=== PATIENT | male | born 1960 | race Caucasian/White ===

== ENCOUNTER 2020-05-22 09:52 | Outpatient (REF) | payer OTHER, SELFPAY | END 2020-05-22 09:53 | disposition home or self-care (01) | LOC: HO.LNP 09:52 | PROVIDERS: PCP Internal Medicine; Visit Provider Surgery | DX: D17.1 Benign lipomatous neoplasm of skin and subcutaneous tissue of trunk (principal) | CPT/HCPCS: 11403; 88304 ==

== ENCOUNTER → 2020-05-25 08:45 | Outpatient (BNVA) | payer OTHER, SELFPAY | PROVIDERS: PCP Internal Medicine; Visit Provider Orthopaedic Surgery | DX: Z47.1 Aftercare following joint replacement surgery (principal); Z96.652 Presence of left artificial knee joint | CPT/HCPCS: 99211; 99213 ==

== ENCOUNTER → 2020-06-02 08:58 | Outpatient (BNVA) | payer OTHER, SELFPAY | PROVIDERS: PCP Internal Medicine; Referring Provider Internal Medicine; Visit Provider Surgery | DX: Z09 Encounter for follow-up examination after completed treatment for conditions other than malignant neoplasm (principal); Z87.2 Personal history of diseases of the skin and subcutaneous tissue | CPT/HCPCS: 99212; 99213 ==

== ENCOUNTER 2020-06-05 07:24 | Emergency (ER) | payer OTHER, SELFPAY ==
[2020-06-05 07:47] VITALS: BP 159/90; PULSE 74; RESP 18; TEMP 36.6; O2SAT 96; BMI 30.5
--- NOTE | 2020-06-05 08:41 | CT_ITS ---
EXAMINATION: CT ANGIOGRAM NECK WITH CONTRAST CT ANGIOGRAM BRAIN WITH CONTRAST CLINICAL INFORMATION: Right-sided neck pain/atraumatic. COMPARISON: None available. TECHNIQUE: Test bolus sequences followed by intravenous administration 80 mL of Omnipaque 350. Helical imaging was performed in the axial plane from the thoracic inlet to the skull vertex. Delayed postcontrast imaging of the head was also performed. The data was processed at the cardiac cath lab radiology technologist workstation for generation of MIP sequences. Angled MIPs and volume rendered reformatted images were also generated at an offline 3D workstation under concurrent supervision. Stenoses are assessed in accordance with NASCET criteria unless otherwise indicated. This CT examination was performed using dose optimization techniques as appropriate, variously including the following: *Automated exposure control *Adjustment of mA and/or kV according to patient size (this includes techniques or standardized protocols for targeted exams where dose is matched to indication/reason for exam; i.e. extremities or head) *Use of iterative reconstruction technique FINDINGS: BRAIN: [There is no intracranial hemorrhage, hydrocephalus, extra-axial surface collection, midline shift, or other herniation pattern. Diallo to white matter differentiation is diffusely maintained without evidence of an evolved acute territorial infarct. The basilar cisterns are preserved. No significant soft tissue abnormality. No acute osseous abnormality. The paranasal sinuses and the mastoid air cells are well aerated.] CERVICAL SOFT TISSUES AND LUNG APICES: Advanced degenerative changes involving the left sternoclavicular joint. At C7-T1, disc osteophyte and advanced facet arthropathy result in moderate to severe right-sided foraminal stenosis. At C5-C6, disc osteophyte and facet arthropathy result in moderate right-sided foraminal stenosis. Central canal is obscured by artifact and not well assessed on this CT study. There is multilevel cervical spondylosis. 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 NECK CTA: [There is a classic 3 vessel configuration of the aortic arch. Proximal arch vessels are non-stenotic. The vertebral arteries are codominant. No significant ostial stenosis is visualized on either side. Both vertebral arteries are widely patent throughout their extracranial cervical course. Both common and internal carotid arteries are normal in course and caliber.] BRAIN CTA: [There is normal opacification of major intracranial arteries. No focal flow-limiting stenosis nor discrete proximal large artery occlusion. No aneurysm. Timing of the contrast bolus allows assessment of the major dural venous sinuses, which all opacify normally] IMPRESSION: No acute intracranial findings. No acute arterial occlusions and no significant arterial stenoses within the head or neck. At C7-T1, disc osteophyte and advanced facet arthropathy result in moderate to severe right-sided foraminal stenosis. At C5-C6, disc osteophyte and facet arthropathy result in moderate right-sided foraminal stenosis. Central canal is obscured by artifact and not well assessed on this CT study. Advanced degenerative changes involving the left sternoclavicular joint.
--- NOTE | 2020-06-05 08:41 | ED_ITS ---
HPI - Neck Pain/Injury General Chief Complaint: Neck Pain/Injury Stated Complaint: NECK SPASM Time Seen by Provider: 06/05/20 08:16 Source: patient Mode of arrival: ambulatory Limitations: no limitations History of Present Illness HPI Narrative: 59-year-old male with a past medical history of high cholesterol, hypertension, atrial fibrillation, BPH here with neck pain since yesterday. The patient tells me there was no injury or trauma. He woke yesterday with right-sided neck pain and throughout the last 24 hours the pain has continued unrelieved with Tylenol home. No headache, fever, vomiting, weakness, numbness or tingling. MD complaint: neck pain Onset (ago): day(s) (2 days) Place: other ( no injury) Radiation: right lateral Severity: moderate Quality: sharp Duration: intermittent Relieving factors: none Exacerbating factors: none Associated symptoms: none Treatments prior to arrival: acetaminophen Related Data Home Medications Medication Instructions Recorded Confirmed desmopressin 0.2 mg tablet 0.2 mg PO DAILY 05/18/20 05/23/20 diltiazem HCl 180 mg 180 mg PO DAILY 05/18/20 05/23/20 capsule,extended release 24 hr lisinopril 10 mg tablet 10 mg PO DAILY 05/18/20 05/23/20 ranitidine HCl 300 mg capsule mg PO 05/18/20 05/23/20 simvastatin 40 mg tablet 40 mg PO BEDTIME 05/18/20 05/23/20 diltiazem HCl 180 mg 180 mg PO DAILY 05/23/20 05/23/20 capsule,extended release 24 hr aspirin 81 mg chewable tablet 81 mg PO DAILY 05/25/20 Allergies Allergy/AdvReac Type Severity Reaction Status Date / Time ciprofloxacin [From CIPRO] Allergy Intermediate SWELLING Verified 06/02/20 09:06 levofloxacin [Levaquin] Allergy Unknown facial Verified 06/02/20 09:06 swelling Review of Systems Review of Systems: Yes all other systems are reviewed and are negative Constitutional: Constitutional: Reports no additional constitutional complain ts, Denies body ache(s), Denies chills, Denies fever(s), Denies headache(s) and Denies weakness Eyes: Eyes: Reports no additional eye complaints and Denies change in vision ENT: Reports system reviewed and no additional complaints, except as documented, Denies dizziness, Denies headache(s), Denies nasal congestion, Denies nasal discharge and Reports neck pain Cardiovascular: Cardiovascular: Reports no additional cardiovascular complaints, Denies chest pain, Denies leg edema and Denies dyspnea Respiratory: Respiratory: Reports no additional respiratory complaints, Denies cough and Denies dyspnea Gastrointestinal: Gastrointestinal: Reports no additional gastrointestinal complaints, Denies abdominal pain, Denies diarrhea, Denies nausea and Denies vomiting Genitourinary: Genitourinary: Denies urinary incontinence Musculoskeletal: Musculoskeletal: Reports no additional musculoskeletal complaints, Denies back pain, Denies arthralgias, Denies joint swelling, Reports neck pain, Denies numbness and Denies tingling Integumentary/Breasts: Skin/Breast: Reports system reviewed and no additional complaints, except as docu and Denies rash Neurologic: Reports system reviewed and no additional complaints, except as documented, Denies Abnormal speech present, Denies dizziness, Denies headache(s), Denies numbness, Denies tingling and Denies weakness PMFSH Past Medical History Attestation statement: The following information was validated with the patient. Source: nursing notes reviewed Medical History BPH (benign prostatic hyperplasia) Chronic pain Essential hypertension GERD (gastroesophageal reflux disease) Gout Hyperlipidemia PAF (paroxysmal atrial fibrillation) Surgical History History of appendectomy History of arthroplasty of left knee History of arthroplasty of right shoulder History of arthroscopy of left knee History of arthroscopy of right knee History of prior ablation treatment History of prostate surgery Family History Family History Father No problems noted. Mother No problems noted. Son No problems noted. Social History Social History Alcohol intake: former Year quit: 2010 Smoking Status: Never smoker Substance Use Type: Marijuana Advance Directives: No Advance Directives Information Provided: Yes Physical Exam Vital Signs: Vital Signs: Vital Signs Temp Pulse Resp BP Pulse Ox 06/05/20 07:47 98 F 74 18 159/90 H 96 Body Mass Index 30.5 Const: General: cooperative, healthy appearing, comfortable and no acute distress Orientation/consciousness: patient oriented x3 Limitations: no limitations HENMT: Head: Yes normal to inspection Ears: hearing grossly normal bilaterally General nose exam: Normal external nose present Face and sinus: Yes normal facial exam Mouth: Normal oral and palatal mucosa present Throat: Yes posterior oropharynx normal Eyes: General: appearance normal, both eyes and all related structures Pupils: Equal, round and reactive pupils present Neck: Other: right lateral neck pain with radiation down into the trapezius with palpable muscle spasm. No midline tenderness, step-offs or deformities. Pain is worsened with right and left lateral head movement. No meningeal signs. No lymphadenopathy. Neck: Yes normal visual inspection Chest: Chest palpation & inspection: normal inspection of the chest Resp: Effort & Inspection: normal respiratory effort Auscultation: clear to auscultation bilaterally Cardio: Rate: regular rate Rhythm: regular rhythm Peripheral pulses: Peripheral pulses 2+ throughout GI: Inspection: Yes normal to inspection Palpation (GI): Soft to palpation and nontender Auscultation: normal bowel sounds Back/Spine/Pelvis: Thoracic/Lumbar Spine: thoracic and lumbar spine normal to inspection Skin: General skin exam: no rashes or lesions noted Neuro: General: patient oriented x3, no focal motor deficits and normal sensation to monofilament Cranial nerves: Yes CN's II-XII intact bilaterally and Yes Equal, round and reactive pupils present Cognition (Neuro): normal cognition Speech: No Abnormal speech present Gait exam (Neuro): Normal gait present Motor exam (neuro): 5/5 motor strength present throughout and Motor abnormalities not present Sensory Exam: Normal double simultaneous stimulation for sensation Extrem: General: Yes normal to inspection MDM - Neck Pain/Injury MDM Narrative Medical decision making narrative: 59-year-old male here with atraumatic neck pain for the last 24 hours. Exam is consistent with torticollis versus muscle spasm. Discharge Plan Discharge Prescriptions: No Action diltiazem HCl [Cartia XT] 180 mg capsule,extended release 24hr 180 mg PO DAILY RF: 0 simvastatin 40 mg tablet 40 mg PO BEDTIME RF: 0 desmopressin 0.2 mg tablet 0.2 mg PO DAILY RF: 0 lisinopril 10 mg tablet 10 mg PO DAILY RF: 0 diltiazem HCl 180 mg capsule,extended release 24hr 180 mg PO DAILY RF: 0 ranitidine HCl 300 mg capsule PO RF: 0
--- NOTE | 2020-06-05 08:43 | ED.NECK ---
HPI - Neck Pain/Injury General Chief Complaint: Neck Pain/Injury Stated Complaint: NECK SPASM Time Seen by Provider: 06/05/20 08:16 Source: patient Mode of arrival: ambulatory Limitations: no limitations History of Present Illness HPI Narrative: 59 YEARS OLD MALE PRESENTED AMBULATORY TO THE EMERGENCY DEPARTMENT WITH THE CHIEF COMPLAINT OF THE RIGHT SIDE NECK PAIN, NO TRAUMA, NO FEVER SYMPTOMS STARTED LAST NIGHT HE TOOK SOME ACETAMINOPHEN WITHOUT THE RELIEVE complaint: neck pain Onset (ago): day(s) (1 DAY) Place: home Radiation: right lateral Severity: moderate Severity scale (1-10): 5 Quality: sharp and dull Duration: constant Relieving factors: none Exacerbating factors: none Associated symptoms: none Related Data Home Medications Medication Instructions Recorded Confirmed desmopressin 0.2 mg tablet 0.2 mg PO DAILY 05/18/20 05/23/20 diltiazem HCl 180 mg 180 mg PO DAILY 05/18/20 05/23/20 capsule,extended release 24 hr lisinopril 10 mg tablet 10 mg PO DAILY 05/18/20 05/23/20 ranitidine HCl 300 mg capsule mg PO 05/18/20 05/23/20 simvastatin 40 mg tablet 40 mg PO BEDTIME 05/18/20 05/23/20 diltiazem HCl 180 mg 180 mg PO DAILY 05/23/20 05/23/20 capsule,extended release 24 hr aspirin 81 mg chewable tablet 81 mg PO DAILY 05/25/20 Previous Rx's Medication Instructions Recorded oxycodone 10 mg PO Q8H PRN #12 cap 06/05/20 Allergies Allergy/AdvReac Type Severity Reaction Status Date / Time ciprofloxacin [From CIPRO] Allergy Intermediate SWELLING Verified 06/02/20 09:06 levofloxacin [Levaquin] Allergy Unknown facial Verified 06/02/20 09:06 swelling Review of Systems Review of Systems: Yes all other systems are reviewed and are negative ENT: Reports system reviewed and no additional complaints, except as documented Cardiovascular: Cardiovascular: Reports no additional cardiovascular complaints Respiratory: Respiratory: Reports no additional respiratory complaints Gastrointestinal: Gastrointestinal: Reports no additional gastrointestinal complaints [facility] Past Medical History Attestation statement: The following information was validated with the patient. Medical History BPH (benign prostatic hyperplasia) Chronic pain Essential hypertension GERD (gastroesophageal reflux disease) Gout Hyperlipidemia PAF (paroxysmal atrial fibrillation) Surgical History History of appendectomy History of arthroplasty of left knee History of arthroplasty of right shoulder History of arthroscopy of left knee History of arthroscopy of right knee History of prior ablation treatment History of prostate surgery Family History Family History Father No problems noted. Mother No problems noted. Son No problems noted. Social History Social History Alcohol intake: former Year quit: 2010 Smoking Status: Never smoker Substance Use Type: Marijuana Advance Directives: No Advance Directives Information Provided: Yes Physical Exam Vital Signs: Vital Signs: Vital Signs Temp Pulse Resp BP Pulse Ox 06/05/20 10:27 66 18 123/81 96 06/05/20 07:47 98 F 74 18 159/90 H 96 Body Mass Index 30.5 Const: General: healthy appearing and comfortable Orientation/consciousness: oriented to person HENMT: Head: Yes normal to inspection Eyes: General: appearance normal, both eyes and all related structures Neck: Neck: Yes normal visual inspection and Yes other ( RIGHT-SIDED TENDERNESS NO MIDLINE TENDERNESS) Thyroid: Thyroid normal Chest: Chest palpation & inspection: normal inspection of the chest and normal palpation of entire chest wall Resp: Effort & Inspection: normal respiratory effort and able to speak in complete sentences Cardio: Jugular venous distension: no JVD Palpation: normal PMI GI: Inspection: Yes normal to inspection Skin: General skin exam: no rashes or lesions noted and elasticity normal Neuro: General: oriented to person Extrem: General: Yes normal to inspection and Yes full ROM Course Reevaluation(s) Reevaluation #1: at THIS TIME IS FEELING BETTER CT SCAN OF THE NECK HAD A NEGATIVE Time: 11:53 [facility] - Neck Pain/Injury Lab Data Result diagrams: 06/05/20 09:29 06/05/20 09:29 Labs: Lab Results 06/05/20 06/05/20 06/05/20 Range/Units 09:29 09:29 09:29 WBC 9.2 (4.8-10.8) X10*3/uL RBC 4.90 (4.60-5.80) X10*6/uL Hgb 14.3 (14.0-18.0) g/dl Hct 42.7 (42-52) % MCV 87.1 (80-98) fL MCH 29.2 (27.0-33.0) pg MCHC 33.5 (31.0-36.0) g/dl RDW 14.0 (11.0-16.0) % Plt Count 188 (160-400) X10*3/uL MPV 9.0 L (9.4-12.4) fL Immature Gran % (Auto) 0.2 (0.0-0.4) % Neut % (Auto) 76.4 H (45-73) % Lymph % (Auto) 16.7 L (20-40) % Benton % (Auto) 5.3 (2-11) % Eos % (Auto) 1.0 (0-4) % Baso % (Auto) 0.4 (0-2) % Lymph # (Auto) 1.5 (1.2-4.9) X10*3/uL Benton # (Auto) 0.5 (0.1-1.2) X10*3/uL Eos # (Auto) 0.1 (0.0-0.4) X10*3/uL Baso # (Auto) 0.0 (0.0-0.2) X10*3/uL Abs Immat Gran (auto) 0.02 (0.00-0.03) X10*3/uL Absolute Neuts (auto) 7.0 (2.0-8.3) X10*3/uL Absolute Nucleated RBC 0.000 (0.0-0.012) X10*3/uL Nucleated RBC % (auto) 0.0 (0.0-0.2) /100WBC Sodium 137 (135-145) mmol/L Potassium 4.4 (3.3-5.1) mmol/l Chloride 103 (96-108) mmol/L Carbon Dioxide 25 (22-29) mmol/L Anion Gap 13 (12-20) BUN 20 H (9-16) mg/dL Creatinine 0.74 (0.5-1.4) mg/dL Estim Creat Clear Calc 132.8 Estimated GFR > 60 Random Glucose 103 (60-115) mg/dL Calcium 9.3 (8.4-10.2) mg/dL Total Bilirubin 0.8 (0.0-1.0) mg/dL AST 27 (5-37) U/L ALT 27 (0-40) U/L Alkaline Phosphatase 70 (39-117) U/L Troponin I High Sens < 3.5 (<3.5-35.0) ng/L Total Protein 7.0 (6.5-8.0) g/dL Albumin 4.5 (3.5-5.0) g/dL Imaging Data CT scan - head: Radiologist's impression: [There is a classic 3 vessel configuration of the aortic arch. Proximal arch vessels are non-stenotic. The vertebral arteries are codominant. No significant ostial stenosis is visualized on either side. Both vertebral arteries are widely patent throughout their extracranial cervical course. Both common and internal carotid arteries are normal in course and caliber.] BRAIN CTA: [There is normal opacification of major intracranial arteries. No focal flow-limiting stenosis nor discrete proximal large artery occlusion. No aneurysm. Timing of the contrast bolus allows assessment of the major dural venous sinuses, which all opacify normally] IMPRESSION: No acute intracranial findings. No acute arterial occlusions and no significant arterial stenoses within the head or neck. At C7-T1, disc osteophyte and advanced facet arthropathy result in moderate to severe right-sided foraminal stenosis. At C5-C6, disc osteophyte and facet arthropathy result in moderate right-sided foraminal stenosis. Central canal is obscured by artifact and not well assessed on this CT study. Advanced degenerative changes involving the left sternoclavicular joint. ECG Data Attestation: I personally reviewed and interpreted this ECG as follows: ECG interpretation time: 10:19 Pacemaker model: NORMAL SINUS RHYTHM RATE IS [address]-T CHANGES Discharge Plan Discharge Clinical Impression: Neck pain, acute Patient Disposition: Home, Self-Care Instructions: Acute Neck Pain (ED) Additional Instructions: follow-up with your primary care physician on Monday, return if he worsens, numbness in the hands or legs, any concern Prescriptions: New oxycodone 5 mg capsule 10 mg PO Q8H PRN (Reason: pain) Qty: 12 RF: 0 No Action diltiazem HCl [Cartia XT] 180 mg capsule,extended release 24hr 180 mg PO DAILY RF: 0 simvastatin 40 mg tablet 40 mg PO BEDTIME RF: 0 desmopressin 0.2 mg tablet 0.2 mg PO DAILY RF: 0 lisinopril 10 mg tablet 10 mg PO DAILY RF: 0 diltiazem HCl 180 mg capsule,extended release 24hr 180 mg PO DAILY RF: 0 ranitidine HCl 300 mg capsule PO RF: 0 Interventions: ED Discharge Assessment Last Done: 06/05/20 12:55 Discharge Date/Time: 06/05/20 12:56
--- NOTE | 2020-06-05 08:46 | ECG_ITS ---
Test Reason : HEAD,NECK PAIN Blood Pressure : / mmHG Vent. Rate : 063 BPM Atrial Rate : 063 BPM P-R Int : 158 ms QRS Dur : 102 ms QT Int : 434 ms P-R-T Axes : 041 -13 037 degrees QTc Int : 444 ms Normal sinus rhythm Normal ECG When compared with ECG of 29-AUG-2019 12:34, No significant change was found Referred By: Angus Alexander Electronically Signed By:ELDER PEARSON MD
[2020-06-05] MEDS: Ketorolac Tromethamine 15 MG/ML VIAL IV (09:10)
[2020-06-05] MEDS: diazePAM 5 MG TABLET PO (09:10)
[2020-06-05 09:35] LABS: MANUAL DIFF FLAG NO
[2020-06-05 09:39] LABS: Basophils Percent Auto 0.4 % (0-2); Eosinophils Absolute Auto 0.1 X10*3/uL (0.0-0.4); Hematocrit 42.7 % (42-52); Hemoglobin 14.3 g/dl (14.0-18.0); Imm Gran Abs Auto 0.02 X10*3/uL (0.00-0.03); Imm Gran Pct Auto 0.2 % (0.0-0.4); Lymphocytes Absolute Auto 1.5 X10*3/uL (1.2-4.9); Lymphocytes Percent Auto 16.7 % (20-40); Mean Corpuscular HGB Conc 33.5 g/dl (31.0-36.0); Mean Corpuscular Hemoglobin 29.2 pg (27.0-33.0); Mean Corpuscular Volume 87.1 fL (80-98); Monocytes Absolute Auto 0.5 X10*3/uL (0.1-1.2); Monocytes Percent Auto 5.3 % (2-11); Neutrophils Percent Auto 76.4 % (45-73); Platelet Count 188 X10*3/uL (160-400); White Blood Count 9.2 X10*3/uL (4.8-10.8)
[2020-06-05 10:12] LABS: Alanine Aminotransferase 27 U/L (0-40); Albumin Level 4.5 g/dL (3.5-5.0); Alkaline Phosphatase 70 U/L (39-117); Anion Gap 13 (12-20); Aspartate Amino Transferase 27 U/L (5-37); Bilirubin Total 0.8 mg/dL (0.0-1.0); Blood Urea Nitrogen 20 mg/dL (9-16); Calcium 9.3 mg/dL (8.4-10.2); Carbon Dioxide 25 mmol/L (22-29); Chloride 103 mmol/L (96-108); Creatinine Clr Calc Pharmacy 132.8; Estimated Glomerular Filt Rate > 60; Glucose Random 103 mg/dL (60-115); Potassium 4.4 mmol/l (3.3-5.1); Sodium 137 mmol/L (135-145)
[2020-06-05 10:17] LABS: Troponin-I High Sensitivity < 3.5 ng/L (<3.5-35.0)
[2020-06-05 10:27] VITALS: BP 123/81; PULSE 66; RESP 18; O2SAT 96
[2020-06-05] MEDS: oxyCODONE HCl Immed Release 5 MG TABLET 10 MG PO (10:31)
[2020-06-05] MEDS: iohexoL 350 MG/ML 100 ML INFUS..BTL IV (11:13)
--- NOTE | 2020-06-05 11:26 | PC.NURSE ---
rESTING quietly. skin pwd. pain has improved. denies pain at rest but increases with movement. awaiting ct results. nki noneuro deficits.
== END 2020-06-05 12:56 | disposition home or self-care (01) ==
PROVIDERS: Emergency Provider Emergency Medicine; PCP Internal Medicine
DX: M54.2 Cervicalgia (principal); M62.838 Other muscle spasm; Z79.899 Other long term (current) drug therapy
CPT/HCPCS: 36415; 70496; 70498; 80053; 84484; 85025; 93005; 96372; 96374; 99284; J1885

== ENCOUNTER → 2020-08-12 10:30 | Outpatient (BNVA) | payer OTHER, SELFPAY | PROVIDERS: PCP Internal Medicine; Visit Provider Urology | DX: Z76.89 Persons encountering health services in other specified circumstances (principal) ==

== ENCOUNTER 2020-09-14 03:54 | Emergency (ER) | payer OTHER, SELFPAY ==
--- NOTE | 2020-09-14 04:34 | PC.NURSE ---
MULTIPLE ATTEMPTS TO GET PATIENT INTO THE HOSPITAL, BROUGHT TO ROOM ON ARRIVAL BUT RAN FROM ROOM OUTSIDE, STATING HE CAN'T SIT IN A ROOM. REFUSING TO BE SEEN IF THE PROVIDER CAN NOT SEE HIM WITHOUT WAITING IN A ROOM. TALKING WITH PROVIDER WHO WILL DO HER BEST TO ACCOMMODATE PATIENT BUT HAVING THIS RN EXPLAIN THAT IT IS AN EMERGENCY DEPARTMENT AND THE PROVIDER CAN GET PULLED AWAY AT AN TIME FOR A CRITICAL PATIENT. PATIENT VERBALIZED UNDERSTANDING ALSO STATING HE WOULD FIND A RIDE HOME IF GIVEN MEDICATIONS THAT COULD MAKE HIM SLEEPY. CONTNIUED ATTEMPTS TO GET PATIENT IN THE BUILDING.
[2020-09-14 04:40] VITALS: RESP 24; TEMP 36.6; BMI 32.0
[2020-09-14 05:01] VITALS: BP 154/103; PULSE 70; RESP 24; O2SAT 98
--- NOTE | 2020-09-14 05:03 | ED.ANXIETY ---
HPI - Anxiety General Chief Complaint: Anxiety Stated Complaint: ANXIETY Time Seen by Provider: 09/14/20 04:03 Source: patient Mode of arrival: ambulatory Limitations: no limitations History of Present Illness complaint: anxiety Onset (ago): hour(s) (few) Symptoms: sense of impending doom Severity: similar to previous episodes Quality: constant Place: home History of similar episodes: Yes Provoking factors: none known Relieving factors: nothing Exacerbating factors: nothing Associated symptoms: denies other symptoms Related Data Home Medications Medication Instructions Recorded Confirmed desmopressin 0.2 mg tablet 0.2 mg PO DAILY 05/18/20 08/12/20 diltiazem HCl 180 mg 180 mg PO DAILY 05/18/20 08/12/20 capsule,extended release 24 hr lisinopril 10 mg tablet 10 mg PO DAILY 05/18/20 08/12/20 ranitidine HCl 300 mg capsule mg PO 05/18/20 08/12/20 simvastatin 40 mg tablet 40 mg PO BEDTIME 05/18/20 08/12/20 diltiazem HCl 180 mg 180 mg PO DAILY 05/23/20 08/12/20 capsule,extended release 24 hr aspirin 81 mg chewable tablet 81 mg PO DAILY 05/25/20 08/12/20 doxycycline hyclate 50 mg capsule 50 mg PO BID 08/12/20 08/12/20 Previous Rx's Medication Instructions Recorded oxycodone 10 mg PO Q8H PRN #12 cap 06/05/20 desmopressin 0.2 mg tablet 0.2 mg PO DAILY 90 Days #90 tab 08/11/20 testosterone cypionate 200 mg/mL 200 mg IM Q2W 30 Days #2 ml 09/01/20 intramuscular oil syringe with needle 3 mL 21 gauge #100 ea 09/02/20 x 1 1/2 lorazepam [Ativan] 1 mg PO BID PRN #8 tab 09/14/20 Allergies Allergy/AdvReac Type Severity Reaction Status Date / Time ciprofloxacin [From CIPRO] Allergy Intermediate SWELLING Verified 08/12/20 10:35 levofloxacin [Levaquin] Allergy Unknown facial Verified 08/12/20 10:35 swelling Review of Systems Review of Systems: Constitutional : No Fever, No Chills ENT/Mouth : No Ear Pain, No Nasal Congestion, No sore throat Eyes: No Eye Pain, No Swelling, No Redness Cardiovascular : No Chest Pain, No SOB Respiratory : No Cough, No Sputum, No Dyspnea Gastrointestinal : No Nausea, No Vomiting, No Diarrhea, No Hematochezia, No Melena Genitourinary : No Dysuria, No Urinary Frequency, No Hematuria Musculoskeletal : No Myalgias Skin : No Skin Lesions, No rash Neuro : No Weakness, No Numbness, No Paresthesias, No Dizziness, No Headache Psych : positive Anxiety, no Depression, noSI/HI PMFSH Past Medical History Attestation statement: The following information was validated with the patient. Medical History BPH (benign prostatic hyperplasia) Chronic pain Essential hypertension GERD (gastroesophageal reflux disease) Gout Hyperlipidemia Hypogonadism in male PAF (paroxysmal atrial fibrillation) Surgical History History of appendectomy History of arthroplasty of left knee History of arthroplasty of right shoulder History of arthroscopy of left knee History of arthroscopy of right knee History of prior ablation treatment History of prostate surgery Family History Family History Father No problems noted. Mother No problems noted. Son No problems noted. Social History Social History Alcohol intake: current Smoking Status: Never smoker Smoked in Last 30 Days: No Use of substances other than those prescribed or required for medical reasons: Unknown Substance Use Type: Marijuana Advance Directives: No Advance Directives Information Provided: No Physical Exam Vital Signs: Vital Signs: Last Vital Signs Temp 97.8 F 09/14/20 04:40 Pulse 70 09/14/20 05:01 Resp 24 H 09/14/20 05:01 BP 154/103 H 09/14/20 05:01 Pulse Ox 98 09/14/20 05:01 Body Mass Index 32.0 Appearance: Alert. Oriented X3. No acute distress. Anxious Eyes: Pupils equal, round and reactive to light. ENT: Pharynx normal. Neck: Normal inspection. Neck supple. CVS: Normal heart rate and rhythm. Pulses normal. Respiratory: No respiratory distress. Breath sounds normal. Abdomen: Soft and nontender. Skin: Skin warm and dry. Normal skin color. Normal skin turgor. Extremities: No lower extremity edema. No calf ttp Neuro: Oriented X 3. No motor deficit. No sensory deficit. Course Course Course Narrative: patient feels better, NSR 64 on monitor stable for DC MDM - Anxiety MDM Narrative Medical decision making narrative: 59 yo male with hx of anxiety comes in with attack no CP/SOB - very odd presentation refuses to wear mask initially refused to come into ED at this time offered PO ativan, no SI Discharge Plan Discharge Clinical Impression: Acute anxiety Patient Disposition: Home, Self-Care Instructions: Anxiety (ED) Additional Instructions: return to ED for any worsening symptoms or concerns Prescriptions: New lorazepam [Ativan] 1 mg tablet 1 mg PO BID PRN (Reason: anxiety) Qty: 8 RF: 0 No Action desmopressin 0.2 mg tablet 0.2 mg PO DAILY 90 Days Qty: 90 RF: 2 testosterone cypionate [Depo-Testosterone] 200 mg/mL oil 200 mg IM Q2W 30 Days Qty: 2 RF: 5 (DME) syringe with needle [BD Integra Syringe] 3 mL 21 gauge x 1 1/2 syringe See Rx Instructions .ROUTE .MEDSUPPLY Qty: 100 RF: 0 oxycodone 5 mg capsule 10 mg PO Q8H PRN (Reason: pain) Qty: 12 RF: 0 diltiazem HCl [Cartia XT] 180 mg capsule,extended release 24hr 180 mg PO DAILY RF: 0 aspirin 81 mg tablet,chewable 81 mg PO DAILY RF: 0 simvastatin 40 mg tablet 40 mg PO BEDTIME RF: 0 desmopressin 0.2 mg tablet 0.2 mg PO DAILY RF: 0 lisinopril 10 mg tablet 10 mg PO DAILY RF: 0 diltiazem HCl 180 mg capsule,extended release 24hr 180 mg PO DAILY RF: 0 ranitidine HCl 300 mg capsule PO RF: 0 doxycycline hyclate 50 mg capsule 50 mg PO BID RF: 0 Referrals: Carissa Zuniga MD [Primary Care Provider] - 2 days (if not better) Stand Alone Forms: Work/School Release
[2020-09-14] MEDS: LORazepam 1 MG TABLET PO (05:07)
--- NOTE | 2020-09-14 05:43 | PC.NURSE ---
PATIENT RESTING ON STRETCHER WITH EYES CLOSED, BREATHING IS EVEN AND UNLABORED SKIN IS P,D,W. NO DISTRESS NOTED AT THIS TIME. WAKING UP AT TIMES TO USE HIS PHONE. MD AT BEDSIDE FOR REASSESSMENT.
[2020-09-14 05:48] VITALS: BP 128/82; PULSE 60; RESP 16; O2SAT 96
[2020-09-14 06:22] VITALS: BP 114/72; PULSE 59; RESP 16
== END 2020-09-14 06:36 | disposition home or self-care (01) ==
PROVIDERS: Emergency Provider Emergency Medicine; PCP Internal Medicine
DX: F41.9 Anxiety disorder, unspecified (principal); I10 Essential (primary) hypertension; I48.0 Paroxysmal atrial fibrillation; Z79.899 Other long term (current) drug therapy
CPT/HCPCS: 99283; 99284

== ENCOUNTER 2020-11-15 16:51 | Inpatient (IN) | payer OTHER, SELFPAY ==
--- NOTE | ~2020-11-15 | XR_ITS ---
EXAMINATION: XR ELBOW, LEFT CLINICAL INFORMATION: Infection. Rule out osteomyelitis COMPARISON: None TECHNIQUE: AP, lateral, and oblique views of the left elbow. FINDINGS: There is diffuse soft tissue swelling. Amorphous calcifications are seen adjacent the olecranon. This could be seen in the setting of gout or calcific bursitis. There is enthesopathy of the distal triceps tendon attachment. 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 No fracture, dislocation, or joint effusion. XR/XR elbow LT 2V IMPRESSION: There is diffuse soft tissue swelling. Numerous amorphic calcifications are seen within the soft tissues overlying the olecranon. This could be seen in the setting of gout or calcific bursitis. No No cortical destruction to suggest osteomyelitis. MRI would be more sensitive if there is continued clinical concern.
[2020-11-15 16:57] VITALS: BP 136/85; PULSE 85; RESP 20; TEMP 36.2; O2SAT 95; BMI 31.1
[2020-11-15 18:53] LABS: MANUAL DIFF FLAG NO
[2020-11-15 18:59] LABS: Glucose Urine UA 100 MG/DL (NEG); Leukocyte Esterase Urine NEG (NEG); Nitrite Urine NEG (NEG); Specific Gravity - Urine 1.025 (1.005-1.025); Urine Blood 1+ (NEG); Urine Ketones NEG (NEG); Urine Protein NEG (NEG-TRACE)
[2020-11-15 19:00] LABS: Basophils Percent Auto 0.3 % (0-2); Eosinophils Absolute Auto 0.2 X10*3/uL (0.0-0.4); Eosinophils Percent Auto 2.2 % (0-4); Hematocrit 47.4 % (42-52); Hemoglobin 15.4 g/dl (14.0-18.0); Imm Gran Abs Auto 0.02 X10*3/uL (0.00-0.03); Imm Gran Pct Auto 0.2 % (0.0-0.4); Lymphocytes Absolute Auto 1.9 X10*3/uL (1.2-4.9); Lymphocytes Percent Auto 19.7 % (20-40); Mean Corpuscular HGB Conc 32.5 g/dl (31.0-36.0); Mean Corpuscular Hemoglobin 29.2 pg (27.0-33.0); Mean Corpuscular Volume 89.8 fL (80-98); Mean Platelet Volume 9.5 fL (9.4-12.4); Monocytes Absolute Auto 0.9 X10*3/uL (0.1-1.2); Monocytes Percent Auto 8.9 % (2-11); Neutrophils Absolute Auto 6.6 X10*3/uL (2.0-8.3); Neutrophils Percent Auto 68.7 % (45-73); Platelet Count 192 X10*3/uL (160-400); Red Blood Count 5.28 X10*6/uL (4.60-5.80); Red Cell Distribution Width 13.6 % (11.0-16.0); White Blood Count 9.6 X10*3/uL (4.8-10.8)
--- NOTE | 2020-11-15 19:00 | ED_ITS ---
HPI - Skin/Abscess/Foreign Bdy General Chief complaint: Skin/Abscess/Foreign Body Stated complaint: red inflamed skin Time Seen by Provider: 11/15/20 18:57 History of Present Illness HPI narrative: Patient complains of increased redness pain and swelling in left elbow, this started several days ago with some minor swelling, went to urgent care yesterday and was started on Keflex and Bactrim for cellulitis, last night he felt feverish with fatigue and body aches and then noticed this morning that despite taking his antibiotics the redness had spread and swelling had increased and pain was worse, there is no dizziness or weakness no fainting, he is able to straighten and bend his arm, he denies any trauma Related Data Home Medications Medication Instructions Recorded Confirmed lisinopril 10 mg tablet 10 mg PO DAILY 05/18/20 11/15/20 simvastatin 40 mg tablet 40 mg PO BEDTIME 05/18/20 11/15/20 diltiazem HCl 180 mg 180 mg PO DAILY 05/23/20 11/15/20 capsule,extended release 24 hr aspirin 81 mg chewable tablet 81 mg PO DAILY 05/25/20 11/15/20 Previous Rx's Medication Instructions Recorded desmopressin 0.2 mg tablet 0.2 mg PO DAILY 90 Days #90 tab 08/11/20 testosterone cypionate 200 mg/mL 200 mg IM Q2W 30 Days #2 ml 09/01/20 intramuscular oil syringe with needle 3 mL 21 gauge #100 ea 09/02/20 x 1 1/2 doxycycline hyclate 50 mg capsule 50 mg PO BID 90 Days #180 cap 10/19/20 lorazepam 1 mg tablet 1 mg PO BID PRN 30 Days #57 tab 11/12/20 cephalexin 500 mg capsule 500 mg PO QID 7 Days #28 cap 11/14/20 sulfamethoxazole 800 1 tab PO Q12H 7 Days #14 tab 11/14/20 mg-trimethoprim 160 mg tablet Allergies Allergy/AdvReac Type Severity Reaction Status Date / Time ciprofloxacin [From CIPRO] Allergy Intermediate SWELLING Verified 10/14/20 09:02 levofloxacin [Levaquin] Allergy Unknown facial Verified 10/14/20 09:02 swelling Review of Systems Review of Systems: Positive for left elbow pain and swelling and redness No dizziness no weakness no confusion no fainting no headache no chest pain no shortness of breath no abdominal pain or nausea or vomiting, no leg swelling, no numbness or weakness Yes all other systems are reviewed and are negative [facility] Past Medical History Source: nursing notes reviewed Medical History (Updated 11/15/20 @ 21:49 by SACHI Reese) BPH (benign prostatic hyperplasia) Chronic pain Essential hypertension GERD (gastroesophageal reflux disease) Gout Hyperlipidemia Hypogonadism in male PAF (paroxysmal atrial fibrillation) Rosacea Surgical History History of appendectomy History of arthroplasty of left knee History of arthroplasty of right shoulder History of arthroscopy of left knee History of arthroscopy of right knee History of prior ablation treatment History of prostate surgery Family History Family History Father No problems noted. Mother No problems noted. Son No problems noted. Social History Social History (Updated 10/14/20 @ 09:26 by Carissa Lau MD) Alcohol intake: never Smoking Status: Never smoker Tobacco Type: Cigarette Substance Use Type: Marijuana Advance Directives: No Advance Directives Information Provided: Yes Physical Exam Vital Signs: Vital Signs: Last Vital Signs Temp 98.7 F 11/15/20 19:38 Pulse 80 11/15/20 19:38 Resp 16 11/15/20 19:38 BP 140/79 H 11/15/20 19:38 Pulse Ox 99 11/15/20 19:38 Body Mass Index 31.1 General appearance no acute distress, and cooperative mildly uncomfortable Head is normocephalic atraumatic Neck is supple Chest is clear to auscultation bilaterally with full symmetrical breath sounds Heart rate and rhythm regular no murmur Abdomen soft nontender The left arm has swelling over the olecranon on which is not boggy or fluctuance, there is redness over the forearm and the medial arm that is sp reading well beyond the marked line, he can extend and flex the arm, neurovascular intact distal Other extremities are normal Neuro motor is 5 over 5 times for sensation is intact and symmetrical, no focal deficits Course Course Course Narrative: X-ray left elbow did not reveal any gas or evidence of bone destruction, lactate and CBC were normal, vital signs were stable As cellulitis is worsening despite outpatient treatment with Bactrim and Keflex patient was admitted for IV antibiotics and vancomycin and Zosyn were started At this point septic joint very unlikely as patient can extend fully and flex well past 90 degrees without any significant discomfort, I communicated to orthopedist sachi deng by text who said patient will be seen tomorrow morning for consult MDM - Skin/Abscess/Foreign Bdy Lab Data Attestation: I reviewed the patient's lab results. Result diagrams: 11/15/20 18:44 11/15/20 18:44 Labs: Lab Results 11/15/20 11/15/20 11/15/20 Range/Units 18:44 18:44 18:44 WBC 9.6 (4.8-10.8) X10*3/uL RBC 5.28 (4.60-5.80) X10*6/uL Hgb 15.4 (14.0-18.0) g/dl Hct 47.4 (42-52) % MCV 89.8 (80-98) fL MCH 29.2 (27.0-33.0) pg MCHC 32.5 (31.0-36.0) g/dl RDW 13.6 (11.0-16.0) % Plt Count 192 (160-400) X10*3/uL MPV 9.5 (9.4-12.4) fL Immature Gran % (Auto) 0.2 (0.0-0.4) % Neut % (Auto) 68.7 (45-73) % Lymph % (Auto) 19.7 L (20-40) % [place] % (Auto) 8.9 (2-11) % Eos % (Auto) 2.2 (0-4) % Baso % (Auto) 0.3 (0-2) % Lymph # (Auto) 1.9 (1.2-4.9) X10*3/uL [place] # (Auto) 0.9 (0.1-1.2) X10*3/uL Eos # (Auto) 0.2 (0.0-0.4) X10*3/uL Baso # (Auto) 0.0 (0.0-0.2) X10*3/uL Abs Immat Gran (auto) 0.02 (0.00-0.03) X10*3/uL Absolute Neuts (auto) 6.6 (2.0-8.3) X10*3/uL Absolute Nucleated RBC 0.000 (0.0-0.012) X10*3/uL Nucleated RBC % (auto) 0.0 (0.0-0.2) /100WBC Sodium 139 (135-145) mmol/L Potassium 4.1 (3.3-5.1) mmol/L Chloride 103 (96-108) mmol/L Carbon Dioxide 25 (22-29) mmol/L Anion Gap 15 (12-20) BUN 17 H (9-16) mg/dL Creatinine 0.83 (0.5-1.4) mg/dL Estim Creat Clear Calc 119.6 Estimated GFR > 60 Random Glucose 78 (60-115) mg/dL Lactic Acid 0.7 (0.5-2.0) mmol/L Calcium 9.1 (8.4-10.2) mg/dL Urine Color Urine Appearance Urine pH (5.0-8.0) Ur Specific [place] (1.005-1.025) Urine Protein (NEG-TRACE) MG/DL Urine Glucose (UA) (NEG) MG/DL Urine Ketones (NEG) MG/DL Urine Blood (NEG) Urine Nitrite (NEG) Ur Leukocyte Esterase (NEG) Urine RBC (0) /HPF Urine WBC (0-4) /HPF Ur Squamous Epith Cells /LPF Urine Bacteria /LPF COVID-19 (JUDY) (Negative) COVID-19 Clin Com 11/15/20 11/15/20 Range/Units 18:47 21:04 WBC (4.8-10.8) X10*3/uL RBC (4.60-5.80) X10*6/uL Hgb (14.0-18.0) g/dl Hct (42-52) % MCV (80-98) fL MCH (27.0-33.0) pg MCHC (31.0-36.0) g/dl RDW (11.0-16.0) % Plt Count (160-400) X10*3/uL MPV (9.4-12.4) fL Immature Gran % (Auto) (0.0-0.4) % Neut % (Auto) (45-73) % Lymph % (Auto) (20-40) % [place] % (Auto) (2-11) % Eos % (Auto) (0-4) % Baso % (Auto) (0-2) % Lymph # (Auto) (1.2-4.9) X10*3/uL [place] # (Auto) (0.1-1.2) X10*3/uL Eos # (Auto) (0.0-0.4) X10*3/uL Baso # (Auto) (0.0-0.2) X10*3/uL Abs Immat Gran (auto) (0.00-0.03) X10*3/uL Absolute Neuts (auto) (2.0-8.3) X10*3/uL Absolute Nucleated RBC (0.0-0.012) X10*3/uL Nucleated RBC % (auto) (0.0-0.2) /100WBC Sodium (135-145) mmol/L Potassium (3.3-5.1) mmol/L Chloride (96-108) mmol/L Carbon Dioxide (22-29) mmol/L Anion Gap (12-20) BUN (9-16) mg/dL Creatinine (0.5-1.4) mg/dL Estim Creat Clear Calc Estimated GFR Random Glucose (60-115) mg/dL Lactic Acid (0.5-2.0) mmol/L Calcium (8.4-10.2) mg/dL Urine Color YELLOW Urine Appearance CLEAR Urine pH 6.0 (5.0-8.0) Ur Specific [place] 1.025 (1.005-1.025) Urine Protein NEG (NEG-TRACE) MG/DL Urine Glucose (UA) 100 H (NEG) MG/DL Urine Ketones NEG (NEG) MG/DL Urine Blood 1+ H (NEG) Urine Nitrite NEG (NEG) Ur Leukocyte Esterase NEG (NEG) Urine RBC 0-2 (0) /HPF Urine WBC 0 (0-4) /HPF Ur Squamous Epith Cells TRACE /LPF Urine Bacteria NONE /LPF COVID-19 (JUDY) Negative (Negative) COVID-19 Clin Com See Note Discharge Plan Discharge Clinical Impression: Cellulitis Qualifiers: Site of cellulitis: extremity Site of cellulitis of extremity: upper extremity Laterality: left Qualified Code(s): L03.114 - Cellulitis of left upper limb Prescriptions: No Action desmopressin 0.2 mg tablet 0.2 mg PO DAILY 90 Days Qty: 90 RF: 2 testosterone cypionate [Depo-Testosterone] 200 mg/mL oil 200 mg IM Q2W 30 Days Qty: 2 RF: 5 (DME) syringe with needle [BD Integra Syringe] 3 mL 21 gauge x 1 1/2 syringe See Rx Instructions .ROUTE .MEDSUPPLY Qty: 100 RF: 0 doxycycline hyclate 50 mg capsule 50 mg PO BID 90 Days Qty: 180 RF: 3 lorazepam [Ativan] 1 mg tablet 1 mg PO BID PRN (Reason: anxiety) 30 Days Qty: 57 RF: 0 sulfamethoxazole-trimethoprim [Bactrim DS] 800-160 mg tablet 1 tab PO Q12H 7 Days Qty: 14 RF: 0 cephalexin 500 mg capsule 500 mg PO QID 7 Days Qty: 28 RF: 0 diltiazem HCl [Cartia XT] 180 mg capsule,extended release 24hr 180 mg PO DAILY RF: 0 aspirin 81 mg tablet,chewable 81 mg PO DAILY RF: 0 simvastatin 40 mg tablet 40 mg PO BEDTIME RF: 0 lisinopril 10 mg tablet 10 mg PO DAILY RF: 0
[2020-11-15 19:03] LABS: Appearance Urine CLEAR; Color Urine YELLOW
[2020-11-15 19:15] LABS: Lactic Acid 0.7 mmol/L (0.5-2.0)
[2020-11-15 19:19] LABS: Anion Gap 15 (12-20); Blood Urea Nitrogen 17 mg/dL (9-16); Calcium 9.1 mg/dL (8.4-10.2); Carbon Dioxide 25 mmol/L (22-29); Chloride 103 mmol/L (96-108); Creatinine Clr Calc Pharmacy 119.6; Estimated Glomerular Filt Rate > 60; Glucose Random 78 mg/dL (60-115); Potassium 4.1 mmol/L (3.3-5.1); Sodium 139 mmol/L (135-145)
[2020-11-15 19:38] VITALS: BP 140/79; PULSE 80; RESP 16; TEMP 37.1; O2SAT 99
[2020-11-15 19:38] LABS: RBC Urine 0-2 /HPF (0); Squamous Epithelial Cell Urine TRACE /LPF; WBC Urine 0 /HPF (0-4)
[2020-11-15] MEDS: Piperacillin Sodium/Tazobactam 3.375 GM in 0.9 % Sodium Chloride 50 ML IV (19:42)
[2020-11-15] MEDS: Ketorolac Tromethamine 30 MG/ML VIAL IVPUSH (20:08)
[2020-11-15] MEDS: vancomycin HCL 1,000 MG in 0.9 % Sodium Chloride 250 ML 270 MG IV (20:08)
--- NOTE | 2020-11-15 21:10 | PC.NURSE ---
PRESENTS WITH NO ORAL TEMP, ATTEMPTED RECTAL TEMP, PT RELUCTANT, WARM TO TOUCH. ALL OTHER VS WNL. C/O SEVERE L ELBOW PAIN, NOT RELIEVED BY TORADOL, PA AWARE. ABXS INFUSED, AWAITING ROOM ASSIGNMENT.
[2020-11-15] MEDS: HYDROmorphone HCl 1 MG/ML SYRINGE IVPUSH (21:21)
[2020-11-15 21:38] LABS: COVID-19 Test Negative (Negative); IDNOW Serial# 9DD0AD1C
[2020-11-15 22:00] VITALS: BP 122/72; PULSE 75; RESP 15; TEMP 36.9; O2SAT 99
--- NOTE | 2020-11-15 23:10 | P.HPHOSP_ITS ---
History of Present Illness Date of Service: 11/15/20 Chief Complaint: cellulitis This is a 59-year-old male with past medical history of HTN, GERD, HLD, gout, paroxysmal AFib status post tubal who presents to the hospital with complaints of worsening redness on his elbow. Patient reports that the day prior to pre sentation he went to urgent care due to the redness in his elbow and was told that he has cellulitis, prescribed oral antibiotics and was sent home. Patient reports that he developed redness around his left elbow 3-4 days ago, had minimal pain, no difficulty with bending his elbow, but today his pain has increased to 10/10, increased redness down to his forearm, and his arm being very hot. He reports that he took 2 doses of his antibiotics. He denies any fever chills, no chest pain, no shortness of breath, no abdominal pain nausea or vomiting, no diarrhea constipation, no urinary symptoms and no lower extremity edema. No numbness or tingling. No difficulty with range of motion. On arrival to the ED hemodynamically stable with no significant abnormal vitals Labs are unremarkable Elbow x-ray shows diffuse soft tissue swelling. Numerous amorphic calcifications within the soft tissues. This could be seen in the setting of gout or calcific bursitis. Past medical history as below Review of Systems Review of Systems: Yes all other systems are reviewed and are negative [facility] Medical History (Updated 11/16/20 @ 06:07 by Helen Tamayo MD) BPH (benign prostatic hyperplasia) Chronic pain Essential hypertension GERD (gastroesophageal reflux disease) Gout Hyperlipidemia Hypogonadism in male PAF (paroxysmal atrial fibrillation) Rosacea Family History Father No problems noted. Mother No problems noted. Son No problems noted. Surgical History History of appendectomy History of arthroplasty of left knee History of arthroplasty of right shoulder History of arthroscopy of left knee History of arthroscopy of right knee History of prior ablation treatment History of prostate surgery Social History (Updated 10/14/20 @ 09:26 by Carissa Lau MD) Household Members: None Housing: Apartment Do you presently have visiting nurse or other home services: No Alcohol intake: never Smoking Status: Former smoker Tobacco Type: Cigarette Smoked in Last 30 Days: No Use of substances other than those prescribed or required for medical reasons: No Substance Use Type: Marijuana Currently Displaying Signs/Symptoms of Drug Intoxication Withdrawal: No Have you been hit, kicked, punched, or otherwise hurt by someone within the past year? If so, by whom?: No Do you feel safe in your current relationship?: No Is there a partner from a previous relationship who is making you feel unsafe now?: No Are you made to feel afraid or neglected: No Advance Directives: No Advance Directives Information Provided: Yes Do you have thoughts of harming others: None Do you have a plan to hurt others: No Plan Recently lost weight without trying: No Meds Allergies Allergy/AdvReac Type Severity Reaction Status Date / Time ciprofloxacin [From CIPRO] Allergy Intermediate SWELLING Verified 10/14/20 09:02 levofloxacin [Levaquin] Allergy Unknown facial Verified 10/14/20 09:02 swelling Active Medications: Current Medications Generic Name Dose Route Start Last Admin Trade Name Freq PRN Reason Stop Dose Admin Acetaminophen 650 mg 11/15/20 22:30 Acetaminophen 325 Mg Tablet PO Q6H PRN Pain, Mild (Pain Scale 1-3) Aspirin 81 mg 11/16/20 09:00 Aspirin 81 Mg Tab.Chew PO DAILY COUNT INCLUDES THE [facility] Atorvastatin Calcium 20 mg 11/16/20 21:00 Atorvastatin Calcium 20 Mg Tablet PO BEDTIME PEREZ Desmopressin Acetate 0.2 mg 11/16/20 09:00 Desmopressin Acetate 0.2 Mg Tablet PO DAILY COUNT INCLUDES THE [facility] Diltiazem HCl 180 mg 11/16/20 09:00 Diltiazem Hcl Cd 180 Mg Cap.Er.24h PO DAILY COUNT INCLUDES THE [facility] Protocol Docusate Sodium 100 mg 11/15/20 22:30 Docusate Sodium 100 Mg Capsule PO DAILY PRN Constipation Enoxaparin Sodium 40 mg 11/15/20 23:00 Enoxaparin Sodium 40 Mg/0.4 Ml Syringe SUBCUT Q24H COUNT INCLUDES THE [facility] Ceftriaxone Sodium 1 gm/ 50 mls @ 100 mls/hr 11/15/20 22:30 Sodium Chloride IV Q24H COUNT INCLUDES THE [facility] Lisinopril 10 mg 11/16/20 09:00 Lisinopril 10 Mg Tablet PO DAILY COUNT INCLUDES THE [facility] Protocol Lorazepam 1 mg 11/15/20 22:30 Lorazepam 1 Mg Tablet PO BID PRN anxiety Ondansetron HCl 4 mg 11/15/20 22:30 Ondansetron Hcl 4 Mg/2 Ml Vial IVPUSH Q8H PRN Nausea and Vomiting Oxycodone HCl 5 mg 11/15/20 22:11 Oxycodone Hcl Immed Release 5 Mg Tablet PO Q4H PRN Pain, Severe (Pain Scale 7-10) Sodium Chloride 3 ml 11/16/20 00:00 0.9 % Sodium Chloride Flush 3 Ml Syringe [facility] Medications Medication Instructions Recorded Confirmed Last Taken Type lisinopril 10 mg tablet 10 mg PO DAILY 05/18/20 11/15/20 Unknown History simvastatin 40 mg tablet 40 mg PO BEDTIME 05/18/20 11/15/20 Unknown History diltiazem HCl 180 mg 180 mg PO DAILY 05/23/20 11/15/20 Unknown History capsule,extended release 24 hr aspirin 81 mg chewable tablet 81 mg PO DAILY 05/25/20 11/15/20 Unknown History Physical Exam Vital Signs and Narrative: Vital Signs: Last Vital Signs Temp 98.4 F 11/15/20 22:00 Pulse 75 11/15/20 22:00 Resp 15 11/15/20 22:00 BP 122/72 11/15/20 22:00 Pulse Ox 99 11/15/20 22:00 Body Mass Index 31.1 Const: General: cooperative and no acute distress Orientation/consciousness: patient oriented x3 Eyes: General: appearance normal, both eyes and all related structures Resp: Effort & Inspection: normal respiratory effort and able to speak in complete sentences Cardio: Rate: regular rate Rhythm: regular rhythm GI: Palpation (GI): Soft to palpation Auscultation: normal bowel sounds Skin: General skin exam: no rashes or lesions noted Neuro: General: patient oriented x3 Cognition (Neuro): normal cognition Extrem: Other: Left elbow redness, heat, extreme tenderness on minimal touch, no limited range of motion General: Yes no pedal edema Results Labs CBC and Chem 7: 11/15/20 18:44 11/15/20 18:44 Labs: Laboratory Results - last 24 hr 11/15/20 11/15/20 11/15/20 18:44 18:44 18:44 MCV 89.8 MCH 29.2 MCHC 32.5 RDW 13.6 Plt Count 192 MPV 9.5 Immature Gran % (Auto) 0.2 Neut % (Auto) 68.7 Lymph % (Auto) 19.7 L [place] % (Auto) 8.9 Eos % (Auto) 2.2 Baso % (Auto) 0.3 Lymph # (Auto) 1.9 [place] # (Auto) 0.9 Eos # (Auto) 0.2 Baso # (Auto) 0.0 Abs Immat Gran (auto) 0.02 Absolute Neuts (auto) 6.6 Absolute Nucleated RBC 0.000 Nucleated RBC % (auto) 0.0 Anion Gap 15 Estim Creat Clear Calc 119.6 Estimated GFR > 60 Random Glucose 78 Lactic Acid 0.7 Calcium 9.1 Urine Color Urine Appearance Urine pH Ur Specific [place] Urine Protein Urine Glucose (UA) Urine Ketones Urine Blood Urine Nitrite Ur Leukocyte Esterase Urine RBC Urine WBC Ur Squamous Epith Cells Urine Bacteria COVID-19 (JUDY) COVID-19 [email or web address] Com 11/15/20 11/15/20 18:47 21:04 MCV MCH MCHC RDW Plt Count MPV Immature Gran % (Auto) Neut % (Auto) Lymph % (Auto) [place] % (Auto) Eos % (Auto) Baso % (Auto) Lymph # (Auto) [place] # (Auto) Eos # (Auto) Baso # (Auto) Abs Immat Gran (auto) Absolute Neuts (auto) Absolute Nucleated RBC Nucleated RBC % (auto) Anion Gap Estim Creat Clear Calc Estimated GFR Random Glucose Lactic Acid Calcium Urine Color YELLOW Urine Appearance CLEAR Urine pH 6.0 Ur Specific [place] 1.025 Urine Protein NEG Urine Glucose (UA) 100 H Urine Ketones NEG Urine Blood 1+ H Urine Nitrite NEG Ur Leukocyte Esterase NEG Urine RBC 0-2 Urine WBC 0 Ur Squamous Epith Cells TRACE Urine Bacteria NONE COVID-19 (JUDY) Negative COVID-19 Clin Com See Note Imaging Radiologist's Impressions: Impressions Elbow X-Ray 11/15/20 19:11 IMPRESSION: There is diffuse soft tissue swelling. Numerous amorphic calcifications are seen within the soft tissues overlying the olecranon. This could be seen in the setting of gout or calcific bursitis. No No cortical destruction to suggest osteomyelitis. MRI would be more sensitive if there is continued clinical concern. Assessment and Plan (1) Gout: Status: Inactive (2) Cellulitis: Qualifiers: Laterality: left Site of cellulitis: extremity Site of cellulitis of extremity: upper extremity Qualified Code(s): L03.114 - Cellulitis of left upper limb Status: Acute Patient presenting with pain, redness, on the left elbow. Was on antibiotics with worsening of his pain and spreading of the redness around his elbow. # gout flare - pt has severe tenderness to touch of his elbow, no minimal ROM - Xray showing calcifications within the soft tissue overlaying the olecranon concerning for gout Plan: - pain control - uric acid - prednisone daily # Cellulitis - given the erythema has spread down to the forearm, will also treat for cellulitis - Ceftriaxone IV - Follow cultures # paroxysmal AFib status post ablation - patient has not been on anticoagulation for 12 years - continue aspirin, and diltiazem # hypertension - continue diltiazem and lisinopril # hyperlipidemia - continue statin DVT prophylaxis: Lovenox
[2020-11-15] MEDS: cefTRIAXone sodium 1 GM in 0.9 % Sodium Chloride 50 ML IV (23:16)
[2020-11-15] MEDS: Enoxaparin Sodium 40 MG/0.4 ML SYRINGE SUBCUT (23:17)
[2020-11-15] MEDS: Acetaminophen 325 MG TABLET 650 MG PO (23:17)
[2020-11-15] MEDS: LORazepam 1 MG TABLET PO (23:17)
[2020-11-15] MEDS: oxyCODONE HCl Immed Release 5 MG TABLET PO (23:17)
[2020-11-16] VITALS (8 sets, daily range): BP systolic 110–150; BP diastolic 62–85; PULSE 65–83; RESP 16–20; TEMP 35.8–36.9; O2SAT 96–98
--- NOTE | 2020-11-16 02:11 | PC.NURSE ---
REPORT PROVIDED TO MERCEDEZ VELOZ FROM [facility]. PT TO BE TRANSPORTED SHORTLY
[2020-11-16] MEDS: 0.9 % Sodium Chloride Flush 3 ML SYRINGE IVFLUSH ×4 (02:50→22:21)
--- NOTE | 2020-11-16 02:50 | PC.NURSE ---
pt transported to [facility] via stretcher by this RN. Pt was able to independently ambulate from ED stretcher in hallway to hospital bed with even and steady gait. Pt without distress noted, 3rd floor staff to bedside upon arrival
[2020-11-16] MEDS: oxyCODONE HCl Immed Release 5 MG TABLET PO ×3 (03:16→14:23)
[2020-11-16 06:30] LABS: MANUAL DIFF FLAG NO
[2020-11-16] MEDS: predniSONE 20 MG TABLET PO (06:44)
[2020-11-16 06:57] LABS: Basophils Percent Auto 0.5 % (0-2); Eosinophils Absolute Auto 0.2 X10*3/uL (0.0-0.4); Eosinophils Percent Auto 3.2 % (0-4); Hematocrit 43.9 % (42-52); Imm Gran Abs Auto 0.02 X10*3/uL (0.00-0.03); Imm Gran Pct Auto 0.3 % (0.0-0.4); Lymphocytes Absolute Auto 1.6 X10*3/uL (1.2-4.9); Lymphocytes Percent Auto 23.8 % (20-40); Mean Corpuscular HGB Conc 31.9 g/dl (31.0-36.0); Mean Corpuscular Hemoglobin 28.8 pg (27.0-33.0); Mean Corpuscular Volume 90.3 fL (80-98); Mean Platelet Volume 9.2 fL (9.4-12.4); Monocytes Absolute Auto 0.7 X10*3/uL (0.1-1.2); Monocytes Percent Auto 11.1 % (2-11); Neutrophils Percent Auto 61.1 % (45-73); Platelet Count 157 X10*3/uL (160-400); Red Blood Count 4.86 X10*6/uL (4.60-5.80); Red Cell Distribution Width 13.8 % (11.0-16.0); White Blood Count 6.6 X10*3/uL (4.8-10.8)
[2020-11-16 07:15] LABS: Anion Gap 13 (12-20); Blood Urea Nitrogen 14 mg/dL (9-16); Calcium 8.1 mg/dL (8.4-10.2); Carbon Dioxide 23 mmol/L (22-29); Chloride 108 mmol/L (96-108); Creatinine Clr Calc Pharmacy 132.4; Estimated Glomerular Filt Rate > 60; Glucose Random 97 mg/dL (60-115); Potassium 4.1 mmol/L (3.3-5.1); Sodium 140 mmol/L (135-145)
--- NOTE | 2020-11-16 08:27 | PM.CNOR ---
History of Present Illness HPI Consult date: 11/16/20 Consult reason: other Chief complaint: Cellulitis Narrative: Mr. Driscoll us a 59 yo male who presented to the ED last evening for increasing left elbow pain, redness, and swelling. He was seen in the outpatient clinic and given oral antibiotics on 11/14/20 but patient felt that his symptoms were worsening so came to the ED. He has been placed on IV Vanco and Zosyn yesterday evening and the redness and pain seem to have decreased slightly. Orthopedics was consulted for further evaluation. Review of Systems Review of Systems: Yes all other systems are reviewed and are negative [facility] Past Medical History Medical History (Updated 11/16/20 @ 09:09 by Tomasa Payne PA-C) BPH (benign prostatic hyperplasia) Chronic pain Essential hypertension GERD (gastroesophageal reflux disease) Gout Hyperlipidemia Hypogonadism in male PAF (paroxysmal atrial fibrillation) Rosacea Family History Family History Father No problems noted. Mother No problems noted. Son No problems noted. Surgical History Surgical History History of appendectomy History of arthroplasty of left knee History of arthroplasty of right shoulder History of arthroscopy of left knee History of arthroscopy of right knee History of prior ablation treatment History of prostate surgery Social History Social History (Updated 10/14/20 @ 09:26 by Carissa Lau MD) Household Members: None Housing: Apartment Do you presently have visiting nurse or other home services: No Alcohol intake: never Smoking Status: Former smoker Tobacco Type: Cigarette Smoked in Last 30 Days: No Use of substances other than those prescribed or required for medical reasons: No Substance Use Type: Marijuana Currently Displaying Signs/Symptoms of Drug Intoxication Withdrawal: No Have you been hit, kicked, punched, or otherwise hurt by someone within the past year? If so, by whom?: No Do you feel safe in your current relationship?: No Is there a partner from a previous relationship who is making you feel unsafe now?: No Are you made to feel afraid or neglected: No Advance Directives: No Advance Directives Information Provided: Yes Do you have thoughts of harming others: None Do you have a plan to hurt others: No Plan Recently lost weight without trying: No Meds Allergies Allergy/AdvReac Type Severity Reaction Status Date / Time ciprofloxacin [From CIPRO] Allergy Intermediate SWELLING Verified 10/14/20 09:02 levofloxacin [Levaquin] Allergy Unknown facial Verified 10/14/20 09:02 swelling Active Medications: Current Medications Generic Name Dose Route Start Last Admin Trade Name Freq PRN Reason Stop Dose Admin Acetaminophen 650 mg 11/15/20 22:30 11/15/20 23:17 Acetaminophen 325 Mg Tablet PO 650 mg Q6H PRN Administration Pain, Mild (Pain Scale 1-3) Aspirin 81 mg 11/16/20 09:00 Aspirin 81 Mg Tab.Chew PO DAILY [facility] Atorvastatin Calcium 20 mg 11/16/20 21:00 Atorvastatin Calcium 20 Mg Tablet PO BEDTIME PEREZ Desmopressin Acetate 0.2 mg 11/16/20 09:00 Desmopressin Acetate 0.2 Mg Tablet PO DAILY [facility] Diltiazem HCl 180 mg 11/16/20 09:00 Diltiazem Hcl Cd 180 Mg Cap.Er.24h PO DAILY [facility] Protocol Docusate Sodium 100 mg 11/15/20 22:30 Docusate Sodium 100 Mg Capsule PO DAILY PRN Constipation Enoxaparin Sodium 40 mg 11/15/20 23:00 11/15/20 23:17 Enoxaparin Sodium 40 Mg/0.4 Ml Syringe SUBCUT 40 mg Q24H PEREZ Administration Ceftriaxone Sodium 1 gm/ 50 mls @ 100 mls/hr 11/15/20 22:30 11/15/20 23:46 Sodium Chloride IV Infused Q24H PEREZ Infusion Lisinopril 10 mg 11/16/20 09:00 Lisinopril 10 Mg Tablet PO DAILY [facility] Protocol Lorazepam 1 mg 11/15/20 22:30 11/15/20 23:17 Lorazepam 1 Mg Tablet PO 1 mg BID PRN Administration anxiety Ondansetron HCl 4 mg 11/15/20 22:30 Ondansetron Hcl 4 Mg/2 Ml Vial IVPUSH Q8H PRN Nausea and Vomiting Oxycodone HCl 5 mg 11/15/20 22:11 11/16/20 03:16 Oxycodone Hcl Immed Release 5 Mg Tablet PO 5 mg Q4H PRN Administration Pain, Severe (Pain Scale 7-10) Prednisone 20 mg 11/16/20 06:10 11/16/20 06:44 Prednisone 20 Mg Tablet PO 20 mg DAILY [facility] Administration Sodium Chloride 3 ml 11/16/20 00:00 11/16/20 02:50 0.9 % Sodium Chloride Flush 3 Ml Syringe IVFLUSH 3 ml QSHIFT [facility] Administration Home Medications Medication Instructions Recorded Confirmed Last Taken Type lisinopril 10 mg tablet 10 mg PO DAILY 05/18/20 11/15/20 Unknown History simvastatin 40 mg tablet 40 mg PO BEDTIME 05/18/20 11/15/20 Unknown History diltiazem HCl 180 mg 180 mg PO DAILY 05/23/20 11/15/20 Unknown History capsule,extended release 24 hr aspirin 81 mg chewable tablet 81 mg PO DAILY 05/25/20 11/15/20 Unknown History Physical Exam Vital Signs: Vital Signs: Last Vital Signs Temp 97.2 F 11/16/20 08:00 Pulse 70 11/16/20 08:00 Resp 18 11/16/20 08:00 BP 132/76 11/16/20 08:00 Pulse Ox 98 11/16/20 08:00 Body Mass Index 31.1 Const: General: cooperative and no acute distress Orientation/consciousness: patient oriented x3 Resp: Effort & Inspection: normal respiratory effort and able to speak in complete sentences Cardio: Peripheral pulses: Peripheral pulses 2+ throughout Skin: General skin exam: no rashes or lesions noted Neuro: General: patient oriented x3 Extrem: Other: Left elbow redness, mild edema, and tenderness to palpation of the olecranon bursa. Full ROM of the elbow. Sensation intact. Radial pulse intact. Results Labs Result Diagrams: 11/16/20 05:57 11/16/20 05:57 Labs: Abnormal lab results 11/15/20 11/15/20 11/15/20 Range/Units 18:44 18:44 18:47 Plt Count (160-400) X10*3/uL MPV (9.4-12.4) fL Lymph % (Auto) 19.7 L (20-40) % [place] % (Auto) (2-11) % BUN 17 H (9-16) mg/dL Calcium (8.4-10.2) mg/dL Urine Glucose (UA) 100 H (NEG) MG/DL Urine Blood 1+ H (NEG) 11/16/20 11/16/20 Range/Units 05:57 05:57 Plt Count 157 L (160-400) X10*3/uL MPV 9.2 L (9.4-12.4) fL Lymph % (Auto) (20-40) % [place] % (Auto) 11.1 H (2-11) % BUN (9-16) mg/dL Calcium 8.1 L D (8.4-10.2) mg/dL Urine Glucose (UA) (NEG) MG/DL Urine Blood (NEG) H & H 11/15/20 11/16/20 Range/Units 18:44 05:57 Hgb 15.4 14.0 (14.0-18.0) g/dl Hct 47.4 43.9 (42-52) % All other labs normal. Assessment and Plan (1) Cellulitis: Qualifiers: Laterality: left Site of cellulitis: extremity Site of cellulitis of extremity: upper extremity Qualified Code(s): L03.114 - Cellulitis of left upper limb Problem details: Medicine to continue antibiotics and monitor cultures Discontinue Prednisone as this is not related to a gout flare Nothing further to do from an orthopedic standpoint Status: Acute (2) Olecranon bursitis of left elbow: Status: Acute
[2020-11-16] MEDS: dilTIAZem HCL CD 180 MG CAP.ER.24H PO (10:02)
[2020-11-16] MEDS: lisinopriL 10 MG TABLET PO (10:02)
[2020-11-16] MEDS: Aspirin 81 MG TAB.CHEW PO (10:02)
[2020-11-16] MEDS: Acetaminophen 325 MG TABLET 650 MG PO ×2 (10:03→16:01)
--- NOTE | 2020-11-16 12:04 | HO.PM.IMPN ---
Subjective Subjective Date of Service: 11/16/20 Interval History: F/u fo left elbow olacrenon bursitits and cellulitis, still has pain but better Review of Systems Gen: no fever Resp: no sob, no cough CV: no chest, no RIVERA, no leg edema GI: No n/v, no abd pain Neuro: No confusion left elbow pain Physical Exam Vital Signs: Vital Signs: Last Vital Signs Temp 98.1 F 11/16/20 11:48 Pulse 69 11/16/20 11:48 Resp 16 11/16/20 11:48 BP 135/83 11/16/20 11:48 Pulse Ox 96 11/16/20 11:48 Body Mass Index 31.1 Const: General: cooperative and no acute distress Orientation/consciousness: patient oriented x3 Resp: Effort & Inspection: normal respiratory effort and able to speak in complete sentences Cardio: Rate: regular rate Rhythm: regular rhythm Peripheral pulses: Peripheral pulses 2+ throughout GI: Palpation (GI): Soft to palpation Auscultation: normal bowel sounds Skin: General skin exam: no rashes or lesions noted Neuro: General: patient oriented x3 Cognition (Neuro): normal cognition Extrem: Other: Left elbow redness, mild edema, and tenderness to palpation of the olecranon bursa. Full ROM of the elbow. Sensation intact. Radial pulse intact. General: Yes no pedal edema Objective Data Current Medications Generic Name Dose Route Start Last Admin Trade Name Freq PRN Reason Stop Dose Admin Acetaminophen 650 mg 11/15/20 22:30 11/16/20 10:03 Acetaminophen 325 Mg Tablet PO 650 mg Q6H PRN Administration Pain, Mild (Pain Scale 1-3) Aspirin 81 mg 11/16/20 09:00 11/16/20 10:02 Aspirin 81 Mg Tab.Chew PO 81 mg DAILY PEREZ Administration Atorvastatin Calcium 20 mg 11/16/20 21:00 Atorvastatin Calcium 20 Mg Tablet PO BEDTIME PEREZ Desmopressin Acetate 0.2 mg 11/16/20 21:00 Desmopressin Acetate 0.2 Mg Tablet PO BEDTIME PEREZ Diltiazem HCl 180 mg 11/16/20 09:00 11/16/20 10:02 Diltiazem Hcl Cd 180 Mg Cap.Er.24h PO 180 mg DAILY PEREZ Administration Protocol Docusate Sodium 100 mg 11/15/20 22:30 Docusate Sodium 100 Mg Capsule PO DAILY PRN Constipation Enoxaparin Sodium 40 mg 11/15/20 23:00 11/15/20 23:17 Enoxaparin Sodium 40 Mg/0.4 Ml Syringe SUBCUT 40 mg Q24H PEREZ Administration Ceftriaxone Sodium 1 gm/ 50 mls @ 100 mls/hr 11/15/20 22:30 11/15/20 23:46 Sodium Chloride IV Infused Q24H PEREZ Infusion Lisinopril 10 mg 11/16/20 09:00 11/16/20 10:02 Lisinopril 10 Mg Tablet PO 10 mg DAILY [facility] Administration Protocol Lorazepam 1 mg 11/15/20 22:30 11/15/20 23:17 Lorazepam 1 Mg Tablet PO 1 mg BID PRN Administration anxiety Ondansetron HCl 4 mg 11/15/20 22:30 Ondansetron Hcl 4 Mg/2 Ml Vial IVPUSH Q8H PRN Nausea and Vomiting Oxycodone HCl 5 mg 11/15/20 22:11 11/16/20 10:02 Oxycodone Hcl Immed Release 5 Mg Tablet PO 5 mg Q4H PRN Administration Pain, Severe (Pain Scale 7-10) Prednisone 20 mg 11/16/20 06:10 11/16/20 10:05 Prednisone 20 Mg Tablet PO Not Given DAILY [facility] Sodium Chloride 3 ml 11/16/20 00:00 11/16/20 10:02 0.9 % Sodium Chloride Flush 3 Ml Syringe IVFLUSH 3 ml QSHIFT PEREZ Administration Labs CBC & Chem 7: 11/16/20 05:57 11/16/20 05:57 Assessment and Plan (1) Cellulitis: Status: Acute (2) Olecranon bursitis of left elbow: Status: Acute Assessment and Plan: Patient presenting with pain, redness, on the left elbow. Was on antibiotics with worsening of his pain and spreading of the redness around his elbow. # Left Elbow bursitis + Cellulitis, probably not out -Abx (Ceftriaxone), change to Doxy, ortho recommends no intervention. D/C steroid # paroxysmal AFib status post ablation -Not on OAC, continue ASA, dilt # hypertension - continue diltiazem and lisinopril # hyperlipidemia - continue statin Probably home tomorrow
--- NOTE | 2020-11-16 13:10 | MHC.CM.PN ---
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 SEE ORTHPEDIC CONSULT DISCHARGE PLAN [facility] PCP DR DARCY ROSA PATIENT TO CALL FOR POST HOSPILA DISCHARGE FOLLOW UYP TRANSPORTATION PATIENT TO [facility]ANEG PROJECT MANAGEMENT ENGINEER TO CONTINUE TO FOLLOW FOR ANY CHANGING D/C NEEDS .
[2020-11-16] MEDS: Doxycycline Hyclate 100 MG in 0.9 % Sodium Chloride 250 ML 166.67 MG IV (13:48)
[2020-11-16] MEDS: oxyCODONE HCl Immed Release 5 MG TABLET 10 MG PO ×2 (18:24→22:20)
[2020-11-16] MEDS: Atorvastatin Calcium 20 MG TABLET PO (22:20)
[2020-11-16] MEDS: Desmopressin Acetate 0.2 MG TABLET PO (22:20)
[2020-11-16] MEDS: Enoxaparin Sodium 40 MG/0.4 ML SYRINGE SUBCUT (22:22)
[2020-11-17] VITALS (7 sets, daily range): BP systolic 118–138; BP diastolic 64–84; PULSE 65–97; RESP 14–18; TEMP 36.2–36.6; O2SAT 95–97
[2020-11-17] MEDS: Doxycycline Hyclate 100 MG in 0.9 % Sodium Chloride 250 ML 166.67 MG IV ×2 (01:07→14:37)
[2020-11-17] MEDS: LORazepam 1 MG TABLET PO (01:12)
--- NOTE | 2020-11-17 07:36 | PM.PNORT ---
Subjective Subjective Date of Service: 11/17/20 Interval history: Patient resting comfortably in bed. States he has decreased pain in the left elbow. No overnight events. Physical Exam Vital Signs: Vital Signs: Last Vital Signs Temp 97.5 F 11/17/20 04:00 Pulse 65 11/17/20 04:00 Resp 18 11/17/20 04:00 BP 118/64 11/17/20 04:00 Pulse Ox 97 11/17/20 04:00 Body Mass Index 31.1 Const: General: cooperative, healthy appearing and no acute distress Resp: Effort & Inspection: normal respiratory effort and able to speak in complete sentences Cardio: Rate: regular rate Peripheral pulses: Peripheral pulses 2+ throughout GI: Palpation (GI): Soft to palpation Skin: Lesions: no lesions Rashes: no rashes Extrem: Other: Left elbow decreased redness, mild edema, and tenderness to palpation of the olecranon bursa from yesterday. Full ROM of the elbow. Sensation intact. Radial pulse intact. Progress Note: A&P Assessment and plan (1) Cellulitis: Status: Acute Assessment and Plan: Continue abx per medicine No further orthopedic treatment needed at this time Fall Risk Details Current Medications: Current Medications Generic Name Dose Route Start Last Admin Trade Name Freq PRN Reason Stop Dose Admin Acetaminophen 650 mg 11/15/20 22:30 11/16/20 16:01 Acetaminophen 325 Mg Tablet PO 650 mg Q6H PRN Administration Pain, Mild (Pain Scale 1-3) Aspirin 81 mg 11/16/20 09:00 11/16/20 10:02 Aspirin 81 Mg Tab.Chew PO 81 mg DAILY PEREZ Administration Atorvastatin Calcium 20 mg 11/16/20 21:00 11/16/20 22:20 Atorvastatin Calcium 20 Mg Tablet PO 20 mg BEDTIME PEREZ Administration Desmopressin Acetate 0.2 mg 11/16/20 21:00 11/16/20 22:20 Desmopressin Acetate 0.2 Mg Tablet PO 0.2 mg BEDTIME PEREZ Administration Diltiazem HCl 180 mg 11/16/20 09:00 11/16/20 10:02 Diltiazem Hcl Cd 180 Mg Cap.Er.24h PO 180 mg DAILY PEREZ Administration Protocol Docusate Sodium 100 mg 11/15/20 22:30 Docusate Sodium 100 Mg Capsule PO DAILY PRN Constipation Enoxaparin Sodium 40 mg 11/15/20 23:00 11/16/20 22:22 Enoxaparin Sodium 40 Mg/0.4 Ml Syringe SUBCUT 40 mg Q24H PEREZ Administration Doxycycline Hyclate 100 mg/ 250 mls @ 166.67 mls/hr 11/16/20 13:00 11/17/20 03:02 Sodium Chloride IV Infused Q12H PEREZ Infusion Lisinopril 10 mg 11/16/20 09:00 11/16/20 10:02 Lisinopril 10 Mg Tablet PO 10 mg DAILY PEREZ Administration Protocol Lorazepam 1 mg 11/15/20 22:30 11/17/20 01:12 Lorazepam 1 Mg Tablet PO 1 mg BID PRN Administration anxiety Ondansetron HCl 4 mg 11/15/20 22:30 Ondansetron Hcl 4 Mg/2 Ml Vial IVPUSH Q8H PRN Nausea and Vomiting Oxycodone HCl 10 mg 11/16/20 16:01 11/16/20 22:20 Oxycodone Hcl Immed Release 5 Mg Tablet PO 10 mg Q4H PRN Administration Pain, Severe (Pain Scale 7-10) Prednisone 20 mg 11/16/20 06:10 11/16/20 10:05 Prednisone 20 Mg Tablet PO Not Given DAILY PEREZ Sodium Chloride 3 ml 11/16/20 00:00 11/16/20 22:21 0.9 % Sodium Chloride Flush 3 Ml Syringe IVFLUSH 3 ml QSHIFT PEREZ Administration Time Spent With Patient Time: Total time spent is greater than 50% in coordination of care (as documented) at patient's floor/unit and/or counseling patient: Time with patient: less than 15 minutes
[2020-11-17] MEDS: cefTRIAXone sodium 1 GM in 0.9 % Sodium Chloride 50 ML IV (08:40)
[2020-11-17] MEDS: dilTIAZem HCL CD 180 MG CAP.ER.24H PO (08:40)
[2020-11-17] MEDS: Acetaminophen 325 MG TABLET 650 MG PO ×3 (08:40→21:03)
[2020-11-17] MEDS: Aspirin 81 MG TAB.CHEW PO (08:41)
[2020-11-17] MEDS: lisinopriL 10 MG TABLET PO (08:42)
[2020-11-17] MEDS: oxyCODONE HCl Immed Release 5 MG TABLET 10 MG PO ×3 (08:42→21:05)
[2020-11-17] MEDS: 0.9 % Sodium Chloride Flush 3 ML SYRINGE IVFLUSH ×2 (08:50→23:45)
--- NOTE | 2020-11-17 14:46 | HO.PM.IMPN ---
Subjective Subjective Date of Service: 11/17/20 Interval History: elbow bursitis Review of Systems Still has elbow pain, denies any chest pain or shortness of breath or abdominal pain or fever chills. Physical Exam Vital Signs: Vital Signs: Last Vital Signs Temp 97.7 F 11/17/20 12:00 Pulse 97 11/17/20 12:00 Resp 18 11/17/20 12:00 BP 126/84 11/17/20 12:00 Pulse Ox 97 11/17/20 12:00 Body Mass Index 31.1 Physical exam: Constitutional: Not in acute distress Cvs: rrr, [id number] , no murmur res: clear to auscultation ,no rhonchii or wheezing abd: no rebound or guarding ,nt, bs present. ext pulses present , no cyanosis , elow area erythema and swellin neuro: axo3 , nonfocal. Objective Data Current Medications Generic Name Dose Route Start Last Admin Trade Name Freq PRN Reason Stop Dose Admin Acetaminophen 650 mg 11/15/20 22:30 11/17/20 08:40 Acetaminophen 325 Mg Tablet PO 650 mg Q6H PRN Administration Pain, Mild (Pain Scale 1-3) Aspirin 81 mg 11/16/20 09:00 11/17/20 08:41 Aspirin 81 Mg Tab.Chew PO 81 mg DAILY PEREZ Administration Atorvastatin Calcium 20 mg 11/16/20 21:00 11/16/20 22:20 Atorvastatin Calcium 20 Mg Tablet PO 20 mg BEDTIME PEREZ Administration Desmopressin Acetate 0.2 mg 11/16/20 21:00 11/16/20 22:20 Desmopressin Acetate 0.2 Mg Tablet PO 0.2 mg BEDTIME PEREZ Administration Diltiazem HCl 180 mg 11/16/20 09:00 11/17/20 08:40 Diltiazem Hcl Cd 180 Mg Cap.Er.24h PO 180 mg DAILY PEREZ Administration Protocol Docusate Sodium 100 mg 11/15/20 22:30 Docusate Sodium 100 Mg Capsule PO DAILY PRN Constipation Enoxaparin Sodium 40 mg 11/15/20 23:00 11/16/20 22:22 Enoxaparin Sodium 40 Mg/0.4 Ml Syringe SUBCUT 40 mg Q24H PEREZ Administration Doxycycline Hyclate 100 mg/ 250 mls @ 166.67 mls/hr 11/16/20 13:00 11/17/20 14:37 Sodium Chloride IV 166.67 mls/hr Q12H PERZE Administration Ceftriaxone Sodium 1 gm/ 50 mls @ 100 mls/hr 11/17/20 08:00 11/17/20 09:33 Sodium Chloride IV Infused Q24H PEREZ Infusion Lisinopril 10 mg 11/16/20 09:00 11/17/20 08:42 Lisinopril 10 Mg Tablet PO 10 mg DAILY PEREZ Administration Protocol Lorazepam 1 mg 11/15/20 22:30 11/17/20 01:12 Lorazepam 1 Mg Tablet PO 1 mg BID PRN Administration anxiety Ondansetron HCl 4 mg 11/15/20 22:30 Ondansetron Hcl 4 Mg/2 Ml Vial IVPUSH Q8H PRN Nausea and Vomiting Oxycodone HCl 10 mg 11/16/20 16:01 11/17/20 08:42 Oxycodone Hcl Immed Release 5 Mg Tablet PO 10 mg Q4H PRN Administration Pain, Severe (Pain Scale 7-10) Sodium Chloride 3 ml 11/16/20 00:00 11/17/20 08:50 0.9 % Sodium Chloride Flush 3 Ml Syringe IVFLUSH 3 ml QSHIFT PEREZ Administration Labs CBC & Chem 7: 11/16/20 05:57 11/16/20 05:57 Microbiology Microbiology Results: Microbiology 11/15/20 19:36 Blood - Venous Blood Culture - Preliminary No growth after 24 hours. 11/15/20 18:44 Blood - Venous Blood Culture - Preliminary No growth after 24 hours. Assessment and Plan (1) Cellulitis: Status: Acute (2) Olecranon bursitis of left elbow: Status: Acute Assessment and Plan: Patient presenting with pain, redness, on the left elbow. Was on antibiotics with worsening of his pain and spreading of the redness around his elbow. 1.Left Elbow bursitis + Cellulitis, probably not out -Abx (Ceftriaxone), change to Doxy, ortho recommends no intervention. D/C steroid still has erythema/sweling/pain : as above. ID eval added . 2. paroxysmal AFib status post ablation -Not on OAC, continue ASA, diltiazem 3. hypertension- continue diltiazem and lisinopril. 4. hyperlipidemia- continue statin.
--- NOTE | 2020-11-17 15:10 | W.PM.IDCN ---
History of Present Illness Data of Consult Service Date: 11/17/20 Requesting physician: Eze Lawrence Primary Care Provider: Carissa Lau MD HPI Reason for consult: left olecranon bursitis He presents to hospital with left elbow swelling and erythema He has had this worsening for two days He has no fever chills or elevated WBC He has had a friend who is a nurse and outlined reddened area on arm and now decreasing Review of Systems Review of Systems: Yes all other systems are reviewed and are negative [facility] Past Medical History Medical History BPH (benign prostatic hyperplasia) Chronic pain Essential hypertension GERD (gastroesophageal reflux disease) Gout Hyperlipidemia Hypogonadism in male PAF (paroxysmal atrial fibrillation) Rosacea Family History Family History Father No problems noted. Mother No problems noted. Son No problems noted. Surgical History Surgical History History of appendectomy History of arthroplasty of left knee History of arthroplasty of right shoulder History of arthroscopy of left knee History of arthroscopy of right knee History of prior ablation treatment History of prostate surgery Social History Social History Household Members: None Housing: Apartment Alcohol intake: never Smoking Status: Former smoker Tobacco Type: Cigarette Substance Use Type: Marijuana service: No Current occupational status: employed Meds Allergies Allergy/AdvReac Type Severity Reaction Status Date / Time ciprofloxacin [From CIPRO] Allergy Intermediate SWELLING Verified 10/14/20 09:02 levofloxacin [Levaquin] Allergy Unknown facial Verified 10/14/20 09:02 swelling Active Medications: Current Medications Generic Name Dose Route Start Last Admin Trade Name Freq PRN Reason Stop Dose Admin Acetaminophen 650 mg 11/15/20 22:30 11/17/20 14:48 Acetaminophen 325 Mg Tablet PO 650 mg Q6H PRN Administration Pain, Mild (Pain Scale 1-3) Aspirin 81 mg 11/16/20 09:00 11/17/20 08:41 Aspirin 81 Mg Tab.Chew PO 81 mg DAILY PEREZ Administration Atorvastatin Calcium 20 mg 11/16/20 21:00 11/16/20 22:20 Atorvastatin Calcium 20 Mg Tablet PO 20 mg BEDTIME PEREZ Administration Desmopressin Acetate 0.2 mg 11/16/20 21:00 11/16/20 22:20 Desmopressin Acetate 0.2 Mg Tablet PO 0.2 mg BEDTIME PEREZ Administration Diltiazem HCl 180 mg 11/16/20 09:00 11/17/20 08:40 Diltiazem Hcl Cd 180 Mg Cap.Er.24h PO 180 mg DAILY PEREZ Administration Protocol Docusate Sodium 100 mg 11/15/20 22:30 Docusate Sodium 100 Mg Capsule PO DAILY PRN Constipation Enoxaparin Sodium 40 mg 11/15/20 23:00 11/16/20 22:22 Enoxaparin Sodium 40 Mg/0.4 Ml Syringe SUBCUT 40 mg Q24H PEREZ Administration Doxycycline Hyclate 100 mg/ 250 mls @ 166.67 mls/hr 11/16/20 13:00 11/17/20 14:37 Sodium Chloride IV 166.67 mls/hr Q12H PEREZ Administration Ceftriaxone Sodium 1 gm/ 50 mls @ 100 mls/hr 11/17/20 08:00 11/17/20 09:33 Sodium Chloride IV Infused Q24H PEREZ Infusion Lisinopril 10 mg 11/16/20 09:00 11/17/20 08:42 Lisinopril 10 Mg Tablet PO 10 mg DAILY [facility] Administration Protocol Lorazepam 1 mg 11/15/20 22:30 11/17/20 01:12 Lorazepam 1 Mg Tablet PO 1 mg BID PRN Administration anxiety Ondansetron HCl 4 mg 11/15/20 22:30 Ondansetron Hcl 4 Mg/2 Ml Vial IVPUSH Q8H PRN Nausea and Vomiting Oxycodone HCl 10 mg 11/16/20 16:01 11/17/20 14:48 Oxycodone Hcl Immed Release 5 Mg Tablet PO 10 mg Q4H PRN Administration Pain, Severe (Pain Scale 7-10) Sodium Chloride 3 ml 11/16/20 00:00 11/17/20 08:50 0.9 % Sodium Chloride Flush 3 Ml Syringe IVFLUSH 3 ml QSHIFT PEREZ Administration Home Medications Medication Instructions Recorded Confirmed Last Taken Type lisinopril 10 mg tablet 10 mg PO DAILY 05/18/20 11/15/20 Unknown History simvastatin 40 mg tablet 40 mg PO BEDTIME 05/18/20 11/15/20 Unknown History diltiazem HCl 180 mg 180 mg PO DAILY 05/23/20 11/15/20 Unknown History capsule,extended release 24 hr aspirin 81 mg chewable tablet 81 mg PO DAILY 05/25/20 11/15/20 Unknown History Physical Exam Vital Signs: Vital Signs: Last Vital Signs Temp 97.7 F 11/17/20 12:00 Pulse 97 11/17/20 12:00 Resp 18 11/17/20 12:00 BP 126/84 11/17/20 12:00 Pulse Ox 97 11/17/20 12:00 Body Mass Index 31.1 Const: General: cooperative Orientation/consciousness: patient oriented x3 HENMT: Head: Yes normal to inspection Mouth: Normal oral and palatal mucosa present Resp: Effort & Inspection: normal respiratory effort Cardio: Rate: regular rate Rhythm: regular rhythm GI: Palpation (GI): Soft to palpation and nontender Skin: General skin exam: no rashes or lesions noted Neuro: General: patient oriented x3 Extrem: Other: improving left arm redness Results Labs CBC & Chem 7: 11/16/20 05:57 11/16/20 05:57 Microbiology Microbiology Results: Microbiology 11/15/20 19:36 Blood - Venous Blood Culture - Preliminary No growth after 24 hours. 11/15/20 18:44 Blood - Venous Blood Culture - Preliminary No growth after 24 hours. Assessment and Plan (1) Cellulitis: Qualifiers: Laterality: left Site of cellulitis: extremity Site of cellulitis of extremity: upper extremity Qualified Code(s): L03.114 - Cellulitis of left upper limb Status: Acute (2) Olecranon bursitis of left elbow: Problem details: He seems to have improved elbow redness and swelling He has no fever or elevated WBC He has no bacteremia He has been seen by Orthopedics and no intervention needed Status: Acute Would stop IV antibiotics as now improved Po Doxycycline and Augmentin for a week
[2020-11-17] MEDS: Desmopressin Acetate 0.2 MG TABLET PO (21:04)
[2020-11-17] MEDS: Atorvastatin Calcium 20 MG TABLET PO (21:04)
[2020-11-17] MEDS: Amoxicillin/Potassium Clav 875 MG TABLET PO (21:04)
[2020-11-17] MEDS: Enoxaparin Sodium 40 MG/0.4 ML SYRINGE SUBCUT (21:08)
[2020-11-18 03:56] VITALS: BP 144/76; PULSE 65; RESP 16; TEMP 36.1; O2SAT 97
[2020-11-18 07:39] VITALS: BP 128/86; PULSE 97; RESP 18; TEMP 36.4; O2SAT 98
--- NOTE | 2020-11-18 08:41 | MHC.CM.PN ---
Addendum entered by Kim Rothman RN 11/18/20 08:45: CLARIFICATION: APPT W/DR ARAUZ IS AT 10AM ON 12/01/20. Original Note: PT DISCHARGING TODAY HOME SELF-CARE W/FOLLOW-UP SCHEDULED W/ DR VERONICA ARAUZ ON 12/01/20 AT 10:30AM, PT HAS ARRANGED FOR TRANSPORT.
[2020-11-18] MEDS: Amoxicillin/Potassium Clav 875 MG TABLET PO (08:43)
[2020-11-18] MEDS: dilTIAZem HCL CD 180 MG CAP.ER.24H PO (08:43)
[2020-11-18] MEDS: Aspirin 81 MG TAB.CHEW PO (08:43)
[2020-11-18] MEDS: lisinopriL 10 MG TABLET PO (08:44)
[2020-11-18] MEDS: Acetaminophen 325 MG TABLET 650 MG PO (08:56)
[2020-11-18] MEDS: oxyCODONE HCl Immed Release 5 MG TABLET 10 MG PO (08:56)
--- NOTE | 2020-11-18 17:48 | PM.DS ---
DS: Providers Provider Date of Service: 11/18/20 Date of admission: 11/15/20 22:10 Primary care physician: Carissa Lau MD Consults: 11/17/20 09:56 Consult to Infectious Diseases Routine Consulting Provider: Angeli Pastor Reason for consultation: elbow bursitis Has provider been notified: No DS: Diagnosis Discharge Diagnosis (1) Cellulitis: Status: Acute (2) Olecranon bursitis of left elbow: Status: Acute Problem details: He seems to have improved elbow redness and swelling He has no fever or elevated WBC He has no bacteremia He has been seen by Orthopedics and no intervention needed DS: Medications Discharge Medications Home Medications: Home Medications Medication Instructions Recorded Confirmed lisinopril 10 mg tablet 10 mg PO DAILY 05/18/20 11/15/20 simvastatin 40 mg tablet 40 mg PO BEDTIME 05/18/20 11/15/20 diltiazem HCl 180 mg 180 mg PO DAILY 05/23/20 11/15/20 capsule,extended release 24 hr aspirin 81 mg chewable tablet 81 mg PO DAILY 05/25/20 11/15/20 Previous Rx's Medication Instructions Recorded desmopressin 0.2 mg tablet 0.2 mg PO DAILY 90 Days #90 tab 08/11/20 testosterone cypionate 200 mg/mL 200 mg IM Q2W 30 Days #2 ml 09/01/20 intramuscular oil syringe with needle 3 mL 21 gauge #100 ea 09/02/20 x 1 1/2 lorazepam 1 mg tablet 1 mg PO BID PRN 30 Days #57 tab 11/12/20 amoxicillin-pot clavulanate 1 tab PO BID #14 tab 11/18/20 [Augmentin] docusate sodium [Colace] 100 mg PO DAILY #10 cap 11/18/20 doxycycline hyclate 100 mg PO DAILY #14 cap 11/18/20 oxycodone 5 mg PO BID PRN #7 cap 11/18/20 sennosides [senna] 8.6 mg PO BEDTIME #30 cap 11/18/20 DS: Summary Hospital Course Hospital Course: 59-year-old male with past medical history of HTN, GERD, HLD, gout, paroxysmal AFib status post tubal who presents to the hospital with complaints of worsening redness on his elbow. Patient reports that the day prior to presentation he went to urgent care due to the redness in his elbow and was told that he has cellulitis, prescribed oral antibiotics and was sent home. Patient reports that he developed redness around his left elbow 3-4 days ago, had minimal pain, no difficulty with bending his elbow, but today his pain has increased to 10/10, increased redness down to his forearm, and his arm being very hot. He reports that he took 2 doses of his antibiotics. He denies any fever chills, no chest pain, no shortness of breath, no abdominal pain nausea or vomiting, no diarrhea constipation, no urinary symptoms and no lower extremity edema. No numbness or tingling. No difficulty with range of motion. On arrival to the ED hemodynamically stable with no significant abnormal vitals Labs are unremarkable Elbow x-ray shows diffuse soft tissue swelling. Numerous amorphic calcifications within the soft tissues. This could be seen in the setting of gout or calcific bursitis. Past medical history as below. Hospital Course problem monzon section: 1. Left elbow bursitis : Patient was started on IV Abx (Ceftriaxone), change to Doxy, ortho recommends no intervention. D/C steroid. Patient bursitis seems to be improving, seems better-seen by both Ortho and Infectious Disease-recommended to go home with p.o. antibiotics, Patient is going home with p.o. Augmentin and doxycycline. Above management discussed with the patient in detail length he understand and in agreement with the above plan, time spent 50 minutes and 50% time spent on counseling. Significant findings: As above. Procedures performed: None. Treatment and response: As above. Complications: None. Time Spent with Patient Time attestation: Total time spent providing and/or coordinating discharge services: Discharge coordination time: Greater than 30 minutes Physical Exam Vital Signs: Vital Signs: Last Vital Signs Temp 97.5 F 11/18/20 07:39 Pulse 97 11/18/20 07:39 Resp 18 11/18/20 07:39 BP 128/86 11/18/20 07:39 Pulse Ox 98 11/18/20 07:39 Body Mass Index 31.1 Physical exam: Constitutional: Not in acute distress Cvs: rrr, [id number] , no murmur res: clear to auscultation ,no rhonchii or wheezing abd: no rebound or guarding ,nt, bs present. ext pulses present , no cyanosis , elow area erythema and swellin seems improving significantly. neuro: axo3 , nonfocal. DS: Data Data Completed and Pending Labs on day of discharge: Preliminary micro results at discharge 11/15/20 19:36 Blood Culture - Preliminary Blood - Venous No growth after 48 hours. 11/15/20 18:44 Blood Culture - Preliminary Blood - Venous No growth after 48 hours. Discharge Plan Discharge Patient Disposition: Home, Self-Care Referrals: Osorio Villagran MD [Physician] - (follow up in 2 weeks) Eze Lawrence MD [Physician] - Jose Medina MD [Physician] - 1 Week (12/01/2020 10:00AM.) Discharge Medications: New doxycycline hyclate 100 mg capsule 100 mg PO DAILY Qty: 14 RF: 0 amoxicillin-pot clavulanate [Augmentin] 875-125 mg tablet 1 tab PO BID Qty: 14 RF: 0 oxycodone 5 mg capsule 5 mg PO BID PRN (Reason: pain) Qty: 7 RF: 0 docusate sodium [Colace] 100 mg capsule 100 mg PO DAILY Qty: 10 RF: 0 senna 8.6 mg capsule 8.6 mg PO BEDTIME Qty: 30 RF: 0 Continued desmopressin 0.2 mg tablet 0.2 mg PO DAILY 90 Days Qty: 90 RF: 2 testosterone cypionate [Depo-Testosterone] 200 mg/mL oil 200 mg IM Q2W 30 Days Qty: 2 RF: 5 (DME) syringe with needle [BD Integra Syringe] 3 mL 21 gauge x 1 1/2 syringe See Rx Instructions .ROUTE .MEDSUPPLY Qty: 100 RF: 0 lorazepam [Ativan] 1 mg tablet 1 mg PO BID PRN (Reason: anxiety) 30 Days Qty: 57 RF: 0 diltiazem HCl [Cartia XT] 180 mg capsule,extended release 24hr 180 mg PO DAILY RF: 0 aspirin 81 mg tablet,chewable 81 mg PO DAILY RF: 0 simvastatin 40 mg tablet 40 mg PO BEDTIME RF: 0 lisinopril 10 mg tablet 10 mg PO DAILY RF: 0 Discontinued doxycycline hyclate 50 mg capsule 50 mg PO BID 90 Days Qty: 180 RF: 3 sulfamethoxazole-trimethoprim [Bactrim DS] 800-160 mg tablet 1 tab PO Q12H 7 Days Qty: 14 RF: 0 cephalexin 500 mg capsule 500 mg PO QID 7 Days Qty: 28 RF: 0 Discharge Orders: Discharge Order (Routine); Ordered 11/18/20 Ordered By: Eze Lawrence Diet: advance to usual diet Activity on Discharge: As tolerated Stand Alone Forms: Patient Portal Discharge page Other Ambulatory Orders: Basic Metabolic Panel Fasting (Routine) Timeframe: 1 Week Facility: [facility] - Location: Laboratory Ordered By: Eze Lawrence Complete Blood Count no Diff (Routine) Timeframe: 1 Week Facility: [facility] - Location: Laboratory Ordered By: Eze Lawrence Care Plan Goals: Patient came with elbow bursitis most likely infectious was started on antibiotics IV-seems to be improving going home with p.o. antibiotics. Patient is to follow up outpatient with Ortho. Health Concerns: As above. Plan of Treatment: As above. Discharge Date/Time: 11/18/20 09:35
== END 2020-11-18 09:35 | disposition home or self-care (01) | DRG 351 ==
LOC: HO.ED 17:59 → HO.EDOVER 22:28 → HO.S3 23:31
PROVIDERS: Physician Assistant Medical; Admitting Provider Internal Medicine; Emergency Provider Emergency Medicine; PCP Internal Medicine; Visit Provider Internal Medicine
DX: M70.22 Olecranon bursitis, left elbow (principal); I48.0 Paroxysmal atrial fibrillation; L03.114 Cellulitis of left upper limb; Y93.9 Activity, unspecified; E78.5 Hyperlipidemia, unspecified; M10.9 Gout, unspecified; N40.0 Benign prostatic hyperplasia without lower urinary tract symptoms; I10 Essential (primary) hypertension; K21.9 Gastro-esophageal reflux disease without esophagitis; Z20.822 Contact with and (suspected) exposure to COVID-19; Z79.82 Long term (current) use of aspirin; Z79.899 Other long term (current) drug therapy
CPT/HCPCS: 36415; 73070; 80048; 81001; 81003; 83605; 84550; 85025; 87040; 87635; 96365; 96366; 96375; 99284; 99285; J0696; J1170; J1650; J1885; J2543; J3370

== ENCOUNTER 2020-11-18 09:37 | Outpatient (REF) | payer OTHER, SELFPAY ==
[2020-11-18 11:18] LABS: PSA,Total (Free>4and<10) 3.42 ng/mL (0.00-4.00)
[2020-11-23 14:01] LABS: Testosterone, Free 109.7 pg/mL (35.0-155.0); Testosterone, Total 444 ng/dL (250-1100)
== END 2020-11-18 09:38 | disposition home or self-care (01) ==
LOC: HO.LAB 09:37
PROVIDERS: PCP Internal Medicine; Visit Provider Urology
DX: E29.1 Testicular hypofunction (principal); Z00.00 Encounter for general adult medical examination without abnormal findings
CPT/HCPCS: 36415; 84153; 84402; 84403

== ENCOUNTER → 2020-11-20 10:25 | Outpatient (BNVA) | payer OTHER, SELFPAY | PROVIDERS: PCP Internal Medicine; Visit Provider Urology | DX: N40.0 Benign prostatic hyperplasia without lower urinary tract symptoms (principal); E29.1 Testicular hypofunction | CPT/HCPCS: 99212 ==

== ENCOUNTER 2020-11-25 06:30 | Outpatient (REF) | payer OTHER, SELFPAY ==
[2020-11-25 07:02] LABS: Hematocrit 48.4 % (42-52); Hemoglobin 15.6 g/dl (14.0-18.0); Mean Corpuscular HGB Conc 32.2 g/dl (31.0-36.0); Mean Corpuscular Hemoglobin 28.6 pg (27.0-33.0); Mean Corpuscular Volume 88.8 fL (80-98); Mean Platelet Volume 8.6 fL (9.4-12.4); Platelet Count 264 X10*3/uL (160-400); Red Blood Count 5.45 X10*6/uL (4.60-5.80); Red Cell Distribution Width 13.4 % (11.0-16.0); White Blood Count 5.7 X10*3/uL (4.8-10.8)
[2020-11-25 07:19] LABS: Alanine Aminotransferase 27 U/L (0-40); Albumin Level 4.4 g/dL (3.5-5.0); Alkaline Phosphatase 58 U/L (39-117); Anion Gap 11 (12-20); Aspartate Amino Transferase 27 U/L (5-37); Bilirubin Total 0.3 mg/dL (0.0-1.0); Blood Urea Nitrogen 17 mg/dL (9-16); Calcium 9.6 mg/dL (8.4-10.2); Carbon Dioxide 32 mmol/L (22-29); Chloride 99 mmol/L (96-108); Cholesterol 138 mg/dL; Estimated Glomerular Filt Rate > 60; Glucose Fasting 107 mg/dL (60-99); HDL Cholesterol 38 mg/dL; LDL Cholesterol Calculated 78 mg/dl; Potassium 4.9 mmol/L (3.3-5.1); Sodium 137 mmol/L (135-145); Triglycerides 110 mg/dL
[2020-11-25 07:40] LABS: Prostate Specific Antigen 3.45 ng/mL (<0.05-4.0)
[2020-11-29 10:01] LABS: Testosterone, Total 1203 ng/dL (250-1100)
== END 2020-11-25 06:31 | disposition home or self-care (01) ==
LOC: HO.LAB 06:30
PROVIDERS: Urology; PCP Internal Medicine; Visit Provider Internal Medicine
DX: Z12.5 Encounter for screening for malignant neoplasm of prostate (principal); N13.8 Other obstructive and reflux uropathy; I10 Essential (primary) hypertension; E29.1 Testicular hypofunction; N40.1 Benign prostatic hyperplasia with lower urinary tract symptoms
CPT/HCPCS: 36415; 80053; 80061; 84153; 84403; 85027

== ENCOUNTER 2021-02-03 10:24 | Outpatient (REF) | payer OTHER, SELFPAY ==
[2021-02-04 08:32] LABS: Lyme Abs Screen <0.90 index
== END 2021-02-03 10:25 | disposition home or self-care (01) ==
LOC: HO.LAB 10:24
PROVIDERS: PCP Internal Medicine; Visit Provider Hospitalist
DX: T14.8XXA Other injury of unspecified body region, initial encounter (principal); W57.XXXA Bitten or stung by nonvenomous insect and other nonvenomous arthropods, initial encounter
CPT/HCPCS: 36415; 86617; 86618

== ENCOUNTER → 2021-05-04 14:29 | Outpatient (BNVA) | payer OTHER, SELFPAY | PROVIDERS: PCP Internal Medicine; Visit Provider Family Medicine Adult Medicine | DX: M23.91 Unspecified internal derangement of right knee (principal) | CPT/HCPCS: 99212 ==

== ENCOUNTER → 2021-05-20 10:40 | Outpatient (BNVA) | payer OTHER, SELFPAY | PROVIDERS: PCP Internal Medicine; Visit Provider Family Medicine Adult Medicine | DX: M23.91 Unspecified internal derangement of right knee (principal) | CPT/HCPCS: 99212 ==

== ENCOUNTER → 2021-05-25 09:10 | Outpatient (BNVA) | payer OTHER, SELFPAY | PROVIDERS: PCP Internal Medicine; Visit Provider Urology ==

== ENCOUNTER → 2021-06-17 11:33 | Outpatient (BNVA) | payer OTHER, SELFPAY | PROVIDERS: PCP Internal Medicine; Visit Provider Family Medicine Adult Medicine | DX: M23.91 Unspecified internal derangement of right knee (principal); Z79.899 Other long term (current) drug therapy | CPT/HCPCS: 99212 ==

== ENCOUNTER → 2021-07-06 09:25 | Outpatient (BNVA) | payer OTHER, SELFPAY | PROVIDERS: PCP Internal Medicine; Visit Provider Family Medicine Adult Medicine | DX: Z51.81 Encounter for therapeutic drug level monitoring (principal); M23.91 Unspecified internal derangement of right knee | CPT/HCPCS: 99212 ==

== ENCOUNTER 2021-07-13 09:17 | Emergency (ER) | payer OTHER, SELFPAY ==
--- NOTE | ~2021-07-13 | XR_ITS ---
EXAMINATION: XR CHEST CLINICAL INFORMATION: Palpitations COMPARISON: Previous chest x-ray August 2014 TECHNIQUE: Frontal view of the chest was obtained. FINDINGS: The cardiac and mediastinal contours are stable. The thoracic aorta is tortuous but unchanged. The lungs are clear. There is no pleural effusion or pneumothorax. There is curvature of the thoracic spine to the right and degenerative changes. XR/XR chest 1V IMPRESSION: No evidence for acute disease in the chest.
--- NOTE | 2021-07-13 09:18 | ECG_ITS ---
Test Reason : a-fib Blood Pressure : / mmHG Vent. Rate : 106 BPM Atrial Rate : 000 BPM P-R Int : 000 ms QRS Dur : 102 ms QT Int : 316 ms P-R-T Axes : 000 -27 063 degrees QTc Int : 419 ms Atrial fibrillation with rapid ventricular response Left axis deviation Abnormal ECG Atrial fibrillation is new Referred By: Generic ED Physician Electronically Signed By:ELDER PEARSON MD
[2021-07-13 09:34] VITALS: BP 123/83; PULSE 70; RESP 18; TEMP 36.8; O2SAT 95; BMI 32.5
--- NOTE | 2021-07-13 10:40 | ED.ARRPALP ---
HPI - Arrhythmia/Palpitations General Chief Complaint: Arrhythmia/Palpitations Stated Complaint: afib Time Seen by Provider: 07/13/21 10:40 Source: patient Mode of arrival: ambulatory Limitations: no limitations History of Present Illness HPI narrative: patient felt irregular pulse and knew he was in afib. Patient was started on lamictal yesterday as mood stabilizer. he took one last night and one this morning. patient is 10 years out from ablation. MD complaint: skipped beats and irregular heart beat Onset (ago): hour(s) Duration: constant Severity: mild Arrhythmia history: atrial fibrillation Related Data Home Medications Medication Instructions Recorded Confirmed simvastatin 40 mg tablet 40 mg PO BEDTIME 05/18/20 07/06/21 aspirin 81 mg chewable tablet 81 mg PO DAILY 05/25/20 07/06/21 doxycycline hyclate 50 mg capsule 50 mg PO BID 11/20/20 07/06/21 syringe with needle 3 mL 18 x 1 #100 ea 11/20/20 07/06/21 1/2 tadalafil 10 mg tablet 10 mg PO DAILY PRN 11/20/20 07/06/21 gabapentin 100 mg capsule 100 mg PO BID 05/25/21 07/06/21 sildenafil 25 mg tablet 50 mg PO DAILY PRN 05/25/21 07/06/21 Previous Rx's Medication Instructions Recorded diltiazem HCl 180 mg 180 mg PO DAILY #90 cap 03/07/21 capsule,extended release 24 hr desmopressin 0.2 mg tablet 0.2 mg PO DAILY 90 Days #90 tab 03/15/21 lisinopril 10 mg tablet 10 mg PO DAILY 90 Days #90 tab 05/13/21 needle (disp) 22 G 22 gauge x 1 #50 ea 05/25/21 1/2 syringe with needle 3 mL 21 gauge #100 ea 05/25/21 x 1 1/2 (BD Integra Syringe) testosterone cypionate 200 mg/mL 200 mg IM Q2W 28 Days #2 ml 05/25/21 intramuscular oil (Depo-Testosterone) cephalexin 500 mg capsule 1,000 mg PO Q12H #40 cap 06/07/21 lorazepam 1 mg tablet 1 mg PO BID PRN 29 Days #58 tab 07/05/21 oxycodone-acetaminophen 10 mg-325 1 tab PO Q8H PRN 30 Days #90 tab 07/06/21 mg tablet Allergies Allergy/AdvReac Type Severity Reaction Status Date / Time ciprofloxacin [From CIPRO] Allergy Intermediate SWELLING Verified 07/13/21 09:34 levofloxacin [Levaquin] Allergy Intermediate facial Verified 07/13/21 09:34 swelling Review of Systems Constitutional: Constitutional: Reports no additional constitutional complaints Eyes: Eyes: Reports no additional eye complaints ENT: Denies dizziness Cardiovascular: Cardiovascular: Reports no additional cardiovascular complaints Respiratory: Respiratory: Reports as per HPI Gastrointestinal: Gastrointestinal: Reports no additional gastrointestinal complaints Musculoskeletal: Musculoskeletal: Reports no additional musculoskeletal complaints Integumentary/Breasts: Skin/Breast: Denies rash Neurologic: Reports system reviewed and no additional complaints, except as documented, Denies dizziness and Denies Sensory deficit (Neuro) Psychiatric: Psychiatric: Denies anxiety PMFSH Past Medical History Medical History BPH (benign prostatic hyperplasia) Chronic pain Derangement of right knee Essential hypertension GERD (gastroesophageal reflux disease) Gout Hyperlipidemia Hypogonadism in male Osteoarthritis of right knee PAF (paroxysmal atrial fibrillation) Rosacea Skin lesion Surgical History History of appendectomy History of arthroplasty of left knee History of arthroplasty of right shoulder History of arthroscopy of left knee History of arthroscopy of right knee History of left knee replacement History of prior ablation treatment History of prostate surgery Family History Family History Father No problems noted. Mother No problems noted. Son No problems noted. Social History Social History Household Members: None Housing: Apartment Do you presently have visiting nurse or other home services: No Alcohol intake: never Patient Tobacco Use Status: Never used Tobacco e-Cigarette/Vaping Use: Never Used Second Hand Smoke Exposure: No Use of substances other than those prescribed or required for medical reasons: No Substance Use Type: Marijuana Advance Directives: No service: No Current occupational status: employed Physical Exam Vital Signs: Vital Signs: Last Vital Signs Temp 98.3 F 07/13/21 09:34 Pulse 97 07/13/21 10:55 Resp 15 07/13/21 10:55 BP 114/57 L 07/13/21 10:55 Pulse Ox 95 11/23/21 10:55 Body Mass Index 32.5 Const: General: healthy appearing Nutritional Appearance: average body habitus Orientation/consciousness: oriented to person and patient oriented x3 Limitations: no limitations HENMT: Head: Yes normal to inspection Ears: external ears normal General nose exam: Normal external nose present Mouth: Normal oral and palatal mucosa present and oropharynx normal Throat: Yes posterior oropharynx normal Eyes: General: appearance normal, both eyes and all related structures Neck: Other: supple Neck: Yes normal visual inspection Chest: Chest palpation & inspection: normal inspection of the chest Resp: Auscultation: clear to auscultation bilaterally Cardio: Other: Irregular rate and rhythm Jugular venous distension: no JVD GI: Inspection: Yes normal to inspection Palpation (GI): Soft to palpation, nontender and No hepatosplenomegaly present Auscultation: normal bowel sounds : General: Yes no CVA tenderness Back/Spine/Pelvis: Back: no CVA tenderness Skin: General skin exam: no rashes or lesions noted Neuro: General: oriented to person and patient oriented x3 Cranial nerves: Yes CN's II-XII intact bilaterally Motor exam (neuro): 5/5 motor strength present throughout Sensory Exam: No Sensory deficit (Neuro) Extrem: General: Yes normal to inspection Psych: Appearance: grossly normal Course Reevaluation(s) Reevaluation #1: patient with history of known afib, on ASA and diltiazem, now in afib. 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 Time: 12:00 MDM - Arrhythmia/Palpitations Lab Data Result diagrams: 07/13/21 10:53 07/13/21 10:53 Labs: Lab Results 07/13/21 07/13/21 07/13/21 Range/Units 10:53 10:53 10:53 WBC 7.6 (4.8-10.8) X10*3/uL RBC 5.61 (4.60-5.80) X10*6/uL Hgb 16.6 (14.0-18.0) g/dl Hct 49.6 (42.0-52.0) % MCV 88.4 (80.0-98.0) fL MCH 29.6 (27.0-33.0) pg MCHC 33.5 (31.0-36.0) g/dl RDW 12.8 (11.0-16.0) % Plt Count 158 L (160-400) X10*3/uL MPV 8.8 L (9.4-12.4) fL Immature Gran % (Auto) 0.1 (0.0-0.4) % Neut % (Auto) 68.5 (45-73) % Lymph % (Auto) 20.8 (20-40) % [place] % (Auto) 7.5 (2-11) % Eos % (Auto) 2.6 (0-4) % Baso % (Auto) 0.5 (0-2) % Lymph # (Auto) 1.6 (1.2-4.9) X10*3/uL [place] # (Auto) 0.6 (0.1-1.2) X10*3/uL Eos # (Auto) 0.2 (0.0-0.4) X10*3/uL Baso # (Auto) 0.0 (0.0-0.2) X10*3/uL Abs Immat Gran (auto) 0.01 (0.00-0.03) X10*3/uL Absolute Neuts (auto) 5.2 (2.0-8.3) x10*3/uL Absolute Nucleated RBC 0.000 (0.0-0.012) X10*3/uL Nucleated RBC % (auto) 0.0 (0.0-0.2) /100WBC Sodium 138 (135-145) mmol/L Potassium 4.5 (3.3-5.1) mmol/L Chloride 106 (96-108) mmol/L Carbon Dioxide 25 (22-29) mmol/L Anion Gap 12 (12-20) BUN 13 (9-16) mg/dL Creatinine 0.80 (0.5-1.4) mg/dL Estim Creat Clear Calc 125.1 Estimated GFR > 60 Random Glucose 101 (60-115) mg/dL Calcium 9.4 (8.4-10.2) mg/dL Troponin I High Sens < 3.5 (<3.5-35.0) ng/L TSH 1.01 (0.32-4.0) uIU/mL Discharge Plan Discharge Clinical Impression: PAF (paroxysmal atrial fibrillation), Atrial fibrillation Patient Disposition: Home, Self-Care Instructions: A-fib (Atrial Fibrillation) (ED) Prescriptions: No Action diltiazem HCl 180 mg capsule,extended release 24hr 180 mg PO DAILY Qty: 90 RF: 1 desmopressin 0.2 mg tablet 0.2 mg PO DAILY 90 Days Qty: 90 RF: 2 lisinopril 10 mg tablet 10 mg PO DAILY 90 Days Qty: 90 RF: 3 lorazepam 1 mg tablet 1 mg PO BID PRN (Reason: anxiety) 29 Days Qty: 58 RF: 0 cephalexin 500 mg capsule 1,000 mg PO Q12H Qty: 40 RF: 0 aspirin 81 mg tablet,chewable 81 mg PO DAILY RF: 0 simvastatin 40 mg tablet 40 mg PO BEDTIME RF: 0 tadalafil 10 mg tablet 10 mg PO DAILY PRNRF: 0 (DME) BD Luer-Seb Syringe 3 mL 18 x 1 1/2 syringe See Rx Instructions ea .ROUTE DIRECTED Qty: 100 RF: 0 doxycycline hyclate 50 mg capsule 50 mg PO BID RF: 0 sildenafil 25 mg tablet 50 mg PO DAILY PRNRF: 0 gabapentin 100 mg capsule 100 mg PO BID RF: 0 testosterone cypionate [Depo-Testosterone] 200 mg/mL oil 200 mg IM Q2W 28 Days Qty: 2 RF: 5 (DME) needle (disp) 22 G 22 gauge x 1 1/2 needle See Rx Instructions ea .ROUTE DIRECTED Qty: 50 RF: 0 (DME) syringe with needle [BD Integra Syringe] 3 mL 21 gauge x 1 1/2 syringe See Rx Instructions .ROUTE .MEDSUPPLY Qty: 100 RF: 0 oxycodone-acetaminophen 10-325 mg tablet 1 tab PO Q8H PRN (Reason: pain) 30 Days Qty: 90 RF: 0 Referrals: Carissa Zuniga MD [Primary Care Provider] - 1 week Physician,Michelle J [Physician] - 5 days (Call your publishing agent today for more recent follow up)
[2021-07-13 10:55] VITALS: BP 114/57; PULSE 97; RESP 15; O2SAT 95
[2021-07-13 11:00] LABS: MANUAL DIFF FLAG NO
[2021-07-13 11:01] LABS: Basophils Percent Auto 0.5 % (0-2); Eosinophils Absolute Auto 0.2 X10*3/uL (0.0-0.4); Eosinophils Percent Auto 2.6 % (0-4); Hematocrit 49.6 % (42.0-52.0); Hemoglobin 16.6 g/dl (14.0-18.0); Imm Gran Abs Auto 0.01 X10*3/uL (0.00-0.03); Imm Gran Pct Auto 0.1 % (0.0-0.4); Lymphocytes Absolute Auto 1.6 X10*3/uL (1.2-4.9); Lymphocytes Percent Auto 20.8 % (20-40); Mean Corpuscular HGB Conc 33.5 g/dl (31.0-36.0); Mean Corpuscular Hemoglobin 29.6 pg (27.0-33.0); Mean Corpuscular Volume 88.4 fL (80.0-98.0); Mean Platelet Volume 8.8 fL (9.4-12.4); Monocytes Absolute Auto 0.6 X10*3/uL (0.1-1.2); Monocytes Percent Auto 7.5 % (2-11); Neutrophils Absolute Auto 5.2 x10*3/uL (2.0-8.3); Neutrophils Percent Auto 68.5 % (45-73); Platelet Count 158 X10*3/uL (160-400); Red Blood Count 5.61 X10*6/uL (4.60-5.80); Red Cell Distribution Width 12.8 % (11.0-16.0); White Blood Count 7.6 X10*3/uL (4.8-10.8)
[2021-07-13 11:23] LABS: Anion Gap 12 (12-20); Blood Urea Nitrogen 13 mg/dL (9-16); Calcium 9.4 mg/dL (8.4-10.2); Carbon Dioxide 25 mmol/L (22-29); Chloride 106 mmol/L (96-108); Creatinine Clr Calc Pharmacy 125.1; Estimated Glomerular Filt Rate > 60; Glucose Random 101 mg/dL (60-115); Potassium 4.5 mmol/L (3.3-5.1); Sodium 138 mmol/L (135-145)
[2021-07-13 11:30] LABS: Troponin-I High Sensitivity < 3.5 ng/L (<3.5-35.0)
[2021-07-13 11:45] LABS: TSH reflex Free T4 1.01 uIU/mL (0.32-4.0)
[2021-07-13 12:47] VITALS: PULSE 93; RESP 18; O2SAT 99
== END 2021-07-13 12:48 | disposition home or self-care (01) ==
PROVIDERS: Emergency Provider Emergency Medicine; PCP Internal Medicine
DX: I48.0 Paroxysmal atrial fibrillation (principal); Z79.899 Other long term (current) drug therapy; Z79.82 Long term (current) use of aspirin
CPT/HCPCS: 36415; 71045; 80048; 84443; 84484; 85025; 93005; 99283; 99284

== ENCOUNTER → 2021-08-10 08:28 | Outpatient (BNVA) | payer OTHER, SELFPAY | PROVIDERS: PCP Internal Medicine; Visit Provider Family Medicine Adult Medicine | DX: Z51.81 Encounter for therapeutic drug level monitoring (principal); F11.20 Opioid dependence, uncomplicated | CPT/HCPCS: 99211 ==

== ENCOUNTER 2021-08-27 12:29 | Outpatient (REF) | payer OTHER, SELFPAY ==
[2021-08-27 13:44] LABS: Binax Internal Control QC Valid; Binax Now Covid-19 Ag Positive (Negative)
== END 2021-08-27 12:30 | disposition home or self-care (01) ==
LOC: HO.LAB 12:29
PROVIDERS: Visit Provider Internal Medicine
DX: Z20.822 Contact with and (suspected) exposure to COVID-19 (principal)
CPT/HCPCS: 36415; C9803

== ENCOUNTER 2021-09-01 07:31 | Outpatient (REF) | payer OTHER, SELFPAY ==
[2021-09-01 08:38] LABS: Alanine Aminotransferase 35 U/L (0-40); Albumin Level 4.4 g/dL (3.5-5.0); Alkaline Phosphatase 52 U/L (39-117); Anion Gap 15 (12-20); Aspartate Amino Transferase 23 U/L (5-37); Bilirubin Total 0.6 mg/dL (0.0-1.0); Blood Urea Nitrogen 18 mg/dL (9-16); Calcium 9.7 mg/dL (8.4-10.2); Carbon Dioxide 26 mmol/L (22-29); Chloride 106 mmol/L (96-108); Cholesterol 142 mg/dL; Estimated Glomerular Filt Rate > 60; Glucose Fasting 103 mg/dL (60-99); HDL Cholesterol 28 mg/dL; LDL Cholesterol Calculated 73 mg/dl; Potassium 4.6 mmol/L (3.3-5.1); Sodium 142 mmol/L (135-145); Total Protein 7.1 g/dL (6.5-8.0); Triglycerides 205 mg/dL
[2021-09-01 08:58] LABS: Thyroid Stimulating Hormone 1.12 uIU/mL (0.32-4.0)
== END 2021-09-01 07:32 | disposition home or self-care (01) ==
LOC: HO.LAB 07:31
PROVIDERS: PCP Internal Medicine; Visit Provider Internal Medicine
DX: I48.0 Paroxysmal atrial fibrillation (principal); E78.5 Hyperlipidemia, unspecified
CPT/HCPCS: 36415; 80053; 80061; 84443

== ENCOUNTER → 2021-09-08 08:49 | Outpatient (BNVA) | payer OTHER, SELFPAY | PROVIDERS: PCP Internal Medicine; Visit Provider Nurse Practitioner Family | DX: Z51.81 Encounter for therapeutic drug level monitoring (principal); F11.20 Opioid dependence, uncomplicated; M17.11 Unilateral primary osteoarthritis, right knee; Z96.652 Presence of left artificial knee joint | CPT/HCPCS: 99212 ==

== ENCOUNTER → 2021-10-06 08:55 | Outpatient (BNVA) | payer OTHER, SELFPAY | PROVIDERS: PCP Internal Medicine; Visit Provider Nurse Practitioner Family | DX: Z51.81 Encounter for therapeutic drug level monitoring (principal); F11.20 Opioid dependence, uncomplicated; M17.11 Unilateral primary osteoarthritis, right knee; Z96.652 Presence of left artificial knee joint | CPT/HCPCS: 99212 ==

== ENCOUNTER → 2021-11-05 09:08 | Outpatient (BNVA) | payer OTHER, SELFPAY | PROVIDERS: PCP Internal Medicine; Visit Provider Nurse Practitioner Family | DX: Z51.81 Encounter for therapeutic drug level monitoring (principal); F11.20 Opioid dependence, uncomplicated; M17.11 Unilateral primary osteoarthritis, right knee; Z96.652 Presence of left artificial knee joint | CPT/HCPCS: 99212 ==

== ENCOUNTER 2021-11-08 19:42 | Emergency (ER) | payer OTHER, SELFPAY ==
--- NOTE | 2021-11-08 | ECG_ITS ---
Test Reason : CP Blood Pressure : / mmHG Vent. Rate : 073 BPM Atrial Rate : 073 BPM P-R Int : 144 ms QRS Dur : 104 ms QT Int : 394 ms P-R-T Axes : 047 -15 054 degrees QTc Int : 434 ms Normal sinus rhythm Normal ECG When compared with ECG of 13-JUL-2021 09:23, Sinus rhythm has replaced Atrial fibrillation Referred By: Generic ED Physician Electronically Signed By:Omar Ledezma
--- NOTE | ~2021-11-08 | XR_ITS ---
EXAMINATION: XR CHEST CLINICAL INFORMATION: Chest pain COMPARISON: None TECHNIQUE: Frontal view of the chest was obtained. FINDINGS: No significant abnormality is noted involving the heart, lungs, mediastinum, bony thorax or soft tissues. XR/XR chest 1V IMPRESSION: Unremarkable chest examination.
[2021-11-08 19:46] VITALS: BP 116/78; PULSE 75; RESP 18; TEMP 36.9; O2SAT 100; BMI 31.1
--- NOTE | 2021-11-08 22:01 | PC.NURSE ---
Ekg done in triage and signed by Jocelyn ZAMBRANO
[2021-11-08 23:23] LABS: Basophils Absolute Auto 0.1 X10*3/uL (0.0-0.2); Basophils Percent Auto 0.8 % (0-2); Eosinophils Absolute Auto 0.4 X10*3/uL (0.0-0.4); Hematocrit 43.1 % (42.0-52.0); Hemoglobin 14.3 g/dl (14.0-18.0); Imm Gran Abs Auto 0.01 X10*3/uL (0.00-0.03); Imm Gran Pct Auto 0.1 % (0.0-0.4); Lymphocytes Absolute Auto 2.5 X10*3/uL (1.2-4.9); Lymphocytes Percent Auto 33.3 % (20-40); MANUAL DIFF FLAG NO; Mean Corpuscular HGB Conc 33.2 g/dl (31.0-36.0); Mean Corpuscular Hemoglobin 30.1 pg (27.0-33.0); Mean Corpuscular Volume 90.7 fL (80.0-98.0); Mean Platelet Volume 8.9 fL (9.4-12.4); Monocytes Absolute Auto 0.5 X10*3/uL (0.1-1.2); Neutrophils Percent Auto 53.8 % (45-73); Platelet Count 154 X10*3/uL (160-400); Red Blood Count 4.75 X10*6/uL (4.60-5.80); Red Cell Distribution Width 13.3 % (11.0-16.0); White Blood Count 7.5 X10*3/uL (4.8-10.8)
[2021-11-08 23:47] LABS: Anion Gap 11 (12-20); Blood Urea Nitrogen 20 mg/dL (9-16); Calcium 9.1 mg/dL (8.4-10.2); Carbon Dioxide 27 mmol/L (22-29); Chloride 104 mmol/L (96-108); Creatinine Clr Calc Pharmacy 119.6; Estimated Glomerular Filt Rate > 60; Glucose Random 117 mg/dL (60-115); Potassium 4.2 mmol/L (3.3-5.1); Sodium 138 mmol/L (135-145)
[2021-11-08 23:48] LABS: Troponin-I High Sensitivity < 3.5 ng/L (<3.5-35.0)
[2021-11-09] VITALS: BP 138/89; PULSE 67; RESP 16; TEMP 36.6; O2SAT 95
[2021-11-09 02:04] LABS: Troponin-I High Sensitivity < 3.5 ng/L (<3.5-35.0)
[2021-11-09 02:12] LABS: Alanine Aminotransferase 21 U/L (0-40); Albumin Level 4.2 g/dL (3.5-5.0); Alkaline Phosphatase 47 U/L (39-117); Aspartate Amino Transferase 22 U/L (5-37); Bilirubin Direct 0.2 mg/dL (0.0-0.5); Bilirubin Total 0.6 mg/dL (0.0-1.0); Lipase 11 U/L (8-78); Total Protein 6.4 g/dL (6.5-8.0)
[2021-11-09 02:23] VITALS: PULSE 61; RESP 16; O2SAT 98
--- NOTE | 2021-11-09 02:27 | ED.CHESTPAIN ---
HPI - Chest Pain General Chief Complaint: Chest Pain Stated Complaint: chest pain with nausea Time Seen by Provider: 11/09/21 01:49 Source: patient Mode of arrival: ambulatory History of Present Illness HPI narrative: 60-year-old male with presentation for left shoulder discomfort that extended up into the base of his neck not associated and trauma and not associated with any dizziness, diaphoresis, nausea, shortness, but he was concerned because he has underlying atrial fibrillation and had been told previously that he had silent heart attack?. Patient states that his pain has completely resolved. Related Data Home Medications Medication Instructions Recorded Confirmed simvastatin 40 mg tablet 40 mg PO BEDTIME 05/18/20 10/06/21 aspirin 81 mg chewable tablet 81 mg PO DAILY 05/25/20 10/06/21 syringe with needle 3 mL 18 x 1 #100 ea 11/20/20 10/06/21 1 tadalafil 10 mg tablet 10 mg PO DAILY PRN 11/20/20 10/06/21 sildenafil 25 mg tablet 50 mg PO DAILY PRN 05/25/21 10/06/21 apixaban 5 mg tablet (Eliquis) 5 mg PO BID 08/09/21 10/06/21 aripiprazole 2 mg tablet 5 mg PO DAILY tab 09/08/21 09/08/21 Previous Rx's Medication Instructions Recorded desmopressin 0.2 mg tablet 0.2 mg PO DAILY 90 Days #90 tab 03/15/21 lisinopril 10 mg tablet 10 mg PO DAILY 90 Days #90 tab 05/13/21 needle (disp) 22 G 22 gauge x 1 #50 ea 05/25/21 1/2 syringe with needle 3 mL 21 gauge #100 ea 05/25/21 x 1 1/2 (BD Integra Syringe) testosterone cypionate 200 mg/mL 200 mg IM Q2W 28 Days #2 ml 05/25/21 intramuscular oil (Depo-Testosterone) naloxone 4 mg/actuation nasal 4 mg INTRANASAL Q2M PRN #2 ea 08/11/21 spray (Narcan) diltiazem HCl 180 mg 180 mg PO DAILY #90 cap 08/30/21 capsule,extended release 24 hr lidocaine 5 % topical patch 1 patch TOPICAL DAILY #30 ea 10/06/21 lorazepam 1 mg tablet 1 mg PO BID PRN 29 Days #58 tab 11/01/21 doxycycline hyclate 50 mg capsule 50 mg PO BID 90 Days #180 cap 11/04/21 oxycodone-acetaminophen 10 mg-325 1 tab PO Q8H PRN 30 Days #90 tab 11/05/21 mg tablet Allergies Allergy/AdvReac Type Severity Reaction Status Date / Time ciprofloxacin [From CIPRO] Allergy Intermediate SWELLING Verified 11/05/21 09:10 levofloxacin [Levaquin] Allergy Intermediate facial Verified 11/05/21 09:10 swelling Review of Systems Review of Systems: Pertinent positives and negatives as stated in HPI 10 point review of systems is otherwise negative. [facility] Past Medical History Source: nursing notes reviewed Medical History BPH (benign prostatic hyperplasia) Chronic pain Derangement of right knee Essential hypertension GERD (gastroesophageal reflux disease) Gout Hyperlipidemia Hypogonadism in male Mild recurrent major depression Osteoarthritis of right knee PAF (paroxysmal atrial fibrillation) Rosacea Skin lesion Surgical History History of appendectomy History of arthroplasty of left knee History of arthroplasty of right shoulder History of arthroscopy of left knee History of arthroscopy of right knee History of left knee replacement History of prior ablation treatment History of prostate surgery Family History Family History Father No problems noted. Mother No problems noted. Son No problems noted. Social History Social History Household Members: None Housing: Apartment Do you presently have visiting nurse or other home services: No Alcohol intake: current Alcohol intake frequency: a few times a month Patient Tobacco Use Status: Never used Tobacco e-Cigarette/Vaping Use: Never Used Second Hand Smoke Exposure: No Use of substances other than those prescribed or required for medical reasons: Yes Substance Use Type: Marijuana Substance Use Frequency: Socially Advance Directives: No Advance Directives Information Provided: Yes service: No Current occupational status: employed Current occupational exposures/hazards: No Physical Exam Vital Signs: Vital Signs: Last Vital Signs Temp 97.9 F 11/09/21 00:00 Pulse 61 11/09/21 02:23 Resp 16 11/09/21 02:23 BP 138/89 11/09/21 00:00 Pulse Ox 98 11/09/21 02:23 BMI result Body Mass Index 31.1 VITAL SIGNS: Reviewed. GENERAL: Well developed, well nourished, in no acute distress. HEAD: Normocephalic/atraumatic EYES: PERRLA, EOMI OROPHARYNX: no oral lesions noted, posterior pharynx clear LUNGS: Normal breath sounds. No adventitious sounds or accessory muscle use. SpO2<98> CARDIOVASCULAR: Regular rate and rhythm without noted murmurs ABDOMEN: Soft, non-tender, non-distended with bowel sounds. SKIN: Inspection of the skin reveals no rashes NEUROLOGIC: Alert and oriented x 4. Strength and sensation to light touch were grossly intact x 4. Course Course Course Narrative: 60-year-old male with history and clinical presentation consistent with musculoskeletal pain and on review of all investigations there are no acute findings, most notably serial troponins are negative and there are no acute changes on EKG. HEART Score: 2 Review of all other investigations negative for acute findings, patient stable for discharge to home with instructions follow-up with his primary care provider. MDM - Chest Pain Lab Data Result diagrams: 11/08/21 23:17 11/08/21 23:17 Labs: Lab Results 11/08/21 11/08/21 11/08/21 Range/Units 23:17 23:17 23:17 WBC 7.5 (4.8-10.8) X10*3/uL RBC 4.75 (4.60-5.80) X10*6/uL Hgb 14.3 (14.0-18.0) g/dl Hct 43.1 (42.0-52.0) % MCV 90.7 (80.0-98.0) fL MCH 30.1 (27.0-33.0) pg MCHC 33.2 (31.0-36.0) g/dl RDW 13.3 (11.0-16.0) % Plt Count 154 L (160-400) X10*3/uL MPV 8.9 L (9.4-12.4) fL Immature Gran % (Auto) 0.1 (0.0-0.4) % Neut % (Auto) 53.8 (45-73) % Lymph % (Auto) 33.3 (20-40) % [place] % (Auto) 7.0 (2-11) % Eos % (Auto) 5.0 H (0-4) % Baso % (Auto) 0.8 (0-2) % Lymph # (Auto) 2.5 (1.2-4.9) X10*3/uL [place] # (Auto) 0.5 (0.1-1.2) X10*3/uL Eos # (Auto) 0.4 (0.0-0.4) X10*3/uL Baso # (Auto) 0.1 (0.0-0.2) X10*3/uL Abs Immat Gran (auto) 0.01 (0.00-0.03) X10*3/uL Absolute Neuts (auto) 4.0 (2.0-8.3) x10*3/uL Absolute Nucleated RBC 0.000 (0.0-0.012) X10*3/uL Nucleated RBC % (auto) 0.0 (0.0-0.2) /100WBC Sodium 138 (135-145) mmol/L Potassium 4.2 (3.3-5.1) mmol/L Chloride 104 (96-108) mmol/L Carbon Dioxide 27 (22-29) mmol/L Anion Gap 11 L (12-20) BUN 20 H (9-16) mg/dL Creatinine 0.82 (0.5-1.4) mg/dL Estim Creat Clear Calc 119.6 Estimated GFR > 60 Random Glucose 117 H (60-115) mg/dL Calcium 9.1 D (8.4-10.2) mg/dL Total Bilirubin 0.6 (0.0-1.0) mg/dL Direct Bilirubin 0.2 (0.0-0.5) mg/dL AST 22 (5-37) U/L ALT 21 (0-40) U/L Alkaline Phosphatase 47 (39-117) U/L Troponin I High Sens < 3.5 (<3.5-35.0) ng/L Total Protein 6.4 L (6.5-8.0) g/dL Albumin 4.2 (3.5-5.0) g/dL Lipase 11 (8-78) U/L 11/09/21 Range/Units 01:37 WBC (4.8-10.8) X10*3/uL RBC (4.60-5.80) X10*6/uL Hgb (14.0-18.0) g/dl Hct (42.0-52.0) % MCV (80.0-98.0) fL MCH (27.0-33.0) pg MCHC (31.0-36.0) g/dl RDW (11.0-16.0) % Plt Count (160-400) X10*3/uL MPV (9.4-12.4) fL Immature Gran % (Auto) (0.0-0.4) % Neut % (Auto) (45-73) % Lymph % (Auto) (20-40) % [place] % (Auto) (2-11) % Eos % (Auto) (0-4) % Baso % (Auto) (0-2) % Lymph # (Auto) (1.2-4.9) X10*3/uL [place] # (Auto) (0.1-1.2) X10*3/uL Eos # (Auto) (0.0-0.4) X10*3/uL Baso # (Auto) (0.0-0.2) X10*3/uL Abs Immat Gran (auto) (0.00-0.03) X10*3/uL Absolute Neuts (auto) (2.0-8.3) x10*3/uL Absolute Nucleated RBC (0.0-0.012) X10*3/uL Nucleated RBC % (auto) (0.0-0.2) /100WBC Sodium (135-145) mmol/L Potassium (3.3-5.1) mmol/L Chloride (96-108) mmol/L Carbon Dioxide (22-29) mmol/L Anion Gap (12-20) BUN (9-16) mg/dL Creatinine (0.5-1.4) mg/dL Estim Creat Clear Calc Estimated GFR Random Glucose (60-115) mg/dL Calcium (8.4-10.2) mg/dL Total Bilirubin (0.0-1.0) mg/dL Direct Bilirubin (0.0-0.5) mg/dL AST (5-37) U/L ALT (0-40) U/L Alkaline Phosphatase (39-117) U/L Troponin I High Sens < 3.5 (<3.5-35.0) ng/L Total Protein (6.5-8.0) g/dL Albumin (3.5-5.0) g/dL Lipase (8-78) U/L ECG Data ECG #1: Attestation: I personally reviewed and interpreted this ECG as follows: Prior ECG tracings: available for review Interpretation: Normal sinus rhythm, HR-73, no STEMI, WI/QRS/QTC are within normal limits. Discharge Plan Discharge Clinical Impression: Left shoulder pain, Atypical chest pain Patient Disposition: Home, Self-Care Instructions: Shoulder Pain (ED), Chest Pain (ED) Additional Instructions: 1. Resume all home medications as prescribed. 2. Follow-up with your primary care provider in the next 2-3 days for re-evaluation. Return to the ER for worsening symptoms. Prescriptions: No Action desmopressin 0.2 mg tablet 0.2 mg PO DAILY 90 Days Qty: 90 2RF lisinopril 10 mg tablet 10 mg PO DAILY 90 Days Qty: 90 3RF Narcan 4 mg/actuation spray,non-aerosol 4 mg intranasal Q2M PRN (Reason: opioid overdose) Qty: 2 0RF Rx Instructions: spray 1 dose into ONE nostril; alternate nostrils w each dose until help arrives diltiazem HCl 180 mg capsule,extended release 24hr 180 mg PO DAILY Qty: 90 1RF lorazepam 1 mg tablet 1 mg PO BID PRN (Reason: anxiety) 29 Days Qty: 58 0RF doxycycline hyclate 50 mg capsule 50 mg PO BID 90 Days Qty: 180 3RF Eliquis 5 mg tablet 5 mg PO BID 0RF aripiprazole 2 mg tablet 5 mg PO DAILY 0RF aspirin 81 mg tablet,chewable 81 mg PO DAILY 0RF simvastatin 40 mg tablet 40 mg PO BEDTIME 0RF tadalafil 10 mg tablet 10 mg PO DAILY PRN0RF (DME) BD Luer-Seb Syringe 3 mL 18 x 1 1/2 syringe See Rx Instructions ea .ROUTE DIRECTED Qty: 100 0RF Rx Instructions: As directed sildenafil 25 mg tablet 50 mg PO DAILY PRN0RF testosterone cypionate [Depo-Testosterone] 200 mg/mL oil 200 mg IM Q2W 28 Days Qty: 2 5RF (DME) needle (disp) 22 G 22 gauge x 1 1/2 needle See Rx Instructions ea .ROUTE DIRECTED Qty: 50 0RF Rx Instructions: As directed (DME) syringe with needle [BD Integra Syringe] 3 mL 21 gauge x 1 1/2 syringe See Rx Instructions .ROUTE .MEDSUPPLY Qty: 100 0RF Rx Instructions: As directed lidocaine 5 % adhesive patch,medicated 1 patch topical DAILY Qty: 30 3RF Rx Instructions: leave on most painful area for up to 12 hrs oxycodone-acetaminophen 10-325 mg tablet 1 tab PO Q8H PRN (Reason: severe pain (scale score 7-10)) 30 Days Qty: 90 0RF
[2021-11-09 02:52] VITALS: PULSE 61
== END 2021-11-09 03:11 | disposition home or self-care (01) ==
PROVIDERS: Emergency Provider Student in an Organized Health Care Education/Training Program
DX: M25.512 Pain in left shoulder (principal); R07.89 Other chest pain; I10 Essential (primary) hypertension; E78.5 Hyperlipidemia, unspecified; I48.0 Paroxysmal atrial fibrillation; Z79.02 Long term (current) use of antithrombotics/antiplatelets; Z79.01 Long term (current) use of anticoagulants; Z79.82 Long term (current) use of aspirin
CPT/HCPCS: 36415; 71045; 80048; 80076; 83690; 84484; 85025; 93005; 99284; 99285

== ENCOUNTER 2021-11-15 09:02 | Outpatient (REF) | payer OTHER, SELFPAY ==
[2021-11-15 09:28] LABS: Hematocrit 46.7 % (42.0-52.0); Hemoglobin 15.2 g/dl (14.0-18.0); Mean Corpuscular HGB Conc 32.5 g/dl (31.0-36.0); Mean Corpuscular Hemoglobin 30.2 pg (27.0-33.0); Mean Corpuscular Volume 92.8 fL (80.0-98.0); Platelet Count 171 X10*3/uL (160-400); Red Blood Count 5.03 X10*6/uL (4.60-5.80); Red Cell Distribution Width 13.5 % (11.0-16.0); White Blood Count 5.7 X10*3/uL (4.8-10.8)
[2021-11-15 09:57] LABS: Alanine Aminotransferase 24 U/L (0-40); Albumin Level 4.4 g/dL (3.5-5.0); Alkaline Phosphatase 42 U/L (39-117); Anion Gap 12 (12-20); Aspartate Amino Transferase 19 U/L (5-37); Bilirubin Total 0.3 mg/dL (0.0-1.0); Blood Urea Nitrogen 21 mg/dL (9-16); Calcium 9.4 mg/dL (8.4-10.2); Carbon Dioxide 25 mmol/L (22-29); Chloride 110 mmol/L (96-108); Cholesterol 127 mg/dL; Estimated Glomerular Filt Rate > 60; Glucose Fasting 104 mg/dL (60-99); HDL Cholesterol 37 mg/dL; LDL Cholesterol Calculated 59 mg/dl; Potassium 4.5 mmol/L (3.3-5.1); Sodium 142 mmol/L (135-145); Total Protein 6.7 g/dL (6.5-8.0); Triglycerides 156 mg/dL
[2021-11-15 10:19] LABS: Prostate Specific Antigen 3.07 ng/mL (<0.05-4.0)
[2021-11-19 11:42] LABS: Testosterone, Total 215 ng/dL (250-1100)
== END 2021-11-15 09:03 | disposition home or self-care (01) ==
LOC: HO.LAB 09:02
PROVIDERS: PCP Internal Medicine; Visit Provider Urology
DX: Z12.5 Encounter for screening for malignant neoplasm of prostate (principal); N13.8 Other obstructive and reflux uropathy; N40.1 Benign prostatic hyperplasia with lower urinary tract symptoms; E29.1 Testicular hypofunction; I10 Essential (primary) hypertension
CPT/HCPCS: 36415; 80053; 80061; 84153; 84403; 85027

== ENCOUNTER → 2021-11-23 10:52 | Outpatient (BNVA) | payer OTHER, SELFPAY | PROVIDERS: PCP Internal Medicine; Visit Provider Urology | DX: N40.0 Benign prostatic hyperplasia without lower urinary tract symptoms (principal); E29.1 Testicular hypofunction | CPT/HCPCS: Q3014 ==

== ENCOUNTER → 2021-12-03 08:58 | Outpatient (BNVA) | payer OTHER, SELFPAY | PROVIDERS: PCP Internal Medicine; Visit Provider Nurse Practitioner Family | DX: Z79.891 Long term (current) use of opiate analgesic (principal) | CPT/HCPCS: 99211 ==

== ENCOUNTER → 2021-12-31 08:18 | Outpatient (BNVA) | payer OTHER, SELFPAY | PROVIDERS: PCP Internal Medicine; Visit Provider Nurse Practitioner Family | DX: Z13.89 Encounter for screening for other disorder (principal) ==

== ENCOUNTER → 2022-01-28 08:59 | Outpatient (BNVA) | payer OTHER, SELFPAY | PROVIDERS: PCP Internal Medicine; Visit Provider Nurse Practitioner Family | DX: M17.11 Unilateral primary osteoarthritis, right knee (principal); G89.29 Other chronic pain; M25.561 Pain in right knee; Z79.891 Long term (current) use of opiate analgesic; Z96.652 Presence of left artificial knee joint | CPT/HCPCS: 99212 ==

== ENCOUNTER → 2022-02-25 07:59 | Outpatient (BNVA) | payer OTHER, SELFPAY | PROVIDERS: PCP Internal Medicine; Visit Provider Nurse Practitioner Family | DX: G89.29 Other chronic pain (principal); M25.561 Pain in right knee; M17.11 Unilateral primary osteoarthritis, right knee; Z96.652 Presence of left artificial knee joint; Z79.891 Long term (current) use of opiate analgesic | CPT/HCPCS: 99212 ==

== ENCOUNTER → 2022-03-25 08:22 | Outpatient (BNVA) | payer OTHER, SELFPAY | PROVIDERS: PCP Internal Medicine; Visit Provider Nurse Practitioner Family | DX: Z51.81 Encounter for therapeutic drug level monitoring (principal); F11.20 Opioid dependence, uncomplicated; M17.11 Unilateral primary osteoarthritis, right knee; M25.561 Pain in right knee; G89.29 Other chronic pain; Z96.652 Presence of left artificial knee joint | CPT/HCPCS: 99212 ==

== ENCOUNTER → 2022-04-22 08:27 | Outpatient (BNVA) | payer OTHER, SELFPAY | PROVIDERS: PCP Internal Medicine; Visit Provider Nurse Practitioner Family | DX: Z51.81 Encounter for therapeutic drug level monitoring (principal) | CPT/HCPCS: 99211 ==

== ENCOUNTER → 2022-05-11 11:18 | Outpatient (BNVA) | payer OTHER, SELFPAY | PROVIDERS: PCP Internal Medicine; Referring Provider Internal Medicine; Visit Provider Nurse Practitioner | DX: D12.6 Benign neoplasm of colon, unspecified (principal); Z79.01 Long term (current) use of anticoagulants | CPT/HCPCS: 99202; 99212 ==

== ENCOUNTER 2022-05-20 09:00 | Outpatient (RCR) | payer OTHER, SELFPAY ==
--- NOTE | 2022-04-22 11:34 | MHC.PT.EP ---
[facility] [place] Office [place] Office [place] Office [address] [phone] F: [phone] F: [phone] F: [phone] F: [phone] Physical Therapy Plan of Care Date of Evaluation: Date of Surgery: N/A Diagnosis: OA of R knee Assessment: pt is a 61 yo M presenting to PT with referring diagnosis right knee oa . Pt presents with bilateral signs and symptoms including pain, limited ROM, impaired strength, impaired gait mechanics, impaired transfer ability, and numbness and tingling. Patient has difficulty with stairs, ADLs, walking, prolonged standing, work related activities. Pt is a good candidate for PT d/t disease prognosis, motivation, comorbidities. Pt will benefit from skilled PT to improve strength, ROM, gait deviations, and functional mobility. Frequency and Duration: The patient will be seen 2x/week for 4 weeks Short Term Goals: pt will be I in HEP to show self-management of condition. pt will improve improve B knee extension to neutral to improve gait mechanics. Skilled Nursing Goals: pt will increase by a statistically significant amount on self-reported outcome measure LEFI to show improved tolerance to ADLs. pt will improve B knee flexion ROM by 20* to increase ability to navigate stairs. Treatment Plan: Modalities to reduce pain, spasms and effusion. Manual therapy to restore motion and function. Therapeutic exercise to improve strength and flexibility. Neuromuscular re-education for posture and balance. Therapeutic activities to return to functional activities of daily living. Electronically signed by: Jocelynn Garcia PT, DPT Please sign and return to therapist. Thank you for your referral.
--- NOTE | 2022-06-09 17:13 | MHC.PT.DC ---
[facility] [place] Office [place] Office [place] Office [address] [facility] [phone] F: [phone] F: [phone] F: [phone] F: [phone] Physical Therapy Discharge Report Diagnosis: OA of R knee Date of Surgery: N/A Date of Evaluation: 04/22/22 Date of Discharge: 06/09/22 Treatments to Date: 7 Cancellations to Date: 2 No Shows to Date: 4 Discharge Status: Visit Non-compliance Discharge Summary: The patient no showed his last four appointments. He is discharged for visit non-compliance. Electronically signed by: Jocelynn Garcia PT, DPT Please sign and return to therapist. Thank you for your referral.
== END 2022-06-09 17:13 | disposition home or self-care (01) ==
LOC: HO.PT 09:00
PROVIDERS: Visit Provider Nurse Practitioner Family
DX: M17.11 Unilateral primary osteoarthritis, right knee (principal)
CPT/HCPCS: 97110; 97162; 97530

== ENCOUNTER 2022-05-21 07:12 | Outpatient (REF) | payer OTHER, SELFPAY ==
[2022-05-21 07:53] LABS: Hematocrit 46.2 % (42.0-52.0)
[2022-05-21 08:48] LABS: Prostate Specific Antigen 2.25 ng/mL (<0.05-4.0)
[2022-05-26 12:01] LABS: Testosterone, Total 205 ng/dL (250-1100)
== END 2022-05-21 07:13 | disposition home or self-care (01) ==
LOC: HO.LAB 07:12
PROVIDERS: PCP Internal Medicine; Visit Provider Urology
DX: E29.1 Testicular hypofunction (principal)
CPT/HCPCS: 36415; 84153; 84403; 85014

== ENCOUNTER 2022-05-24 05:59 | Outpatient (REF) | payer OTHER, SELFPAY ==
[2022-05-24 08:34] LABS: Alanine Aminotransferase 28 U/L (0-40); Albumin Level 4.5 g/dL (3.5-5.0); Alkaline Phosphatase 42 U/L (39-117); Anion Gap 10 (12-20); Aspartate Amino Transferase 26 U/L (5-37); Bilirubin Total 0.5 mg/dL (0.0-1.0); Blood Urea Nitrogen 15 mg/dL (9-16); Calcium 9.2 mg/dL (8.4-10.2); Carbon Dioxide 27 mmol/L (22-29); Chloride 96 mmol/L (96-108); Cholesterol 139 mg/dL; Estimated Glomerular Filt Rate > 60; Glucose Fasting 89 mg/dL (60-99); HDL Cholesterol 36 mg/dL; LDL Cholesterol Calculated 58 mg/dl; Potassium 3.8 mmol/L (3.3-5.1); Sodium 129 mmol/L (135-145); Total Protein 6.7 g/dL (6.5-8.0); Triglycerides 227 mg/dL
== END 2022-05-24 06:00 | disposition home or self-care (01) ==
LOC: HO.LAB 05:59
PROVIDERS: PCP Internal Medicine; Visit Provider Internal Medicine
DX: E78.00 Pure hypercholesterolemia, unspecified (principal); E78.5 Hyperlipidemia, unspecified
CPT/HCPCS: 36415; 80053; 80061

== ENCOUNTER → 2022-05-25 08:24 | Outpatient (BNVA) | payer OTHER, SELFPAY | PROVIDERS: PCP Internal Medicine; Visit Provider Anesthesiology | DX: M17.11 Unilateral primary osteoarthritis, right knee (principal); Z96.652 Presence of left artificial knee joint; G89.29 Other chronic pain | CPT/HCPCS: 99212 ==

== ENCOUNTER → 2022-05-27 09:06 | Outpatient (BNVA) | payer OTHER, SELFPAY | PROVIDERS: PCP Internal Medicine; Visit Provider Urology | DX: N40.0 Benign prostatic hyperplasia without lower urinary tract symptoms (principal); N32.81 Overactive bladder; E29.1 Testicular hypofunction | CPT/HCPCS: 36415; 51798; 80053; 83930; 83935; 84300; 84443; 99212 ==

== ENCOUNTER 2022-05-27 10:04 | Outpatient (REF) | payer OTHER, SELFPAY ==
[2022-05-27 11:02] LABS: Osmolality, Serum 299 mosm/kg (281-305)
[2022-05-27 11:05] LABS: Alanine Aminotransferase 28 U/L (0-40); Albumin Level 4.7 g/dL (3.5-5.0); Alkaline Phosphatase 43 U/L (39-117); Anion Gap 13 (12-20); Aspartate Amino Transferase 25 U/L (5-37); Bilirubin Total 0.6 mg/dL (0.0-1.0); Blood Urea Nitrogen 20 mg/dL (9-16); Calcium 9.5 mg/dL (8.4-10.2); Carbon Dioxide 26 mmol/L (22-29); Chloride 107 mmol/L (96-108); Estimated Glomerular Filt Rate > 60; Glucose Random 107 mg/dL (60-115); Potassium 4.3 mmol/L (3.3-5.1); Sodium 142 mmol/L (135-145)
[2022-05-27 11:25] LABS: Thyroid Stimulating Hormone 0.84 uIU/mL (0.32-4.0)
[2022-05-27 12:47] LABS: Osmolality Urine 985 mosm/kg (373-1093)
== END 2022-05-27 10:05 | disposition home or self-care (01) ==
LOC: HO.10HDL 10:04
PROVIDERS: Absent Provider Internal Medicine; Visit Provider Urology
DX: N20.0 Calculus of kidney (principal); E87.1 Hypo-osmolality and hyponatremia
CPT/HCPCS: 36415; 80053; 83930; 83935; 84300; 84443

== ENCOUNTER → 2022-06-22 08:25 | Outpatient (BNVA) | payer OTHER, SELFPAY | PROVIDERS: PCP Internal Medicine; Visit Provider Anesthesiology | DX: Z51.81 Encounter for therapeutic drug level monitoring (principal); F11.20 Opioid dependence, uncomplicated | CPT/HCPCS: 99211 ==

== ENCOUNTER 2022-06-27 06:08 | Outpatient (REF) | payer OTHER, SELFPAY ==
--- NOTE | ~2022-06-27 | XR_ITS ---
EXAMINATION: XR KNEES, STANDING AP XR KNEE, RIGHT CLINICAL INFORMATION: Knee pain COMPARISON: Standing AP knees 06/14/2019, left knee radiographs 11/20/2019. TECHNIQUE: Standing AP view of both knees is performed. Lateral and axial patella views of the right knee are also obtained. FINDINGS: Right: No fracture, dislocation, destructive process. There is tricompartment osteoarthritis with joint narrowing and subchondral sclerosis and osteophyte. There is prominent lateral and medial meniscal chondrocalcinosis. Mild secondary genu varus. Axial view patella shows no lateralization or tilting. There is small suprapatellar effusion. Some fine linear mineralization is present in the distal quadriceps. Left: There is been prior total knee arthroplasty. The hardware is intact. There is no destructive process or osteolysis. No periostitis. XR/XR knee RT 2V IMPRESSION: Right: -Tricompartment osteoarthritis with meniscal chondrocalcinosis. -Mild secondary genu varus. Small suprapatellar effusion. Left: -Left total knee arthroplasty. Hardware intact. No destructive process.
--- NOTE | ~2022-06-27 | XR_ITS ---
EXAMINATION: XR KNEES, STANDING AP XR KNEE, RIGHT CLINICAL INFORMATION: Knee pain COMPARISON: Standing AP knees 06/14/2019, left knee radiographs 11/20/2019. TECHNIQUE: Standing AP view of both knees is performed. Lateral and axial patella views of the right knee are also obtained. FINDINGS: Right: No fracture, dislocation, destructive process. There is tricompartment osteoarthritis with joint narrowing and subchondral sclerosis and osteophyte. There is prominent lateral and medial meniscal chondrocalcinosis. Mild secondary genu varus. Axial view patella shows no lateralization or tilting. There is small suprapatellar effusion. Some fine linear mineralization is present in the distal quadriceps. Left: There is been prior total knee arthroplasty. The hardware is intact. There is no destructive process or osteolysis. No periostitis. XR/XR knee standing BI IMPRESSION: Right: -Tricompartment osteoarthritis with meniscal chondrocalcinosis. -Mild secondary genu varus. Small suprapatellar effusion. Left: -Left total knee arthroplasty. Hardware intact. No destructive process.
== END 2022-06-27 06:09 | disposition home or self-care (01) ==
LOC: HO.HOSX 06:08
PROVIDERS: Visit Provider Physician Assistant
DX: M17.11 Unilateral primary osteoarthritis, right knee (principal); M62.81 Muscle weakness (generalized); M25.562 Pain in left knee
CPT/HCPCS: 20610; 73560; 73565; 99212; J1100

== ENCOUNTER → 2022-07-20 10:28 | Outpatient (BNVA) | payer OTHER, SELFPAY | PROVIDERS: PCP Internal Medicine; Visit Provider Anesthesiology | DX: Z51.81 Encounter for therapeutic drug level monitoring (principal); F11.20 Opioid dependence, uncomplicated; M17.11 Unilateral primary osteoarthritis, right knee; M25.561 Pain in right knee; G89.29 Other chronic pain; Z96.652 Presence of left artificial knee joint | CPT/HCPCS: 99212 ==

== ENCOUNTER → 2022-08-04 10:02 | Outpatient (BNVA) | payer OTHER, SELFPAY | PROVIDERS: PCP Internal Medicine; Visit Provider Urology | DX: N32.81 Overactive bladder (principal); E29.1 Testicular hypofunction | CPT/HCPCS: 99212 ==

== ENCOUNTER → 2022-08-12 09:15 | Outpatient (BNVA) | payer OTHER, SELFPAY | PROVIDERS: PCP Internal Medicine; Visit Provider Anesthesiology | DX: Z13.89 Encounter for screening for other disorder (principal) ==

== ENCOUNTER 2022-08-31 08:48 | Outpatient (REF) | payer OTHER, SELFPAY ==
--- NOTE | ~2022-08-31 | XR_ITS ---
EXAMINATION: XR LUMBOSACRAL SPINE CLINICAL INFORMATION: Reason for Exam M54.50 - Low back pain, unspecified COMPARISON: Lumbar spine radiographs 09/11/2008 TECHNIQUE: 3 views of the lumbar spine FINDINGS: 5 nonrib-bearing lumbar-type vertebral bodies. Vertebral body heights are maintained. Levoconvex curvature of the lumbar spine. Grade 1 retrolisthesis of L4 on L5 and grade 1 anterolisthesis of L5 on S1. Moderate multilevel degenerative disc disease with loss of disc space height and facet arthropathy. Right lower quadrant surgical clips. XR/XR lumbar spine 2-3V IMPRESSION: * Moderate spondylosis of the lumbar spine, as above detailed. * Spondylolisthesis, as above detailed. Levoconvex curvature of the lumbar spine.
== END 2022-08-31 08:49 | disposition home or self-care (01) ==
LOC: HO.XRAY 08:48
PROVIDERS: PCP Internal Medicine; Visit Provider Internal Medicine
DX: M54.50 Low back pain, unspecified (principal)
CPT/HCPCS: 72100

== ENCOUNTER → 2022-09-02 13:05 | Outpatient (BNVA) | payer OTHER, SELFPAY | PROVIDERS: PCP Internal Medicine; Visit Provider Urology | DX: Z13.89 Encounter for screening for other disorder (principal) ==

== ENCOUNTER → 2022-09-15 08:31 | Outpatient (BNVA) | payer OTHER, SELFPAY | PROVIDERS: PCP Internal Medicine; Visit Provider Anesthesiology | DX: Z51.81 Encounter for therapeutic drug level monitoring (principal); F11.20 Opioid dependence, uncomplicated; M17.11 Unilateral primary osteoarthritis, right knee; M25.561 Pain in right knee; M46.1 Sacroiliitis, not elsewhere classified; M53.3 Sacrococcygeal disorders, not elsewhere classified; G89.29 Other chronic pain; G90.522 Complex regional pain syndrome I of left lower limb; Z96.652 Presence of left artificial knee joint | CPT/HCPCS: 99212 ==

== ENCOUNTER → 2022-10-13 08:30 | Outpatient (BNVA) | payer OTHER, SELFPAY | PROVIDERS: PCP Internal Medicine; Visit Provider Anesthesiology | DX: M17.11 Unilateral primary osteoarthritis, right knee (principal); G89.29 Other chronic pain; M25.561 Pain in right knee; G90.522 Complex regional pain syndrome I of left lower limb; M46.1 Sacroiliitis, not elsewhere classified; M53.3 Sacrococcygeal disorders, not elsewhere classified; Z96.652 Presence of left artificial knee joint; Z79.891 Long term (current) use of opiate analgesic | CPT/HCPCS: 99212 ==

== ENCOUNTER 2022-10-18 05:59 | Outpatient (REF) | payer OTHER, SELFPAY ==
--- NOTE | ~2022-10-18 | FL_ITS ---
EXAMINATION: XR FLUOROSCOPY WITH IMAGES CLINICAL INFORMATION: M53.3 - Sacrococcygeal disorders, not elsewhere classified. COMPARISON: None. TECHNIQUE: Fluoroscopy Supervised By: Dr. Dejan Jaimes. Fluoroscopy Time: 0.3 minutes. Cumulative Dose: 24.5 mGy. DAP: 3.89 Gycm2. Images: 2. FINDINGS: There is a spinal needle overlying the mid left SI joint and a spinal needle overlying the mid right SI joint. There is contrast in the periarticular soft tissues with probable early intra-articular contrast on each side. No vasculature communication appreciated. FL/FL guidance in treatment room IMPRESSION: Fluoroscopy for pain management procedure.
== END 2022-10-18 06:00 | disposition home or self-care (01) ==
LOC: CF 05:59
PROVIDERS: Visit Provider Anesthesiology
DX: M53.3 Sacrococcygeal disorders, not elsewhere classified (principal); M46.1 Sacroiliitis, not elsewhere classified; G90.522 Complex regional pain syndrome I of left lower limb; M17.11 Unilateral primary osteoarthritis, right knee; Z96.652 Presence of left artificial knee joint
CPT/HCPCS: 27096; Q9967

== ENCOUNTER → 2022-10-24 08:34 | Outpatient (BNVA) | payer OTHER, SELFPAY | PROVIDERS: PCP Internal Medicine; Visit Provider Anesthesiology | DX: Z13.89 Encounter for screening for other disorder (principal) ==

== ENCOUNTER → 2022-11-17 08:26 | Outpatient (BNVA) | payer OTHER, SELFPAY | PROVIDERS: PCP Internal Medicine; Visit Provider Anesthesiology | DX: Z51.81 Encounter for therapeutic drug level monitoring (principal); F11.20 Opioid dependence, uncomplicated | CPT/HCPCS: 99211 ==

== ENCOUNTER 2022-11-25 05:59 | Outpatient (REF) | payer OTHER, SELFPAY ==
[2022-11-25 07:26] LABS: Hematocrit 46.6 % (42.0-52.0); Hemoglobin 14.8 g/dl (14.0-18.0); Mean Corpuscular HGB Conc 31.8 g/dl (31.0-36.0); Mean Corpuscular Hemoglobin 28.7 pg (27.0-33.0); Mean Corpuscular Volume 90.5 fL (80.0-98.0); Mean Platelet Volume 9.1 fL (9.4-12.4); Platelet Count 173 X10*3/uL (160-400); Red Blood Count 5.15 X10*6/uL (4.60-5.80); Red Cell Distribution Width 13.3 % (11.0-16.0); White Blood Count 5.5 X10*3/uL (4.8-10.8)
[2022-11-25 08:12] LABS: Anion Gap 12 (12-20); Blood Urea Nitrogen 18 mg/dL (9-16); Carbon Dioxide 26 mmol/L (22-29); Chloride 107 mmol/L (96-108); Estimated Glomerular Filt Rate > 60; Glucose Random 85 mg/dL (60-115); Potassium 4.2 mmol/L (3.3-5.1); Sodium 141 mmol/L (135-145)
[2022-11-25 08:19] LABS: Prostate Specific Antigen 2.33 ng/mL (<0.05-4.0)
[2022-12-02 14:58] LABS: Testosterone, Total 357 ng/dL (250-1100)
== END 2022-11-25 06:00 | disposition home or self-care (01) ==
LOC: HO.LAB 05:59
PROVIDERS: PCP Internal Medicine; Visit Provider Urology
DX: Z12.5 Encounter for screening for malignant neoplasm of prostate (principal); E29.1 Testicular hypofunction; N20.0 Calculus of kidney
CPT/HCPCS: 36415; 80048; 84153; 84403; 85027

== ENCOUNTER → 2022-12-12 09:14 | Outpatient (BNVA) | payer OTHER, SELFPAY | PROVIDERS: PCP Internal Medicine; Visit Provider Anesthesiology | DX: Z51.81 Encounter for therapeutic drug level monitoring (principal); F11.20 Opioid dependence, uncomplicated; M17.11 Unilateral primary osteoarthritis, right knee; M46.1 Sacroiliitis, not elsewhere classified; M53.3 Sacrococcygeal disorders, not elsewhere classified; G90.522 Complex regional pain syndrome I of left lower limb; G89.29 Other chronic pain; Z96.652 Presence of left artificial knee joint | CPT/HCPCS: 99212 ==

== ENCOUNTER 2022-12-16 12:51 | Day surgery (SDC) | payer OTHER, SELFPAY ==
--- NOTE | 2022-12-15 10:02 | P.CONAN_ITS ---
Documented by User: Daniela Cardenas NP 12/15/22 10:06 HPI - Anesthesia Eval Consult details Narrative: 62yo M for Colonoscopy Eliquis for afib - cardiology ok'd stopping periop PMFSH Active Problems Active Problems: All Active Problems (Updated 10/25/22 @ 14:22 by Nadia Jackson, RN) Epidermal inclusion cyst (Acute) Lipoma of back (Acute) Olecranon bursitis of left elbow (Acute) Cellulitis (Acute) Tick bite (Acute) Chronic pain of right knee (Acute) Screen for colon cancer (Acute) Tubular adenoma of colon (Acute) Pre-op examination (Acute) Chronic anticoagulation (Acute) NERY on CPAP (Acute) Hyponatremia (Acute) Overactive bladder (Acute) Quadriceps weakness (Acute) Lumbar pain (Acute) Spondylolisthesis, lumbar region (Acute) Complex regional pain syndrome i of left lower limb (Acute) Sacroiliitis (Acute) Sacroiliac joint pain (Acute) Physical exam (Acute) Pure hypercholesterolemia (Acute) Mild recurrent major depression (Acute) Derangement of right knee (Acute) Osteoarthritis of right knee (Acute) Skin lesion (Acute) Rosacea (Acute) Hypogonadism in male (Acute) History of arthroplasty of left knee (Acute) Chronic pain (Acute) GERD (gastroesophageal reflux disease) (Acute) BPH (benign prostatic hyperplasia) (Acute) Hyperlipidemia (Acute) PAF (paroxysmal atrial fibrillation) (Acute) Essential hypertension (Acute) Past Medical History Medical History (Updated 10/25/22 @ 14:22 by Nadia Jackson, RN) BPH (benign prostatic hyperplasia) Chronic pain Derangement of right knee Essential hypertension GERD (gastroesophageal reflux disease) Gout Hyperlipidemia Hypogonadism in male Mild recurrent major depression Osteoarthritis of right knee PAF (paroxysmal atrial fibrillation) Pure hypercholesterolemia Rosacea Skin lesion Sleep apnea Family History Family History Father No problems noted. Mother No problems noted. Son No problems noted. Surgical History Surgical History H/O colonoscopy History of appendectomy History of arthroplasty of left knee History of arthroplasty of right shoulder History of arthroscopy of left knee History of arthroscopy of right knee History of left knee replacement History of prior ablation treatment History of prostate surgery Social History Social History (Updated 09/27/22 @ 08:51 by Carissa Lau MD) Household Members: None Housing: Apartment Do you presently have visiting nurse or other home services: No Alcohol intake: current Alcohol intake frequency: holidays/special occasions only Alcohol type: beer and hard liquor Patient Tobacco Use Status: Former Tobacco user Quit Date: 25 years Tobacco use type: Cigarette e-Cigarette/Vaping Use: Never Used Second Hand Smoke Exposure: No Use of substances other than those prescribed or required for medical reasons: Yes Substance Use Type: Marijuana Are you DNR?: No Advance Directives: No Advance Directives Information Provided: Yes service: No Current occupational status: employed Current occupational exposures/hazards: No Cognitive needs: No Hearing needs: No Vision needs: No Meds Allergies Allergy/AdvReac Type Severity Reaction Status Date / Time ciprofloxacin [From CIPRO] Allergy Intermediate SWELLING Verified 12/12/22 09:20 levofloxacin [Levaquin] Allergy Intermediate facial Verified 12/12/22 09:20 swelling Home Medications Medication Instructions Recorded Confirmed Last Taken Type simvastatin 40 mg tablet 40 mg PO BEDTIME 05/18/20 12/16/22 Unknown History syringe with needle 3 mL 18 x 1 #100 ea 11/20/20 10/24/22 Unknown History 1/2 apixaban 5 mg tablet (Eliquis) 5 mg PO BID 08/09/21 12/16/22 12/13/22 History naloxone 4 mg/actuation nasal 4 mg intranasal Q2M PRN Opioid 08/12/22 12/16/22 Unknown History spray (Narcan) Reversal Exam Exam Date and Time: December 15, 2022 1002 Pertinent Lab Results Pertinent Lab Results: Laboratory Tests 11/25/22 11/25/22 06:05 06:05 WBC 5.5 Hgb 14.8 Hct 46.6 Plt Count 173 Sodium 141 Potassium 4.2 Chloride 107 Carbon Dioxide 26 BUN 18 H Creatinine 0.79 Narrative Narrative: Stress Test 08/2022 Neg stress test at 7 METs, without symptoms and without EKG changes suggestive of ischemia Assessment and Plan Assessment Anesthesia Assessment: Chart Reviewed Documented by User: Jocelynn Claros MD 12/16/22 14:30 [facility] Past Medical History Medical History (Updated 10/25/22 @ 14:22 by Nadia Jackson, RN) BPH (benign prostatic hyperplasia) Chronic pain Derangement of right knee Essential hypertension GERD (gastroesophageal reflux disease) Gout Hyperlipidemia Hypogonadism in male Mild recurrent major depression Osteoarthritis of right knee PAF (paroxysmal atrial fibrillation) Pure hypercholesterolemia Rosacea Skin lesion Sleep apnea Family History Family History Father No problems noted. Mother No problems noted. Son No problems noted. Family history of problems with anesthesia: No Surgical History Surgical History H/O colonoscopy History of appendectomy History of arthroplasty of left knee History of arthroplasty of right shoulder History of arthroscopy of left knee History of arthroscopy of right knee History of left knee replacement History of prior ablation treatment History of prostate surgery History of Problems with Anesthesia: No Social History Social History (Updated 09/27/22 @ 08:51 by Carissa Lau MD) Household Members: None Housing: Apartment Do you presently have visiting nurse or other home services: No Alcohol intake: current Alcohol intake frequency: holidays/special occasions only Alcohol type: beer and hard liquor Patient Tobacco Use Status: Former Tobacco user Quit Date: 25 years Tobacco use type: Cigarette e-Cigarette/Vaping Use: Never Used Second Hand Smoke Exposure: No Use of substances other than those prescribed or required for medical reasons: Yes Substance Use Type: Marijuana Are you DNR?: No Advance Directives: No Advance Directives Information Provided: Yes service: No Current occupational status: employed Current occupational exposures/hazards: No Cognitive needs: No Hearing needs: No Vision needs: No Meds Allergies Allergy/AdvReac Type Severity Reaction Status Date / Time ciprofloxacin [From CIPRO] Allergy Intermediate SWELLING Verified 12/12/22 09:20 levofloxacin [Levaquin] Allergy Intermediate facial Verified 12/12/22 09:20 swelling Home Medications Medication Instructions Recorded Confirmed Last Taken Type simvastatin 40 mg tablet 40 mg PO BEDTIME 05/18/20 12/16/22 Unknown History syringe with needle 3 mL 18 x 1 #100 ea 11/20/20 10/24/22 Unknown History 1/2 apixaban 5 mg tablet (Eliquis) 5 mg PO BID 08/09/21 12/16/22 12/13/22 History naloxone 4 mg/actuation nasal 4 mg intranasal Q2M PRN Opioid 08/12/22 12/16/22 Unknown History spray (Narcan) Reversal Exam Airway Mallampati Class: II TM Dist: >3cm Neck ROM: Full Heart: rrr Lungs: cta Assessment and Plan Assessment Anesthesia Assessment: Anesthesia Plan Discussed Final Anesthetic Review Family History of Problems with Anesthesia: No History of Problems with Anesthesia: No NPO: Yes ASA Class: III Final Preanesthetic Review: No Changes in Pt Med Stat, Meds/Allgs Chart Reviewed and Consent Obtained/Reviewed Patient Risk: Intermediate Procedure Risk: Intermediate Anesthetic Plan Anesthetic Plan: MAC: Disposition: Standard PACU
[2022-12-16 13:09] VITALS: BP 130/91; PULSE 82; RESP 18; TEMP 36.8; O2SAT 95; BMI 32.5
[2022-12-16 13:21] VITALS: BMI 32.5
[2022-12-16] MEDS: Lactated Ringers 1,000 ML 100 ML IVCONT (13:33)
--- NOTE | 2022-12-16 14:27 | P.HPSUR_ITS ---
Pre-Procedural Eval Section A Date of Service: 12/16/22 The patient is an INPATIENT: No The History & Physical has been completed within 30 days and I have reviewed it.: No Section B Chief Complaint: screening, hx of colon polyps Relevant Family History (Specify if Yes): No Relevant Social History: None Present Medications: see Short Stay Collaborative assessment Medical History: Significant History (Dr. Singh Barriga [facility] cardiology Hypertension High cholesterol Hypogonadism Rosacea Chronic pain syndrome Chronic right knee pain Depression GERD Gout) History of Previous Operations: Relevant previous surgery/procedure and date(s) Allergies: Allergies Allergy/AdvReac Type Severity Reaction Status Date / Time ciprofloxacin [From CIPRO] Allergy Intermediate SWELLING Verified 12/12/22 09:20 levofloxacin [Levaquin] Allergy Intermediate facial Verified 12/12/22 09:20 swelling Review of Systems Sugical H&P ROS: Negative: Constitution, Cardiovascular, Respiratory and Gastrointestinal Exam Surgical H&P Exam: Normal: Heart, Normal: Lungs, Normal: Extremities and Normal: Abdomen Plan Diagnosis/Plan: Unchanged I have reviewed the history and physical and performed a pertinent physical examination on my patient. No changes have occurred unless specified. Time Spent With Patient Time: Total time managing care of this patient today ____ minutes.
--- NOTE | 2022-12-16 14:38 | W.PM.OPN ---
Operative Note Operative Note Date of Service: 12/16/22 Narrative: COLONOSCOPY TILL CECUM WITH BIOPSIES SNARE POLYPECTOMY, SUBMUCOSAL INJECTION, HEMOCLIP PLACEMENT Pre-op diagnosis: Colon cancer screening, history of colon polyps Post-op diagnosis:? Colon polyps, diverticulosis, hemorrhoids Endoscopist:? Jacinto Pryor MD Anesthesia:?MAC Consent: Indications for the procedure and potential complications of bleeding, perforation, reaction to medications and missed diagnosis were discussed with the patient and informed consent was obtained. Instrument: Olympus CF H 190 L variable stiffness adult colonoscope Monitoring: Vital signs and clinical assessment, intermittent blood pressure monitoring, continuous EKG monitoring, Pulse oximetry and Carbon Dioxide monitoring were done throughout the procedure. Please see anesthesia flowsheet. Colon withdrawl time was 34 minutes. Procedure: The patient was placed in the left lateral decubitis position and pre-procedure medications were administered. After a digital rectal examination of the ano-rectum, the video colonoscope was inserted into the rectum and advanced through the colon to the cecum. The colonoscope was slowly withdrawn in a retrograde panoramic fashion and the colon mucosa was carefully examined including a retroflexed view of the rectum. Findings and interventions are described below. Procedure Difficulty: Without difficulty Findings: Terminal Ileum: Not evaluated Cecum: Two 8 to 10 mm sessile polyps - removed with a cold snare (one cecal polyp was not retieved) A 4-5mm sessile polyp - removed with a cold bx Ascending Colon: A 10 - 12 mm sessile polyp in the distal ascending colon - removed with a hot snare Transverse Colon: A 4-5 mm sessile polyp - removed with a cold biopsy Descending Colon: Moderate diverticulosis Sigmoid Colon: A 2.5 to 3 cms flat polyp at 50 cms. Polyp was raised with 3 cc of Eleview and remoevd with a hot snare. Polypectomy site was marked with Taylor ink and closed with 1 hemoclip. Moderate diverticulosis Rectum: Normal Ano-rectum: Moderate internal hemorrhoids Colon preparation: Good Impression and Post Procedure Diagnosis: Colonoscopy Findings: Two small and four medium to large sized polyps removed Moderate diverticulosis seen in the left colon Moderate hemorrhoids on retroflexed exam. Plan: Await pathology results Patient has an appointment on 01/04/23 in the GI Clinic with Dena Ernandez NP. Repeat Colonoscopy interval based on path results - in 6 to 12 months if polyps are adenomatous to check polypectomy site in the sigmoid colon. Above findings were reviewed with the patient and colon polyps and diverticulosis handouts were given in the discharge area BIOPSIES SHOWED: A.? Cecum, polypectomies (2):? Tubular adenomata; negative for high-grade dysplasia or carcinoma. B.? Colon, ascending, polypectomy:? Tubular adenoma; negative for high-grade dysplasia or carcinoma. C.? Colon, transverse, polypectomy:? Tubular adenoma; negative for high-grade dysplasia or carcinoma.? D.? Colon, sigmoid at 50 cm, polypectomy:? Fragments of tubular adenoma; negative for high-grade dysplasia or carcinoma.
[2022-12-16 15:35] VITALS: BP 105/50; PULSE 75; RESP 16; TEMP 36.7; O2SAT 96
[2022-12-16 15:40] VITALS: BP 131/81; PULSE 72; RESP 20; TEMP 36.4; O2SAT 97
== END 2022-12-16 16:13 | disposition home or self-care (01) ==
PROVIDERS: PCP Internal Medicine; Visit Provider Internal Medicine Gastroenterology
PROC: 0DJD8ZZ Inspection of Lower Intestinal Tract, Via Natural or Artificial Opening Endoscopic (ICD-10-PCS; CPT 45378; principal; 2022-12-16 13:50)
DX: Z12.11 Encounter for screening for malignant neoplasm of colon (principal); Z86.010 Personal history of colon polyps; D12.0 Benign neoplasm of cecum; D12.2 Benign neoplasm of ascending colon; D12.3 Benign neoplasm of transverse colon; D12.5 Benign neoplasm of sigmoid colon; K57.30 Diverticulosis of large intestine without perforation or abscess without bleeding; K64.8 Other hemorrhoids; I10 Essential (primary) hypertension; E78.00 Pure hypercholesterolemia, unspecified; I48.91 Unspecified atrial fibrillation; Z79.01 Long term (current) use of anticoagulants; G89.4 Chronic pain syndrome; M25.561 Pain in right knee; G47.33 Obstructive sleep apnea (adult) (pediatric); E29.1 Testicular hypofunction; Z79.899 Other long term (current) drug therapy; Z88.1 Allergy status to other antibiotic agents; Z87.891 Personal history of nicotine dependence
CPT/HCPCS: 45385; 45380; 45381; 88305

== ENCOUNTER 2023-01-03 05:58 | Outpatient (REF) | payer OTHER, SELFPAY ==
--- NOTE | ~2023-01-03 | FL_ITS ---
EXAMINATION: XR FLUOROSCOPY WITH IMAGES CLINICAL INFORMATION: Sacroiliitis COMPARISON: None available. TECHNIQUE: Fluoroscopy Supervised By: Dr. Dejan Jaimes. Fluoroscopy Time: 0.3 minutes. Cumulative Dose: 9.5 mGy. DAP: 2.6 Gycm2. Images: 2. FINDINGS: Images demonstrate needle placement and contrast injection over the inferior bilateral sacroiliac joints. FL/FL guidance in treatment room IMPRESSION: Fluoroscopy guidance for pain management procedure.
== END 2023-01-03 05:59 | disposition home or self-care (01) ==
LOC: CF 05:58
PROVIDERS: Visit Provider Anesthesiology
DX: M46.1 Sacroiliitis, not elsewhere classified (principal); M53.3 Sacrococcygeal disorders, not elsewhere classified
CPT/HCPCS: 27096; J3301

== ENCOUNTER → 2023-01-09 08:59 | Outpatient (BNVA) | payer OTHER, SELFPAY | PROVIDERS: PCP Internal Medicine; Visit Provider Anesthesiology | DX: Z79.891 Long term (current) use of opiate analgesic (principal) | CPT/HCPCS: 99211 ==

== ENCOUNTER 2023-01-23 19:27 | Emergency (ER) | payer OTHER, SELFPAY ==
[2023-01-23 19:29] VITALS: BP 130/88; PULSE 80; RESP 16; TEMP 36.4; O2SAT 95; BMI 32.5
--- NOTE | 2023-01-23 19:31 | ED.CHESTPAIN ---
HPI - Chest Pain General Stated Complaint: chest pain left arm pain History of Present Illness HPI narrative: Patient complains of feeling dizzy and lightheaded, along with some mild chest pain radiating to the left arm, he also has a headache and feels nauseous but no vomiting, no shortness of breath Patient had just finished a walk and was sitting down to eat something when this episode began Patient uses Eliquis because of atrial fibrillation Labs are ordered as well as EKG This is rapid medical exam in triage pending full evaluation by provider in the department Related Data Home Medications Medication Instructions Recorded Confirmed simvastatin 40 mg tablet 40 mg PO BEDTIME 05/18/20 01/09/23 syringe with needle 3 mL 18 x 1 #100 ea 11/20/20 01/09/2308/22 apixaban 5 mg tablet (Eliquis) 5 mg PO BID 08/09/21 01/09/23 naloxone 4 mg/actuation nasal 4 mg intranasal Q2M PRN Opioid 08/12/22 01/09/23 spray (Narcan) Reversal Previous Rx's Medication Instructions Recorded doxycycline hyclate 50 mg capsule 50 mg PO BID 90 days #180 caps 11/04/21 lisinopril 10 mg tablet 10 mg PO DAILY 90 days #90 tabs 04/26/22 diltiazem HCl 180 mg 180 mg PO DAILY #90 caps 09/03/22 capsule,extended release 24 hr lorazepam 1 mg tablet 1 mg PO BID PRN anxiety 29 days 11/18/22 #58 tabs oxycodone-acetaminophen 10 mg-325 1 tab PO Q8H PRN severe pain 01/09/23 mg tablet (scale score 7-10) 30 days #90 tabs testosterone cypionate 200 mg/mL 100 mg (0.5 mL) IM QWEEK 4 weeks 01/17/23 intramuscular oil #2 mL (Depo-Testosterone) tadalafil 5 mg tablet 5 mg PO DAILY sexual activity 90 01/23/23 days #90 tabs Allergies Allergy/AdvReac Type Severity Reaction Status Date / Time ciprofloxacin [From CIPRO] Allergy Intermediate SWELLING Verified 01/09/23 09:19 levofloxacin [Levaquin] Allergy Intermediate facial Verified 01/09/23 09:19 swelling PMFSH Past Medical History Medical History (Updated 10/25/22 @ 14:22 by Nadia Jackson RN) BPH (benign prostatic hyperplasia) Chronic pain Derangement of right knee Essential hypertension GERD (gastroesophageal reflux disease) Gout Hyperlipidemia Hypogonadism in male Mild recurrent major depression Osteoarthritis of right knee PAF (paroxysmal atrial fibrillation) Pure hypercholesterolemia Rosacea Skin lesion Sleep apnea Surgical History H/O colonoscopy History of appendectomy History of arthroplasty of left knee History of arthroplasty of right shoulder History of arthroscopy of left knee History of arthroscopy of right knee History of left knee replacement History of prior ablation treatment History of prostate surgery Family History Family History Father No problems noted. Mother No problems noted. Son No problems noted. Social History Social History (Updated 09/27/22 @ 08:51 by Carissa Lau MD) Household Members: None Housing: Apartment Do you presently have visiting nurse or other home services: No Alcohol intake: current Alcohol intake frequency: holidays/special occasions only Alcohol type: beer and hard liquor Patient Tobacco Use Status: Former Tobacco user Quit Date: 25 years Tobacco use type: Cigarette e-Cigarette/Vaping Use: Never Used Second Hand Smoke Exposure: No Substance Use Type: Marijuana service: No Current occupational status: employed Current occupational exposures/hazards: No Cognitive needs: No Hearing needs: No Vision needs: No Discharge Plan Discharge Prescriptions: No Action doxycycline hyclate 50 mg capsule 50 mg PO BID 90 Days Qty: 180 3RF lisinopril 10 mg tablet 10 mg PO DAILY 90 Days Qty: 90 3RF diltiazem HCl 180 mg capsule,extended release 24hr 180 mg PO DAILY Qty: 90 1RF lorazepam 1 mg tablet 1 mg PO BID PRN (Reason: anxiety) 29 Days Qty: 58 0RF oxycodone-acetaminophen 10-325 mg tablet 1 tab PO Q8H PRN (Reason: severe pain (scale score 7-10)) 30 Days Qty: 90 0RF testosterone cypionate [Depo-Testosterone] 200 mg/mL oil 100 mg IM QWEEK 28 Days Qty: 2 5RF tadalafil 5 mg tablet 5 mg PO DAILY 90 Days Qty: 90 0RF Rx Instructions: Take daily for combination erectile dysfunction and prostate related problems Eliquis 5 mg tablet 5 mg PO BID Hold Instructions: Resume on 12/23/22. resume Eliquis on 12/23/22 simvastatin 40 mg tablet 40 mg PO BEDTIME (DME) syringe with needle 3 mL 18 x 1 1/2 syringe See Rx Instructions .ROUTE DIRECTED Qty: 100 Rx Instructions: As directed naloxone [Narcan] 4 mg/actuation spray,non-aerosol 4 mg intranasal Q2M PRN (Reason: Opioid Reversal) Rx Instructions: spray 1 dose into ONE nostril; alternate nostrils w each dose until help arrives
--- NOTE | 2023-01-23 19:35 | ECG_ITS ---
Test Reason : CHEST PAIN Blood Pressure : / mmHG Vent. Rate : 076 BPM Atrial Rate : 076 BPM P-R Int : 152 ms QRS Dur : 100 ms QT Int : 376 ms P-R-T Axes : 029 -19 046 degrees QTc Int : 423 ms Normal sinus rhythm Normal ECG When compared with ECG of 08-NOV-2021 19:48, No significant change was found Referred By: Jacques Jones Electronically Signed By:Omar Ledezma
[2023-01-23 20:35] VITALS: BP 104/87; PULSE 74; RESP 16; TEMP 36.6; O2SAT 98
--- NOTE | 2023-01-23 20:35 | MHC.EDTECH ---
PATIENT EKG DONE AND WAS READ BY PROVIDER ,BLOOD DRAWN AND SENT TO LAB ,VITALS SIGN RE CHECK .
[2023-01-23 20:36] LABS: MANUAL DIFF FLAG NO
[2023-01-23 20:39] LABS: Basophils Percent Auto 0.4 % (0-2); Eosinophils Absolute Auto 0.1 X10*3/uL (0.0-0.4); Eosinophils Percent Auto 0.7 % (0-4); Hematocrit 48.9 % (42.0-52.0); Hemoglobin 16.2 g/dl (14.0-18.0); Imm Gran Abs Auto 0.02 X10*3/uL (0.00-0.03); Imm Gran Pct Auto 0.2 % (0.0-0.4); Lymphocytes Absolute Auto 2.1 X10*3/uL (1.2-4.9); Lymphocytes Percent Auto 26.4 % (20-40); Mean Corpuscular HGB Conc 33.1 g/dl (31.0-36.0); Mean Corpuscular Volume 87.6 fL (80.0-98.0); Mean Platelet Volume 8.6 fL (9.4-12.4); Monocytes Absolute Auto 0.5 X10*3/uL (0.1-1.2); Monocytes Percent Auto 6.1 % (2-11); Neutrophils Absolute Auto 5.3 x10*3/uL (2.0-8.3); Neutrophils Percent Auto 66.2 % (45-73); Platelet Count 148 X10*3/uL (160-400); Red Blood Count 5.58 X10*6/uL (4.60-5.80); Red Cell Distribution Width 13.2 % (11.0-16.0)
[2023-01-23 21:05] LABS: Anion Gap 15 (12-20); Blood Urea Nitrogen 21 mg/dL (9-16); Calcium 9.5 mg/dL (8.4-10.2); Carbon Dioxide 25 mmol/L (22-29); Chloride 106 mmol/L (96-108); Creatinine Clr Calc Pharmacy 106.1; Estimated Glomerular Filt Rate > 60; Glucose Random 113 mg/dL (60-115); Sodium 141 mmol/L (135-145)
[2023-01-23 21:16] LABS: Troponin-I High Sensitivity < 2.7 ng/L (<3.5-35.0)
== END 2023-01-24 00:08 | disposition left against medical advice (07) ==
PROVIDERS: Physician Assistant Medical; Emergency Provider Emergency Medicine; PCP Internal Medicine
DX: R42 Dizziness and giddiness (principal); I10 Essential (primary) hypertension; E78.00 Pure hypercholesterolemia, unspecified; I48.0 Paroxysmal atrial fibrillation; Z87.891 Personal history of nicotine dependence; Z79.01 Long term (current) use of anticoagulants; Z79.02 Long term (current) use of antithrombotics/antiplatelets; Z79.899 Other long term (current) drug therapy
CPT/HCPCS: 36415; 80048; 84484; 85025; 93005; 99283

== ENCOUNTER → 2023-01-30 08:32 | Outpatient (BNVA) | payer OTHER, SELFPAY | PROVIDERS: PCP Internal Medicine; Visit Provider Anesthesiology | DX: M17.11 Unilateral primary osteoarthritis, right knee (principal); M25.561 Pain in right knee; M46.1 Sacroiliitis, not elsewhere classified; M53.3 Sacrococcygeal disorders, not elsewhere classified; G90.522 Complex regional pain syndrome I of left lower limb; G89.29 Other chronic pain; Z96.652 Presence of left artificial knee joint | CPT/HCPCS: 99212 ==

== ENCOUNTER → 2023-02-06 08:41 | Outpatient (BNVA) | payer OTHER, SELFPAY | PROVIDERS: PCP Internal Medicine; Visit Provider Anesthesiology | DX: M17.11 Unilateral primary osteoarthritis, right knee (principal); M25.561 Pain in right knee; M25.562 Pain in left knee; G90.522 Complex regional pain syndrome I of left lower limb; M46.1 Sacroiliitis, not elsewhere classified; M53.3 Sacrococcygeal disorders, not elsewhere classified; Z96.652 Presence of left artificial knee joint; Z79.891 Long term (current) use of opiate analgesic | CPT/HCPCS: 99212 ==

== ENCOUNTER → 2023-02-14 10:41 | Outpatient (BNVA) | payer OTHER, SELFPAY | PROVIDERS: PCP Internal Medicine; Visit Provider Nurse Practitioner | DX: D12.0 Benign neoplasm of cecum (principal); D12.2 Benign neoplasm of ascending colon; D12.3 Benign neoplasm of transverse colon; D12.5 Benign neoplasm of sigmoid colon; Z98.890 Other specified postprocedural states | CPT/HCPCS: 99212 ==

== ENCOUNTER 2023-03-01 08:57 | Outpatient (AMB) | payer OTHER, SELFPAY ==
--- NOTE | 2023-03-01 09:01 | A.OFFVIS_ITS ---
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 Accompanied by: Self / Same As Patient Allergies ciprofloxacin [From CIPRO] Allergy (Intermediate, Verified 03/01/23 09:03) SWELLING levofloxacin [Levaquin] Allergy (Intermediate, Verified 03/01/23 09:03) facial swelling Medication List - Last Reconciled 03/01/23 by Gavino Lopez MD apixaban (Eliquis) 5 mg PO BID diltiazem HCl 180 mg PO DAILY doxycycline hyclate 100 mg PO BID 30 days lisinopril 10 mg PO DAILY 90 days lorazepam 1 mg PO BID PRN 29 days mirabegron ER 25 mg PO DAILY 30 days naloxone 4 mg/actuation (Narcan) 4 mg intranasal Q2M PRN oxycodone-acetaminophen 10-325 mg 1 tab PO Q8H PRN 30 days peg 3350-electrolytes [id number] -5.86 gram (Golytely) 240 mL PO Q10M 1 day simvastatin 40 mg PO BEDTIME syringe with needle As directed tadalafil 5 mg PO DAILY 90 days testosterone cypionate (Depo-Testosterone) 100 mg (0.5 mL) IM QWEEK 4 weeks valacyclovir 1,000 mg PO Q8H 7 days HPI HPI Comments History of Present Illness Details Gustavo is a pleasant male. He is patient of Dr. Lau. He is seen for the following urologic condition - hypogonadism - lower urinary tract symptoms - OAB Overactive bladder Failed oxybutynin - Significant urgency and frequency, failed tolterodine Has urge with weaker stream Trial of Myrbetriq Consistent with testosterone Hypogonadism Longstanding Current therapy injections 80mg weekly - Injection Day Sat : Lab Day Mon Prior therapy AndroGel Does self injection at home weekly Will continue with current standard therapy process Laboratories - 12/09 T 1200, PSA 3.45, HCT 48, 11/09 215 3.1 46, 06/11 205 46 Thinks he took last lab work soon after injection Continue with evaluation every 6 months Lower urinary tract symptoms Prior laser procedure Symptoms of urgency and frequency Concomitant diagnosis includes NERY on CPAP Prior failure of trial with oxybutynin, tolterodine Nocturia x5, daytime urge PFSH Medical History BPH (benign prostatic hyperplasia) Chronic pain Derangement of right knee Essential hypertension GERD (gastroesophageal reflux disease) Gout Hyperlipidemia Hypogonadism in male Mild recurrent major depression Osteoarthritis of right knee PAF (paroxysmal atrial fibrillation) Pure hypercholesterolemia Rosacea Skin lesion Sleep apnea Surgical History H/O colonoscopy History of appendectomy History of arthroplasty of left knee History of arthroplasty of right shoulder History of arthroscopy of left knee History of arthroscopy of right knee History of left knee replacement History of prior ablation treatment History of prostate surgery Family History Father No problems noted. Mother No problems noted. Son No problems noted. Social History Household Members: None Housing: Apartment Do you presently have visiting nurse or other home services: No Alcohol intake: current Alcohol intake frequency: holidays/special occasions only Alcohol type: beer and hard liquor Patient Tobacco Use Status: Former Tobacco user Quit Date: 25 years Tobacco use type: Cigarette e-Cigarette/Vaping Use: Never Used Second Hand Smoke Exposure: No Substance Use Type: Marijuana service: No Current occupational status: employed Current occupational exposures/hazards: No Cognitive needs: No Hearing needs: No Vision needs: No Review of Systems Const Denies chills and Denies fever(s) Card Reports no additional complaints and Denies syncope Resp Denies cough GI Denies abdominal pain and Denies heartburn Reports as per HPI and Denies change in libido Neuro Denies syncope Psych Denies change in libido Endo Denies change in libido Physical Exam Const General: cooperative, healthy appearing, comfortable and no acute distress Orientation/consciousness: patient oriented x3 HEENT Face and sinus: Yes normal facial exam Mouth: moist mucous membranes Neck Neck: Yes normal visual inspection, Yes full ROM and Yes trachea midline Chest Chest palpation & inspection: normal inspection of the chest Resp Effort & Inspection: normal respiratory effort, able to speak in complete sentences and no respiratory distress GI Inspection: Yes normal to inspection Back/Spine/Pelvis Cervical Spine: normal cervical lordosis Thoracic/Lumbar Spine: thoracic and lumbar spine normal to inspection Skin General skin exam: no rashes or lesions noted Neuro General: patient oriented x3, gait normal, tone normal and moves all extremities Extrem General: Yes normal to inspection and Yes capillary refill normal Assessment & Plan Assessment & Plan (1) Overactive bladder: Code(s): N32.81 - Overactive bladder (2) Hypogonadism in male: Code(s): E29.1 - Testicular hypofunction Plan Trial Myrbetriq Medications: New mirabegron ER 25 mg PO DAILY 30 tabs 1RF 30 days N32.81 - Overactive bladder Refilled testosterone cypionate (Depo-Testosterone) 100 mg (0.5 mL) IM QWEEK 2 mL 5RF 4 weeks [id number] Patient Instructions: Imaging studies, laboratory and physical exam results were discussed and reviewed in detail. No major barriers to patient understanding were identified. An opportunity to ask questions regarding the treatment plan was provided. All questions were answered. The patient expressed understanding and agreement with the above treatment plan. The patient is aware they should contact our office by phone for worsening of their current condition or the appearance of new urologic symptoms. Compliance is encouraged with any medications and followup testing that is ordered. It is a privilege to participate in the urologic care of your patient. If you have any questions or concerns regarding treatment for the above conditions, or other urologic issues, please do not hesitate to contact me. The office telephone contact is [phone]. This note is constructed using voice recognition software. While every effort has been made to ensure accuracy slider assembler errors may have been included. Yours sincerely, Dr Gavino Lopez MD, [facility] - Urology Providers of Expert, Compassionate Care for the Genitourinary System Coding Level of Care Code Est Pt Level 4 (58207) Diagnoses Overactive bladder N32.81 Hypogonadism in male E29.1
== END 2023-03-01 09:28 | disposition home or self-care (01) ==
PROVIDERS: Visit Provider Urology
DX: N32.81 Overactive bladder (principal); E29.1 Testicular hypofunction
CPT/HCPCS: 99214

== ENCOUNTER → 2023-03-01 08:57 | Outpatient (BNVA) | payer OTHER, SELFPAY | PROVIDERS: Visit Provider Urology | DX: N32.81 Overactive bladder (principal); E29.1 Testicular hypofunction | CPT/HCPCS: 99212 ==

== ENCOUNTER 2023-03-06 08:58 | Outpatient (AMB) | payer OTHER, SELFPAY ==
[2023-03-06 09:05] VITALS: BP 126/70; PULSE 77; RESP 16; O2SAT 97; BMI 37.7
--- NOTE | 2023-03-06 09:05 | A.OFFVIS_ITS ---
Intake Vital Signs 03/06/23 09:05 Height 5 ft 7 in Weight 241 lb BMI 37.7 BP 126/70 Blood Pressure Location Rt brachial Position Sitting Respiration 16 Pulse 77 Pulse Source Pulse Oximeter Pulse Oximetry (%) 97 Oxygen Delivery Method Room Air Intake Visit Reasons: Pill count Intake Note: Patient comes in for pill count to Oxycodone-acetaminophen 10mg - 325 mg tablets. He presented with 18 tablets and should have 18 tablets. Which he took last at 7:30 am. Patient reports pain level today of 02/27. Allergies ciprofloxacin [From CIPRO] Allergy (Intermediate, Verified 03/06/23 09:05) SWELLING levofloxacin [Levaquin] Allergy (Intermediate, Verified 03/06/23 09:05) facial swelling HPI HPI Comments History of Present Illness Details Gustavo is here for the pill count. He reports with 18 pills in his possession. His supposed to have 18 pills in his possession. His pill count is correct. He reports increased pain in the left knee status post total knee replacement. Last time I ordered him physical therapy to help pain in the knee. He reported no one call him and invited him for physical therapy. He had on therapeutic sacroiliac joint injection 01/03/2023.? He reports good pain relief he reports pain in the lower back is 09/30 today, he reports frequent urinations and excessive thirst after the therapeutic SI joint injection. He still reports good pain relief from the procedure, considering the symptoms I warned him again today about risk of diabetes. He is not very inclined to think about neuromodulation of the sacroiliac joint pain or sacroiliac joint fusion. results of bilateral diagnostic sacroiliac joint injection which was performed 10/18/2022.? She reports 100% pain improvement for the 1st 6-10 hours after the p rocedure.? His pain returned in the morning after the injection but it was not as strong as his usual pain.? He continued to experience some pain relieve after the procedure for 20-48 hours after the procedure although the pain continued to increase in intensity.? He was offered today 3 options to treat this pain I offered him bilateral sacroiliac joint injection, as well as peripheral nerve stimulation of sacroiliac joint innervation stim wave, as well as remote possibility of sacroiliac joint fusion although the age of the patient would be consideration for this procedure. Prior:. ? he is suffering from bilateral more on the left sacroiliitis.? As of the pain in his right knee he completed physical therapy which did not help at all his pain in the right knee.? He also complains on pain in the left knee where he has prosthetic joint.? He has atrophy of the muscles in the left hip.? His left lower extremity is weaker.? He was told by his orthopedic surgeon to work on stationary bicycle to improve the strength of the left lower extremity.His left thigh is thinner than the right thigh. I am affraid that this is already a sign of CRPS of the left LE and exercises might not be very he lpful there.He also complains on some pain in the groin radiating into the testicle which is possibly evidence of arthritis of the left hip. He reports severe pain in bilateral knees.? I recommended him to perform diagnostic genicular nerve block on the left knee where he had total knee replacement with Dr. Villagran in the past.? He told me that he will request Dr. Villagran's opinion on this procedure and will let us know whether not he would like to go for this procedure.? He needs antibiotic I infection prophylaxis before the injection.? He is? receiving medical management until he can schedule his right TKR with Dr. Villagran, which is the same process he underwent for his left knee. He is currently waiting to build enough time to take off of work after surgery. He is aware that being on chronic opioids prior to surgery may present issues with pain control postoperatively but he notes he did well postoperatively in regards to pain with his prior surgery [facility] Medical History BPH (benign prostatic hyperplasia) Chronic pain Derangement of right knee Essential hypertension GERD (gastroesophageal reflux disease) Gout Hyperlipidemia Hypogonadism in male Mild recurrent major depression Osteoarthritis of right knee PAF (paroxysmal atrial fibrillation) Pure hypercholesterolemia Rosacea Skin lesion Sleep apnea Surgical History H/O colonoscopy History of appendectomy History of arthroplasty of left knee History of arthroplasty of right shoulder History of arthroscopy of left knee History of arthroscopy of right knee History of left knee replacement History of prior ablation treatment History of prostate surgery Family History Father No problems noted. Mother No problems noted. Son No problems noted. Social History Household Members: None Housing: Apartment Do you presently have visiting nurse or other home services: No Alcohol intake: current Alcohol intake frequency: holidays/special occasions only Alcohol type: beer and hard liquor Patient Tobacco Use Status: Former Tobacco user Quit Date: 25 years Tobacco use type: Cigarette e-Cigarette/Vaping Use: Never Used Second Hand Smoke Exposure: No Substance Use Type: Marijuana service: No Current occupational status: employed Current occupational exposures/hazards: No Cognitive needs: No Hearing needs: No Vision needs: No Review of Systems Const All systems reviewed & are unremarkable except as noted in HPI and below ENT Reports Normal hearing present Neuro Reports Normal hearing present, Denies Abnormal speech present and Denies confusion Psych Denies confusion Physical Exam Vital Signs: Last Vital Signs Pulse 77 03/06/23 09:05 Resp 16 03/06/23 09:05 BP 126/70 03/06/23 09:05 Pulse Ox 97 03/06/23 09:05 Oxygen Delivery Method Room Air 03/06/23 09:05 BMI result Body Mass Index 37.7 Const General: No confusion Orientation/consciousness: No confusion HEENT Head: Yes normocephalic and Yes atraumatic Eyes EOM: EOMs intact bilaterally Resp Effort & Inspection: normal respiratory effort and able to speak in complete sentences Cardio Jugular venous distension: no JVD Back/Spine/Pelvis Other: No tenderness on palpation in spinal and paraspinal region of the lower back. Loading test is negative bilaterally. Back percussion is negative for pain exacerbation. Palpation of the bilateral sacroiliac joint is demonstrating severe pain. Pain is more severe on the left and less severe on the right. Gaenslen test is positive for pain increase in the left. Compression test is negative for pain increase however thigh thrust test fiber test and destruction tests are positive on the pain more on the left and less on the right. Skin General skin exam: turgor normal Rashes: no rashes Neuro General: No confusion Cranial nerves: Yes Normal hearing present Speech: No Abnormal speech present Extrem Other: Right Knee:5-125 DEG, varus alignnment, TTP medial compartment Left knee: 0-130. atrophied but functional quad cold and pale skin in the projection of the left thigh. well-healed incision Psych Appearance: grossly normal Affect: normal affect Attitude: cooperative Assessment & Plan Assessment & Plan (1) Osteoarthritis of right knee: Code(s): M17.11 - Unilateral primary osteoarthritis, right knee Qualifiers: Osteoarthritis type: primary Qualified Code(s): M17.11 - Unilateral primary osteoarthritis, right knee (2) History of arthroplasty of left knee: Code(s): Z96.652 - Presence of left artificial knee joint (3) Chronic pain of right knee: Code(s): M25.561 - Pain in right knee; G89.29 - Other chronic pain (4) Complex regional pain syndrome i of left lower limb: Code(s): G90.522 - Complex regional pain syndrome I of left lower limb (5) Sacroiliitis: Code(s): M46.1 - Sacroiliitis, not elsewhere classified (6) Sacroiliac joint pain: Code(s): M53.3 - Sacrococcygeal disorders, not elsewhere classified (7) Left knee pain: Code(s): M25.562 - Pain in left knee Plan Diagnostic sacroiliac joint injection resulted in very substantial 100% pain relief corresponding to the time of the action of the local ropivacaine. Therapeutic sacroiliac joint injection resulted in good pain relief. He still reports significant pain relief from the sacroiliac joint injection which was done in January 03.. In the past I offered this patient 3 options: SI joint injections with steroids, SI joint PNS with stim wave, SI joint fusion although limitations imposed by him on the age. All the possible options were explained to the patient's. He still is declined to consider neuromodulation of fusion. Risk of diabetes discussed again today. He was reporting excessive thirst and excessive urination after previous therapeutic injection. As of his bilateral knees:total knee replacement on the left in my opinion goes into Complex regional pain syndrome with atrophy coldness and pale discoloration of the left thigh. Physical therapy was done during the pandemic send unfortunately it was not completed. Wants to go for physical therapy again. A scheduled his physical therapy unfortunately nobody contacted the patient about it. He had pill count today and it was correct. I will renew with his medications there do on 03/12/2023 I will see him in 1 month. Medications: Refilled oxycodone-acetaminophen 10-325 mg 1 tab PO Q8H 30 days PRN 90 tabs 0RF severe pain (scale score 7-10) M17.11 - Unilateral primary osteoarthritis, right knee Coding Level of Care Code Est Pt Level 4 (27645) Diagnoses Osteoarthritis of right knee M17.11 Osteoarthritis type: primary History of arthroplasty of left knee Z96.652 Chronic pain of right knee M25.561; G89.29 Complex regional pain syndrome i of left lower limb G90.522 Sacroiliitis M46.1 Sacroiliac joint pain M53.3 Left knee pain M25.562
== END 2023-03-06 09:30 | disposition home or self-care (01) ==
PROVIDERS: PCP Internal Medicine; Visit Provider Anesthesiology
DX: M17.11 Unilateral primary osteoarthritis, right knee (principal); Z96.652 Presence of left artificial knee joint; M25.561 Pain in right knee; G89.29 Other chronic pain; G90.522 Complex regional pain syndrome I of left lower limb; M46.1 Sacroiliitis, not elsewhere classified; M53.3 Sacrococcygeal disorders, not elsewhere classified; M25.562 Pain in left knee
CPT/HCPCS: 99214

== ENCOUNTER → 2023-03-06 08:58 | Outpatient (BNVA) | payer OTHER, SELFPAY | PROVIDERS: PCP Internal Medicine; Visit Provider Anesthesiology | DX: M17.11 Unilateral primary osteoarthritis, right knee (principal); G89.29 Other chronic pain; M25.561 Pain in right knee; G90.522 Complex regional pain syndrome I of left lower limb; M46.1 Sacroiliitis, not elsewhere classified; M53.3 Sacrococcygeal disorders, not elsewhere classified; M25.562 Pain in left knee; Z96.652 Presence of left artificial knee joint; Z79.891 Long term (current) use of opiate analgesic | CPT/HCPCS: 99212 ==

== ENCOUNTER → 2023-04-03 08:24 | Outpatient (BNVA) | payer OTHER, SELFPAY | PROVIDERS: PCP Internal Medicine; Visit Provider Anesthesiology | DX: Z79.891 Long term (current) use of opiate analgesic (principal) | CPT/HCPCS: 99211 ==

== ENCOUNTER 2023-04-28 06:09 | Outpatient (REF) | payer OTHER, SELFPAY | END 2023-04-28 06:10 | disposition home or self-care (01) | LOC: HO.LAB 06:09 | PROVIDERS: PCP Internal Medicine; Referring Provider Urology; Visit Provider Internal Medicine | DX: Z13.89 Encounter for screening for other disorder (principal) ==

== ENCOUNTER 2023-05-01 08:44 | Outpatient (AMB) | payer OTHER, SELFPAY ==
--- NOTE | 2023-05-01 08:49 | A.OFFVIS_ITS ---
Intake Vital Signs 05/01/23 08:56 Height 5 ft 7 in Weight 243 lb 6 oz BMI 38.1 BP 139/87 Blood Pressure Location Rt brachial Position Sitting Pulse 74 Pulse Source Pulse Oximeter Pulse Oximetry (%) 96 Oxygen Delivery Method Room Air Intake Visit Reasons: Pill count, counted and correct Intake Note: Pt presents Perc #32 tabs/should have #30, last taken this am, pain rating when ambulating 8/10 on pain scale Allergies ciprofloxacin [From CIPRO] Allergy (Intermediate, Verified 05/01/23 08:58) SWELLING levofloxacin [Levaquin] Allergy (Intermediate, Verified 05/01/23 08:58) facial swelling Medication List - Last Reconciled 05/01/23 by Lazara Calderon RN apixaban (Eliquis) 5 mg PO BID diltiazem HCl 180 mg PO DAILY doxycycline hyclate 100 mg PO BID 30 days lisinopril 10 mg PO DAILY 90 days lorazepam 1 mg PO BID PRN 29 days mirabegron ER 25 mg PO DAILY 30 days naloxone 4 mg/actuation (Narcan) 4 mg intranasal Q2M PRN needle (disp) 22 G As directed oxycodone-acetaminophen 10-325 mg 1 tab PO Q8H PRN 30 days peg 3350-electrolytes [id number] -5.86 gram (Golytely) 240 mL PO Q10M 1 day simvastatin 40 mg PO BEDTIME syringe with needle As directed tadalafil 5 mg PO DAILY 90 days testosterone cypionate (Depo-Testosterone) 100 mg (0.5 mL) IM QWEEK 4 weeks valacyclovir 1,000 mg PO Q8H 7 days HPI HPI Comments History of Present Illness Details Gustavo is here for the pill count. Presented today with 32 pills in his possession. He is supposed to have 30 pills in his possession. This demonstrates responsible attitude for the opioid medications. He reports severe pain in the right knee. He reports that he is ready to perform total knee replacement on the right. Social reasons would require him to be admitted to the rehabilitation center after the surgery. Orthopedic surgery should take care of it. He reports no pain in the lumbar spine. He is not interested in neuromodulation therefore. I told him that it will be bad idea to perform steroid injections into the sacroiliac joints due to high risk of diabetes. He had on therapeutic sacroiliac joint injection 01/03/2023.? He reports good pain relief he reports pain in the lower back is 2/10 today, he reports frequent urinations and excessive thirst after the therapeutic SI joint injection. He still reports good pain relief from the procedure, considering the symptoms I warned him again today about risk of diabetes. He is not very inclined to think about neuromodulation of the sacroiliac joint pain or sacroiliac joint fusion. results of bilateral diagnostic sacroiliac joint injection which was performed 10/18/2022.? She reports 100% pain improvement for the 1st 6-10 hours after the procedure.? His pain returned in the morning after the injection but it was not as strong as his usual pain.? He continued to experience some pain relieve after the procedure for 20-48 hours after the procedure although the pain continued to increase in intensity.? He was offered today 3 options to treat this pain I offered him bilateral sacroiliac joint injection, as well as peripheral nerve stimulation of sacroiliac joint innervation stim wave, as well as remote possibility of sacroiliac joint fusion although the age of the patient would be consideration for this procedure. Prior:. ? he is suffering from bilateral more on the left sacroiliitis.? As of the pain in his right knee he completed physical therapy which did not help at all his pain in the right knee.? He also complains on pain in the left knee where he has prosthetic joint.? He has atrophy of the muscles in the left hip.? His left lower extremity is weaker.? He was told by his orthopedic surgeon to work on stationary bicycle to improve the strength of the left lower extremity.His left thigh is thinner than the right thigh. I am affraid that this is already a sign of CRPS of the left LE and exercises might not be very helpful there.He also complains on some pain in the groin radiating into the testicle which is possibly evidence of arthritis of the left hip. He reports severe pain in bilateral knees.? I recommended him to perform diagnostic genicular nerve block on the left knee where he had total knee replacement with Dr. Villagran in the past.? He told me that he will request Dr. Villagran's opinion on this procedure and will let us know whether not he would like to go for this procedure.? He needs antibiotic I infection prophylaxis before the injection.? He is? receiving medical management until he can schedule his right TKR with Dr. Villagran, which is the same process he underwent for his left knee. He is currently waiting to build enough time to take off of work after surgery. He is aware that being on chronic opioids prior to surgery may present issues with pain control postoperatively but he notes he did well postoperatively in regards to pain with his prior surgery [facility] Medical History BPH (benign prostatic hyperplasia) Chronic pain Derangement of right knee Essential hypertension GERD (gastroesophageal reflux disease) Gout Hyperlipidemia Hypogonadism in male Mild recurrent major depression Osteoarthritis of right knee PAF (paroxysmal atrial fibrillation) Pure hypercholesterolemia Rosacea Skin lesion Sleep apnea Surgical History H/O colonoscopy History of appendectomy History of arthroplasty of left knee History of arthroplasty of right shoulder History of arthroscopy of left knee History of arthroscopy of right knee History of left knee replacement History of prior ablation treatment History of prostate surgery Family History Father No problems noted. Mother No problems noted. Son No problems noted. Social History Household Members: None Housing: Apartment Do you presently have visiting nurse or other home services: No Alcohol intake: current Alcohol intake frequency: holidays/special occasions only Alcohol type: beer and hard liquor Patient Tobacco Use Status: Former Tobacco user Quit Date: 25 years Tobacco use type: Cigarette e-Cigarette/Vaping Use: Never Used Second Hand Smoke Exposure: No Substance Use Type: Marijuana service: No Current occupational status: employed Current occupational exposures/hazards: No Cognitive needs: No Hearing needs: No Vision needs: No Review of Systems Const All systems reviewed & are unremarkable except as noted in HPI and below ENT Reports Normal hearing present Neuro Reports Normal hearing present, Denies Abnormal speech present and Denies confusion Psych Denies confusion Physical Exam Vital Signs: Last Vital Signs Pulse 74 05/01/23 08:56 BP 139/87 05/01/23 08:56 Pulse Ox 96 05/01/23 08:56 Oxygen Delivery Method Room Air 05/01/23 08:56 BMI result Body Mass Index 38.1 Const General: No confusion Orientation/consciousness: No confusion HEENT Head: Yes normocephalic and Yes atraumatic Eyes EOM: EOMs intact bilaterally Resp Effort & Inspection: normal respiratory effort and able to speak in complete sentences Cardio Jugular venous distension: no JVD Back/Spine/Pelvis Other: No tenderness on palpation in spinal and paraspinal region of the lower back. Loading test is negative bilaterally. Back percussion is negative for pain exacerbation. Palpation of the bilateral sacroiliac joint is demonstrating severe pain. Pain is more severe on the left and less severe on the right. Gae nslen test is positive for pain increase in the left. Compression test is negative for pain increase however thigh thrust test fiber test and destruction tests are positive on the pain more on the left and less on the right. Skin General skin exam: turgor normal Rashes: no rashes Neuro General: No confusion Cranial nerves: Yes Normal hearing present Speech: No Abnormal speech present Extrem Other: Right Knee:5-125 DEG, varus alignnment, TTP medial compartment Left knee: 0-130. atrophied but functional quad cold and pale skin in the projection of the left thigh. well-healed incision Psych Appearance: grossly normal Affect: normal affect Attitude: cooperative Assessment & Plan Assessment & Plan (1) Osteoarthritis of right knee: Code(s): M17.11 - Unilateral primary osteoarthritis, right knee Qualifiers: Osteoarthritis type: primary Qualified Code(s): M17.11 - Unilateral primary osteoarthritis, right knee (2) History of arthroplasty of left knee: Code(s): Z96.652 - Presence of left artificial knee joint (3) Chronic pain of right knee: Code(s): M25.561 - Pain in right knee; G89.29 - Other chronic pain (4) Complex regional pain syndrome i of left lower limb: Code(s): G90.522 - Complex regional pain syndrome I of left lower limb (5) Sacroiliitis: Code(s): M46.1 - Sacroiliitis, not elsewhere classified (6) Sacroiliac joint pain: Code(s): M53.3 - Sacrococcygeal disorders, not elsewhere classified (7) Left knee pain: Code(s): M25.562 - Pain in left knee Plan Diagnostic sacroiliac joint injection resulted in very substantial 100% pain relief corresponding to the time of the action of the local ropivacaine. Therapeutic sacroiliac joint injection resulted in good pain relief. He still reports significant pain relief from the sacroiliac joint injection which was done in January 03. In the past I offered this patient 3 options: SI joint injections with steroids, SI joint PNS with stim wave, SI joint fusion although limitations imposed by him on the age. The patient reports no pain in the back. He still reports good pain relief from the injection. However I decided that if the pain in the back will return the will be high risk for yatrogenic diabetes therefore the only options are on the table: SI joint fusion and SI joint PNS. As of his bilateral knees:total knee replacement on the left in my opinion goes into Complex regional pain syndrome with atrophy coldness and pale discoloration of the left thigh. Physical therapy was done during the pandemic send unfortunately it was not completed. As of the the arthritis is getting worse and his working with orthopedic surgery to perform total knee replacement on the right. He had pill count today and it was correct. He denies side effects of the opioid medications. I will renew with his medications there do on 05/11/2023 I will see him in 1 month. Medications: Refilled oxycodone-acetaminophen 10-325 mg 1 tab PO Q8H PRN 90 tabs 0RF severe pain (scale score 7-10) 30 days M17.11 - Unilateral primary osteoarthritis, right knee Coding Level of Care Code Est Pt Level 4 (67844) Diagnoses Primary osteoarthritis of right knee M17.11 Osteoarthritis type: primary History of arthroplasty of left knee Z96.652 Chronic pain of right knee M25.561; G89.29 Complex regional pain syndrome i of left lower limb G90.522 Sacroiliitis M46.1 Sacroiliac joint pain M53.3 Left knee pain M25.562
[2023-05-01 08:56] VITALS: BP 139/87; PULSE 74; O2SAT 96; BMI 38.1
== END 2023-05-01 09:10 | disposition home or self-care (01) ==
PROVIDERS: PCP Internal Medicine; Visit Provider Anesthesiology
DX: G89.29 Other chronic pain (principal); M17.11 Unilateral primary osteoarthritis, right knee; M25.561 Pain in right knee; Z79.891 Long term (current) use of opiate analgesic; Z96.652 Presence of left artificial knee joint; M46.1 Sacroiliitis, not elsewhere classified; M53.3 Sacrococcygeal disorders, not elsewhere classified; M25.562 Pain in left knee; G90.522 Complex regional pain syndrome I of left lower limb
CPT/HCPCS: 99214

== ENCOUNTER → 2023-05-01 08:44 | Outpatient (BNVA) | payer OTHER, SELFPAY | PROVIDERS: PCP Internal Medicine; Visit Provider Anesthesiology | DX: M17.11 Unilateral primary osteoarthritis, right knee (principal); G89.29 Other chronic pain; M25.561 Pain in right knee; M25.562 Pain in left knee; G90.522 Complex regional pain syndrome I of left lower limb; M46.1 Sacroiliitis, not elsewhere classified; M53.3 Sacrococcygeal disorders, not elsewhere classified; Z79.891 Long term (current) use of opiate analgesic; Z96.652 Presence of left artificial knee joint | CPT/HCPCS: 99212 ==

== ENCOUNTER 2023-05-04 06:03 | Outpatient (REF) | payer OTHER, SELFPAY ==
[2023-05-04 07:33] LABS: PSA,Total (Free>4and<10) 3.42 ng/mL (0.00-4.00)
[2023-05-10 16:44] LABS: Testosterone, Free 163.6 pg/mL (35.0-155.0); Testosterone, Total 627 ng/dL (250-1100)
== END 2023-05-04 06:04 | disposition home or self-care (01) ==
LOC: HO.LAB 06:03
PROVIDERS: PCP Internal Medicine; Visit Provider Urology
DX: Z12.5 Encounter for screening for malignant neoplasm of prostate (principal); N40.0 Benign prostatic hyperplasia without lower urinary tract symptoms
CPT/HCPCS: 36415; 84153; 84402; 84403

== ENCOUNTER 2023-05-18 13:33 | Outpatient (AMB) | payer OTHER, SELFPAY ==
--- NOTE | 2023-05-18 13:33 | MHC.OFFVIS ---
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 Accompanied by: Self / Same As Patient Allergies ciprofloxacin [From CIPRO] Allergy (Intermediate, Verified 05/18/23 21:03) SWELLING levofloxacin [Levaquin] Allergy (Intermediate, Verified 05/18/23 21:03) facial swelling Medication List - Last Reconciled 05/18/23 by DEMETRIA Moran- apixaban (Eliquis) 5 mg PO BID diltiazem HCl 180 mg PO DAILY doxycycline hyclate 100 mg PO BID 30 days lisinopril 10 mg PO DAILY 90 days lorazepam 1 mg PO BID PRN 29 days naloxone 4 mg/actuation (Narcan) 4 mg intranasal Q2M PRN needle (disp) 22 G As directed oxycodone-acetaminophen 10-325 mg 1 tab PO Q8H PRN 30 days peg 3350-electrolytes 236-22.74-6.74 -5.86 gram (Golytely) 240 mL PO Q10M 1 day simvastatin 40 mg PO BEDTIME syringe with needle As directed tadalafil 5 mg PO DAILY 90 days testosterone cypionate (Depo-Testosterone) 100 mg (0.5 mL) IM QWEEK 4 weeks valacyclovir 1,000 mg PO Q8H 7 days HPI HPI Comments History of Present Illness Details Gustavo is a pleasant 62 year old male patient of Dr. Crow Lau. He has a past medical history of sleep apnea, hypercholesteremia, depression, osteoarthritis, rosacea, hypogonadism, gout, chronic pain, GERD, BPH, hyperlipidemia, paroxysmal atrial fibrillation, and hypertension. He is being followed up on today via video telehealth for his hypogonadism, lower urinary tract symptoms, and overactive bladder. In discussion with the patient today reports to be doing and feeling well. However, he discusses his frustration with not being able to obtain refill on his testosterone due to his rescheduled appointment due to his lab work not being completed. Of note, patient was seen previously approximately [address] Lopez at which time he was started on Myrbetriq for his ongoing issues with lower urinary tract symptoms of urgency and frequency. He has previously failed oxybutynin and tolterodine he reports no significant improvement in lower urinary tract symptoms on Myrbetriq and has since stopped taking this medication. Discuss trial of other medications such as vesicare and or increase in Myrbetriq however patient declines at this time. He states his only request is to review his labs in refill his testosterone. These results were reviewed with the patient today as noted below. Patient denies any bothersome urinary issues or concerns at this time. He reports to be happy with current voiding parameters. Discussed obtaining CBC, PSA, and testosterone free and total in 6 months. He otherwise denies any other issues or concerns at this time Hypogonadism Longstanding Current therapy injections 100mg weekly - Injection Day Sat/Mon and Lab Day Mon Prior therapy AndroGel Does self injection at home weekly Will continue with current standard therapy process Laboratories - 12/09 T 1200, PSA 3.45, HCT 48, 11/09 215 3.1 46, 06/11 205 46, 05/13 T--627 PSA--3.4. Continue with evaluation every 6 months Lower urinary tract symptoms Prior laser procedure Symptoms of urgency and frequency Concomitant diagnosis includes NERY on CPAP Prior failure of trial with oxybutynin, tolterodine, and Myrbetriq Nocturia x5, daytime urge PFSH Medical History Sleep apnea Pure hypercholesterolemia Mild recurrent major depression Derangement of right knee Osteoarthritis of right knee Skin lesion Rosacea Hypogonadism in male Gout Chronic pain GERD (gastroesophageal reflux disease) BPH (benign prostatic hyperplasia) Hyperlipidemia PAF (paroxysmal atrial fibrillation) Essential hypertension Surgical History H/O colonoscopy History of left knee replacement History of arthroplasty of left knee History of prior ablation treatment History of prostate surgery History of arthroplasty of right shoulder History of appendectomy History of arthroscopy of right knee History of arthroscopy of left knee Family History Father No problems noted. Mother No problems noted. Son No problems noted. Social History Household Members: None Housing: Apartment Do you presently have visiting nurse or other home services: No Alcohol intake: current Alcohol intake frequency: holidays/special occasions only Alcohol type: beer and hard liquor Patient Tobacco Use Status: Former Tobacco user Quit Date: 25 years Tobacco use type: Cigarette e-Cigarette/Vaping Use: Never Used Second Hand Smoke Exposure: No Substance Use Type: Marijuana service: No Current occupational status: employed Current occupational exposures/hazards: No Cognitive needs: No Hearing needs: No Vision needs: No Review of Systems Const Reports as per HPI Eyes Reports no additional complaints ENT Reports no additional complaints Card Reports as per HPI Resp Reports as per HPI GI Reports as per HPI Reports as per HPI Musc Reports as per HPI Neuro Reports no additional complaints Psych Reports as per HPI Endo Reports no additional complaints William/Lymph Reports no additional complaints Aller/Immun Reports no additional complaints Physical Exam Const General: cooperative, healthy appearing, comfortable, no acute distress, well developed, alert and awake Orientation/consciousness: patient oriented x3 Resp Effort & Inspection: normal respiratory effort and able to speak in complete sentences Neuro General: patient oriented x3 Psych Appearance: grossly normal Mental Status: mental status grossly normal Speech and movement: Clear speech present Affect: normal affect Attitude: cooperative Thought process: Normal thought process present Thought content: Normal thought content present Insight: Fair insight present (Psych) Judgement: Fair judgement present (Psych) Assessment & Plan Assessment & Plan (1) Hypogonadism in male: Code(s): E29.1 - Testicular hypofunction (2) Overactive bladder: Code(s): N32.81 - Overactive bladder (3) BPH (benign prostatic hyperplasia): Code(s): N40.0 - Benign prostatic hyperplasia without lower urinary tract symptoms Plan Recent testosterone and PSA results reviewed with the patient today; as noted above. Discussed obtaining PSA, CBC, and testosterone total and free in 6 months Refill on Testosterone provided Patient currently denies any bothersome urinary issues Discussed at length importance of limiting fluids 3-4 hours prior to bed to assist with decreasing episodes of nocturia Discussed at length importance of compliance with CPAP machine for improvement in lower urinary tract symptoms as well as overall health and well-being. Follow-up in 6 months with labs to be completed prior; or sooner with any issues, concerns, and or questions. Orders: Orders Testosterone, Free/Total 6 Months E29.1 - Testicular hypofunction Complete Blood Count no Diff 6 Months E29.1 - Testicular hypofunction PSA,Total (Free>4and<10) 6 Months E29.1 - Testicular hypofunction Medications: New syringe with needle As directed 100 ea 0RF Refilled needle (disp) 22 G As directed 50 ea 0RF testosterone cypionate (Depo-Testosterone) 100 mg (0.5 mL) IM QWEEK 2 mL 5RF 4 weeks [id number] Discontinued peg 3350-electrolytes 236-22.74-6.74 -5.86 gram (Golytely) until fecal effluent is clear; do not exceed a total volume of 2,000 mL Discontinued Reason: Doctor's Order 240 mL PO Q10M 4,000 mL 0RF 1 day Z12.11 - Encounter for screening for malignant neoplasm of colon Patient Instructions: The patient had an opportunity to ask questions regarding the treatment plan. All questions were answered. Physical exam, labs, and imaging were discussed and reviewed in detail. As well as risks, benefits, and discussion of treatment choices. No major barriers to understanding were identified. The patient expressed understanding and agreement with the above treatment plan. The patient was made aware they should contact our office by phone for worsening of their current condition, the appearance of new symptoms, or with any questions or concerns. Compliance is encouraged with any medications and follow up testing that is ordered. It is a privilege to be allowed the opportunity to participate in? your urological care.? Again, if you have any questions or concerns If you have any questions or concerns please do not hesitate to contact me. The office is [phone]. This note is constructed using voice recognition software. While every effort has been made to ensure accuracy 21 dealer errors may have been included. Yours sincerely, DEMETRIA Moran- Telehealth Telehealth Location of provider rendering services: practice address Location of patient: address on file Patient Identification confirmed using: Name, : Yes Telehealth method: video Patient verbally consented to treatment: Yes Patient verbally consented to billing insurance company: Yes Patient informed of any privacy concerns related to visit: Yes Minutes spent on Phone/Video with Pt.: 20 Coding Level of Care Code Tele Est Pt Level 3 (05877) Diagnoses Hypogonadism in male E29.1 Overactive bladder N32.81 BPH (benign prostatic hyperplasia) N40.0
== END 2023-05-18 15:34 | disposition home or self-care (01) ==
LOC: HO.HUSH 13:33
PROVIDERS: PCP Internal Medicine; Visit Provider Nurse Practitioner Family
DX: E29.1 Testicular hypofunction (principal); N32.81 Overactive bladder; N40.0 Benign prostatic hyperplasia without lower urinary tract symptoms
CPT/HCPCS: 99213

== ENCOUNTER → 2023-05-18 13:33 | Outpatient (BNVA) | payer OTHER, SELFPAY | PROVIDERS: PCP Internal Medicine; Visit Provider Nurse Practitioner Family ==

== ENCOUNTER 2023-05-31 08:55 | Outpatient (AMB) | payer OTHER, SELFPAY ==
--- NOTE | 2023-05-31 09:13 | MHC.OFFVIS ---
Intake Vital Signs 05/31/23 09:14 Height 5 ft 7 in Weight 238 lb 4 oz BMI 37.3 BP 140/78 H Blood Pressure Location Lt brachial Position Sitting Respiration 18 Pulse 73 Pulse Source Pulse Oximeter Pulse Oximetry (%) 95 Oxygen Delivery Method Room Air Intake Visit Reasons: PILL COUNT Intake Note: patient comes in for pill count. Allergies ciprofloxacin [From CIPRO] Allergy (Intermediate, Verified 05/31/23 09:15) SWELLING levofloxacin [Levaquin] Allergy (Intermediate, Verified 05/31/23 09:15) facial swelling HPI HPI Comments History of Present Illness Details Gustavo is here for the pill count. Presented today with 33 pills in his possession. He is supposed to have 30 pills in his possession. This demonstrates responsible attitude for the opioid medications. He is trying to adjust his social circumstances to go for total knee replacement with Dr. Villagran. He requests me to be he has anesthesiologist. I do not mind if my schedule is adjusted. Alternatively we can request Dr. Valencia to do the case. I would recommend femoral nerve block and spinal anesthesia with intrathecal morphine for pain control of this patient. He has opioid exposed and he has intrathecal medications could be increased to 150 to 300 micro g intrathecally. It will be total knee replacement on the right. He reports no pain in the lumbar spine. He is not interested in neuromodulation therefore. I told him that it will be bad idea to perform steroid injections into the sacroiliac joints due to high risk of diabetes. He had on therapeutic sacroiliac joint injection 01/03/2023.? He reports good pain relief he reports pain in the lower back is 2/10 today, he reports frequent urinations and excessive thirst after the therapeutic SI joint injection. He still reports good pain relief from the procedure, considering the symptoms I warned him again today about risk of diabetes. He is not very inclined to think about neuromodulation of the sacroiliac joint pain or sacroiliac joint fusion. results of bilateral diagnostic sacroiliac joint injection which was performed 10/18/2022.? She reports 100% pain improvement for the 1st 6-10 hours after the procedure.? His pain returned in the morning after the injection but it was not as strong as his usual pain.? He continued to experience some pain relieve after the procedure for 20-48 hours after the procedure although the pain continued to increase in intensity.? He was offered today 3 options to treat this pain I offered him bilateral sacroiliac joint injection, as well as peripheral nerve stimulation of sacroiliac joint innervation stim wave, as well as remote possibility of sacroiliac joint fusion although the age of the patient would be consideration for this procedure. Prior:. ? he is suffering from bilateral more on the left sacroiliitis.? As of the pain in his right knee he completed physical therapy which did not help at all his pain in the right knee.? He also complains on pain in the left knee where he has prosthetic joint.? He has atrophy of the muscles in the left hip.? His left lower extremity is weaker.? He was told by his orthopedic surgeon to work on stationary bicycle to improve the strength of the left lower extremity.His left thigh is thinner than the right thigh. I am affraid that this is already a sign of CRPS of the left LE and exercises might not be very helpful there.He also complains on some pain in the groin radiating into the testicle which is possibly evidence of arthritis of the left hip. [facility] Medical History Sleep apnea Pure hypercholesterolemia Mild recurrent major depression Derangement of right knee Osteoarthritis of right knee Skin lesion Rosacea Hypogonadism in male Gout Chronic pain GERD (gastroesophageal reflux disease) BPH (benign prostatic hyperplasia) Hyperlipidemia PAF (paroxysmal atrial fibrillation) Essential hypertension Surgical History H/O colonoscopy History of left knee replacement History of arthroplasty of left knee History of prior ablation treatment History of prostate surgery History of arthroplasty of right shoulder History of appendectomy History of arthroscopy of right knee History of arthroscopy of left knee Family History Father No problems noted. Mother No problems noted. Son No problems noted. Social History Household Members: None Housing: Apartment Do you presently have visiting nurse or other home services: No Alcohol intake: current Alcohol intake frequency: holidays/special occasions only Alcohol type: beer and hard liquor Patient Tobacco Use Status: Former Tobacco user Quit Date: 25 years Tobacco use type: Cigarette e-Cigarette/Vaping Use: Never Used Second Hand Smoke Exposure: No Substance Use Type: Marijuana service: No Current occupational status: employed Current occupational exposures/hazards: No Cognitive needs: No Hearing needs: No Vision needs: No Review of Systems Const All systems reviewed & are unremarkable except as noted in HPI and below ENT Reports Normal hearing present Neuro Reports Normal hearing present, Denies Abnormal speech present and Denies confusion Psych Denies confusion Physical Exam Vital Signs: Last Vital Signs Pulse 73 05/31/23 09:14 Resp 18 05/31/23 09:14 BP 140/78 H 05/31/23 09:14 Pulse Ox 95 05/31/23 09:14 Oxygen Delivery Method Room Air 05/31/23 09:14 BMI result Body Mass Index 37.3 Const General: No confusion Orientation/consciousness: No confusion HEENT Head: Yes normocephalic and Yes atraumatic Eyes EOM: EOMs intact bilaterally Resp Effort & Inspection: normal respiratory effort and able to speak in complete sentences Cardio Jugular venous distension: no JVD Back/Spine/Pelvis Other: No tenderness on palpation in spinal and paraspinal region of the lower back. Loading test is negative bilaterally. Back percussion is negative for pain exacerbation. Palpation of the bilateral sacroiliac joint is demonstrating severe pain. Pain is more severe on the left and less severe on the right. Gaenslen test is positive for pain increase in the left. Compression test is negative for pain increase however thigh thrust test fiber test and destruction tests are positive on the pain more on the left and less on the right. Skin General skin exam: turgor normal Rashes: no rashes Neuro General: No confusion Cranial nerves: Yes Normal hearing present Speech: No Abnormal speech present Extrem Other: Right Knee:5-125 DEG, varus alignnment, TTP medial compartment Left knee: 0-130. atrophied but functional quad cold and pale skin in the projection of the left thigh. well-healed incision Psych Appearance: grossly normal Affect: normal affect Attitude: cooperative Assessment & Plan Assessment & Plan (1) Osteoarthritis of right knee: Code(s): M17.11 - Unilateral primary osteoarthritis, right knee Qualifiers: Osteoarthritis type: primary Qualified Code(s): M17.11 - Unilateral primary osteoarthritis, right knee (2) History of arthroplasty of left knee: Code(s): Z96.652 - Presence of left artificial knee joint (3) Chronic pain of right knee: Code(s): M25.561 - Pain in right knee; G89.29 - Other chronic pain (4) Complex regional pain syndrome i of left lower limb: Code(s): G90.522 - Complex regional pain syndrome I of left lower limb (5) Sacroiliitis: Code(s): M46.1 - Sacroiliitis, not elsewhere classified (6) Sacroiliac joint pain: Code(s): M53.3 - Sacrococcygeal disorders, not elsewhere classified (7) Left knee pain: Code(s): M25.562 - Pain in left knee Plan Diagnostic sacroiliac joint injection resulted in very substantial 100% pain relief corresponding to the time of the action of the local ropivacaine. Therapeutic sacroiliac joint injection resulted in good pain relief. He still reports significant pain relief from the sacroiliac joint injection which was done in January 03. In the past I offered this patient 3 options: SI joint injections with steroids, SI joint PNS with stim wave, SI joint fusion although limitations imposed by him on the age. The patient reports no pain in the back. He still reports good pain relief from the injection. As of his bilateral knees: total knee replacement on the left in my opinion goes into Complex regional pain syndrome with atrophy coldness and pale discoloration of the left thigh. Physical therapy was done during the pandemic send unfortunately it was not completed. As of the the arthritis is getting worse and his working with orthopedic surgery to perform total knee replacement on the right. He had pill count today and it was correct. He denies side effects of the opioid medications. I will renew with his medications there do on 06/10/2023 I will see him in 1 month. Medications: Refilled oxycodone-acetaminophen 10-325 mg 1 tab PO Q8H PRN 90 tabs 0RF severe pain (scale score 7-10) 30 days M17.11 - Unilateral primary osteoarthritis, right knee Coding Level of Care Code Est Pt Level 3 (74950) Diagnoses Primary osteoarthritis of right knee M17.11 Osteoarthritis type: primary History of arthroplasty of left knee Z96.652 Chronic pain of right knee M25.561; G89.29 Complex regional pain syndrome i of left lower limb G90.522 Sacroiliitis M46.1 Sacroiliac joint pain M53.3 Left knee pain M25.562
[2023-05-31 09:14] VITALS: BP 140/78; PULSE 73; RESP 18; O2SAT 95; BMI 37.3
== END 2023-05-31 09:22 | disposition home or self-care (01) ==
PROVIDERS: PCP Internal Medicine; Visit Provider Anesthesiology
DX: M17.11 Unilateral primary osteoarthritis, right knee (principal); Z96.652 Presence of left artificial knee joint; M25.561 Pain in right knee; G89.29 Other chronic pain; G90.522 Complex regional pain syndrome I of left lower limb; M46.1 Sacroiliitis, not elsewhere classified; M53.3 Sacrococcygeal disorders, not elsewhere classified; M25.562 Pain in left knee
CPT/HCPCS: 99213

== ENCOUNTER → 2023-05-31 08:55 | Outpatient (BNVA) | payer OTHER, SELFPAY | PROVIDERS: PCP Internal Medicine; Visit Provider Anesthesiology | DX: Z51.81 Encounter for therapeutic drug level monitoring (principal); F11.20 Opioid dependence, uncomplicated; M47.11 Other spondylosis with myelopathy, occipito-atlanto-axial region; M25.561 Pain in right knee; M25.562 Pain in left knee; M46.1 Sacroiliitis, not elsewhere classified; M53.3 Sacrococcygeal disorders, not elsewhere classified; G90.522 Complex regional pain syndrome I of left lower limb; G89.29 Other chronic pain; Z96.652 Presence of left artificial knee joint | CPT/HCPCS: 99212 ==

== ENCOUNTER 2023-06-26 10:14 | Outpatient (AMB) | payer OTHER, SELFPAY ==
--- NOTE | 2023-06-26 11:27 | MHC.OFFWIV ---
Intake Vital Signs 06/26/23 11:29 Height 5 ft 7 in Weight 106.651 kg BMI 36.8 BP 130/80 Blood Pressure Location Rt brachial Position Sitting Pulse 94 Pulse Source Pulse Oximeter Temp 98.4 F Temp Source Temporal Artery Scan Pulse Oximetry (%) 95 Oxygen Delivery Method Room Air Intake Visit Reasons: EP, sore throat, headache ([phone]) Intake Note: pt is here for c.o sore throat and headache Patient Tobacco Use Status: Former Tobacco user Quit Date: 25 years Allergies ciprofloxacin [From CIPRO] Allergy (Intermediate, Verified 06/26/23 11:28) SWELLING levofloxacin [Levaquin] Allergy (Intermediate, Verified 06/26/23 11:28) facial swelling Do you need a note to return to daycare/school/sports/work: Yes HPI EP, sore throat, headache ([phone]) HPI Details Patient presents with 3 days sore throat headache, body aches, chills. No GI symptoms. 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 Describes throat pain as ?like razor blades ?. No dysphonia or inability to swallow. He does feel as if there is increased saliva production. [facility] Medical History Sleep apnea Pure hypercholesterolemia Mild recurrent major depression Derangement of right knee Osteoarthritis of right knee Skin lesion Rosacea Hypogonadism in male Gout Chronic pain GERD (gastroesophageal reflux disease) BPH (benign prostatic hyperplasia) Hyperlipidemia PAF (paroxysmal atrial fibrillation) Essential hypertension Surgical History H/O colonoscopy History of left knee replacement History of arthroplasty of left knee History of prior ablation treatment History of prostate surgery History of arthroplasty of right shoulder History of appendectomy History of arthroscopy of right knee History of arthroscopy of left knee Family History Father No problems noted. Mother No problems noted. Son No problems noted. Social History Household Members: None Housing: Apartment Do you presently have visiting nurse or other home services: No Alcohol intake: current Alcohol intake frequency: holidays/special occasions only Alcohol type: beer and hard liquor Patient Tobacco Use Status: Former Tobacco user Quit Date: 25 years Tobacco use type: Cigarette e-Cigarette/Vaping Use: Never Used Second Hand Smoke Exposure: No Substance Use Type: Marijuana service: No Current occupational status: employed Current occupational exposures/hazards: No Cognitive needs: No Hearing needs: No Vision needs: No Review of Systems Const Reports as per HPI and Reports no additional complaints ENT Reports no additional complaints and Reports as per HPI Card Reports as per HPI and Reports no additional complaints Resp Reports as per HPI and Reports no additional complaints GI Reports as per HPI and Reports no additional complaints Musc Reports no additional complaints and Reports as per HPI Skin/Breast Denies lesions Neuro Reports no additional complaints and Reports as per HPI Physical Exam Vital Signs: Last Vital Signs Temp 98.4 F 06/26/23 11:29 Pulse 94 06/26/23 11:29 BP 130/80 06/26/23 11:29 Pulse Ox 95 06/26/23 11:29 Oxygen Delivery Method Room Air 06/26/23 11:29 BMI result Body Mass Index 36.8 Const General: cooperative, comfortable and no acute distress Orientation/consciousness: patient oriented x3 HEENT Ears: external ears normal and TM's normal bilaterally General nose exam: Normal nasal mucous membranes and turbinates present Face and sinus: Yes sinuses nontender Mouth: Normal oral and palatal mucosa present Throat: Yes uvula midline, No peritonsillar mass and Yes posterior oropharynx abnormal (Tonsillar hypertrophy without rubor or exudate. No peritonsillar abscess) Resp Effort & Inspection: normal respiratory effort Auscultation: clear to auscultation bilaterally Cardio Rate: regular rate Rhythm: regular rhythm Heart sounds: S1 normal heart sound present and S2 normal heart sound present Neuro General: patient oriented x3 Results AMB Rapid Strep AMB Rapid Strep Negative Last Edit by Jeff Rodas CMA on 06/26/23 11:40 Results Reviewed Results Reviewed: Laboratory Last Values Strep Scn Rapid Clinic Negative 06/26/23 11:39 Assessment & Plan Assessment & Plan (1) Acute viral pharyngitis: Code(s): J02.9 - Acute pharyngitis, unspecified Plan: Advised patient on OTC self-care. Will report results of her oral swab as available. ER if unable to swallow or difficulty breathing, fever worsening pain. Return to clinic with any concerns. Orders: Orders AMB Rapid Strep Screen Today Z13.9 - Encounter for screening, unspecified Jose Medina MD SARS-CoV2/FLU/RSV Today B34.9 - Viral infection, unspecified [facility] [place] Coding Level of Care Code Est Pt Level 3 (56730) Diagnoses Acute viral pharyngitis J02.9
[2023-06-26 11:29] VITALS: BP 130/80; PULSE 94; TEMP 36.9; O2SAT 95; BMI 36.8
== END 2023-06-26 11:59 | disposition home or self-care (01) ==
PROVIDERS: PCP Internal Medicine; Visit Provider Physician Assistant
DX: J02.9 Acute pharyngitis, unspecified (principal); Z13.9 Encounter for screening, unspecified
CPT/HCPCS: 87880; 99213

== ENCOUNTER 2023-06-26 12:12 | Outpatient (REF) | payer OTHER, SELFPAY ==
[2023-06-26 14:57] LABS: Influenza A PCR NEGATIVE (Negative); Influenza B PCR NEGATIVE (Negative); Resp Syncy Virus RNA Qual PCR NEGATIVE (Negative); SARS COV2 PCR INHOUSE NEGATIVE (Negative)
== END 2023-06-26 12:13 | disposition home or self-care (01) ==
LOC: HO.LAB 12:12
PROVIDERS: Visit Provider Physician Assistant
DX: B34.9 Viral infection, unspecified (principal); Z11.52 Encounter for screening for COVID-19
CPT/HCPCS: 0241U

== ENCOUNTER 2023-06-28 09:27 | Outpatient (AMB) | payer OTHER, SELFPAY ==
--- NOTE | 2023-06-28 09:28 | MHC.OFFVIS ---
Intake Vital Signs 06/28/23 09:37 Height 5 ft 7 in Weight 230 lb BMI 36.0 BP 142/90 H Blood Pressure Location Lt brachial Position Sitting Respiration 16 Pulse 94 Pulse Source Pulse Oximeter Pulse Oximetry (%) 96 Oxygen Delivery Method Room Air Intake Visit Reasons: PILL COUNT/Random UDS LMOVM Intake Note: patient comes in for pill count to oxycodone-acetaminophen tablets.He was advise and aware to do a random UDS and has until 12pm to get it done. Pain level today 02/27. Allergies ciprofloxacin [From CIPRO] Allergy (Intermediate, Verified 06/28/23 09:37) SWELLING levofloxacin [Levaquin] Allergy (Intermediate, Verified 06/28/23 09:37) facial swelling HPI HPI Comments History of Present Illness Details Gustavo is here for the pill count. Presented today with 34 pills in his possession. He is supposed to have 36 pills in his possession. The pill count therefore is correct however he has 2 pills short. He is very concerned about basal cell carcinoma removal procedure which was performed on him 2 months ago. It looks like that the excision site was not closed and now it is unfortunately infected. He expressed his anxiety about basal cell carcinoma, his appointment with feller hand is scheduled only in September. I explained to him that this is or previously not an emergency considering the nature of his tumor which is rarely metastasizing however the patient wants infection of the incision to be evaluated. I recommended him to go to primary care physician show her the wound and refer him to a general surgeon instead of feller hand. he is still on the waiting list with Dr. Villagran's Total knee replacement however this is now on the background of current development with basal cell carcinoma. He had on therapeutic sacroiliac joint injection 01/03/2023.? He reports good pain relief he reports pain in the lower back is 2/10 today, he reports frequent urinations and excessive thirst after the therapeutic SI joint injection. He still reports good pain relief from the procedure, considering the symptoms I warned him again today about risk of diabetes. He is not very inclined to think about neuromodulation of the sacroiliac joint pain or sacroiliac joint fusion. results of bilateral diagnostic sacroiliac joint injection which was performed 10/18/2022.? She reports 100% pain improvement for the 1st 6-10 hours after the procedure.? His pain returned in the morning after the injection but it was not as strong as his usual pain.? He continued to experience some pain relieve after the procedure for 20-48 hours after the procedure although the pain continued to increase in intensity.? He was offered today 3 options to treat this pain I offered him bilateral sacroiliac joint injection, as well as peripheral nerve stimulation of sacroiliac joint innervation stim wave, as well as remote possibility of sacroiliac joint fusion although the age of the patient would be consideration for this procedure. Prior:. ? he is suffering from bilateral more on the left sacroiliitis.? As of the pain in his right knee he completed physical therapy which did not help at all his pain in the right knee.? He also complains on pain in the left knee where he has prosthetic joint.? He has atrophy of the muscles in the left hip.? His left lower extremity is weaker.? He was told by his orthopedic surgeon to work on stationary bicycle to improve the strength of the left lower extremity.His left thigh is thinner than the right thigh. I am affraid that this is already a sign of CRPS of the left LE and exercises might not be very helpful there.He also complains on some pain in the groin radiating into the testicle which is possibly evidence of arthritis of the left hip. [facility] Medical History Sleep apnea Pure hypercholesterolemia Mild recurrent major depression Derangement of right knee Osteoarthritis of right knee Skin lesion Rosacea Hypogonadism in male Gout Chronic pain GERD (gastroesophageal reflux disease) BPH (benign prostatic hyperplasia) Hyperlipidemia PAF (paroxysmal atrial fibrillation) Essential hypertension Surgical History H/O colonoscopy History of left knee replacement History of arthroplasty of left knee History of prior ablation treatment History of prostate surgery History of arthroplasty of right shoulder History of appendectomy History of arthroscopy of right knee History of arthroscopy of left knee Family History Father No problems noted. Mother No problems noted. Son No problems noted. Social History Household Members: None Housing: Apartment Do you presently have visiting nurse or other home services: No Alcohol intake: current Alcohol intake frequency: holidays/special occasions only Alcohol type: beer and hard liquor Patient Tobacco Use Status: Former Tobacco user Quit Date: 25 years Tobacco use type: Cigarette e-Cigarette/Vaping Use: Never Used Second Hand Smoke Exposure: No Substance Use Type: Marijuana service: No Current occupational status: employed Current occupational exposures/hazards: No Cognitive needs: No Hearing needs: No Vision needs: No Review of Systems Const All systems reviewed & are unremarkable except as noted in HPI and below ENT Reports Normal hearing present Neuro Reports Normal hearing present Physical Exam Vital Signs: Last Vital Signs Pulse 94 06/28/23 09:37 Resp 16 06/28/23 09:37 BP 142/90 H 06/28/23 09:37 Pulse Ox 96 06/28/23 09:37 Oxygen Delivery Method Room Air 06/28/23 09:37 BMI result Body Mass Index 36.0 Const General: cooperative, comfortable and no acute distress Orientation/consciousness: patient oriented x3 HEENT Head: Yes normocephalic and Yes atraumatic Eyes EOM: EOMs intact bilaterally Resp Effort & Inspection: normal respiratory effort, able to speak in complete sentences, normal respiratory pattern, no audible wheezes, no cough and respiratory effort not decreased Cardio Jugular venous distension: no JVD GI Inspection: Yes normal to inspection Back/Spine/Pelvis Other: No tenderness on palpation in spinal and paraspinal region of the lower back. Loading test is negative bilaterally. Back percussion is negative for pain exacerbation. Palpation of the bilateral sacroiliac joint is demonstrating severe pain. Pain is more severe on the left and less severe on the right. Gaenslen test is positive for pain increase in the left. Compression test is negative for pain increase however thigh thrust test fiber test and destruction tests are positive on the pain more on the left and less on the right. Skin General skin exam: turgor normal Rashes: no rashes Neuro General: patient oriented x3 Cranial nerves: Yes Normal hearing present Extrem Other: Right Knee:5-125 DEG, varus alignnment, TTP medial compartment Left knee: 0-130. atrophied but functional quad cold and pale skin in the projection of the left thigh. well-healed incision Psych Appearance: grossly normal Affect: normal affect Attitude: cooperative Results Reviewed Results Reviewed: X-ray lumbar spine nonrib-bearing lumbar-type vertebral bodies. Vertebral body heights are maintained. Levoconvex curvature of the lumbar spine. Grade 1 retrolisthesis of L4 on L5 and grade 1 anterolisthesis of L5 on S1. Moderate multilevel degenerative disc disease with loss of disc space height and? facet arthropathy. ? Right lower quadrant surgical clips. XR/XR lumbar spine 2-3V IMPRESSION: ? *? Moderate spondylosis of the lumbar spine, as above detailed. ? *? Spondylolisthesis, as above detailed. Levoconvex curvature of the lumbar spine. ? Assessment & Plan Assessment & Plan (1) Osteoarthritis of right knee: Code(s): M17.11 - Unilateral primary osteoarthritis, right knee Qualifiers: Osteoarthritis type: primary Qualified Code(s): M17.11 - Unilateral primary osteoarthritis, right knee (2) History of arthroplasty of left knee: Code(s): Z96.652 - Presence of left artificial knee joint (3) Chronic pain of right knee: Code(s): M25.561 - Pain in right knee; G89.29 - Other chronic pain (4) Complex regional pain syndrome i of left lower limb: Code(s): G90.522 - Complex regional pain syndrome I of left lower limb (5) Sacroiliitis: Code(s): M46.1 - Sacroiliitis, not elsewhere classified (6) Sacroiliac joint pain: Code(s): M53.3 - Sacrococcygeal disorders, not elsewhere classified (7) Left knee pain: Code(s): M25.562 - Pain in left knee (8) Basal cell carcinoma: Code(s): C44.91 - Basal cell carcinoma of skin, unspecified Plan Diagnostic sacroiliac joint injection resulted in very substantial 100% pain relief corresponding to the time of the action of the local ropivacaine. Therapeutic sacroiliac joint injection resulted in good pain relief. He still reports significant pain relief from the sacroiliac joint injection which was done in January 03. In the past I offered this patient 3 options: SI joint injections with steroids, SI joint PNS with stim wave, SI joint fusion although limitations imposed by him on the age. The patient reports no pain in the back. He still reports good pain relief from the injection. As of his bilateral knees: total knee replacement on the left in my opinion goes into Complex regional pain syndrome with atrophy coldness and pale discoloration of the left thigh. He had pill count today and it was technically correct. He denies side effects of the opioid medications. He denies constipation. I will renew with his medications on 07/11/2023. He was given UDS ordered today. I will see him in 1 month. Medications: Refilled oxycodone-acetaminophen 10-325 mg 1 tab PO Q8H PRN 90 tabs 0RF severe pain (scale score 7-10) 30 days M17.11 - Unilateral primary osteoarthritis, right knee Patient Instructions: I here by testify that I spent 47 minutes in conversation with this patient as well as planning his care ordering his medications and organizing this note. Coding Level of Care Code Est Pt Level 5 (44211) Diagnoses Primary osteoarthritis of right knee M17.11 Osteoarthritis type: primary History of arthroplasty of left knee Z96.652 Chronic pain of right knee M25.561; G89.29 Complex regional pain syndrome i of left lower limb G90.522 Sacroiliitis M46.1 Sacroiliac joint pain M53.3 Left knee pain M25.562 Basal cell carcinoma C44.91
[2023-06-28 09:37] VITALS: BP 142/90; PULSE 94; RESP 16; O2SAT 96; BMI 36.0
== END 2023-06-28 09:55 | disposition home or self-care (01) ==
PROVIDERS: PCP Internal Medicine; Visit Provider Anesthesiology
DX: M17.11 Unilateral primary osteoarthritis, right knee (principal); Z96.652 Presence of left artificial knee joint; M25.561 Pain in right knee; G89.29 Other chronic pain; G90.522 Complex regional pain syndrome I of left lower limb; M46.1 Sacroiliitis, not elsewhere classified; M53.3 Sacrococcygeal disorders, not elsewhere classified; M25.562 Pain in left knee; C44.91 Basal cell carcinoma of skin, unspecified
CPT/HCPCS: 99215

== ENCOUNTER → 2023-06-28 09:27 | Outpatient (BNVA) | payer OTHER, SELFPAY | PROVIDERS: PCP Internal Medicine; Visit Provider Anesthesiology | DX: Z51.81 Encounter for therapeutic drug level monitoring (principal); F11.20 Opioid dependence, uncomplicated; M17.11 Unilateral primary osteoarthritis, right knee; M25.561 Pain in right knee; M46.1 Sacroiliitis, not elsewhere classified; M53.3 Sacrococcygeal disorders, not elsewhere classified; M25.562 Pain in left knee; C44.91 Basal cell carcinoma of skin, unspecified; G90.522 Complex regional pain syndrome I of left lower limb; G89.29 Other chronic pain; Z96.652 Presence of left artificial knee joint | CPT/HCPCS: 99212 ==

== ENCOUNTER 2023-09-26 07:35 | Outpatient (REF) | payer OTHER, SELFPAY ==
[2023-09-26 07:49] LABS: MANUAL DIFF FLAG NO
[2023-09-26 08:18] LABS: Basophils Percent Auto 0.7 % (0-2); Eosinophils Absolute Auto 0.1 X10*3/uL (0.0-0.4); Hemoglobin 16.2 g/dl (14.0-18.0); Imm Gran Abs Auto 0.02 X10*3/uL (0.00-0.03); Imm Gran Pct Auto 0.3 % (0.0-0.4); Lymphocytes Absolute Auto 1.4 X10*3/uL (1.2-4.9); Lymphocytes Percent Auto 23.3 % (20-40); Mean Corpuscular HGB Conc 33.1 g/dl (31.0-36.0); Mean Corpuscular Hemoglobin 29.2 pg (27.0-33.0); Mean Corpuscular Volume 88.4 fL (80.0-98.0); Mean Platelet Volume 8.8 fL (9.4-12.4); Monocytes Absolute Auto 0.4 X10*3/uL (0.1-1.2); Monocytes Percent Auto 6.3 % (2-11); Neutrophils Absolute Auto 4.1 x10*3/uL (2.0-8.3); Neutrophils Percent Auto 67.4 % (45-73); Platelet Count 175 X10*3/uL (160-400); Red Blood Count 5.54 X10*6/uL (4.60-5.80); Red Cell Distribution Width 14.4 % (11.0-16.0); White Blood Count 6.1 X10*3/uL (4.8-10.8)
[2023-09-26 08:37] LABS: Alanine Aminotransferase 24 U/L (0-40); Albumin Level 4.4 g/dL (3.5-5.0); Alkaline Phosphatase 49 U/L (39-117); Anion Gap 11 (12-20); Aspartate Amino Transferase 23 U/L (5-37); Bilirubin Total 0.8 mg/dL (0.0-1.0); Blood Urea Nitrogen 13 mg/dL (9-16); Calcium 9.3 mg/dL (8.4-10.2); Carbon Dioxide 28 mmol/L (22-29); Chloride 107 mmol/L (96-108); Cholesterol 110 mg/dL (<200); Estimated Glomerular Filt Rate > 60; Glucose Fasting 106 mg/dL (60-99); HDL Cholesterol 41 mg/dL (>40); LDL Cholesterol Calculated 57 mg/dL (<100); Sodium 142 mmol/L (135-145); Total Protein 6.8 g/dL (6.5-8.0); Triglycerides 61 mg/dL (<150)
[2023-09-26 08:58] LABS: Vitamin D 25-OH Total 28.4 ng/mL (>30)
== END 2023-09-26 07:36 | disposition home or self-care (01) ==
LOC: HO.LAB 07:35
PROVIDERS: Absent Provider Nurse Practitioner Family; PCP Internal Medicine; Visit Provider Internal Medicine
DX: R42 Dizziness and giddiness (principal); D69.6 Thrombocytopenia, unspecified; E78.5 Hyperlipidemia, unspecified; E55.9 Vitamin D deficiency, unspecified
CPT/HCPCS: 36415; 80053; 80061; 82306; 85025

== ENCOUNTER 2023-10-03 09:27 | Outpatient (AMB) | payer OTHER, SELFPAY ==
[2023-10-03 09:40] VITALS: BP 128/70; BMI 36.3
--- NOTE | 2023-10-03 09:40 | A.OFFPC_ITS ---
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 Accompanied by: Self / Same As Patient Allergies ciprofloxacin [From CIPRO] Allergy (Intermediate, Verified 10/03/23 09:55) SWELLING levofloxacin [Levaquin] Allergy (Intermediate, Verified 10/03/23 09:55) facial swelling Medication List - Last Reconciled 10/03/23 by Carissa Lau MD apixaban (Eliquis) 5 mg PO BID diltiazem HCl 180 mg PO DAILY doxycycline hyclate 100 mg PO BID 30 days lisinopril 10 mg PO DAILY 90 days lorazepam 1 mg PO BID PRN 29 days needle (disp) 22 G As directed simvastatin 40 mg PO BEDTIME syringe with needle As directed tadalafil 5 mg PO DAILY 90 days testosterone cypionate (Depo-Testosterone) 100 mg (0.5 mL) IM QWEEK 4 weeks valacyclovir 1,000 mg PO Q8H 7 days Tobacco use date assessed: 10/03/23 Dental Screening Dental Screen Date: 10/03/23 Did you have a dental visit in the last 12 months?: No Did you have a dental problem in the last 6 months where you did not have access to dental care?: No Was dental information given to patient?: Patient has dentist HPI HPI Comments History of Present Illness Details This is a 62-year-old male with mild recurrent major depression and paroxysmal atrial fibrillation that comes for his physical exam. Depression has been in remission. On chronic anticoagulation for atrial fibrillation. Denies any active bleeding. No chest pain or shortness of breath. Last colonoscopy was November 2022 and will be repeated October 2022. Had multiple tubular adenoma. Compliant with medications. As per patient stop taking oxycodone about a week ago. Use a cane occasionally due to right knee pain secondary to osteoarthritis. [facility] Medical History Sacroiliitis Sleep apnea Pure hypercholesterolemia Mild recurrent major depression Derangement of right knee Osteoarthritis of right knee Skin lesion Rosacea Hypogonadism in male Gout Chronic pain GERD (gastroesophageal reflux disease) BPH (benign prostatic hyperplasia) Hyperlipidemia PAF (paroxysmal atrial fibrillation) Essential hypertension Surgical History H/O colonoscopy History of left knee replacement History of arthroplasty of left knee History of prior ablation treatment History of prostate surgery History of arthroplasty of right shoulder History of appendectomy History of arthroscopy of right knee History of arthroscopy of left knee Family History (Updated 10/03/23 @ 10:01 by Carissa Lau MD) Father CAD (coronary artery disease) COPD (chronic obstructive pulmonary disease) Mother No problems noted. Son No problems noted. Social History Household Members: None Housing: Apartment Do you presently have visiting nurse or other home services: No Alcohol intake: current Alcohol intake frequency: holidays/special occasions only Alcohol type: beer and hard liquor Comment: SLEEPING Patient Tobacco Use Status: Former Tobacco user Quit Date: 25 years Tobacco use type: Cigarette e-Cigarette/Vaping Use: Never Used Second Hand Smoke Exposure: No Substance Use Type: Marijuana service: No Current occupational status: employed Current occupational exposures/hazards: No Cognitive needs: No Hearing needs: No Vision needs: No Questionnaire PHQ-9 Over the last 2 weeks, how often have you been bothered by any of the following problems? 1. Little interest or pleasure in doing things: not at all 2. Feeling down, depressed, or hopeless: not at all 3. Trouble falling or staying asleep, or sleeping too much: not at all 4. Feeling tired or having little energy: not at all 5. Poor appetite or overeating: not at all 6. Feeling bad about yourself - or that you are a failure or have let yourself or your family down: not at all 7. Trouble concentrating on things, such as reading the newspaper or watching television: not at all 8. Moving or speaking so slowly that other people could have noticed. Or the opposite - being so fidgety or restless that you have been moving around a lot more than usual: not at all 9. Thoughts that you would be better off or of hurting yourself in some way: not at all Total score: 0 Depression Screening Interpretation: Negative Depression Screening Done: Yes 54995 - PHQ-9 Billing: Yes Source: Developed by Drs. Chetan Ceron, Marielena Ames, Wesly Das and colleagues, with an educational tejinder from [employer]. Thrive Questionnaire Date Thrive assessed: 10/03/23 I am a: Patient What is your living situation today?: I have a steady place to live Within the past 12 months, did the food you bought not last and you didn't have the money to get more?: Never true Within the past 12 months, did you worry whether your food would run out before you got money to buy more?: Never true Do you have trouble paying for medicines?: No Do you have trouble getting transportation to medical appointments?: No Do you have trouble paying your heating and electricity bill?: No Do you have trouble taking care of your child, family member or friend?: No Do you have trouble with day-to-day activities such as bathing, preparing meals, shopping, managing finances, etc.?: No Are you currently unemployed and looking for a job?: No Are you interested in more education?: No Please select the resources that you would like help with: None Currently or been in a relationship where the following occur: no concerns reported THRIVE Score: 0 AUDIT C Alcohol Use Questionnaire (AUDIT-C) 1. How often do you have a drink containing alcohol?: Monthly or less 2. How many drinks containing alcohol do you have on a typical day when you are drinking?: 1 or 2 3. How often do you have six or more drinks on one occasion?: Never Total Score: 1 Score Reviewed/Action Taken: No RUDY-7 AMB Questionnaire RUDY-7 Date RUDY - 7 assessed: 10/03/23 Feeling nervous, anxious, or on edge: 1 = Several days Not being able to stop or control worryin = Not at all Worrying too much about different things: 1 = Several days Trouble relaxin = Not at all Being so restless that it is hard to sit still: 0 = Not at all Becoming easily annoyed or irritable: 0 = Not at all Feeling afraid as if something awful might happen: 0 = Not at all Total RUDY-7 score (0-4 normal; 5-9 mild; 10-14 moderate; 15-21 severe): 2 Source: Developed by Marielena Borges Kurt Kroenke and colleagues, with an educational tejinder from [employer]. RUDY-7 Assessment Billing RUDY-7 Assessment Tool: RUDY-7 Assessment 36225 Review of Systems Const All systems reviewed & are unremarkable except as noted in HPI and below Eyes Reports no additional complaints, Denies change in vision and Denies other visual disturbances Card Denies chest pain at rest, Denies chest pain with activity, Denies edema, Denies irregular heart rhythm, Denies claudication, Denies dyspnea, Denies dyspnea on exertion, Denies orthopnea, Denies paroxysmal nocturnal dyspnea and Denies slow heart rate Resp Denies cough, Denies dyspnea and Denies dyspnea on exertion GI Denies abdominal pain, Denies change in bowel habits, Denies excessive flatus, Denies nausea and Denies vomiting Denies urinary hesitancy, Denies urinary incontinence and Denies urinary urgency Musc Denies abnormal gait, Denies atrophy, Denies deformity and Denies limited range of motion Skin/Breast Denies bleeding lesions, Denies changing lesions and Denies rash Neuro Denies abnormal gait, Denies behavioral changes, Denies confusion and Denies lack of coordination Psych Denies behavioral changes and Denies confusion Physical exam (Primary Care) Vital Signs: Last Vital Signs BP 128/70 10/03/23 09:40 BMI result Body Mass Index 36.3 Tobacco/Smoking Status: Tobacco use Status Tobacco use date assessed 10/03/23 10/03/23 09:47 Patient Tobacco Use Status Former Tobacco user 10/03/23 09:47 Tobacco use type Cigarette 10/03/23 09:47 e-Cigarette/Vaping Use Never Used 10/03/23 09:47 PHQ-9: PHQ-9 Score PHQ-9: Total score 0 10/03/23 09:47 Depression Screening Interpretation: Negative Thrive Assessment: Date of Thrive Assessment Date Thrive assessed 10/03/23 10/03/23 09:47 Currently or been in a relationship where the following occur: no concerns reported Const General: No confusion Orientation/consciousness: patient oriented x3 and No confusion HENMT Head: Yes normal to inspection, Yes normocephalic and Yes atraumatic Ears: external ears normal Eyes General: appearance normal, both eyes and all related structures Eyelids: Yes eyelids normal Conjunctivae: conjunctivae normal Neck Neck: Yes normal visual inspection and Yes supple Resp Effort & Inspection: normal respiratory effort Auscultation: clear to auscultation bilaterally Cardio Jugular venous distension: no JVD Rate: regular rate Rhythm: regular rhythm Heart sounds: S1 normal heart sound present and S2 normal heart sound present GI Inspection: Yes normal to inspection Palpation (GI): Soft to palpation and nontender Auscultation: normal bowel sounds Skin General skin exam: no rashes or lesions noted Neuro General: patient oriented x3, no focal motor deficits and No confusion Extrem General: Yes full ROM Psych Appearance: grossly normal Assessment and Plan Assessment & Plan (1) Physical exam: Code(s): Z00.00 - Encounter for general adult medical examination without abnormal findings Plan: Repeat in a year. (2) PAF (paroxysmal atrial fibrillation): Code(s): I48.0 - Paroxysmal atrial fibrillation Plan: Continue Eliquis and diltiazem. Follow-up with Cardiology. The goal is heart rate control. (3) Mild recurrent major depression: Code(s): F33.0 - Major depressive disorder, recurrent, mild Plan: In remission. Orders: Orders Comprehensive [place]. Panel Fast 6 Months I10 - Essential (primary) hypertension Medications: Refilled lorazepam 1 mg PO BID 29 days PRN 58 tabs 0RF anxiety Coding Level of Care Code Est Pt Prev Care 40-64y(69759) Diagnoses Physical exam Z00.00 PAF (paroxysmal atrial fibrillation) I48.0 Mild recurrent major depression F33.0 Additional Codes RUDY-7 Assessment Billing - RUDY-7 Assessment Tool: RUDY-7 Assessment 95367 ([id number]) Time Spent (min) 35
== END 2023-10-03 10:12 | disposition home or self-care (01) ==
PROVIDERS: Visit Provider Internal Medicine
DX: Z00.00 Encounter for general adult medical examination without abnormal findings (principal); I48.0 Paroxysmal atrial fibrillation; F33.0 Major depressive disorder, recurrent, mild
CPT/HCPCS: 99396

== ENCOUNTER 2023-11-17 06:57 | Day surgery (SDC) | payer OTHER, SELFPAY ==
--- NOTE | 2023-11-16 09:39 | P.CONAN_ITS ---
Documented by User: Daniela Cardenas NP 11/16/23 09:41 HPI - Anesthesia Eval Consult details Narrative: 62yo M for Colonoscopy Eliquis for afib PMFSH Active Problems Active Problems: All Active Problems (Updated 10/03/23 @ 10:12 by Carissa Lau MD) Basal cell carcinoma (Acute) Thrombocytopenia (Acute) Left knee pain (Acute) Lightheadedness (Acute) Epidermal inclusion cyst (Acute) Lipoma of back (Acute) Olecranon bursitis of left elbow (Acute) Cellulitis (Acute) Tick bite (Acute) Chronic pain of right knee (Acute) Screen for colon cancer (Acute) Tubular adenoma of colon (Acute) Pre-op examination (Acute) Chronic anticoagulation (Acute) NERY on CPAP (Acute) Hyponatremia (Acute) Overactive bladder (Acute) Quadriceps weakness (Acute) Lumbar pain (Acute) Spondylolisthesis, lumbar region (Acute) Complex regional pain syndrome i of left lower limb (Acute) Sacroiliac joint pain (Acute) Physical exam (Acute) Pure hypercholesterolemia (Acute) Mild recurrent major depression (Acute) Derangement of right knee (Acute) Osteoarthritis of right knee (Acute) Skin lesion (Acute) Rosacea (Acute) Hypogonadism in male (Acute) History of arthroplasty of left knee (Acute) Chronic pain (Acute) GERD (gastroesophageal reflux disease) (Acute) BPH (benign prostatic hyperplasia) (Acute) Hyperlipidemia (Acute) PAF (paroxysmal atrial fibrillation) (Acute) Essential hypertension (Acute) Past Medical History Medical History Sacroiliitis Sleep apnea Pure hypercholesterolemia Mild recurrent major depression Derangement of right knee Osteoarthritis of right knee Skin lesion Rosacea Hypogonadism in male Gout Chronic pain GERD (gastroesophageal reflux disease) BPH (benign prostatic hyperplasia) Hyperlipidemia PAF (paroxysmal atrial fibrillation) Essential hypertension Family History Family History Father CAD (coronary artery disease) COPD (chronic obstructive pulmonary disease) Mother No problems noted. Son No problems noted. Family history of problems with anesthesia: No Surgical History Surgical History H/O colonoscopy History of left knee replacement History of arthroplasty of left knee History of prior ablation treatment History of prostate surgery History of arthroplasty of right shoulder History of appendectomy History of arthroscopy of right knee History of arthroscopy of left knee History of Problems with Anesthesia: No Social History Social History Household Members: None Housing: Apartment Do you presently have visiting nurse or other home services: No Alcohol intake: current Alcohol intake frequency: holidays/special occasions only Alcohol type: beer and hard liquor Comment: SLEEPING Patient Tobacco Use Status: Former Tobacco user Quit Date: 25 years Tobacco use type: Cigarette e-Cigarette/Vaping Use: Never Used Second Hand Smoke Exposure: No Substance Use Type: Marijuana Are you DNR?: No Advance Directives: No Advance Directives Information Provided: Yes service: No Current occupational status: employed Current occupational exposures/hazards: No Cognitive needs: No Hearing needs: No Vision needs: No Meds Allergies Allergy/AdvReac Type Severity Reaction Status Date / Time ciprofloxacin [From CIPRO] Allergy Intermediate SWELLING Verified 10/03/23 09:55 levofloxacin [Levaquin] Allergy Intermediate facial Verified 10/03/23 09:55 swelling Home Medications Medication Instructions Recorded Confirmed Last Taken Type simvastatin 40 mg tablet 40 mg PO BEDTIME 05/18/20 10/03/23 Unknown History apixaban 5 mg tablet (Eliquis) 5 mg PO BID 08/09/21 10/03/23 11/14/23 20:00 History Exam Pertinent Lab Results Pertinent Lab Results: Laboratory Tests 09/26/23 07:47 WBC 6.1 Hgb 16.2 Hct 49.0 Plt Count 175 Sodium 142 Potassium 4.0 Chloride 107 Carbon Dioxide 28 BUN 13 Creatinine 0.87 Assessment and Plan Assessment Anesthesia Assessment: Chart Reviewed Final Anesthetic Review Family History of Problems with Anesthesia: No History of Problems with Anesthesia: No Documented by User: Zulema Abreu MD 11/17/23 09:00 HPI - Anesthesia Eval Consult details Narrative: 62yo M for Colonoscopy Eliquis for afib. Last dose 11/14/23. In Sinus rhythm today [facility] Active Problems Active Problems: All Active Problems (Updated 11/17/23 @ 08:30 by Zulema Abreu MD) Basal cell carcinoma (Acute) Thrombocytopenia (Acute) Left knee pain (Acute) Lightheadedness (Acute) Epidermal inclusion cyst (Acute) Lipoma of back (Acute) Olecranon bursitis of left elbow (Acute) Cellulitis (Acute) Tick bite (Acute) Chronic pain of right knee (Acute) Screen for colon cancer (Acute) Tubular adenoma of colon (Acute) Pre-op examination (Acute) Chronic anticoagulation (Acute) NERY on CPAP (Acute) Hyponatremia (Acute) Overactive bladder (Acute) Quadriceps weakness (Acute) Lumbar pain (Acute) Spondylolisthesis, lumbar region (Acute) Complex regional pain syndrome i of left lower limb (Acute) Sacroiliac joint pain (Acute) Physical exam (Acute) Pure hypercholesterolemia (Acute) Mild recurrent major depression (Acute) Derangement of right knee (Acute) Osteoarthritis of right knee (Acute) Skin lesion (Acute) Rosacea (Acute) Hypogonadism in male (Acute) History of arthroplasty of left knee (Acute) Chronic pain (Acute) GERD (gastroesophageal reflux disease) (Acute) BPH (benign prostatic hyperplasia) (Acute) Hyperlipidemia (Acute) PAF (paroxysmal atrial fibrillation) (Acute) Essential hypertension (Acute) Past Medical History Medical History Sacroiliitis Sleep apnea Pure hypercholesterolemia Mild recurrent major depression Derangement of right knee Osteoarthritis of right knee Skin lesion Rosacea Hypogonadism in male Gout Chronic pain GERD (gastroesophageal reflux disease) BPH (benign prostatic hyperplasia) Hyperlipidemia PAF (paroxysmal atrial fibrillation) Essential hypertension Family History Family History Father CAD (coronary artery disease) COPD (chronic obstructive pulmonary disease) Mother No problems noted. Son No problems noted. Family history of problems with anesthesia: No Surgical History Surgical History H/O colonoscopy History of left knee replacement History of arthroplasty of left knee History of prior ablation treatment History of prostate surgery History of arthroplasty of right shoulder History of appendectomy History of arthroscopy of right knee History of arthroscopy of left knee History of Problems with Anesthesia: No Social History Social History Household Members: None Housing: Apartment Do you presently have visiting nurse or other home services: No Alcohol intake: current Alcohol intake frequency: holidays/special occasions only Alcohol type: beer and hard liquor Comment: SLEEPING Patient Tobacco Use Status: Former Tobacco user Quit Date: 25 years Tobacco use type: Cigarette e-Cigarette/Vaping Use: Never Used Second Hand Smoke Exposure: No Substance Use Type: Marijuana Are you DNR?: No Advance Directives: No Advance Directives Information Provided: Yes service: No Current occupational status: employed Current occupational exposures/hazards: No Cognitive needs: No Hearing needs: No Vision needs: No Meds Allergies Allergy/AdvReac Type Severity Reaction Status Date / Time ciprofloxacin [From CIPRO] Allergy Intermediate SWELLING Verified 10/03/23 09:55 levofloxacin [Levaquin] Allergy Intermediate facial Verified 10/03/23 09:55 swelling Home Medications Medication Instructions Recorded Confirmed Last Taken Type simvastatin 40 mg tablet 40 mg PO BEDTIME 05/18/20 10/03/23 Unknown History apixaban 5 mg tablet (Eliquis) 5 mg PO BID 08/09/21 10/03/23 11/14/23 20:00 History Exam Height,Weight and Vital Signs: Height 6 ft Weight 102.512 kg Vital Signs Temp Pulse Resp BP Pulse Ox O2 Del Method 11/17/23 07:30 98.6 F 75 16 133/81 95 Room Air Airway Mallampati Class: III TM Dist: >3cm Neck ROM: Full Loose/Missing/Broken Teeth: Yes (Missing teeth top left, bottom back right and left) Heart: RRR Lungs: CTAB Assessment and Plan Assessment Anesthesia Assessment: Anesthesia Plan Discussed and Chart Reviewed Final Anesthetic Review Family History of Problems with Anesthesia: No History of Problems with Anesthesia: No NPO: Yes ASA Class: III Final Preanesthetic Review: No Changes in Pt Med Stat, Meds/Allgs Chart Reviewed, Consent Obtained/Reviewed and Anes Risks/Benef Reviewed Patient Risk: Intermediate Procedure Risk: Low Assessment/Block/Sedation in SS: Assess/Block/Sedation-SS Anesthetic Plan Anesthetic Plan: MAC: and TIVA Disposition: Standard PACU
[2023-11-17 07:30] VITALS: BP 133/81; PULSE 75; RESP 16; TEMP 37; O2SAT 95; BMI 30.6
[2023-11-17] MEDS: Lactated Ringers 1,000 ML 100 ML IVCONT (07:51)
--- NOTE | 2023-11-17 08:10 | P.HPSUR_ITS ---
Pre-Procedural Eval Section A - 24 Hr Update-Section A only Date of Service: 11/17/23 The patient is an INPATIENT: No The patient has been examined within 24 hours of the surgical procedure. The History & Physical has been completed within 30 days and I have reviewed it.: No Section B - Complete if H&P > 30 days Chief Complaint: Surveillance for colon polyps Relevant Family History (Specify if Yes): No Relevant Social History: None Present Medications: see Short Stay Collaborative assessment Medical History: Significant History (Dr. Singh Barriga - [facility] Hypertension High cholesterol Hypogonadism Rosacea Chronic pain syndrome Chronic right knee pain Depression GERD Gout) History of Previous Operations: Relevant previous surgery/procedure and date(s) Allergies: Allergies Allergy/AdvReac Type Severity Reaction Status Date / Time ciprofloxacin [From CIPRO] Allergy Intermediate SWELLING Verified 10/03/23 09:55 levofloxacin [Levaquin] Allergy Intermediate facial Verified 10/03/23 09:55 swelling Review of Systems Sugical H&P ROS: Negative: Constitution, Cardiovascular, Respiratory and Gastrointestinal Exam Surgical H&P Exam: Normal: Heart, Normal: Lungs, Normal: Extremities and Normal: Abdomen Plan Diagnosis/Plan: Unchanged I have reviewed the history and physical and performed a pertinent physical examination on my patient. No changes have occurred unless specified. Time Spent With Patient Time: Total time managing care of this patient today ____ minutes.
--- NOTE | 2023-11-17 08:38 | W.PM.OPN ---
Operative Note Operative Note Date of Service: 11/17/23 Narrative: COLONOSCOPY TILL CECUM WITH BIOPSIES AND SNARE POLYPECTOMY Pre-op diagnosis: Surveillance for colon polyps. Post-op diagnosis:? Colon polyps, Diverticulosis, hemorrhoids Endoscopist:? Jacinto Pryor MD Anesthesia:?MAC Consent: Indications for the procedure and potential complications of bleeding, perforation, reaction to medications and missed diagnosis were discussed with the patient and informed consent was obtained. Instrument: Olympus CF H 190 L variable stiffness adult colonoscope Monitoring: Vital signs and clinical assessment, intermittent blood pressure monitoring, continuous EKG monitoring, Pulse oximetry and Carbon Dioxide monitoring were done throughout the procedure. Please see anesthesia flowsheet. Colon withdrawl time was 25 minutes. Procedure: The patient was placed in the left lateral decubitis position and pre-procedure medications were administered. After a digital rectal examination of the ano-rectum, the video colonoscope was inserted into the rectum and advanced through the colon to the cecum. The colonoscope was slowly withdrawn in a retrograde panoramic fashion and the colon mucosa was carefully examined including a retroflexed view of the rectum. Findings and interventions are described below. Procedure Difficulty: without difficulty Findings: Terminal Ileum: Not evaluated Cecum: A 2-3 mm sessile polyp - removed with a cold bx Ascending Colon: A 10-12 mm sessile polyp in the proximal ascending colon- inadvertently removed with a cold snare while trying to remove with a hot snare with minimal bleeding Transverse Colon: Normal Descending Colon: Moderate diverticulosis Sigmoid Colon: A 4-5 mm diminutive appearing polyp - removed with a cold snare Moderate diverticulosis Rectum: Normal Ano-rectum: Moderate internal hemorrhoids Colon preparation: Good after copious irrigation. [place] Bowel Preparation Scale Right colon; 2 Transverse colon: 2 Left colon; 2 (0 = Unprepared colon segment with mucosa not seen due to solid stool that cannot be cleared. 1 = Portion of mucosa of the colon segment seen, but other areas of the colon segment not well seen due to staining, residual stool and/or opaque liquid. 2 = Minor amount of residual staining, small fragments of stool and/or opaque liquid, but mucosa of colon segment seen well. 3 = Entire mucosa of colon segment seen well with no residual staining, small fragments of stool or opaque liquid) Impression and Post Procedure Diagnosis: Colonoscopy Findings: Two small and one medium sized polyps were removed Moderate diverticulosis seen in the left colon Moderate hemorrhoids on retroflexed exam. Plan: Pt has a FU appointment on 02/13/24 with Dena Ernandez NP. Repeat Colonoscopy in 3 years if polyps are adenomatous and due to history of multiple colon polyp. Above findings were reviewed with the patient and relevant handouts were given and the discharge area.
[2023-11-17 09:33] VITALS: BP 113/77; PULSE 64; RESP 16; TEMP 36.7; O2SAT 96
[2023-11-17 09:48] VITALS: BP 118/79; PULSE 66; RESP 16; TEMP 36.7; O2SAT 96
== END 2023-11-17 10:15 | disposition home or self-care (01) ==
PROVIDERS: PCP Internal Medicine; Visit Provider Internal Medicine Gastroenterology
PROC: 0DJD8ZZ Inspection of Lower Intestinal Tract, Via Natural or Artificial Opening Endoscopic (ICD-10-PCS; CPT 45378; principal; 2023-11-17 08:30)
DX: Z12.11 Encounter for screening for malignant neoplasm of colon (principal); Z86.010 Personal history of colon polyps; D12.2 Benign neoplasm of ascending colon; K63.5 Polyp of colon; K57.30 Diverticulosis of large intestine without perforation or abscess without bleeding; K64.8 Other hemorrhoids; G47.33 Obstructive sleep apnea (adult) (pediatric); K21.9 Gastro-esophageal reflux disease without esophagitis; I48.0 Paroxysmal atrial fibrillation; I10 Essential (primary) hypertension; E78.00 Pure hypercholesterolemia, unspecified; M10.9 Gout, unspecified; G89.4 Chronic pain syndrome; M25.561 Pain in right knee; F32.A Depression, unspecified; Z79.01 Long term (current) use of anticoagulants; Z79.899 Other long term (current) drug therapy; Z88.1 Allergy status to other antibiotic agents; Z98.890 Other specified postprocedural states; Z87.891 Personal history of nicotine dependence
CPT/HCPCS: 45385; 45380; 88305; J2704

== ENCOUNTER → 2023-11-17 06:57 | Outpatient (BNV) | payer OTHER, SELFPAY | PROVIDERS: PCP Internal Medicine; Visit Provider Internal Medicine Gastroenterology | DX: Z12.11 Encounter for screening for malignant neoplasm of colon (principal); Z86.010 Personal history of colon polyps; D12.2 Benign neoplasm of ascending colon; K63.5 Polyp of colon; K57.90 Diverticulosis of intestine, part unspecified, without perforation or abscess without bleeding; K64.8 Other hemorrhoids | CPT/HCPCS: 45380; 45385 ==

== ENCOUNTER 2023-11-24 08:50 | Outpatient (AMB) | payer OTHER, SELFPAY ==
[2023-11-24 08:49] VITALS: BP 120/70; PULSE 80; TEMP 36.6; O2SAT 97; BMI 30.2
--- NOTE | 2023-11-24 08:49 | MHC.OFFWIV ---
Intake Vital Signs 11/24/23 08:49 Height 6 ft Weight 223 lb BMI 30.2 BP 120/70 Blood Pressure Location Lt brachial Position Sitting Pulse 80 Pulse Source Pulse Oximeter Temp 97.9 F Temp Source Temporal Artery Scan Pulse Oximetry (%) 97 Oxygen Delivery Method Room Air Intake Visit Reasons: EP Lump on LT leg Intake Note: pt is here today for lump on lft leg started 2 days ago Patient Tobacco Use Status: Former Tobacco user Quit Date: 25 years Allergies ciprofloxacin [From CIPRO] Allergy (Intermediate, Verified 11/24/23 09:16) SWELLING levofloxacin [Levaquin] Allergy (Intermediate, Verified 11/24/23 09:16) facial swelling Medication List - Last Reconciled 11/24/23 by Jose Medina MD apixaban (Eliquis) 5 mg PO BID diltiazem HCl CD 180 mg PO DAILY doxycycline hyclate 100 mg PO BID 30 days lisinopril 10 mg PO DAILY 90 days lorazepam 1 mg PO BID PRN 29 days needle (disp) 22 G As directed simvastatin 40 mg PO BEDTIME syringe with needle As directed tadalafil 5 mg PO DAILY 90 days testosterone cypionate (Depo-Testosterone) 100 mg (0.5 mL) IM QWEEK 4 weeks valacyclovir 1,000 mg PO Q8H 7 days Do you need a note to return to daycare/school/sports/work: No HPI EP Lump on LT leg HPI Details 62-year-old male presents to the office for a sick visit. Patient takes Eliquis for atrial fibrillation. He stopped the medication 2 days prior to his colonoscopy that was scheduled on November 16. Procedure was uneventful and he restarted the medication on November 18. Subsequently he is feeling a painful small area on the left leg. Does not recollect any fall or injury. Able to walk and bear weight with no difficulty. [facility] Medical History Sacroiliitis Sleep apnea Pure hypercholesterolemia Mild recurrent major depression Derangement of right knee Osteoarthritis of right knee Skin lesion Rosacea Hypogonadism in male Gout Chronic pain GERD (gastroesophageal reflux disease) BPH (benign prostatic hyperplasia) Hyperlipidemia PAF (paroxysmal atrial fibrillation) Essential hypertension Surgical History H/O colonoscopy History of left knee replacement History of arthroplasty of left knee History of prior ablation treatment History of prostate surgery History of arthroplasty of right shoulder History of appendectomy History of arthroscopy of right knee History of arthroscopy of left knee Family History Father CAD (coronary artery disease) COPD (chronic obstructive pulmonary disease) Mother No problems noted. Son No problems noted. Social History Household Members: None Housing: Apartment Do you presently have visiting nurse or other home services: No Alcohol intake: current Alcohol intake frequency: holidays/special occasions only Alcohol type: beer and hard liquor Comment: SLEEPING Patient Tobacco Use Status: Former Tobacco user Quit Date: 25 years Tobacco use type: Cigarette e-Cigarette/Vaping Use: Never Used Second Hand Smoke Exposure: No Substance Use Type: Marijuana service: No Current occupational status: employed Current occupational exposures/hazards: No Cognitive needs: No Hearing needs: No Vision needs: No Physical Exam Vital Signs: Last Vital Signs Temp 97.9 F 11/24/23 08:49 Pulse 80 11/24/23 08:49 BP 120/70 11/24/23 08:49 Pulse Ox 97 11/24/23 08:49 Oxygen Delivery Method Room Air 11/24/23 08:49 BMI result Body Mass Index 30.2 Extrem Other: Left leg: For cm swelling on the lateral margin of the left leg. Swelling is tender to touch and fluctuant in consistency. Overlying skin looks normal. There is discoloration of the skin, bluish in color on the side of the foot. Gait: Normal with no evidence of limping. Assessment & Plan Assessment & Plan (1) Hematoma of left lower leg: Code(s): S80.12XA - Contusion of left lower leg, initial encounter Plan: Clinically, the swelling appears to be a hematoma though there is no change in the skin color overlying the swelling. It is tender to touch. Patient is on an anticoagulant that could have precipitated this event. I advised the patient continue the anticoagulant. Keep the foot elevated. An ultrasound of the leg has been scheduled to understand better the nature of the swelling. Orders: Orders US extremity nonvascular Today S80.12XA - Contusion of left lower leg, initial encounter Coding Level of Care Code Est Pt Level 4 (07080) Diagnoses Hematoma of left lower leg S80.12XA
== END 2023-11-24 09:31 | disposition home or self-care (01) ==
PROVIDERS: PCP Internal Medicine; Visit Provider Internal Medicine
DX: S80.12XA Contusion of left lower leg, initial encounter (principal)
CPT/HCPCS: 99214

== ENCOUNTER 2023-12-07 12:55 | Outpatient (REF) | payer OTHER, SELFPAY ==
--- NOTE | ~2023-12-07 | US_ITS ---
EXAMINATION: US EXTREMITY, NONVASCULAR CLINICAL INFORMATION: Contusion of the left lower leg . COMPARISON: None available. TECHNIQUE: Targeted ultrasound images were obtained by the medical/surgery registered nurse of the area of concern as indicated by the patient in the distal medial left calf. Radiologist was not in attendance. Images were later provided for interpretation. FINDINGS: There is a 2.2 x 0.9 x 1.9 cm complex fluid collection with irregular mural nodularity and complex internal echoes in the area of concern indicated by the patient along the medial distal calf, adjacent to the GSV. This may possibly represent a hematoma given history of recent contusion; however, correlation with clinical exam recommended to determine further management including possible follow-up imaging. Edematous changes are identified in the adjacent soft tissues. US/US extremity nonvascular IMPRESSION: There is a 2.2 x 0.9 x 1.9 cm complex fluid collection with irregular mural nodularity and complex internal echoes in the area of concern indicated by the patient along the medial distal calf, adjacent to the GSV. This may possibly represent a hematoma given history of recent contusion; however, correlation with clinical exam recommended to determine further management. Recommend follow-up imaging in 3 months.
[2023-12-07 15:35] LABS: Hematocrit 47.4 % (42.0-52.0); Hemoglobin 16.1 g/dl (14.0-18.0); Mean Corpuscular Hemoglobin 29.8 pg (27.0-33.0); Mean Corpuscular Volume 87.6 fL (80.0-98.0); Mean Platelet Volume 8.9 fL (9.4-12.4); Platelet Count 188 X10*3/uL (160-400); Red Blood Count 5.41 X10*6/uL (4.60-5.80); Red Cell Distribution Width 13.2 % (11.0-16.0); White Blood Count 7.8 X10*3/uL (4.8-10.8)
[2023-12-07 16:51] LABS: PSA,Total (Free>4and<10) 3.45 ng/mL (0.00-4.00)
[2023-12-11 19:47] LABS: Testosterone, Free 152.2 pg/mL (35.0-155.0); Testosterone, Total 597 ng/dL (250-1100)
== END 2023-12-07 12:56 | disposition home or self-care (01) ==
LOC: HO.US 12:55
PROVIDERS: Nurse Practitioner Family; PCP Internal Medicine; Visit Provider Internal Medicine
DX: Z12.5 Encounter for screening for malignant neoplasm of prostate (principal); S80.12XA Contusion of left lower leg, initial encounter; E29.1 Testicular hypofunction
CPT/HCPCS: 36415; 76882; 84153; 84402; 84403; 85027; 99212

== ENCOUNTER 2023-12-07 13:06 | Outpatient (REF) | payer OTHER, SELFPAY ==
--- NOTE | ~2023-12-07 | XR_ITS ---
EXAMINATION: XR KNEE, LEFT CLINICAL INFORMATION: Pain in unspecified knee COMPARISON: Right knee 07/02/2022 AP standing views both knees and right knee 07/02/2022 TECHNIQUE: AP standing view of both knees and lateral sunrise views of the left knee. FINDINGS: Right knee: No fracture, dislocation or destructive process. There is marked narrowing of the medial joint compartment with [id number] appearance. There are marginal osteophyte involving the medial and lateral joint compartment. There is medial and lateral meniscal chondrocalcinosis. Mild secondary degenerative areas. Left knee: No fracture or dislocation there is a left total knee arthroplasty with patellar button. The hardware is intact. There is no evidence of periprosthetic lucency. Ossific or calcific density is seen posterior superior to the patella. XR/XR knee LT 3V IMPRESSION: 1. Marked osteoarthritis of the right knee. 2. Left total knee arthroplasty without evidence of hardware complication. 3. Chondrocalcinosis of the right knee.
== END 2023-12-07 13:07 | disposition home or self-care (01) ==
LOC: HO.HOSX 13:06
PROVIDERS: Visit Provider Physician Assistant
DX: M25.562 Pain in left knee (principal)
CPT/HCPCS: 73562

== ENCOUNTER 2023-12-07 13:54 | Outpatient (AMB) | payer OTHER, SELFPAY ==
--- NOTE | 2023-12-07 14:36 | MHC.OFFVIS ---
Vital Signs 12/07/23 14:38 Height 6 ft Weight 223 lb BMI 30.2 Intake Visit Reasons: New Prob - Left knee pain, DOI 12/06/23 Intake Note: [place] is a 62 year old male who presents today for a evaluation of his left knee pain, DOI 12/06/23. Hx of left knee TKA 09/03/19. Patient reports he jammed and twisted his left knee when he was hiking. He expresses that his pain is on top of the knee. Pain stays in that area and he notices some swelling. Patient finds relief when taking Tylenol. Allergies ciprofloxacin [From CIPRO] Allergy (Intermediate, Verified 12/07/23 14:38) SWELLING levofloxacin [Levaquin] Allergy (Intermediate, Verified 12/07/23 14:38) facial swelling HPI HPI New Prob - Left knee pain, DOI 12/06/23: Details: 62-year-old male who presents in the office today for an evaluation of left knee pain. Patient called the office this morning reporting a slip on 12/06/2023 when he jammed his left knee while hiking. He reports the pain is on the top of the knee and does not radiate. Confirms mild edema. Had tried Tylenol with relief. He states the knee was not able to be properly rehabbed after his surgery due to COVID closing the PT offices. He states the knee has not been right since surgery and states he normally has pain. However, he states this pain is worse than his baseline pain. Patient is unable to take NSAIDs due to being on blood thinners. Patient was seen at the Walk-in clinic on 11/24/2023 with a complaint of a small area that is painful on the left lower extremity. Per Walk-in clinic note he does not recall any injury or falls. He was diagnosed with hematoma on the left lower extremity due to visible edema. An ultrasound was ordered at that time. Patient is currently taking anticoagulation medication, Eliquis. Patient has a surgical history of a left total knee arthroplasty on 09/03/2019. [facility] Medical History Sacroiliitis Sleep apnea Pure hypercholesterolemia Mild recurrent major depression Derangement of right knee Osteoarthritis of right knee Skin lesion Rosacea Hypogonadism in male Gout Chronic pain GERD (gastroesophageal reflux disease) BPH (benign prostatic hyperplasia) Hyperlipidemia PAF (paroxysmal atrial fibrillation) Essential hypertension Surgical History H/O colonoscopy History of left knee replacement History of arthroplasty of left knee History of prior ablation treatment History of prostate surgery History of arthroplasty of right shoulder History of appendectomy History of arthroscopy of right knee History of arthroscopy of left knee Family History Father CAD (coronary artery disease) COPD (chronic obstructive pulmonary disease) Mother No problems noted. Son No problems noted. 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 Current occupational exposures/hazards: No Cognitive needs: No Hearing needs: No Vision needs: No Review of Systems Const All systems reviewed & are unremarkable except as noted in HPI and below Physical Exam Vital Signs: BMI result Body Mass Index 30.2 Const General: cooperative and no acute distress Orientation/consciousness: patient oriented x3 Resp Effort & Inspection: normal respiratory effort and able to speak in complete sentences Cardio Peripheral pulses: Peripheral pulses 2+ throughout Skin General skin exam: no rashes or lesions noted Neuro General: patient oriented x3 Extrem Other: Left knee: Full painless ROM. No laxity with varus or valgus stress. No palpable defect of the patella tendon or quad tendon. Able to perform straight leg raise without difficulty. 5/5 strength with resisted knee flexion. NVI. Assessment & Plan Assessment & Plan (1) Left knee sprain: Code(s): S83.92XA - Sprain of unspecified site of left knee, initial encounter Category: Medical Qualifiers: Encounter type: initial encounter Involved ligament of knee: unspecified ligament Qualified Code(s): S83.92XA - Sprain of unspecified site of left knee, initial encounter (2) History of total left knee replacement: Code(s): Z96.652 - Presence of left artificial knee joint Category: Surgical Plan Mr. Driscoll is a 62-year-old male who presents in the office today for an evaluation of left knee pain. Patient called the office this morning reporting a slip on 12/06/2023 when he jammed his left knee while hiking. He reports the pain is on the top of the knee and does not radiate. Confirms mild edema. Had tried Tylenol with relief. He states the knee was not able to be properly rehabbed after his surgery due to COVID closing the PT offices. He states the knee has not been right since surgery and states he normally has pain. However, he states this pain is worse than his baseline pain. Patient is unable to take NSAIDs due to being on blood thinners. Patient was seen at the Walk-in clinic on 11/24/2023 with a complaint of a small area that is painful on the left lower extremity. Per Walk-in clinic note he does not recall any injury or falls. He was diagnosed with hematoma on the left lower extremity due to visible edema. An ultrasound was ordered at that time. Patient is currently taking anticoagulation medication, Eliquis. Patient has a surgical history of a left total knee arthroplasty on 09/03/2019. Patient was instructed to continue to monitor the knee. He was educated on the importance of icing and elevation. He can take Tylenol for pain. Recommended for the patient to continue to move the knee and ambulate using pain as his guide. Follow-up will be in [address] Villagran in the office, or sooner if needed. Orders: Orders XR knee LT 3V Today M25.569 - Pain in unspecified knee Patient Instructions: Scribed by Aishwarya Muñiz internist medical doctor md, for Tomasa Payne PA-C on 12/07/2023 at 1:57 pm, EST.
[2023-12-07 14:38] VITALS: BMI 30.2
== END 2023-12-07 14:57 | disposition home or self-care (01) ==
PROVIDERS: PCP Internal Medicine; Visit Provider Physician Assistant
DX: S83.92XA Sprain of unspecified site of left knee, initial encounter (principal); Z96.652 Presence of left artificial knee joint
CPT/HCPCS: 99213

== ENCOUNTER 2024-01-31 08:26 | Outpatient (AMB) | payer OTHER, SELFPAY ==
--- NOTE | 2024-01-31 08:30 | MHC.OFFVIS ---
Intake Visit Reasons: follow up/labs(set) Intake Note: Patient presents today for follow up on : hypogonadism, testosterone and PSA lab results Testosterone: 597; Free Testosterone: 152.2; PSA: 3.45 Urology Medications: testosterone, tadalafil Blood Thinner: apixaban Medical Apparatus Model Maker Required: No Accompanied by: Self / Same As Patient Allergies ciprofloxacin [From CIPRO] Allergy (Intermediate, Verified 01/31/24 09:41) SWELLING levofloxacin [Levaquin] Allergy (Intermediate, Verified 01/31/24 09:41) facial swelling Medication List - Last Reconciled 01/31/24 by DEMETRIA Moran- apixaban (Eliquis) 5 mg PO BID diltiazem HCl CD 180 mg PO DAILY doxycycline hyclate 100 mg PO BID 30 days lisinopril 10 mg PO DAILY 90 days lorazepam 1 mg PO BID PRN 29 days needle (disp) 22 G As directed oxybutynin chloride ER 10 mg PO DAILY 30 days simvastatin 40 mg PO BEDTIME syringe with needle As directed tadalafil 5 mg PO DAILY 90 days testosterone cypionate (Depo-Testosterone) 100 mg (0.5 mL) IM QWEEK 4 weeks valacyclovir 1,000 mg PO Q8H 7 days HPI Comments Details: Gustavo is a pleasant 63 year old male patient of Dr. Crow Lau. He has a past medical history of sleep apnea, hypercholesteremia, depression, osteoarthritis, rosacea, hypogonadism, gout, chronic pain, GERD, BPH, hyperlipidemia, paroxysmal atrial fibrillation, and hypertension. He once to the office today for follow-up of his hypogonadism, lower urinary tract symptoms, and overactive bladder. In discussion with the patient today reports to be doing and feeling well. He discusses his frustration with call to the office regarding his labs. He reports compliance with testosterone therapy as prescribed. He discusses his ongoing lower urinary tract symptoms of urinary urgency and frequency. He reports noting no significant improvement in the symptoms with Myrbetriq. He he discusses at length his frustration regarding his lower urinary tract symptoms as he feels they have been present for quite some time. He reports previously following up with Dr. Little and having undergone a prostate laser procedure and did not feel this was helpful. He has previously failed oxybutynin and tolterodine. Discussed trial of other medications such as vesicare, Toviaz, or Gemtesa.He otherwise denies incontinence, hematuria, dysuria, foul smelling urine, changes to urinary stream, flank pain, fever, and or chills. Recent testosterone, CBC, and PSA results reviewed with the patient today as noted and trended below. In office urinalysis results reviewed with the patient today. He otherwise denies any other issues or concerns at this time. Hypogonadism Longstanding Current therapy injections 100mg weekly - Injection Day Mon/Mon and Lab Day Mon Prior therapy AndroGel Does self injection at home weekly Will continue with current standard therapy process Laboratories: H/H: 11/09 15.2/46.7, 12/11 14.8/46.6, 02/10 16.2/48.9, 10/14 16.2/49.0, 12/12 16.1/47.4 PSA:07/09 2.2, 11/08 3.4, 05/13, 12/12 3.5 Testosterone: 07/09 149, 09/09 168, 11/08 444, 12/09 1203, 11/09 215, 06/11 205, 12/11 357,05/13 627, 12/12 597 Testosterone free and total:11/08 109.7, 05/13 163.6, 12/12 152.2 Continue with evaluation every 6 months Lower urinary tract symptoms Prior laser procedure Symptoms of urgency and frequency Concomitant diagnosis includes NERY on CPAP Prior failure of trial with oxybutynin, tolterodine, and Myrbetriq Nocturia x5, daytime urge PFSH Medical History Sacroiliitis Sleep apnea Pure hypercholesterolemia Mild recurrent major depression Derangement of right knee Osteoarthritis of right knee Skin lesion Rosacea Hypogonadism in male Gout Chronic pain GERD (gastroesophageal reflux disease) BPH (benign prostatic hyperplasia) Hyperlipidemia PAF (paroxysmal atrial fibrillation) Essential hypertension Surgical History H/O colonoscopy History of left knee replacement History of arthroplasty of left knee History of prior ablation treatment History of prostate surgery History of arthroplasty of right shoulder History of appendectomy History of arthroscopy of right knee History of arthroscopy of left knee Family History Father CAD (coronary artery disease) COPD (chronic obstructive pulmonary disease) Mother No problems noted. Son No problems noted. 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 Current occupational exposures/hazards: No Cognitive needs: No Hearing needs: No Vision needs: No Review of Systems Const Reports as per HPI Eyes Reports no additional complaints ENT Reports no additional complaints Card Reports as per HPI Resp Reports as per HPI GI Reports as per HPI Reports as per HPI Musc Reports as per HPI Neuro Reports no additional complaints Psych Reports as per HPI Endo Reports no additional complaints William/Lymph Reports no additional complaints Aller/Immun Reports no additional complaints Physical Exam Const General: cooperative, healthy appearing, comfortable, no acute distress, well developed, alert and awake Orientation/consciousness: patient oriented x3 Limitations: no limitations HEENT Head: Yes normal to inspection, Yes normocephalic and Yes atraumatic Ears: hearing grossly normal bilaterally Eyes General: appearance normal, both eyes and all related structures Neck Neck: Yes normal visual inspection and Yes trachea midline Chest Chest palpation & inspection: normal inspection of the chest Resp Effort & Inspection: normal respiratory effort and able to speak in complete sentences Cardio Rate: regular rate GI Inspection: Yes normal to inspection General: Yes no CVA tenderness Back/Spine/Pelvis Back: no CVA tenderness Skin General skin exam: no rashes or lesions noted Neuro General: patient oriented x3 Extrem General: Yes normal to inspection Psych Appearance: grossly normal and well kempt Mental Status: mental status grossly normal Speech and movement: Normal speech and movement present and Clear speech present Affect: normal affect Attitude: cooperative Thought process: Normal thought process present Thought content: Normal thought content present Insight: Fair insight present (Psych) Judgement: Fair judgement present (Psych) Results AMB Urinalysis, Automated UA Leukoctes 15 Teddy/uL Last Edit by Chuck Pak on 01/31/24 08:46 UA Nitrite Negative Last Edit by Chuck Pak on 01/31/24 08:46 UA Urobilinogen 0.2 mg/dL Last Edit by Chuck Pak on 01/31/24 08:46 UA Protein 15 mg/dL Last Edit by Chuck Pak on 01/31/24 08:46 UA pH 5.5 Last Edit by Chuck aPk on 01/31/24 08:46 UA Blood 10 Quinn/uL Last Edit by Chuck Pak on 01/31/24 08:46 UA Specific [place] 1.020 Last Edit by Chuck Pak on 01/31/24 08:46 UA Ketone Negative Last Edit by Chuck Pak on 01/31/24 08:46 UA Bilirubin 0 mg/dL Last Edit by Chuck Pak on 01/31/24 08:46 UA Glucose 0 mg/dL Last Edit by Chuck Pak on 01/31/24 08:46 Results Reviewed Results Reviewed: Laboratory Last Values Urine pH (Auto) 5.5 01/31/24 08:38 Specific [place] (Auto) 1.020 01/31/24 08:38 Urine Protein (Auto) 15 mg/dL 01/31/24 08:38 Glucose (UA)(Auto) 0 mg/dL 01/31/24 08:38 Urine Ketones (Auto) Negative 01/31/24 08:38 Urine Blood (Auto) 10 Quinn/uL 01/31/24 08:38 Urine Nitrite (Auto) Negative 01/31/24 08:38 Urine Bilirubin (Auto) 0 mg/dL 01/31/24 08:38 Urine Urobilinogen (Auto) 0.2 mg/dL 01/31/24 08:38 Leukocyte Esterase (Auto) 15 Teddy/uL 01/31/24 08:38 Assessment & Plan Assessment & Plan (1) Overactive bladder: Code(s): N32.81 - Overactive bladder Category: Medical (2) Hypogonadism in male: Code(s): E29.1 - Testicular hypofunction Category: Medical Plan In office urinalysis results reviewed with the patient today; as noted above. Recent PSA, testosterone, free testosterone, and CBC results reviewed with the patient today; as noted above. Continue testosterone as discussed and prescribed. Stop Myrbetriq. Start VESIcare as discussed and prescribed. Discussed bladder triggers/irritants. Discussed bladder diary for further assessment evaluation; however patient declines at this time. Discussed and stressed the importance of compliance with CPAP machine for improvement in lower urinary tract symptoms as well as overall health and well-being. Discussed possible near future in office cystoscopy and or urodynamics for further assessment evaluation. Discussed obtaining retroperitoneal ultrasound for further assessment evaluation; however patient declines at this time. Will obtain CBC, testosterone, free and total, PSA, and hemoglobin A1c in 3 months. Follow-up in 3-4 months with labs to be completed prior; or sooner with any issues, concerns, and or questions. Orders: Orders AMB Urinalysis Automated Today Z13.9 - Encounter for screening, unspecified Testosterone, Free/Total 3 Months E29.1 - Testicular hypofunction Prostate Specific Antigen 3 Months E29.1 - Testicular hypofunction Hemoglobin A1c Today E11.9 - Type 2 diabetes mellitus without complications, E29.1 - Testicular hypofunction Complete Blood Count no Diff 3 Months E29.1 - Testicular hypofunction Medications: New oxybutynin chloride ER 10 mg PO DAILY 30 days 30 tabs 3RF N32.81 - Overactive bladder Refilled testosterone cypionate (Depo-Testosterone) 100 mg (0.5 mL) IM QWEEK 4 weeks 2 mL 4RF [id number] Patient Instructions: The patient had an opportunity to ask questions regarding the treatment plan. All questions were answered. Physical exam, labs, and imaging were discussed and reviewed in detail. As well as risks, benefits, and discussion of treatment choices. No major barriers to understanding were identified. The patient expressed understanding and agreement with the above treatment plan. The patient was made aware they should contact our office by phone for worsening of their current condition, the appearance of new symptoms, or with any questions or concerns. Compliance is encouraged with any medications and follow up testing that is ordered. It is a privilege to be allowed the opportunity to participate in? your urological care.? Again, if you have any questions or concerns If you have any questions or concerns please do not hesitate to contact me. The office is [phone]. This note is constructed using voice recognition software. While every effort has been made to ensure accuracy geodesist errors may have been included. Yours sincerely, Arleth Wooten, ELECTRICAL MAINTENANCE ENGINEER-BC Coding Level of Care Code Est Pt Level 4 (29131) Diagnoses Overactive bladder N32.81 Hypogonadism in male E29.1
== END 2024-01-31 09:02 | disposition home or self-care (01) ==
PROVIDERS: PCP Internal Medicine; Visit Provider Nurse Practitioner Family
DX: N32.81 Overactive bladder (principal); E29.1 Testicular hypofunction; Z13.9 Encounter for screening, unspecified
CPT/HCPCS: 99214

== ENCOUNTER → 2024-01-31 08:26 | Outpatient (BNVA) | payer OTHER, SELFPAY | PROVIDERS: PCP Internal Medicine; Visit Provider Nurse Practitioner Family | DX: E29.1 Testicular hypofunction (principal); N32.81 Overactive bladder | CPT/HCPCS: 81003; 99212 ==

== ENCOUNTER 2024-02-15 08:52 | Outpatient (AMB) | payer OTHER, SELFPAY ==
[2024-02-15 09:03] VITALS: BP 95/70; PULSE 73; BMI 30.7
--- NOTE | 2024-02-15 09:03 | MHC.OFFVIS ---
Vital Signs 02/15/24 09:03 Height 6 ft Weight 226 lb 3.108 oz BMI 30.7 BP 95/70 Blood Pressure Location Rt brachial Position Sitting Pulse 73 Intake Visit Reasons: S/P Colonoscopy Intake Note: Patient in office today s/p colonoscopy. CC: Patient c/o diarrhea for about a month. Denies having any other GI concerns today. Bag Washer Required: No Accompanied by: Self / Same As Patient Allergies ciprofloxacin [From CIPRO] Allergy (Intermediate, Verified 02/15/24 09:05) SWELLING levofloxacin [Levaquin] Allergy (Intermediate, Verified 02/15/24 09:05) facial swelling HPI HPI S/P Colonoscopy: Details: Assessment & Plan (1) Tubular adenoma of colon: Comment: 2022 scope= 4 large TA repeat in 1 years, Two TA is removed, nAa 2010 Code(s): D12.6 - Benign neoplasm of colon, unspecified Plan: The procedure needs to be repeated in 1 year due to the number and size of the tubular adenomas. The procedure was well tolerated. The results were explained and the patient is agreeable to the follow-up interval as stated. The bowel pattern has returned to normal. Education was provided to tell any 1st degree relatives about their findings to be sure that they are screened by age 45. Educated that they will be put on a recall list when it is time for their repeat scope but should they move out of state or away from the hospital they will need to remember along with their primary to repeat the procedure in a timely fashion to avoid any adverse complications. Medications: New peg 3350-electrolytes 236-22.74-6.74 -5.86 gram (Golytely) until fecal effluent is clear; do not exceed a total volume of 2,000 mL 240 mL PO Q10M 1 day 4,000 mL 0RF Z12.11 - Encounter for screening for malignant neoplasm of colon COLONOSCOPY 11/17/23 Findings: Terminal Ileum: Not evaluated Cecum: A 2-3 mm sessile polyp - removed with a cold bx Ascending Colon: A 10-12 mm sessile polyp in the proximal ascending colon- inadvertently removed with a cold snare while trying to remove with a hot snare with minimal bleeding Transverse Colon: Normal Descending Colon: Moderate diverticulosis Sigmoid Colon: A 4-5 mm diminutive appearing polyp - removed with a cold snare Moderate diverticulosis Rectum: Normal Ano-rectum: Moderate internal hemorrhoids Impression and Post Procedure Diagnosis: Colonoscopy Findings: Two small and one medium sized polyps were removed Moderate diverticulosis seen in the left colon Moderate hemorrhoids on retroflexed exam. Plan: Pt has a FU appointment on 02/13/24 with Dena Ernandez NP. Repeat Colonoscopy in 3 years if polyps are adenomatous and due to history of multiple colon polyp. Above findings were reviewed with the patient and relevant handouts were given and the discharge area. BIOPSY Received: 11/17/23 Diagnosis A. Colon, sigmoid polyp: Polypoid colonic mucosa with no specific change; no adenomatous dysplasia seen. B. Colon, cecal polyp: Polypoid colonic mucosa with focal minimal hyperplastic changes; no adenomatous dysplasia seen. C. Colon, ascending, polyp: Tubular adenoma; negative for high-grade dysplasia and carcinom TODAY'S VISIT He has agreeable to a 3 year follow-up. The procedure was well tolerated. The results were explained and the patient is agreeable to the follow-up interval as stated. Education was provided to tell any 1st degree relatives about their findings to be sure that they are screened by age 45. Educated that they will be put on a recall list when it is time for their repeat scope but should they move out of state or away from the hospital they will need to remember along with their primary to repeat the procedure in a timely fashion to avoid any adverse complications. Initially his bowel movements returned to normal after the procedure but then a few weeks afterwards he developed diarrhea. This is been going on since November or so, and he has never had diarrhea like this before except when he is to drink any certainly has not relapsed. Occasionally he will have a formed bowel movement but then it will be followed by copious diarrhea. He does not have any severe abdominal pain, no rectal bleeding, no nausea or vomiting and there has been no new medications, changes in medication doses, or known sick contacts preceding this. I think will get some stool studies and some blood tests for both a CRP and allergy testing to see if we can get to the bottom of this for him. In the meantime I suggest that he use a fiber supplement and, since he is on chronic doxycycline for acne, add a probiotic supplement as it could be that his gut floor is depleted. He says that he has lost 20-30 lb recently and he is fearful of diabetes. It looks like 1 of his other providers ordered a hemoglobin A1c and he did have an elevated, although mild, fasting glucose on his last blood test. He says that he did have glucosuria on prior urine but I do not see her on his most recent urinalysis. Apparently he has nocturnal urinary frequency for which he was started recently on VESIcare but this was quite a bit after the diarrhea started. Return office visit in 4 weeks to go over his lab and consider additional treatment depending on his response to the fiber and the probiotic. [facility] Medical History (Updated 02/15/24 @ 09:34 by STEVE Hansen) Sacroiliitis Sleep apnea Pure hypercholesterolemia Mild recurrent major depression Derangement of right knee Osteoarthritis of right knee Skin lesion Rosacea Hypogonadism in male Gout Chronic pain GERD (gastroesophageal reflux disease) BPH (benign prostatic hyperplasia) Hyperlipidemia PAF (paroxysmal atrial fibrillation) Essential hypertension Surgical History (Updated 02/15/24 @ 09:10 by ANTOLIN Manzanares) H/O colonoscopy History of left knee replacement History of arthroplasty of left knee History of prior ablation treatment History of prostate surgery History of arthroplasty of right shoulder History of appendectomy History of arthroscopy of right knee History of arthroscopy of left knee Family History Father CAD (coronary artery disease) COPD (chronic obstructive pulmonary disease) Mother No problems noted. Son No problems noted. 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 Current occupational exposures/hazards: No Cognitive needs: No Hearing needs: No Vision needs: No Review of Systems Const Denies fatigue, Denies fever(s), Denies night sweats, Denies poor appetite and Reports weight loss ENT Reports Normal hearing present, Denies dental pain, Denies dysphagia, Denies hearing loss, Denies mouth pain, Denies odynophagia, Denies throat swelling, Denies tongue swelling and Reports other (Dentition adequate) Card Reports no additional complaints Resp Reports no additional complaints GI Details: Denies abdominal pain, Denies melena, Denies bloating, Denies hematochezia, Denies constipation, Denies GI cramping, Denies dysphagia, Denies excessive flatus, Denies early satiety, Denies heartburn, Reports diarrhea, Denies nausea, Denies odynophagia, Denies vomiting and Denies hematemesis Skin/Breast Denies pruritus, Denies lesions, Denies rash and Denies jaundice Neuro Reports Normal hearing present and Denies Abnormal speech present Endo Denies fatigue Aller/Immun Denies throat swelling and Denies tongue swelling Physical Exam Vital Signs: Last Vital Signs Pulse 73 02/15/24 09:03 BP 95/70 02/15/24 09:03 BMI result Body Mass Index 30.7 Const General: cooperative, no acute distress, well developed and well groomed Nutritional Appearance: well nourished and obese centrally obese Orientation/consciousness: oriented to person, oriented to place and oriented to time Limitations: No language barrier HEENT Head: Yes normocephalic and Yes atraumatic Eyes General: appearance normal, both eyes and all related structures Pupils: Equal, round and reactive pupils present Neck Neck: Yes normal visual inspection and Yes no lymphadenopathy Thyroid: Thyroid normal Resp Effort & Inspection: normal respiratory effort and able to speak in complete sentences Auscultation: clear to auscultation bilaterally Cardio Rate: regular rate Rhythm: regular rhythm Heart sounds: Normal, physiologic split S2 sound present Peripheral pulses: radial pulses present and posterior tibial pulses present GI Inspection: No distended, No Abdominal panniculus present and Yes obesity Palpation (GI): Soft to palpation, nontender, no guarding, not rigid and No hepatosplenomegaly present Percussion: Yes normal to percussion Auscultation: normal bowel sounds Rectal Exam - Male: Yes deferred Skin General skin exam: no rashes or lesions noted, turgor normal, skin not dry, no jaundice, No spider nevi and no striae Rashes: no rashes Nails: normal Neuro General: oriented to person, oriented to place and oriented to time Cranial nerves: Yes Equal, round and reactive pupils present and Yes Normal hearing present Speech: No Abnormal speech present Extrem General: Yes normal to inspection, No clubbing, No cyanosis and No edema Psych Appearance: grossly normal and well kempt Mental Status: mental status grossly normal Speech and movement: Normal speech and movement present Affect: normal affect Attitude: cooperative Thought process: Normal thought process present and not confabulating Thought content: Normal thought content present Insight: Fair insight present (Psych) and Limited insight present (Psych) Judgement: Fair judgement present (Psych) and Limited judgement present (Psych) Results Reviewed Results Reviewed: COLONOSCOPY 11/17/23 Findings: Terminal Ileum: Not evaluated Cecum: A 2-3 mm sessile polyp - removed with a cold bx Ascending Colon: A 10-12 mm sessile polyp in the proximal ascending colon- inadvertently removed with a cold snare while trying to remove with a hot snare with minimal bleeding Transverse Colon: Normal Descending Colon: Moderate diverticulosis Sigmoid Colon: A 4-5 mm diminutive appearing polyp - removed with a cold snare Moderate diverticulosis Rectum: Normal Ano-rectum: Moderate internal hemorrhoids Impression and Post Procedure Diagnosis: Colonoscopy Findings: Two small and one medium sized polyps were removed Moderate diverticulosis seen in the left colon Moderate hemorrhoids on retroflexed exam. Plan: Pt has a FU appointment on 02/13/24 with Dena Ernandez NP. Repeat Colonoscopy in 3 years if polyps are adenomatous and due to history of multiple colon polyp. Above findings were reviewed with the patient and relevant handouts were given and the discharge area. BIOPSY Received: 11/17/23 Diagnosis A. Colon, sigmoid polyp: Polypoid colonic mucosa with no specific change; no adenomatous dysplasia seen. B. Colon, cecal polyp: Polypoid colonic mucosa with focal minimal hyperplastic changes; no adenomatous dysplasia seen. C. Colon, ascending, polyp: Tubular adenoma; negative for high-grade dysplasia and carcinom Assessment & Plan Assessment & Plan (1) Tubular adenoma of colon: Comment: 2022 scope= 4 large TA repeat in 1 years, Two TA is removed, Perez 2010 Code(s): D12.6 - Benign neoplasm of colon, unspecified Category: Medical (2) Diarrhea: Code(s): R19.7 - Diarrhea, unspecified Category: Medical (3) GERD (gastroesophageal reflux disease): Code(s): K21.9 - Gastro-esophageal reflux disease without esophagitis Category: Medical Plan He has agreeable to a 3 year follow-up. The procedure was well tolerated. The results were explained and the patient is agreeable to the follow-up interval as stated. Education was provided to tell any 1st degree relatives about their findings to be sure that they are screened by age 45. Educated that they will be put on a recall list when it is time for their repeat scope but should they move out of state or away from the hospital they will need to remember along with their primary to repeat the procedure in a timely fashion to avoid any adverse complications. Initially his bowel movements returned to normal after the procedure but then a few weeks afterwards he developed diarrhea. This is been going on since November or so, and he has never had diarrhea like this before except when he is to drink any certainly has not relapsed. Occasionally he will have a formed bowel movement but then it will be followed by copious diarrhea. He does not have any severe abdominal pain, no rectal bleeding, no nausea or vomiting and there has been no new medications, changes in medication doses, or known sick contacts preceding this. I think will get some stool studies and some blood tests for both a CRP and allergy testing to see if we can get to the bottom of this for him. In the meantime I suggest that he use a fiber supplement and, since he is on chronic doxycycline for acne, add a probiotic supplement as it could be that his gut floor is depleted. He says that he has lost 20-30 lb recently and he is fearful of diabetes. It looks like 1 of his other providers ordered a hemoglobin A1c and he did have an elevated, although mild, fasting glucose on his last blood test. He says that he did have glucosuria on prior urine but I do not see her on his most recent urinalysis. Apparently he has nocturnal urinary frequency for which he was started recently on VESIcare but this was quite a bit after the diarrhea started. Return office visit in 4 weeks to go over his lab and consider additional treatment depending on his response to the fiber and the probiotic. Orders: Orders GI Panel Today R19.7 - Diarrhea, unspecified CDiff Gene PCR Today R19.7 - Diarrhea, unspecified C Reactive Protein Today R19.7 - Diarrhea, unspecified Rast Allergen Today R19.7 - Diarrhea, unspecified Transglutaminase IgA Today R19.7 - Diarrhea, unspecified Transglutaminase Ab IgG Today R19.7 - Diarrhea, unspecified Coding Level of Care Code Est Pt Level 4 (83408) Diagnoses Tubular adenoma of colon D12.6 Diarrhea R19.7 GERD (gastroesophageal reflux disease) K21.9
== END 2024-02-15 09:39 | disposition home or self-care (01) ==
PROVIDERS: PCP Internal Medicine; Visit Provider Nurse Practitioner
DX: D12.6 Benign neoplasm of colon, unspecified (principal); R19.7 Diarrhea, unspecified; K21.9 Gastro-esophageal reflux disease without esophagitis
CPT/HCPCS: 99214

== ENCOUNTER 2024-02-15 08:52 | Outpatient (REF) | payer OTHER, SELFPAY ==
[2024-02-15 11:02] LABS: Estimated Average Glucose 111 mg/dL; Hemoglobin A1c % 5.5 % (<6.0)
[2024-02-15 11:10] LABS: C Reactive Protein 0.43 mg/dL (< or = 0.50)
[2024-02-20 07:18] LABS: Transglutaminase Ab IgG <1.0 U/mL; Transglutaminase IgA <1.0 U/mL
== END 2024-02-15 08:53 | disposition home or self-care (01) ==
LOC: HO.LAB 08:52
PROVIDERS: Absent Provider Nurse Practitioner Family; PCP Internal Medicine; Visit Provider Nurse Practitioner
DX: E11.9 Type 2 diabetes mellitus without complications (principal); E29.1 Testicular hypofunction; R19.7 Diarrhea, unspecified; D12.6 Benign neoplasm of colon, unspecified; K21.9 Gastro-esophageal reflux disease without esophagitis
CPT/HCPCS: 36415; 83036; 86003; 86140; 86364; 99212

== ENCOUNTER 2024-02-16 09:10 | Outpatient (REF) | payer OTHER, SELFPAY ==
[2024-02-16 11:43] LABS: CDiff Gene PCR NEGATIVE (Negative)
== END 2024-02-16 09:11 | disposition home or self-care (01) ==
LOC: HO.LNP 09:10
PROVIDERS: Visit Provider Nurse Practitioner
DX: R19.7 Diarrhea, unspecified (principal)
CPT/HCPCS: 87493

== ENCOUNTER 2024-03-14 13:32 | Outpatient (REF) | payer OTHER, SELFPAY ==
[2024-03-14 18:42] LABS: Adenovirus F 40/41 Not Detected (Not Detect.); Astrovirus Not Detected (Not Detect.); Campylobacter Not Detected (Not Detect.); Cryptosporidium Not Detected (Not Detect.); Cyclospora cayetanensis Not Detected (Not Detect.); E. coli EAEC Not Detected (Not Detect.); E. coli EPEC Not Detected (Not Detect.); E. coli ETEC Not Detected (Not Detect.); E. coli STEC Not Detected (Not Detect.); Entamoeba histolytica Not Detected (Not Detect.); Giardia lamblia Not Detected (Not Detect.); Norovirus GI/GII Not Detected (Not Detect.); Plesiomonas shigelloides Not Detected (Not Detect.); Rotavirus A Not Detected (Not Detect.); Salmonella Not Detected (Not Detect.); Sapovirus Not Detected (Not Detect.); Shigella sp./EIEC Not Detected (Not Detect.); Vibrio Not Detected (Not Detect.); Vibrio Cholerae Not Detected (Not Detect.); Yersinia enterocolitica Not Detected (Not Detect.)
== END 2024-03-14 13:33 | disposition home or self-care (01) ==
LOC: HO.LAB 13:32
PROVIDERS: PCP Internal Medicine; Visit Provider Nurse Practitioner
DX: R19.7 Diarrhea, unspecified (principal); D12.6 Benign neoplasm of colon, unspecified; K21.9 Gastro-esophageal reflux disease without esophagitis
CPT/HCPCS: 87507; 99212

== ENCOUNTER 2024-03-14 13:32 | Outpatient (AMB) | payer OTHER, SELFPAY ==
--- NOTE | 2024-03-14 13:33 | MHC.OFFVIS ---
Vital Signs 03/14/24 13:34 Height 6 ft Weight 228 lb 6.382 oz BMI 31.0 BP 122/80 Blood Pressure Location Rt brachial Position Sitting Pulse 74 Pulse Source Pulse Oximeter Pulse Oximetry (%) 96 Oxygen Delivery Method Room Air Intake Visit Reasons: 4 week follow up Intake Note: Gustavo presents in office today for a scheduled 4 week FUV. CC; Pt reports that they have remained stable since their last visit. Chronic sx are still bothering them. Pt reports that they are still taking all their medications as instructed. Crowning Inspector Required: No Allergies ciprofloxacin [From CIPRO] Allergy (Intermediate, Verified 03/14/24 13:33) SWELLING levofloxacin [Levaquin] Allergy (Intermediate, Verified 03/14/24 13:33) facial swelling HPI HPI 4 week follow up: Details: Assessment & Plan (1) Tubular adenoma of colon: Comment: 2022 scope= 4 large TA repeat in 1 years, Two TA is removed, Perez 2010 Code(s): D12.6 - Benign neoplasm of colon, unspecified Category: Medical (2) Diarrhea: Code(s): R19.7 - Diarrhea, unspecified Category: Medical (3) GERD (gastroesophageal reflux disease): Code(s): K21.9 - Gastro-esophageal reflux disease without esophagitis Category: Medical Plan He has agreeable to a 3 year follow-up. The procedure was well tolerated. The results were explained and the patient is agreeable to the follow-up interval as stated. Education was provided to tell any 1st degree relatives about their findings to be sure that they are screened by age 45. Educated that they will be put on a recall list when it is time for their repeat scope but should they move out of state or away from the hospital they will need to remember along with their primary to repeat the procedure in a timely fashion to avoid any adverse complications. Initially his bowel movements returned to normal after the procedure but then a few weeks afterwards he developed diarrhea. This is been going on since November or so, and he has never had diarrhea like this before except when he is to drink any certainly has not relapsed. Occasionally he will have a formed bowel movement but then it will be followed by copious diarrhea. He does not have any severe abdominal pain, no rectal bleeding, no nausea or vomiting and there has been no new medications, changes in medication doses, or known sick contacts preceding this. I think will get some stool studies and some blood tests for both a CRP and allergy testing to see if we can get to the bottom of this for him. In the meantime I suggest that he use a fiber supplement and, since he is on chronic doxycycline for acne, add a probiotic supplement as it could be that his gut floor is depleted. He says that he has lost 20-30 lb recently and he is fearful of diabetes. It looks like 1 of his other providers ordered a hemoglobin A1c and he did have an elevated, although mild, fasting glucose on his last blood test. He says that he did have glucosuria on prior urine but I do not see her on his most recent urinalysis. Apparently he has nocturnal urinary frequency for which he was started recently on VESIcare but this was quite a bit after the diarrhea started. Return office visit in 4 weeks to go over his lab and consider additional treatment depending on his response to the fiber and the probiotic. Orders: Orders GI Panel Today R19.7 - Diarrhea, unspecified CDiff Gene PCR Today R19.7 - Diarrhea, unspecified C Reactive Protein Today R19.7 - Diarrhea, unspecified Rast Allergen Today R19.7 - Diarrhea, unspecified Transglutaminase IgA Today R19.7 - Diarrhea, unspecified Transglutaminase Ab IgG Today R19.7 - Diarrhea, unspecified Labs: Laboratory Tests 02/15/24 02/15/24 09:54 10:11 C-Reactive Protein 0.43 Tiss Transglutamin IgG <1.0 Tiss Transglutamin IgA <1.0 THE RAST PANEL SHOWS NO SIGNIFICANT FOOD ALLERGIES THE GI PANEL WAS NOT PROCESSED BY THE LAB THE CUP WAS 2 FULL CORRESPONDENCE On 02/16/24 @ 14:27 Radha Escobar Wrote To Oma,November just davie ang called to state they had to reject the GI panel because the stool was over the 'fill line'. I called patient and informed him of this and advised him to return to the lab to excelsior picker new specimen cup. TODAY'S VISIT He is having fatigued and having body aches, his diarrhea continues. It does not appear to be IBD or a food allergy, but the stool sample was not processed because it was overfilled. He is having some success with using Imodium. He can continue this. Return office visit in 6 weeks [facility] Medical History Sacroiliitis Sleep apnea Pure hypercholesterolemia Mild recurrent major depression Derangement of right knee Osteoarthritis of right knee Skin lesion Rosacea Hypogonadism in male Gout Chronic pain GERD (gastroesophageal reflux disease) BPH (benign prostatic hyperplasia) Hyperlipidemia PAF (paroxysmal atrial fibrillation) Essential hypertension Surgical History H/O colonoscopy History of left knee replacement History of arthroplasty of left knee History of prior ablation treatment History of prostate surgery History of arthroplasty of right shoulder History of appendectomy History of arthroscopy of right knee History of arthroscopy of left knee Family History Father CAD (coronary artery disease) COPD (chronic obstructive pulmonary disease) Mother No problems noted. Son No problems noted. 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 Current occupational exposures/hazards: No Cognitive needs: No Hearing needs: No Vision needs: No Review of Systems Const Reports fatigue, Denies fever(s), Denies night sweats, Denies poor appetite and Denies weight loss ENT Reports Normal hearing present, Denies dental pain, Denies dysphagia, Denies hearing loss, Denies mouth pain, Denies odynophagia, Denies throat swelling, Denies tongue swelling and Reports other (Dentition adequate) Card Reports no additional complaints Resp Reports no additional complaints GI Details: Denies abdominal pain, Denies melena, Denies bloating, Denies hematochezia, Denies constipation, Denies GI cramping, Denies dysphagia, Denies excessive flatus, Denies early satiety, Denies heartburn, Reports diarrhea, Denies nausea, Denies odynophagia, Denies vomiting and Denies hematemesis Musc Reports myalgias Skin/Breast Denies pruritus, Denies lesions, Denies rash and Denies jaundice Neuro Reports Normal hearing present and Denies Abnormal speech present Endo Reports fatigue Aller/Immun Denies throat swelling and Denies tongue swelling Physical Exam Vital Signs: Last Vital Signs Pulse 74 03/14/24 13:34 BP 122/80 03/14/24 13:34 Pulse Ox 96 03/14/24 13:34 Oxygen Delivery Method Room Air 03/14/24 13:34 BMI result Body Mass Index 31.0 Const General: cooperative, no acute distress, well developed and well groomed Nutritional Appearance: well nourished and obese Orientation/consciousness: oriented to person, oriented to place and oriented to time Limitations: No language barrier HEENT Head: Yes normocephalic and Yes atraumatic Eyes General: appearance normal, both eyes and all related structures Pupils: Equal, round and reactive pupils present Neck Neck: Yes normal visual inspection and Yes no lymphadenopathy Thyroid: Thyroid normal Resp Effort & Inspection: normal respiratory effort and able to speak in complete sentences Auscultation: clear to auscultation bilaterally Cardio Rate: regular rate Rhythm: regular rhythm Heart sounds: Normal, physiologic split S2 sound present Peripheral pulses: radial pulses present and posterior tibial pulses present GI Inspection: No distended, No Abdominal panniculus present and Yes obesity Palpation (GI): Soft to palpation, nontender, no guarding, not rigid and No hepatosplenomegaly present Percussion: Yes normal to percussion Auscultation: normal bowel sounds Rectal Exam - Male: Yes deferred Skin General skin exam: no rashes or lesions noted, turgor normal, skin not dry, no jaundice, No spider nevi and no striae Rashes: no rashes Nails: normal Neuro General: oriented to person, oriented to place and oriented to time Cranial nerves: Yes Equal, round and reactive pupils present and Yes Normal hearing present Speech: No Abnormal speech present Extrem General: Yes normal to inspection, No clubbing, No cyanosis and No edema Psych Appearance: grossly normal and well kempt Mental Status: mental status grossly normal Speech and movement: Normal speech and movement present Affect: normal affect Attitude: cooperative Thought process: Normal thought process present and not confabulating Thought content: Normal thought content present Insight: Fair insight present (Psych) Judgement: Fair judgement present (Psych) Assessment & Plan Assessment & Plan (1) Diarrhea: Code(s): R19.7 - Diarrhea, unspecified Category: Medical Plan He is having fatigued and having body aches, his diarrhea continues. It does not appear to be IBD or a food allergy, but the stool sample was not processed because it was overfilled. He is having some success with using Imodium. He can continue this. Return office visit in 6 weeks Orders: Orders GI Panel Today R19.7 - Diarrhea, unspecified Coding Level of Care Code Est Pt Level 3 (57517) Diagnoses Diarrhea R19.7
[2024-03-14 13:34] VITALS: BP 122/80; PULSE 74; O2SAT 96; BMI 31.0
== END 2024-03-14 14:02 | disposition home or self-care (01) ==
PROVIDERS: PCP Internal Medicine; Visit Provider Nurse Practitioner
DX: R19.7 Diarrhea, unspecified (principal)
CPT/HCPCS: 99213

== ENCOUNTER 2024-03-26 07:27 | Outpatient (REF) | payer OTHER, SELFPAY ==
[2024-03-26 08:28] LABS: Alanine Aminotransferase 21 U/L (0-40); Albumin Level 4.5 g/dL (3.5-5.0); Alkaline Phosphatase 46 U/L (39-117); Anion Gap 11 (12-20); Aspartate Amino Transferase 19 U/L (5-37); Bilirubin Total 0.6 mg/dL (0.0-1.0); Blood Urea Nitrogen 18 mg/dL (9-16); Calcium 9.6 mg/dL (8.4-10.2); Carbon Dioxide 25 mmol/L (22-29); Chloride 109 mmol/L (96-108); Estimated Glomerular Filt Rate > 60; Glucose Fasting 97 mg/dL (60-99); Sodium 141 mmol/L (135-145); Total Protein 6.9 g/dL (6.5-8.0)
== END 2024-03-26 07:28 | disposition home or self-care (01) ==
LOC: HO.US 07:27
PROVIDERS: PCP Internal Medicine; Visit Provider Internal Medicine
DX: I10 Essential (primary) hypertension (principal)
CPT/HCPCS: 36415; 80053

== ENCOUNTER 2024-04-02 08:06 | Outpatient (AMB) | payer OTHER, SELFPAY ==
[2024-04-02 08:13] VITALS: BP 126/80; BMI 30.6
--- NOTE | 2024-04-02 08:13 | MHC.PC.OV ---
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 Required: No Accompanied by: Self / Same As Patient Allergies ciprofloxacin [From CIPRO] Allergy (Intermediate, Verified 04/02/24 08:24) SWELLING levofloxacin [Levaquin] Allergy (Intermediate, Verified 04/02/24 08:24) facial swelling Medication List - Last Reconciled 04/02/24 by Carissa Lau MD apixaban (Eliquis) 5 mg PO BID diltiazem HCl CD 180 mg PO DAILY doxycycline hyclate 100 mg PO BID 30 days lisinopril 10 mg PO DAILY 90 days lorazepam 1 mg PO BID PRN 29 days needle (disp) 22 G As directed sildenafil 50 mg PO simvastatin 40 mg PO BEDTIME syringe with needle As directed testosterone cypionate (Depo-Testosterone) 100 mg (0.5 mL) IM QWEEK 4 weeks valacyclovir 1,000 mg PO Q8H 7 days Tobacco use date assessed: 10/03/23 Dental Screening Dental Screen Date: 10/03/23 HPI HPI Comments History of Present Illness Details This is a 63-year-old male with hypertension, paroxysmal atrial fibrillation, pure hypercholesterolemia and mild recurrent major depression that comes today for follow-up on his conditions. Blood pressure stable. On chronic anticoagulation for his atrial fibrillation. Cholesterol well controlled with statins. Depression is in remission. Denies any chest pain or shortness on breath. [facility] Medical History (Updated 04/02/24 @ 10:09 by Carissa Lau MD) Sacroiliitis Sleep apnea Pure hypercholesterolemia Mild recurrent major depression Derangement of right knee Osteoarthritis of right knee Skin lesion Rosacea Hypogonadism in male Gout Chronic pain GERD (gastroesophageal reflux disease) BPH (benign prostatic hyperplasia) Hyperlipidemia PAF (paroxysmal atrial fibrillation) Essential hypertension Surgical History H/O colonoscopy History of left knee replacement History of arthroplasty of left knee History of prior ablation treatment History of prostate surgery History of arthroplasty of right shoulder History of appendectomy History of arthroscopy of right knee History of arthroscopy of left knee Family History Father CAD (coronary artery disease) COPD (chronic obstructive pulmonary disease) Mother No problems noted. Son No problems noted. 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 Chetan Ceron, Marielena Ames, Wesly Das and colleagues, with an educational tejinder from [employer]. Review of Systems Const All systems reviewed & are unremarkable except as noted in HPI and below Card Denies chest pain at rest, Denies chest pain with activity, Denies edema, Denies irregular heart rhythm, Denies claudication, Denies dyspnea, Denies dyspnea on exertion, Denies orthopnea, Denies paroxysmal nocturnal dyspnea and Denies slow heart rate Resp Denies cough, Denies dyspnea and Denies dyspnea on exertion GI Reports diarrhea Physical exam (Primary Care) Vital Signs: Last Vital Signs BP 126/80 04/02/24 08:13 BMI result Body Mass Index 30.6 BMI Assessment/Plan discussion: High BMI High, discussed plan: lifestyle, weight reduction, dietary and physical activity Tobacco/Smoking Status: Tobacco use Status Tobacco use date assessed 10/03/23 04/02/24 08:18 Patient Tobacco Use Status Former Tobacco user 04/02/24 08:18 Tobacco use type Cigarette 04/02/24 08:18 e-Cigarette/Vaping Use Never Used 04/02/24 08:18 Thrive Assessment: Date of Thrive Assessment Date Thrive assessed 10/03/23 04/02/24 08:18 Resp Effort & Inspection: normal respiratory effort Auscultation: clear to auscultation bilaterally Cardio Jugular venous distension: no JVD Rate: regular rate Rhythm: regular rhythm Heart sounds: S1 normal heart sound present and S2 normal heart sound present Extrem General: Yes full ROM Assessment and Plan Assessment & Plan (1) Mild recurrent major depression: Code(s): F33.0 - Major depressive disorder, recurrent, mild Plan: In remission. (2) Pure hypercholesterolemia: Code(s): E78.00 - Pure hypercholesterolemia, unspecified Plan: Continue statins. (3) PAF (paroxysmal atrial fibrillation): Code(s): I48.0 - Paroxysmal atrial fibrillation Plan: Continue diltiazem and Eliquis. The goal is heart rate control. Follow-up with Cardiology. (4) Essential hypertension: Code(s): I10 - Essential (primary) hypertension Plan: Continue lisinopril. Blood pressure goal is equal or less than 130/80. Orders: Orders Lipid Panel 6 Months E78.00 - Pure hypercholesterolemia, unspecified, E78.5 - Hyperlipidemia, unspecified Comprehensive [place]. Panel Fast 6 Months E78.00 - Pure hypercholesterolemia, unspecified Coding Level of Care Code Est Pt Level 4 (02584) Complex EM visit Add On G2211 Diagnoses Mild recurrent major depression F33.0 Pure hypercholesterolemia E78.00 PAF (paroxysmal atrial fibrillation) I48.0 Essential hypertension I10 Time Spent (min) 23
== END 2024-04-02 08:33 | disposition home or self-care (01) ==
PROVIDERS: PCP Internal Medicine; Visit Provider Internal Medicine
DX: F33.0 Major depressive disorder, recurrent, mild (principal); E78.00 Pure hypercholesterolemia, unspecified; I48.0 Paroxysmal atrial fibrillation; I10 Essential (primary) hypertension
CPT/HCPCS: 99214; G2211

== ENCOUNTER 2024-05-07 09:08 | Outpatient (AMB) | payer OTHER, SELFPAY ==
--- NOTE | 2024-05-07 09:12 | A.OFFVIS_ITS ---
Vital Signs 05/07/24 09:13 Height 6 ft Weight 227 lb 1.218 oz BMI 30.8 BP 114/77 Blood Pressure Location Rt brachial Position Sitting Pulse 95 Intake Visit Reasons: 6 week FUV Intake Note: Gustavo presents in office today for 6 weeks follow up CC: Patient reports that he feels OK . Patient denies having any new GI symptoms. 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 It does not appear to be IBD or a food allergy, but the stool sample was not processed because it was overfilled. He is having some success with using Imodium. He can continue this. Return office visit in 6 weeks Orders: Orders GI Panel Today R19.7 - Diarrhea, unspecified Labs: NTERED: 03/14/[address] [facility] [address]: Carissa Zuniga MD ORDERED: GI Panel Test Result Flag Reference Campylobacter Not Detected Not Detect. P. shigelloides Not Detected Not Detect. Salmonella Not Detected Not Detect. Vibrio Not Detected Not Detect. Vibrio Cholerae Not Detected Not Detect. Y. enterocolit. Not Detected Not Detect. E. coli EAEC Not Detected Not Detect. E. coli EPEC Not Detected Not Detect. E. coli ETEC Not Detected Not Detect. E. coli STEC Not Detected Not Detect. E. coli O157 Not applicable Not Detect. E. coli containing the O157 antigen are a subset of Shiga-like toxin-producing E. coli (STEC). Shigella/EIEC Not Detected Not Detect. Cryptosporidium Not Detected Not Detect. Cyclospora Not Detected Not Detect. E. histolytica Not Detected Not Detect. Giardia lamblia Not Detected Not Detect. Adenovirus Not Detected Not Detect. Astrovirus Not Detected Not Detect. Norovirus Not Detected Not Detect. Rotavirus A Not Detected Not Detect. Sapovirus Not Detected Not Detect. TODAY'S VISIT With the GI specimen negative I think it is safe to assume that he has functional diarrhea. That this is IBD since he just had a normal colonoscopy in September of this year. While there were tubular adenomas there was certainly no visual or biopsy evidence of inflammatory bowel disease. He has also had a negative RAST panel for food allergies. At this point we will add dicyclomine to his Imodium and titrate to affect her side effect. Return office visit in 6 weeks [facility] Medical History Sacroiliitis Sleep apnea Pure hypercholesterolemia Mild recurrent major depression Derangement of right knee Osteoarthritis of right knee Skin lesion Rosacea Hypogonadism in male Gout Chronic pain GERD (gastroesophageal reflux disease) BPH (benign prostatic hyperplasia) Hyperlipidemia PAF (paroxysmal atrial fibrillation) Essential hypertension Surgical History H/O colonoscopy History of left knee replacement History of arthroplasty of left knee History of prior ablation treatment History of prostate surgery History of arthroplasty of right shoulder History of appendectomy History of arthroscopy of right knee History of arthroscopy of left knee Family History Father CAD (coronary artery disease) COPD (chronic obstructive pulmonary disease) Mother No problems noted. Son No problems noted. 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 Current occupational exposures/hazards: No Cognitive needs: No Hearing needs: No Vision needs: No Review of Systems Const Denies fatigue, Denies fever(s), Denies night sweats, Denies poor appetite and Denies weight loss ENT Reports Normal hearing present, Denies dental pain, Denies dysphagia, Denies hearing loss, Denies mouth pain, Denies odynophagia, Denies throat swelling, Denies tongue swelling and Reports other (Dentition adequate) Card Reports no additional complaints Resp Reports no additional complaints GI Details: Denies abdominal pain, Denies melena, Denies bloating, Denies hematochezia, Denies constipation, Denies GI cramping, Denies dysphagia, Denies excessive flatus, Denies early satiety, Denies heartburn, Reports diarrhea, Denies nausea, Denies odynophagia, Denies vomiting and Denies hematemesis Skin/Breast Denies pruritus, Denies lesions, Denies rash and Denies jaundice Neuro Reports Normal hearing present and Denies Abnormal speech present Endo Denies fatigue Aller/Immun Denies throat swelling and Denies tongue swelling Physical Exam Vital Signs: Last Vital Signs Pulse 95 05/07/24 09:13 BP 114/77 05/07/24 09:13 BMI result Body Mass Index 30.8 Const General: cooperative, no acute distress, well developed and well groomed Nutritional Appearance: well nourished and obese Orientation/consciousness: oriented to person, oriented to place and oriented to time Limitations: No language barrier HEENT Head: Yes normocephalic and Yes atraumatic Eyes General: appearance normal, both eyes and all related structures Pupils: Equal, round and reactive pupils present Neck Neck: Yes normal visual inspection and Yes no lymphadenopathy Thyroid: Thyroid normal Resp Effort & Inspection: normal respiratory effort and able to speak in complete sentences Auscultation: clear to auscultation bilaterally Cardio Rate: regular rate Rhythm: regular rhythm Heart sounds: Normal, physiologic split S2 sound present Peripheral pulses: radial pulses present and posterior tibial pulses present GI Inspection: No distended, No Abdominal panniculus present and Yes obesity Palpation (GI): Soft to palpation, nontender, no guarding, not rigid and No hepatosplenomegaly present Percussion: Yes normal to percussion Auscultation: normal bowel sounds Rectal Exam - Male: Yes deferred Skin General skin exam: no rashes or lesions noted, turgor normal, skin not dry, no jaundice, No spider nevi and no striae Rashes: no rashes Nails: normal Neuro General: oriented to person, oriented to place and oriented to time Cranial nerves: Yes Equal, round and reactive pupils present and Yes Normal hearing present Speech: No Abnormal speech present Extrem General: Yes normal to inspection, No clubbing, No cyanosis and No edema Psych Appearance: grossly normal and well kempt Mental Status: mental status grossly normal Speech and movement: Normal speech and movement present Affect: normal affect Attitude: cooperative Thought process: Normal thought process present and not confabulating Thought content: Normal thought content present Insight: Limited insight present (Psych) Judgement: Limited judgement present (Psych) Assessment & Plan Assessment & Plan (1) Diarrhea: Code(s): R19.7 - Diarrhea, unspecified Category: Medical Plan With the GI specimen negative I think it is safe to assume that he has functional diarrhea. That this is IBD since he just had a normal colonoscopy in September of this year. While there were tubular adenomas there was certainly no visual or biopsy evidence of inflammatory bowel disease. He has also had a negative RAST panel for food allergies. At this point we will add dicyclomine to his Imodium and titrate to affect her side effect. Return office visit in 6 weeks Medications: New dicyclomine 20 mg PO QID 120 tabs 1RF 30 days Coding Level of Care Code Est Pt Level 3 (75795) Diagnoses Diarrhea R19.7
[2024-05-07 09:13] VITALS: BP 114/77; PULSE 95; BMI 30.8
== END 2024-05-07 09:53 | disposition home or self-care (01) ==
PROVIDERS: PCP Internal Medicine; Visit Provider Nurse Practitioner
DX: R19.7 Diarrhea, unspecified (principal)
CPT/HCPCS: 99213

== ENCOUNTER → 2024-05-07 09:08 | Outpatient (BNVA) | payer OTHER, SELFPAY | PROVIDERS: PCP Internal Medicine; Visit Provider Nurse Practitioner | DX: R19.7 Diarrhea, unspecified (principal) | CPT/HCPCS: 99212 ==

== ENCOUNTER 2024-05-28 10:07 | Outpatient (REF) | payer OTHER, SELFPAY ==
[2024-05-28 11:05] LABS: Hematocrit 47.9 % (42.0-52.0); Hemoglobin 16.3 g/dl (14.0-18.0); Mean Corpuscular Volume 88.1 fL (80.0-98.0); Platelet Count 165 X10*3/uL (160-400); Red Blood Count 5.44 X10*6/uL (4.60-5.80); Red Cell Distribution Width 13.2 % (11.0-16.0); White Blood Count 5.6 X10*3/uL (4.8-10.8)
[2024-05-28 11:42] LABS: Prostate Specific Antigen 3.43 ng/mL (<0.05-4.0)
[2024-06-01 12:19] LABS: Testosterone, Free 99.7 pg/mL (35.0-155.0); Testosterone, Total 379 ng/dL (250-1100)
== END 2024-05-28 10:08 | disposition home or self-care (01) ==
LOC: HO.LAB 10:07
PROVIDERS: PCP Internal Medicine; Visit Provider Nurse Practitioner Family
DX: E29.1 Testicular hypofunction (principal)
CPT/HCPCS: 36415; 84153; 84402; 84403; 85027

== ENCOUNTER 2024-06-13 07:32 | Outpatient (REF) | payer OTHER, SELFPAY ==
--- NOTE | ~2024-06-13 | CT_ITS ---
EXAMINATION: CT HEAD WITHOUT CONTRAST CLINICAL INFORMATION: Headache COMPARISON: None available. TECHNIQUE: Contiguous axial imaging was performed from the skull base to vertex without intravenous administration of contrast. This CT examination was performed using dose optimization techniques as appropriate, variously including the following: *Automated exposure control *Adjustment of mA and/or kV according to patient size (this includes techniques or standardized protocols for targeted exams where dose is matched to indication/reason for exam; i.e. extremities or head) *Use of iterative reconstruction technique DLP: 1055 mGy-cm RESULTS: There is no evidence of acute intracranial hemorrhage, acute large vessel infarct, midline shift or mass effect. The [place]-white differentiation is preserved. The ventricles and sulci are within normal limits in size and configuration. There is no evidence of hydrocephalus. There are no extraaxial collections. Osseous structures are intact. Paranasal sinuses and mastoid air cells are well aerated. CT/CT head/brain wo IV con IMPRESSION: Unremarkable non-contrast CT of the brain. Electronically signed by: Tammie Campbell MD 06/27/2024 12:49 PM EVELYN ALEJANDRO
== END 2024-06-13 07:33 | disposition home or self-care (01) ==
LOC: HO.CT 07:32
PROVIDERS: PCP Internal Medicine; Visit Provider Internal Medicine
DX: R51.9 Headache, unspecified (principal)
CPT/HCPCS: 70450

== ENCOUNTER 2024-06-19 12:39 | Outpatient (AMB) | payer OTHER, SELFPAY ==
--- NOTE | 2024-06-19 12:47 | MHC.OFFVIS ---
Intake Visit Reasons: 4M labs r/s(set) Intake Note: Patient presents today for follow up on : hypogonadism, OAB, and lab results Testosterone: 379; Free Testosterone: 99.7; PSA: 3.43 Urology Medications: testosterone Blood Thinner: apixaban PVR: 36ml's Global Security Architect Required: No Accompanied by: Self / Same As Patient Allergies ciprofloxacin [From CIPRO] Allergy (Intermediate, Verified 06/19/24 23:08) SWELLING levofloxacin [Levaquin] Allergy (Intermediate, Verified 06/19/24 23:08) facial swelling Medication List - Last Reconciled 06/19/24 by DEMETRIA Moran-MICHA apixaban (Eliquis) 5 mg PO BID dicyclomine 20 mg PO QID 30 days diltiazem HCl CD 180 mg PO DAILY doxycycline hyclate 100 mg PO BID 30 days lisinopril 10 mg PO DAILY 90 days lorazepam 1 mg PO BID PRN 29 days needle (disp) 22 G As directed sildenafil 50 mg PO simvastatin 40 mg PO BEDTIME syringe with needle As directed testosterone 1 packet transdermal DAILY 30 days valacyclovir 1,000 mg PO Q8H 7 days HPI Comments Details: Gustavo is a pleasant 63 year old male patient of Dr. Crow Lau. He has a past medical history of sleep apnea, hypercholesteremia, depression, osteoarthritis, rosacea, hypogonadism, gout, chronic pain, GERD, BPH, hyperlipidemia, paroxysmal atrial fibrillation, and hypertension. He presents to the office today for follow-up of his hypogonadism, lower urinary tract symptoms, and overactive bladder. In discussion with the patient today reports to be doing and feeling well. He reports compliance with testosterone therapy as prescribed. Recent labs reviewed with the patient today as noted and trended below. He discusses feeling when he was on previous AndroGel therapy he felt this was better for him. He reports typically injecting testosterone on Monday or Monday. He does continue to report ongoing lower urinary tract symptoms of urinary urgency and frequency. We discussed obtaining bladder diary for further assessment evaluation. He has previously trialed Myrbetriq without any improvement in his lower urinary tract symptoms. He also has a previous history of a prostate laser procedure in the past with Dr. Little. We discussed trial of other OAB medications verses obtaining bladder diary for further assessment evaluation. He otherwise denies incontinence, hematuria, dysuria, foul smelling urine, changes to urinary stream, flank pain, fever, and or chills. In office urinalysis results reviewed with the patient today. He otherwise denies any other issues or concerns at this time. Laboratories: H/H: 11/09 15.2/46.7, 12/11 14.8/46.6, 02/10 16.2/48.9, 10/14 16.2/49.0, 12/12 16.1/47.4, 06/13 16.3/47.9 PSA:07/09 2.2, 11/08 3.4, 05/13, 12/12 3.5 Testosterone: 07/09 149, 09/09 168, 11/08 444, 12/09 1203, 11/09 215, 06/11 205, 12/11 357,05/13 627, 12/12 597, 06/13 379 Testosterone free and total:11/08 109.7, 05/13 163.6, 12/12 152.2, 06/13 99.7 Lower urinary tract symptoms Prior laser procedure Symptoms of urgency and frequency Concomitant diagnosis includes NERY on CPAP Prior failure of trial with oxybutynin, tolterodine, and Myrbetriq Nocturia x5, daytime urge PFSH Medical History Sacroiliitis Sleep apnea Pure hypercholesterolemia Mild recurrent major depression Derangement of right knee Osteoarthritis of right knee Skin lesion Rosacea Hypogonadism in male Gout Chronic pain GERD (gastroesophageal reflux disease) BPH (benign prostatic hyperplasia) Hyperlipidemia PAF (paroxysmal atrial fibrillation) Essential hypertension Surgical History H/O colonoscopy History of left knee replacement History of arthroplasty of left knee History of prior ablation treatment History of prostate surgery History of arthroplasty of right shoulder History of appendectomy History of arthroscopy of right knee History of arthroscopy of left knee Family History Father CAD (coronary artery disease) COPD (chronic obstructive pulmonary disease) Mother No problems noted. Son No problems noted. 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 Current occupational exposures/hazards: No Cognitive needs: No Hearing needs: No Vision needs: No Review of Systems Const Reports as per [facility] Eyes Reports no additional complaints ENT Reports no additional complaints Card Reports as per HPI Resp Reports as per HPI GI Reports as per HPI Reports as per [facility] Musc Reports as per HPI Neuro Reports no additional complaints Psych Reports as per HPI Endo Reports no additional complaints William/Lymph Reports no additional complaints Aller/Immun Reports no additional complaints Physical Exam Const General: cooperative, healthy appearing, comfortable, no acute distress, well developed, alert and awake Orientation/consciousness: patient oriented x3 Limitations: no limitations HEENT Head: Yes normal to inspection, Yes normocephalic and Yes atraumatic Ears: hearing grossly normal bilaterally Eyes General: appearance normal, both eyes and all related structures Neck Neck: Yes normal visual inspection and Yes trachea midline Chest Chest palpation & inspection: normal inspection of the chest Resp Effort & Inspection: normal respiratory effort and able to speak in complete sentences Cardio Rate: regular rate GI Inspection: Yes normal to inspection General: Yes no CVA tenderness Back/Spine/Pelvis Back: no CVA tenderness Skin General skin exam: no rashes or lesions noted Neuro General: patient oriented x3 Extrem General: Yes normal to inspection Psych Appearance: grossly normal and well kempt Mental Status: mental status grossly normal Speech and movement: Normal speech and movement present and Clear speech present Affect: normal affect Attitude: cooperative Thought process: Normal thought process present Thought content: Normal thought content present Insight: Fair insight present (Psych) Judgement: Fair judgement present (Psych) Office Procedures Post Void Residual Post Residual Void Post Void Residual (PVR): 36 21040-Hxxr Void Residual by ultrasound Results AMB Urinalysis, Automated UA Leukoctes 15 Teddy/uL Last Edit by Chuck Pak on 06/19/24 13:36 UA Nitrite Last Edit by Chuck Pak on 06/19/24 13:36 UA Urobilinogen 0.2 mg/dL Last Edit by Chuck Hitchcock on 06/19/24 13:36 UA Protein 0 mg/dL Last Edit by Chuck Hitchcock on 06/19/24 13:37 UA Protein previously reported as 15 [facility] Pak 06/19/24 13:37 UA pH 6.0 Last Edit by Chuck Pak on 06/19/24 13:36 UA Blood 10 Quinn/uL Last Edit by Chuck Hitchcock on 06/19/24 13:37 UA Blood previously reported as 0 [facility]na Hitchcock 06/19/24 13:37 UA Specific Hext 1.015 Last Edit by Flexiroamna Aster [facility] on 06/19/24 13:36 UA Ketone Negative Last Edit by [facility] Pak on 06/19/24 13:37 UA Ketone previously reported as Positive [facility] 06/19/24 13:37 UA Bilirubin 0 mg/dL Last Edit by Chuck Hitchcock on 06/19/24 13:36 UA Glucose 0 mg/dL Last Edit by [facility] Pak on 06/19/24 13:36 Results Reviewed Results Reviewed: Laboratory Last Values Urine pH (Auto) 6.0 06/19/24 13:25 Specific Hext (Auto) 1.015 06/19/24 13:25 Urine Protein (Auto) 0 mg/dL 06/19/24 13:25 Glucose (UA)(Auto) 0 mg/dL 06/19/24 13:25 Urine Ketones (Auto) Negative 06/19/24 13:25 Urine Blood (Auto) 10 Quinn/uL 06/19/24 13:25 Urine Bilirubin (Auto) 0 mg/dL 06/19/24 13:25 Urine Urobilinogen (Auto) 0.2 mg/dL 06/19/24 13:25 Leukocyte Esterase (Auto) 15 Teddy/uL 06/19/24 13:25 Assessment & Plan Assessment & Plan (1) Overactive bladder: Code(s): N32.81 - Overactive bladder Category: Medical (2) BPH (benign prostatic hyperplasia): Code(s): N40.0 - Benign prostatic hyperplasia without lower urinary tract symptoms Category: Medical (3) Hypogonadism in male: Code(s): E29.1 - Testicular hypofunction Category: Medical Plan In office urinalysis results reviewed with the patient today; as noted above. PVR 36 mL. Discussed performing bladder diary for further assessment evaluation. Stop Injectable testosterone. Discussed bladder triggers/irritants. Discussed, educated, and stressed the importance of limiting fluids 2-3 hours prior to bed to decrease episodes of nocturia. Start transdermal testosterone as discussed and prescribed. Will obtain CBC, PSA, and testosterone free and total in 3 months. Follow-up in 3 months with lab to be completed prior; or sooner with any issues, concerns, and or questions. Orders: Orders AMB Urinalysis Automated 06/19/24 Z13.9 - Encounter for screening, unspecified Testosterone, Free/Total 3 Months E29.1 - Testicular hypofunction Complete Blood Count no Diff 3 Months E29.1 - Testicular hypofunction AMB Post Void Residual by ultrasound 06/19/24 N32.81 - Overactive bladder Prostate Specific Antigen 3 Months E29.1 - Testicular hypofunction Medications: New testosterone Patient is switching from injectable to transdermal 1 packet transdermal DAILY 30 days 150 grams 5RF Discontinued testosterone cypionate (Depo-Testosterone) Discontinued Reason: Patient no longer taking 100 mg (0.5 mL) IM QWEEK 4 weeks 2 mL 4RF [id number] Patient Instructions: The patient had an opportunity to ask questions regarding the treatment plan. All questions were answered. Physical exam, labs, and imaging were discussed and reviewed in detail. As well as risks, benefits, and discussion of treatment choices. No major barriers to understanding were identified. The patient expressed understanding and agreement with the above treatment plan. The patient was made aware they should contact our office by phone for worsening of their current condition, the appearance of new symptoms, or with any questions or concerns. Compliance is encouraged with any medications and follow up testing that is ordered. It is a privilege to be allowed the opportunity to participate in? your urological care.? Again, if you have any questions or concerns If you have any questions or concerns please do not hesitate to contact me. The office is [phone]. This note is constructed using voice recognition software. While every effort has been made to ensure accuracy balance sheet analyst errors may have been included. Yours sincerely, LUIS A Moran Coding Level of Care Code Est Pt Level 4 (87966) Complex EM visit Add On G2211 Diagnoses Overactive bladder N32.81 BPH (benign prostatic hyperplasia) N40.0 Hypogonadism in male E29.1 CPT Codes Post Residual Void - PVR CPT Code: 01914-Wtqu Void Residual by ultrasound ([id number])
== END 2024-06-19 13:30 | disposition home or self-care (01) ==
LOC: HO.HUSH 12:40
PROVIDERS: PCP Internal Medicine; Visit Provider Nurse Practitioner Family
DX: N32.81 Overactive bladder (principal); N40.0 Benign prostatic hyperplasia without lower urinary tract symptoms; E29.1 Testicular hypofunction
CPT/HCPCS: 99214; G2211

== ENCOUNTER → 2024-06-19 12:39 | Outpatient (BNVA) | payer OTHER, SELFPAY | PROVIDERS: PCP Internal Medicine; Visit Provider Nurse Practitioner Family | DX: N32.81 Overactive bladder (principal); N40.0 Benign prostatic hyperplasia without lower urinary tract symptoms; E29.1 Testicular hypofunction | CPT/HCPCS: 51798; 81003; 99212 ==

== ENCOUNTER 2024-06-27 09:28 | Outpatient (AMB) | payer OTHER, SELFPAY ==
--- NOTE | 2024-06-27 10:18 | AM.OFFWIN_ITS ---
Intake Vital Signs 06/27/24 10:20 Height 6 ft Weight 233 lb BMI 31.6 BP 130/80 Blood Pressure Location Rt brachial Position Sitting Pulse 73 Pulse Source Pulse Oximeter Temp 98 F Temp Source Oral Pulse Oximetry (%) 98 Oxygen Delivery Method Room Air Intake Visit Reasons: EP stuffy nose, cough Intake Note: Patient here for cough, congestion that that has been present for about 2 weeks. Patient Tobacco Use Status: Former Tobacco user Allergies ciprofloxacin [From CIPRO] Allergy (Intermediate, Verified 06/27/24 10:20) SWELLING levofloxacin [Levaquin] Allergy (Intermediate, Verified 06/27/24 10:20) facial swelling Do you need a note to return to daycare/school/sports/work: No HPI HPI Comments History of Present Illness Details Patient is a 63-year-old male complaining of 2 weeks of a stuffy nose, a dry cough, head congestion, chest congestion, headaches, shortness of breath and wheezing. He denies any sinus pain, ear pain, fevers. He tells me he is eating drinking normally. He has tested for COVID twice in the past 2 weeks and has been negative both times. He denies any history of asthma or COPD but is a former smoker who quit 30 years ago. He denies any sick contacts. He tells me he just found out his PCP called in codeine cough syrup for him but he was unaware of it until we were reconciled his medications. He called the pharmacy[facility] and they told him that their computers are down and they never received the prescription. They told him not to have any prescription sent [facility] today because they are having issues with their computers. [facility] Medical History Sacroiliitis Sleep apnea Pure hypercholesterolemia Mild recurrent major depression Derangement of right knee Osteoarthritis of right knee Skin lesion Rosacea Hypogonadism in male Gout Chronic pain GERD (gastroesophageal reflux disease) BPH (benign prostatic hyperplasia) Hyperlipidemia PAF (paroxysmal atrial fibrillation) Essential hypertension Surgical History H/O colonoscopy History of left knee replacement History of arthroplasty of left knee History of prior ablation treatment History of prostate surgery History of arthroplasty of right shoulder History of appendectomy History of arthroscopy of right knee History of arthroscopy of left knee Family History Father CAD (coronary artery disease) COPD (chronic obstructive pulmonary disease) Mother No problems noted. Son No problems noted. 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 Current occupational exposures/hazards: No Cognitive needs: No Hearing needs: No Vision needs: No Review of Systems Const All systems reviewed & are unremarkable except as noted in HPI and below Physical Exam Vital Signs: Last Vital Signs Temp 98 F 06/27/24 10:20 Pulse 73 06/27/24 10:20 BP 130/80 06/27/24 10:20 Pulse Ox 98 06/27/24 10:20 Oxygen Delivery Method Room Air 06/27/24 10:20 BMI result Body Mass Index 31.6 Const General: cooperative, healthy appearing, comfortable and no acute distress Orientation/consciousness: patient oriented x3 Limitations: no limitations HEENT Head: Yes normal to inspection Ears: hearing grossly normal bilaterally, external ears normal and TM's normal bilaterally General nose exam: Normal external nose present, Normal nares present and No nasal discharge present Face and sinus: Yes normal facial exam and Yes sinuses nontender Mouth: Normal oral and palatal mucosa present and moist mucous membranes Throat: Yes tonsils normal, Yes uvula midline and Yes posterior oropharynx abnormal (Erythema) Eyes General: appearance normal, both eyes and all related structures Neck Neck: Yes normal visual inspection Resp Effort & Inspection: normal respiratory effort, able to speak in complete sentences, Actively coughing, no respiratory distress, not tachypneic, no tripod positioning and no use of accessory muscles Auscultation: wheezes expiratory wheezes, inspiratory wheezes, scattered wheezes and throughout and diminished lung sounds bilateral and diffuse Cardio Rate: regular rate Rhythm: regular rhythm Heart sounds: normal S1 and S2 Skin General skin exam: no rashes or lesions noted Neuro General: patient oriented x3 Extrem General: Yes normal to inspection and Yes no clubbing, cyanosis or edema Assessment & Plan Assessment & Plan (1) URI (upper respiratory infection): Code(s): J06.9 - Acute upper respiratory infection, unspecified Qualifiers: URI type: unspecified URI Qualified Code(s): J06.9 - Acute upper respiratory infection, unspecified Plan: Vital signs are stable, patient well-appearing however lung sounds were very dim tight and wheezy. I will get a chest x-ray, sent flu COVID and RSV testing. Sent 40mg of prednisone for 5 days as well as a Z-Floyd and codeine cough syrup. Plan see above Orders: Orders SARS-CoV2/FLU/RSV Today J06.9 - Acute upper respiratory infection, unspecified XR chest 2V Today R05.9 - Cough, unspecified Medications: New prednisone 40 mg (2 x 20 mg) PO DAILY 10 tabs 0RF azithromycin For 250 mg dose pack: take 500 mg today (day 1), then 250 mg for 4 days (days 2-5) PO 6 tabs 0RF codeine-guaifenesin 10-100 mg/5 mL 10 mL PO Q4-6H PRN 120 mL 0RF cold symptoms Coding Level of Care Code Est Pt Level 4 (65930) Diagnoses Upper respiratory tract infection, unspecified type J06.9 URI type: unspecified URI
[2024-06-27 10:20] VITALS: BP 130/80; PULSE 73; TEMP 36.6; O2SAT 98; BMI 31.6
== END 2024-06-27 13:49 | disposition home or self-care (01) ==
PROVIDERS: PCP Internal Medicine; Visit Provider Physician Assistant
DX: J06.9 Acute upper respiratory infection, unspecified (principal)

== ENCOUNTER 2024-06-27 09:28 | Outpatient (REF) | payer OTHER, SELFPAY ==
[2024-06-27 14:37] LABS: Influenza A PCR NEGATIVE (Negative); Influenza B PCR NEGATIVE (Negative); Resp Syncy Virus RNA Qual PCR NEGATIVE (Negative); SARS COV2 PCR INHOUSE NEGATIVE (Negative)
== END 2024-06-27 09:29 | disposition home or self-care (01) ==
LOC: HO.LAB 09:28
PROVIDERS: PCP Internal Medicine; Visit Provider Physician Assistant
DX: R09.89 Other specified symptoms and signs involving the circulatory and respiratory systems (principal); J06.9 Acute upper respiratory infection, unspecified
CPT/HCPCS: 0241U; 99212

== ENCOUNTER 2024-06-27 10:54 | Outpatient (REF) | payer OTHER, SELFPAY ==
--- NOTE | ~2024-06-27 | XR_ITS ---
EXAMINATION: XR CHEST CLINICAL INFORMATION: Cough COMPARISON: CXR on 11/08/21 TECHNIQUE: 2 views of the chest were obtained. FINDINGS: No significant abnormality is noted involving the heart, lungs, mediastinum, bony thorax or soft tissues. XR/XR chest 2V IMPRESSION: Unremarkable examination. Electronically signed by: Tammie Campbell MD 06/27/2024 12:47 PM [facility]
== END 2024-06-27 10:55 | disposition home or self-care (01) ==
LOC: HO.HMGCX 10:54
PROVIDERS: PCP Internal Medicine; Visit Provider Physician Assistant
DX: R05.9 Cough, unspecified (principal)
CPT/HCPCS: 71046

== ENCOUNTER 2024-09-10 08:01 | Outpatient (REF) | payer OTHER, SELFPAY ==
[2024-09-10 08:32] LABS: Hematocrit 44.5 % (42.0-52.0); Hemoglobin 14.8 g/dl (14.0-18.0); Mean Corpuscular HGB Conc 33.3 g/dl (31.0-36.0); Mean Corpuscular Hemoglobin 29.8 pg (27.0-33.0); Mean Corpuscular Volume 89.7 fL (80.0-98.0); Mean Platelet Volume 8.6 fL (9.4-12.4); Platelet Count 157 X10*3/uL (160-400); Red Blood Count 4.96 X10*6/uL (4.60-5.80); Red Cell Distribution Width 13.5 % (11.0-16.0); White Blood Count 4.8 X10*3/uL (4.8-10.8)
[2024-09-10 09:18] LABS: Prostate Specific Antigen 2.95 ng/mL (<0.05-4.0)
[2024-09-18 21:38] LABS: Testosterone, Free 55.8 pg/mL (35.0-155.0); Testosterone, Total 295 ng/dL (250-1100)
== END 2024-09-10 08:02 | disposition home or self-care (01) ==
LOC: HO.LAB 08:01
PROVIDERS: PCP Internal Medicine; Visit Provider Nurse Practitioner Family
DX: E29.1 Testicular hypofunction (principal)
CPT/HCPCS: 36415; 84153; 84402; 84403; 85027

== ENCOUNTER 2024-09-24 07:45 | Outpatient (AMB) | payer OTHER, SELFPAY ==
--- NOTE | 2024-09-24 07:46 | A.OFFVIS_ITS ---
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 Crow Lau. He has a past medical history of sleep apnea, hypercholesteremia, depression, osteoarthritis, rosacea, hypogonadism, gout, chronic pain, GERD, BPH, hyperlipidemia, paroxysmal atrial fibrillation, and hypertension. He is being follow-up on today via video telehealth for his hypogonadism, lower urinary tract symptoms, and overactive bladder. In discussion with the patient today he reports compliance with testosterone gel as prescribed however does not feel this has been helpful. Recent hypogonadism labs reviewed with the patient today as noted and trended below. We discussed decrease in testosterone levels. He had previously been injecting testosterone however his friend who had been helping him administer testosterone was unable to. He otherwise denies any bothersome urinary issues or concerns. He does report ongoing urinary urgency and frequency however feels he has been self managing and does not wish to undergo further workup at this time. He does have a previous history of a prostate laser procedure in the past with Dr. Little. We discussed trial of other OAB medications verses obtaining bladder diary for further assessment evaluation. He otherwise denies incontinence, hematuria, dysuria, foul smelling urine, changes to urinary stream, flank pain, fever, and or chills. He otherwise denies any other issues or concerns at this time. Laboratories: H/H: 11/09 15.2/46.7, 12/11 14.8/46.6, 02/10 16.2/48.9, 10/14 16.2/49.0, 12/12 16.1/47.4, 06/13 16.3/47.9, 09/14 14.8/44.5 PSA:07/09 2.2, 11/08 3.4, 05/13, 12/12 3.5, 09/14 3.0 Testosterone: 07/09 149, 09/09 168, 11/08 444, 12/09 1203, 11/09 215, 06/11 205, 12/11 357,05/13 627, 12/12 597, 06/13 379, 09/14 295 Testosterone free and total:11/08 109.7, 05/13 163.6, 12/12 152.2, 06/13 99.7, 55.8 Lower urinary tract symptoms Prior laser procedure Symptoms of urgency and frequency Concomitant diagnosis includes NERY on CPAP Prior failure of trial with oxybutynin, tolterodine, and Myrbetriq Nocturia x5, daytime urge PFSH Medical History Sacroiliitis Sleep apnea Pure hypercholesterolemia Mild recurrent major depression Derangement of right knee Osteoarthritis of right knee Skin lesion Rosacea Hypogonadism in male Gout Chronic pain GERD (gastroesophageal reflux disease) BPH (benign prostatic hyperplasia) Hyperlipidemia PAF (paroxysmal atrial fibrillation) Essential hypertension Surgical History H/O colonoscopy History of left knee replacement History of arthroplasty of left knee History of prior ablation treatment History of prostate surgery History of arthroplasty of right shoulder History of appendectomy History of arthroscopy of right knee History of arthroscopy of left knee Family History Father CAD (coronary artery disease) COPD (chronic obstructive pulmonary disease) Mother No problems noted. Son No problems noted. 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 Current occupational exposures/hazards: No Cognitive needs: No Hearing needs: No Vision needs: No Review of Systems Const Reports as per HPI Eyes Reports no additional complaints ENT Reports no additional complaints Card Reports as per HPI Resp Reports as per HPI GI Reports as per HPI Reports as per HPI Musc Reports as per HPI Neuro Reports no additional complaints Psych Reports as per HPI Endo Reports no additional complaints William/Lymph Reports no additional complaints Aller/Immun Reports no additional complaints Physical Exam Const General: cooperative, healthy appearing, comfortable, no acute distress, well developed, alert and awake Orientation/consciousness: patient oriented x3 Resp Effort & Inspection: normal respiratory effort and able to speak in complete sentences Neuro General: patient oriented x3 Psych Appearance: grossly normal and well kempt Mental Status: mental status grossly normal Speech and movement: Clear speech present Affect: normal affect Attitude: cooperative Thought process: Normal thought process present Thought content: Normal thought content present Insight: Fair insight present (Psych) Judgement: Fair judgement present (Psych) Telehealth Telehealth Telehealth Platform: [employer] Location of provider rendering services: practice address Location of patient: address on file Patient Identification confirmed using: Name, : Yes Telehealth method: video Patient verbally consented to treatment: Yes Patient verbally consented to billing insurance company: Yes Patient informed of any privacy concerns related to visit: Yes Minutes spent on Phone/Video with Pt.: 23 Assessment & Plan Assessment & Plan (1) Hypogonadism in male: Code(s): E29.1 - Testicular hypofunction Category: Medical Plan Recent hemoglobin, hematocrit, PSA, testosterone, and free testosterone results reviewed with the patient today; as noted above. We discussed at length potential causes of hypogonadism as well as further treatment options and risks and benefits of these interventions. Stop transdermal testosterone. Start Xyosted as discussed and prescribed. He currently denies any bothersome lower urinary tract symptoms. He is happy with current voiding parameters. We discussed lifestyle modifications to assist with hypogonadism. Will obtain PSA, CBC, testosterone, and free testosterone in 3 months. Follow-up in 3 months with labs to be completed prior; or sooner with any issues, concerns, and or questions. Orders: Orders Prostate Specific Antigen 3 Months E29.1 - Testicular hypofunction Testosterone, Free/Total 3 Months E29.1 - Testicular hypofunction Complete Blood Count no Diff 3 Months E29.1 - Testicular hypofunction Medications: New testosterone enanthate (Xyosted) 75 mg (0.5 mL) subcut QWEEK 2.5 mL 3RF 30 days Discontinued doxycycline hyclate Discontinued Reason: Patient Completed Course 100 mg PO BID 30 days 60 tabs 6RF needle (disp) 22 G Discontinued Reason: Patient Completed Course As directed 50 ea 0RF syringe with needle Discontinued Reason: Patient Completed Course As directed 100 ea 0RF testosterone Patient is switching from injectable to transdermal Discontinued Reason: Doctor's Order 1 packet transdermal DAILY 30 days 150 grams 5RF Patient Instructions: The patient had an opportunity to ask questions regarding the treatment plan. All questions were answered. Physical exam, labs, and imaging were discussed and reviewed in detail. As well as risks, benefits, and discussion of treatment choices. No major barriers to understanding were identified. The patient expressed understanding and agreement with the above treatment plan. The patient was made aware they should contact our office by phone for worsening of their current condition, the appearance of new symptoms, or with any questions or concerns. Compliance is encouraged with any medications and follow up testing that is ordered. It is a privilege to be allowed the opportunity to participate in? your urological care.? Again, if you have any questions or conc erns If you have any questions or concerns please do not hesitate to contact me. The office is [phone]. This note is constructed using voice recognition software. While every effort has been made to ensure accuracy taxi dancer errors may have been included. Yours sincerely, LUIS A Moran Coding Level of Care Code Tele Est Pt Level 4 (85549) Diagnoses Hypogonadism in male E29.1
--- OUTSIDE RECORDS SUMMARY | 2024-09-24 07:47 | XMS_ITS | Clinical Summary ---
Author Organization [facility] Address [address] [place] [address] Care Team Providers Care Asparagus Buncher Name Role Phone Unavailable Primary Care Provider Unavailabl e Social History Tobacco Use Types Packs/Day Years Used Date Smoking Tobacco: Never Assessed Sex and Gender Information Value Date Recorded Sex Assigned at Not on file Gender Identity Not on file Sexual Orientation Not on file Plan of Treatment Health Maintenance Due Date Last Done Comments DTaP,Tdap,and Td Vaccines (1 - Tdap) 12/14/1979 Zoster Vaccines (1 of 2) 2010 COVID-19 Vaccine (2023-2 5 season) 2024 Influenza Vaccine (#1) 2024 RSV Immunization Patients 60 + Years Old (1 - 1-dose 75+ series) 12/14/2035 HIB Vaccines Aged Out No longer eligi ble based on patient's age to complete this topic HPV Vaccines Aged Out No longer eligi ble based on patient's age to complete this topic Hepatitis A Vaccines Aged Out No long er eligible based on patient's age to complete this topic Hepatitis B Vaccines Aged Out No long er eligible based on patient's age to complete this topic IPV Vaccines Aged Out No longer eligi ble based on patient's age to complete this topic MMR Vaccines Aged Out No longer eligi ble based on patient's age to complete this topic Meningococcal ACWY Vaccine Aged Out N o longer eligible based on patient's age to complete this topic Pneumococcal Vaccine: Pediat rics (0 to 5 Years) and At-Risk Patients (6 to 64 Years) Aged Out No longer eligible b ased on patient's age to complete this topic RSV Immunization Patients Un ava 20 months Aged Out No longer eligible b ased on patient's age to complete this topic Varicella Vaccines Aged Out No longer eligible based on patient's age to complete this topic
== END 2024-09-24 10:19 | disposition home or self-care (01) ==
LOC: HO.HUSH 07:45
PROVIDERS: PCP Internal Medicine; Visit Provider Nurse Practitioner Family
DX: E29.1 Testicular hypofunction (principal)
CPT/HCPCS: 99214

== ENCOUNTER → 2024-09-24 07:45 | Outpatient (BNVA) | payer OTHER, SELFPAY | PROVIDERS: PCP Internal Medicine; Visit Provider Nurse Practitioner Family ==

== ENCOUNTER 2024-10-02 06:45 | Outpatient (REF) | payer OTHER, SELFPAY ==
[2024-10-02 08:18] LABS: Alanine Aminotransferase 29 U/L (0-40); Albumin Level 4.5 g/dL (3.5-5.0); Alkaline Phosphatase 50 U/L (39-117); Anion Gap 12 (12-20); Aspartate Amino Transferase 27 U/L (5-37); Bilirubin Total 0.8 mg/dL (0.0-1.0); Blood Urea Nitrogen 20 mg/dL (9-16); Calcium 9.4 mg/dL (8.4-10.2); Carbon Dioxide 24 mmol/L (22-29); Chloride 110 mmol/L (96-108); Cholesterol 136 mg/dL (<200); Estimated Glomerular Filt Rate > 60; Glucose Fasting 95 mg/dL (60-99); HDL Cholesterol 38 mg/dL (>40); LDL Cholesterol Calculated 72 mg/dL (<100); Sodium 142 mmol/L (135-145); Total Protein 7.3 g/dL (6.5-8.0); Triglycerides 133 mg/dL (<150)
== END 2024-10-02 06:46 | disposition home or self-care (01) ==
LOC: HO.LAB 06:45
PROVIDERS: PCP Internal Medicine; Visit Provider Internal Medicine
DX: E78.00 Pure hypercholesterolemia, unspecified (principal); E78.5 Hyperlipidemia, unspecified
CPT/HCPCS: 36415; 80053; 80061

== ENCOUNTER 2024-10-08 08:26 | Outpatient (AMB) | payer OTHER, SELFPAY ==
--- NOTE | 2024-10-08 08:31 | A.OFFPC_ITS ---
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: No Accompanied by: Self / Same As Patient Allergies ciprofloxacin [From CIPRO] Allergy (Intermediate, Verified 10/08/24 08:41) SWELLING levofloxacin [Levaquin] Allergy (Intermediate, Verified 10/08/24 08:41) facial swelling Medication List - Last Reconciled 10/08/24 by Carissa Lau MD apixaban (Eliquis) 5 mg PO BID diltiazem HCl CD 180 mg PO DAILY lisinopril 10 mg PO DAILY 90 days lorazepam 1 mg PO BID PRN 29 days sildenafil 50 mg PO simvastatin 40 mg PO BEDTIME testosterone 30 mg/actuation (1.5 mL) 2 pumps topical DAILY 30 days valacyclovir 1,000 mg PO Q8H 7 days Tobacco use date assessed: 10/08/24 Dental Screening Dental Screen Date: 10/08/24 Did you have a dental visit in the last 12 months?: No Did you have a dental problem in the last 6 months where you did not have access to dental care?: No Was dental information given to patient?: Patient has dentist HPI HPI Comments History of Present Illness Details The patient is a 63-year-old male presenting for his physical exam with right knee pain. He has a history of osteoarthritis, notably in the right knee, which he describes as constant and excruciating. The pain has made it increasingly difficult for him to walk, and he is considering a second knee replacement. The left knee replacement was performed few years ago. He experiences significant discomfort with movement and is nearly at the point of requiring a cane for mobility. Prior interventions include knee arthroscopy on the right side and left knee replacement. He reports living on the second floor with a large dog, complicating his recovery logistics. Pharmacologically, he finds [id number] options inadequate due to interactions with his current medications, including Eliquis. His history of atrial fibrillation necessitates anticoagulation therapy, with Eliquis as the current treatment. This limits his pain management options due to potential bleeding risks. He also has mild major depression with no need for medication.He is also taking Diltiazem, Lisinopril, Lorazepam as needed, Simvastatin, Sildenafil, Testosterone, and Valacyclovir. There are no reports of chest pain, palpitations, or shortness of breath currently. - Tetanus, diphtheria, and pertussis (Td ap) vaccine recommended due to lack of current records within the last 10 years. - Colonoscopy performed last year; recom mended frequency of repeat procedure is every 2-3 years due to prior polyp removal. - Blood work indicates well-controlled k idney and liver functions, and cholesterol, with normal glucose levels. - Minimal depression noted with a PHQ-9 score of 2. - Recommendations for abdominal ultrasou nd at age 65 due to former smoker to rule out abdominal aortic aneurysm. [facility] Medical History Sacroiliitis Sleep apnea Pure hypercholesterolemia Mild recurrent major depression Derangement of right knee Osteoarthritis of right knee Skin lesion Rosacea Hypogonadism in male Gout Chronic pain GERD (gastroesophageal reflux disease) BPH (benign prostatic hyperplasia) Hyperlipidemia PAF (paroxysmal atrial fibrillation) Essential hypertension Surgical History H/O colonoscopy History of left knee replacement History of arthroplasty of left knee History of prior ablation treatment History of prostate surgery History of arthroplasty of right shoulder History of appendectomy History of arthroscopy of right knee History of arthroscopy of left knee Family History Father CAD (coronary artery disease) COPD (chronic obstructive pulmonary disease) Mother No problems noted. Son No problems noted. 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 1. Little interest or pleasure in doing things: not at all 2. Feeling down, depressed, or hopeless: not at all 3. Trouble falling or staying asleep, or sleeping too much: several days 4. Feeling tired or having little energy: several days 5. Poor appetite or overeating: not at all 6. Feeling bad about yourself - or that you are a failure or have let yourself or your family down: not at all 7. Trouble concentrating on things, such as reading the newspaper or watching television: not at all 8. Moving or speaking so slowly that other people could have noticed. Or the opposite - being so fidgety or restless that you have been moving around a lot more than usual: not at all 9. Thoughts that you would be better off or of hurting yourself in some way: not at all Total score: 2 Depression Screening Interpretation: Positive Depression Screening Follow-up: Existing condition and Follow-up Visit Requested Depression Screening Done: Yes 91353 - PHQ-9 Billing: Yes Source: Developed by Drs. Chetan Ceron, Marielena Ames, Wesly Das and colleagues, with an educational tejinder from [employer]. Thrive Questionnaire Date Thrive assessed: 10/08/24 I am a: Patient What is your living situation today?: I have a steady place to live Within the past 12 months, did the food you bought not last and you didn't have the money to get more?: Never true Within the past 12 months, did you worry whether your food would run out before you got money to buy more?: Never true Do you have trouble paying for medicines?: No Do you have trouble getting transportation to medical appointments?: No Do you have trouble paying your heating and electricity bill?: No Do you have trouble taking care of your child, family member or friend?: No Do you have trouble with day-to-day activities such as bathing, preparing meals, shopping, managing finances, etc.?: No Are you currently unemployed and looking for a job?: I choose not to answer this question Are you interested in more education?: No Please select the resources that you would like help with: None Currently or been in a relationship where the following occur: No concerns reported THRIVE Score: 0 AUDIT C Alcohol Use Questionnaire (AUDIT-C) 1. How often do you have a drink containing alcohol?: Monthly or less 2. How many drinks containing alcohol do you have on a typical day when you are drinking?: 3 or 4 3. How often do you have six or more drinks on one occasion?: Less than monthly Total Score: 3 RUDY-7 AMB Questionnaire RUDY-7 Date RUDY - 7 assessed: 10/08/24 Feeling nervous, anxious, or on edge: 0 = Not at all Not being able to stop or control worryin = Not at all Worrying too much about different things: 0 = Not at all Trouble relaxin = Not at all Being so restless that it is hard to sit still: 0 = Not at all Becoming easily annoyed or irritable: 1 = Several days Feeling afraid as if something awful might happen: 0 = Not at all Total RUDY-7 score (0-4 normal; 5-9 mild; 10-14 moderate; 15-21 severe): 1 Source: Developed by Drs. Chetan Ceron, Marielena Ames, Wesly aDs and colleagues, with an educational tejinder from [employer]. RUDY-7 Assessment Billing RUDY-7 Assessment Tool: RUDY-7 Assessment 58441 Review of Systems Const All systems reviewed & are unremarkable except as noted in HPI and below Card Denies chest pain at rest, Denies chest pain with activity, Denies edema, Denies irregular heart rhythm, Denies claudication, Denies dyspnea, Denies dyspnea on exertion, Denies orthopnea, Denies paroxysmal nocturnal dyspnea and Denies slow heart rate Resp Denies cough, Denies dyspnea and Denies dyspnea on exertion GI Denies abdominal pain, Denies change in bowel habits, Denies excessive flatus, Denies nausea and Denies vomiting Denies urinary hesitancy, Denies urinary incontinence and Denies urinary urgency Musc Denies abnormal gait, Denies atrophy, Denies deformity and Denies limited range of motion Skin/Breast Denies bleeding lesions, Denies changing lesions and Denies rash Neuro Denies abnormal gait and Denies lack of coordination Physical exam (Primary Care) Vital Signs: Last Vital Signs BP 124/72 10/08/24 08:36 BMI result Body Mass Index 32.0 BMI Assessment/Plan discussion: High BMI High, discussed plan: lifestyle, weight reduction, dietary and physical activity Tobacco/Smoking Status: Tobacco use Status Tobacco use date assessed 10/08/24 10/08/24 08:39 Patient Tobacco Use Status Former Tobacco user 10/08/24 08:49 Tobacco use type Cigarette 10/08/24 08:49 e-Cigarette/Vaping Use Never Used 10/08/24 08:49 PHQ-9: PHQ-9 Score PHQ-9: Total score 2 10/08/24 08:44 Depression Screening Interpretation: Positive Depression Screening Follow-up: Existing condition and Follow-up Visit Requested Thrive Assessment: Date of Thrive Assessment Date Thrive assessed 10/08/24 10/08/24 08:39 Currently or been in a relationship where the following occur: No concerns reported Const General: in distress (in pain when moving) mild HENMT Head: Yes normal to inspection, Yes normocephalic and Yes atraumatic Ears: external ears normal Eyes General: appearance normal, both eyes and all related structures Eyelids: Yes eyelids normal Conjunctivae: conjunctivae normal Neck Neck: Yes normal visual inspection and Yes supple Resp Effort & Inspection: normal respiratory effort Auscultation: clear to auscultation bilaterally Cardio Jugular venous distension: no JVD Rate: regular rate Rhythm: regular rhythm Heart sounds: S1 normal heart sound present and S2 normal heart sound present GI Inspection: Yes normal to inspection Palpation (GI): Soft to palpation and nontender Auscultation: normal bowel sounds Skin General skin exam: no rashes or lesions noted Neuro General: no focal motor deficits Extrem General: Yes full ROM Psych Appearance: grossly normal Immunizations Boostrix Tdap 2.5 Lf unit-8 mcg-5 Lf/0.5 mL intramuscular syringe Performing Provider: Carissa Lau MD [facility] Administered by: LESLIE Cole on 10/08/24 09:03 Dose Route Admin Location Dispensed Lot Number Expiration Date [facility] Regulatory Associate 0.5 mL IM Left Deltoid 0.5 mL [id number] 12/07/26 31121-325-93 KIT digital VIS Given Date VIS Provided VIS Publication Date 10/08/24 Single Vaccine 21 Eligibility Eligibility Date Funding Source Not [facility] Eligible 10/08/24 Private Coding Level of Care Code Est Pt Prev Care 40-64y(92006) Diagnoses Physical exam Z00.00 Mild recurrent major depression F33.0 PAF (paroxysmal atrial fibrillation) I48.0 Additional Codes PHQ-9 - 06943 - PHQ-9 Billing: Yes ([id number]) RUDY-7 Assessment Billing - RUDY-7 Assessment Tool: RUDY-7 Assessment 21418 ([id number]) Time Spent (min) 31 Assessment & Plan Assessment & Plan (1) Physical exam: Code(s): Z00.00 - Encounter for general adult medical examination without abnormal f indings Category: Medical (2) Mild recurrent major depression: Code(s): F33.0 - Major depressive disorder, recurrent, mild Category: Medical (3) PAF (paroxysmal atrial fibrillation): Code(s): I48.0 - Paroxysmal atrial fibrillation Category: Medical Plan - Administer Tdap vaccine during this visit. - Prescribe a short course of prednisone to manage right knee inflammation. - Recommend follow-up with orthopedics for further evaluation regarding the right knee replacement. - Continue current medication regimen, including Eliquis, Diltiazem, Lisinopril, Simvastatin, Sildenafil, Testosterone, and Valacyclovir. Patient was informed and verbally consented to the use of an ambient scribe for clinic note documentation during this visit. The patient and I discussed the potential need for another knee replacement due to the severe osteoarthritis in his right knee. We reviewed current management options, including the administration of a prednisone pack to help manage inflammation and pain temporarily. I emphasized the importance of coordinating logistics for post-surgical recovery, given his living situation and responsibility for a large dog. Due to his anticoagulation therapy, options for pain management are limited, and I advised against NSAIDs because of bleeding risks. We discussed scheduling a follow-up with orthopedics to explore surgical options. The patient expressed understanding and agreement with the management plan. Orders: Orders Lipid Panel 6 Months E78.5 - Hyperlipidemia, unspecified Comprehensive [place]. Panel Fast 6 Months E78.00 - Pure hypercholesterolemia, unspecified TDaP Immunization Today Z23 - Encounter for immunization Medications: New Boostrix Tdap (diphth,pertus(acell),tetanus) 0.5 mL IM ONCE 0.5 mL 0RF NS Z23 - Encounter for immunization prednisone Take 4 tabs for 2 days, then 3 tabs for 2 days, then 2 tabs for 2 days, then 1 tab for 2 days 10 mg PO DIRECTED 8 days 20 tabs 0RF G89.29 - Other chronic pain, M25.561 - Pain in right knee Patient Instructions: - Obtain your Tdap vaccine today. - Take the prescribed prednisone as directed. - Arrange logistics for possible knee surgery and recovery. - Follow up with orthopedics for further evaluation of your right knee. - Continue your current medications, and be cautious about potential drug interactions. - Contact us if you experience increased pain, swelling, or any unusual symptoms.
[2024-10-08 08:36] VITALS: BP 124/72; BMI 32.0
--- OUTSIDE RECORDS SUMMARY | 2024-10-08 08:46 | XMS_ITS | Clinical Summary ---
Author Organization [facility] ity Address [address] [place] [address] Care Team Providers Care Bsa Officer Name Role Phone Unavailable Primary Care Provider Unavailabl e Social History Tobacco Use Types Packs/Day Years Used Date Smoking Tobacco: Never Assessed Sex and Gender Information Value Date Recorded Sex Assigned at Not on file Legal Sex Male 1:57 AM EST Gender Identity Not on file Sexual Orientation Not on file Plan of Treatment Health Maintenance Due Date Last Done Comments DTaP,Tdap,and Td Vaccines (1 - Tdap) 12/14/1979 Pneumococcal Vaccine: 50+ Ye ars (1 of 1 - PCV) 2010 Zoster Vaccines (1 of 2) 2010 COVID-19 Vaccine (1 - 2023-2 5 season) 2024 Influenza Vaccine (#1) 2024 [...] patient's age to complete this topic Meningococcal B Vacine Aged Out No lo nger eligible based on patient's age to complete [...]
== END 2024-10-08 09:01 | disposition home or self-care (01) ==
PROVIDERS: PCP Internal Medicine; Visit Provider Internal Medicine
DX: Z00.00 Encounter for general adult medical examination without abnormal findings (principal); F33.0 Major depressive disorder, recurrent, mild; I48.0 Paroxysmal atrial fibrillation; Z23 Encounter for immunization

== ENCOUNTER → 2024-10-08 08:26 | Outpatient (BNVA) | payer OTHER, SELFPAY | PROVIDERS: PCP Internal Medicine; Visit Provider Internal Medicine | DX: Z00.00 Encounter for general adult medical examination without abnormal findings (principal); Z23 Encounter for immunization; F33.0 Major depressive disorder, recurrent, mild; I48.0 Paroxysmal atrial fibrillation | CPT/HCPCS: 90471; 90715; 96127; 99396 ==

== ENCOUNTER 2024-10-24 10:58 | Emergency (ER) | payer OTHER, SELFPAY ==
--- NOTE | ~2024-10-24 | CT_ITS ---
CLINICAL HISTORY: L eye swelling s p fall CT maxillofacial without contrast Comparison: CT/SR - CT HEAD/BRAIN WO IV CON - 10/24/24 11:[address]/PA/SR - CT HEAD/BRAIN WO IV CON - 06/13/24 07:45 EDT Findings: Anterior facial soft tissue swelling which is most conspicuous in the left infraorbital region. The orbits are unremarkable without retrobulbar hematoma. Comminuted and displaced left nasal bone fracture. Intact right nasal bone. The nasal septum is displaced to the left anteriorly and to the right within the midportion. Tiny chip fracture of the anterior nasal spine. The ostiomeatal units are patent. The orbital rivas are intact. Dental disease most conspicuously involving a left mandibular molar. The temporomandibular joints are intact. See same day cervical spine CT for discussion of cervical spine findings. IMPRESSION: 1. Comminuted and displaced left nasal bone fracture. 2. Anterior nasal spine tiny chip fracture. 3. Facial soft tissue swelling which is most conspicuous in the left infraorbital region without retrobulbar hematoma. This document has been electronically signed by: Mark Lewis DO on 10/24/2024 13:09:38
--- NOTE | ~2024-10-24 | CT_ITS ---
CLINICAL HISTORY: fall, on AC CT cervical spine without contrast Comparison: CT/CA - CT ANGIO HEAD NECK - 06/05/20 10:38 EDT Findings: No evidence of cervical spine fracture. Vertebral body heights are maintained. The usual cervical lordosis is straightened. Grade 1 degenerative anterolisthesis of C4 on C5. No other spondylolisthesis or facet dislocation. Multilevel cervical discogenic degenerative disease. The spinal canal is narrowed to 8 mm at C3-C4 and C5-C6 and 9 mm at C6-C7. Multilevel uncovertebral and facet osteoarthritis with associated multilevel degenerative neural foraminal narrowing. The prevertebral soft tissues are not abnormally thickened. The lung apices are clear. IMPRESSION: No acute cervical spine findings. This document has been electronically signed by: Mark Lewis DO on 10/24/2024 13:16:15
--- NOTE | ~2024-10-24 | CT_ITS ---
CLINICAL HISTORY: fall, on AC CT head without contrast Comparison: CT/[place]/SR - CT HEAD/BRAIN WO IV CON - 06/13/24 07:45 EDT Findings: No acute intracranial hemorrhage or midline shift. The montana-white matter differentiation is maintained. Mild generalized cerebral involutional change. Mild bilateral carotid siphon and vertebrobasilar calcifications. The paranasal sinuses and mastoid air cells are clear. See same day facial bone CT for discussion of facial findings. The calvarium is otherwise intact. IMPRESSION: No acute intracranial hemorrhage or midline shift. See same day facial bone CT for discussion of facial findings. This document has been electronically signed by: Mark Lewis DO on 10/24/2024 12:56:38
[2024-10-24 11:00] VITALS: BP 112/81; PULSE 97; RESP 20; TEMP 37; O2SAT 100; BMI 32.0
--- NOTE | 2024-10-24 11:08 | ED_ITS ---
HPI - Fall General Chief Complaint: Fall Stated Complaint: Head/facial injury, on thinners Time Seen by Provider: 10/24/24 15:45 Source: patient and RN notes reviewed Mode of arrival: ambulatory Limitations: no limitations History of Present Illness ED Provider: Lyudmila Mendez PA-C HPI Narrative: This is a [id number]-male, hx of PAF on eliquis, who presents to the ER with a complaint of a left sided facial pain status post mechanical fall which occurred 30 minutes ago. Patient states that he accidentally tripped and fell over his dog landing onto his left side of his face. He denies LOC. He reports mild tenderness palpation along his nose and left eye. He reports mild headache, denies any changes in vision, blurred vision, lightheadedness, dizziness, chest pain, shortness of breath, abdominal pain, nausea, vomiting or diarrhea. Denies taking any medications prior to his arrival. No other complaints or concerns at this time. MD complaint: fall Onset (ago): minute(s) Fall from: standing Fall witnessed: no Place fall occurred: home Loss of consciousness: none Prolonged down time: no Symptoms prior to fall: none Context: tripped/slipped Location of injury: head and face Quality: aching Associated symptoms (after fall): headache Related Data Home Medications ?Medication ?Instructions ?Recorded ?Confirmed simvastatin 40 mg tablet 40 mg PO BEDTIME 05/18/20 10/08/24 apixaban 5 mg tablet (Eliquis) 5 mg PO BID 08/09/21 10/08/24 sildenafil 50 mg tablet 50 mg PO 03/14/24 10/08/24 Previous Rx's ?Medication ?Instructions ?Recorded lisinopril 10 mg tablet 10 mg PO DAILY 90 days #90 tabs 04/02/24 diltiazem HCl 180 mg 180 mg PO DAILY #90 caps 08/27/24 capsule,extended release 24 hr lorazepam 1 mg tablet 1 mg PO BID PRN anxiety 29 days 09/29/24 #58 tabs testosterone 30 mg/actuation (1.5 2 pump topical DAILY 30 days #90 mL 10/01/24 mL) transderm solution metered pump valacyclovir 1 gram tablet 1,000 mg PO Q8H 7 days #21 tabs 10/06/24 prednisone 10 mg tablet 10 mg PO DIRECTED 8 days #20 10/08/24 tabs Allergies Allergy/AdvReac Type Severity Reaction Status Date / Time ciprofloxacin [From CIPRO] Allergy Intermediate SWELLING Verified 10/24/24 11:05 levofloxacin [Levaquin] Allergy Intermediate facial Verified 10/24/24 11:05 swelling Review of Systems Review of Systems: Yes all other systems are reviewed and are negative Constitutional: Constitutional: Reports as per [facility] Past Medical History Attestation statement: The following information was validated with the patient. Medical History Sacroiliitis Sleep apnea Pure hypercholesterolemia Mild recurrent major depression Derangement of right knee Osteoarthritis of right knee Skin lesion Rosacea Hypogonadism in male Gout Chronic pain GERD (gastroesophageal reflux disease) BPH (benign prostatic hyperplasia) Hyperlipidemia PAF (paroxysmal atrial fibrillation) Essential hypertension Surgical History H/O colonoscopy History of left knee replacement History of arthroplasty of left knee History of prior ablation treatment History of prostate surgery History of arthroplasty of right shoulder History of appendectomy History of arthroscopy of right knee History of arthroscopy of left knee Family History Family History Father CAD (coronary artery disease) COPD (chronic obstructive pulmonary disease) Mother No problems noted. Son No problems noted. 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 Current occupational exposures/hazards: No Cognitive needs: No Hearing needs: No Vision needs: No Physical Exam Vital Signs: Vital Signs: Last Vital Signs Temp 97.7 F 10/24/24 16:05 Pulse 89 10/24/24 16:05 Resp 20 10/24/24 16:05 BP 145/92 H 10/24/24 16:05 Pulse Ox 96 10/24/24 16:05 O2 Del Method Room Air 10/24/24 16:05 BMI result Body Mass Index 32.0 Const: General: cooperative, comfortable and no acute distress Orientation/consciousness: patient oriented x3 Limitations: no limitations HEENT: Head: Yes normal to inspection, Yes normocephalic and Yes atraumatic Ears: hearing grossly normal bilaterally and TM's normal bilaterally (No hemotympanum) General nose exam: Normal external nose present Face and sinus: Yes normal facial exam Mouth: Normal oral and palatal mucosa present, oropharynx normal and moist mucous membranes Throat: Yes posterior oropharynx normal Eyes: Other: Left inferior orbital region, there is mild ecchymosis and edema with tenderness to palpation, he does have tenderness palpation along the left nasal bone. No gross abnormalities to the facial bones. No bony step-off or deformity. No crepitus. No open wounds or lacerations. No septal hematoma. General: appearance normal, both eyes and all related structures Eyelids: Yes eyelids normal Conjunctivae: conjunctivae normal Sclerae: sclerae normal Pupils: Equal, round and reactive pupils present EOM: EOMs intact bilaterally Neck: Other: No cervical midline spine tenderness on examination. Neck: Yes normal visual inspection, Yes full ROM and Yes no lymphadenopathy Lymphatic: no lymphadenopathy noted Chest: Chest palpation & inspection: normal inspection of the chest Resp: Effort & Inspection: normal respiratory effort and able to speak in complete sentences Auscultation: clear to auscultation bilaterally, no crackles, no rales, no rhonchi and no wheezes Cardio: Rate: regular rate Rhythm: regular rhythm Heart sounds: S1 normal heart sound present and S2 normal heart sound present GI: Inspection: Yes normal to inspection Skin: General skin exam: no rashes or lesions noted Trauma: no lacerations or abrasions Wounds: no wounds Neuro: General: patient oriented x3 and moves all extremities Cranial nerves: Yes Equal, round and reactive pupils present Extrem: General: Yes normal to inspection Right upper extremity: normal to inspection Left upper extremity: normal to inspection Right lower extremity: normal to inspection Left lower extremity: normal to inspection Medical Decision Making Medical Decision Making MDM Narrative: This is a 63-year-old male who presents emergency department with complaints of mild headache and left-sided facial swelling and bruising status post mechanical fall which occurred 30 minutes ago. Patient states that he accidentally tripped and fell over his dog landing onto his left side. He is on Eliquis for paroxysmal atrial fibrillation. On arrival, vital signs within normal limits. He is speaking in full sentences under no acute distress. He is neurologically intact with no focal deficits on examination. Left eye with inferior orbital ecchymosis and edema noted, no bony step-off or deformity. Given that patient is on anticoagulation, will obtain CT head, face, and cervical spine to an sure no acute abnormalities. Differential diagnoses include ICH, subdural hematoma, nasal bone fracture, facial bone fracture, C-spine subluxation. CT scan of the cervical spine reveal no acute abnormalities. CT of the facial bones revealing comminuted and displaced left nasal bone fracture. He also has anterior nasal bone tiny chip fracture. As well as facial soft tissue swelling which is most conspicuous in the left infraorbital region without retrobulbar hematoma. Head CT reveals no acute findings. Discussed overall workup with patient. Repeat neuro exam revealed that patient was neurologically intact with no focal deficits on examination. Discussed strict return precautions. He understands and agrees with plan. Patient stable for discharge Differential Diagnosis Differential Diagnoses: The differential diagnosis associated with the presentation includes See above Radiology Impression Discussion of test interpretation with radiology: I have reviewed the radiologist's reading. Radiologist Impression: Report Number: [id number]: Total DLP = 607.24 mGy-cm CLINICAL HISTORY: L eye swelling s p fall CT maxillofacial without contrast Comparison: CT/SR - CT HEAD/BRAIN WO IV CON - 10/24/24 11:[address]/VT/SR - CT HEAD/BRAIN WO IV CON - 06/13/24 07:45 EDT Findings: Anterior facial soft tissue swelling which is most conspicuous in the left infraorbital region. The orbits are unremarkable without retrobulbar hematoma. Comminuted and displaced left nasal bone fracture. Intact right nasal bone. The nasal septum is displaced to the left anteriorly and to the right within the midportion. Tiny chip fracture of the anterior nasal spine. The ostiomeatal units are patent. The orbital rivas are intact. Dental disease most conspicuously involving a left mandibular molar. The temporomandibular joints are intact. See same day cervical spine CT for discussion of cervical spine findings. IMPRESSION: 1. Comminuted and displaced left nasal bone fracture. 2. Anterior nasal spine tiny chip fracture. 3. Facial soft tissue swelling which is most conspicuous in the left infraorbital region without retrobulbar hematoma. This document has been electronically signed by: Mark Lewis DO on 10/24/2024 13:09:38 Dictated By: Mark Lewis MD Signed By: <Electronically signed by Mark Lewis MD in OV> Report Number: [id number]: Total DLP = 789.22 mGy-cm CLINICAL HISTORY: fall, on AC CT head without contrast Comparison: CT/VT/SR - CT HEAD/BRAIN WO IV CON - 06/13/24 07:45 EDT Findings: No acute intracranial hemorrhage or midline shift. The montana-white matter differentiation is maintained. Mild generalized cerebral involutional change. Mild bilateral carotid siphon and vertebrobasilar calcifications. The paranasal sinuses and mastoid air cells are clear. See same day facial bone CT for discussion of facial findings. The calvarium is otherwise intact. IMPRESSION: No acute intracranial hemorrhage or midline shift. See same day facial bone CT for discussion of facial findings. This document has been electronically signed by: Mark Lewis DO on 10/24/2024 12:56:38 Dictated By: Mark Lewis MD Signed By: <Electronically signed by Mark Lewis MD in OV> \ Report Number: [id number]: Total DLP = 550.08 mGy-cm CLINICAL HISTORY: fall, on AC CT cervical spine without contrast Comparison: CT/VT - CT ANGIO HEAD NECK - 06/05/20 10:38 EDT Findings: No evidence of cervical spine fracture. Vertebral body heights are maintained. The usual cervical lordosis is straightened. Grade 1 degenerative anterolisthesis of C4 on C5. No other spondylolisthesis or facet dislocation. Multilevel cervical discogenic degenerative disease. The spinal canal is narrowed to 8 mm at C3-C4 and C5-C6 and 9 mm at C6-C7. Multilevel uncovertebral and facet osteoarthritis with associated multilevel degenerative neural foraminal narrowing. The prevertebral soft tissues are not abnormally thickened. The lung apices are clear. IMPRESSION: No acute cervical spine findings. This document has been electronically signed by: Mark Lewis DO on 10/24/2024 13:16:15 Dictated By: Mark Lewis MD Discharge Plan Discharge Clinical Impression: Fracture of nasal bone, Periorbital contusion of left eye Patient Disposition: Home, Self-Care Instructions: Nasal Fracture (ED), Facial Fracture (ED) Additional Instructions: You were seen in the emergency department after a trip and fall. Do not blow your nose. No swimming or diving, avoid sneezing as best as possible. You need to follow-up with the maxillofacial surgeon to ensure that this fracture heals well own. Call to make an appointment. CT scan of your head does not show any bleeding in your brain. Your CT scan of your C-spine does show arthritis. CT scan report is below: IMPRESSION: 1. Comminuted and displaced left nasal bone fracture. 2. Anterior nasal spine tiny chip fracture. 3. Facial soft tissue swelling which is most conspicuous in the left infraorbital region without retrobulbar hematoma. [facility] [address], [address] [place] [address] tel: Please ice your eye. You may take Tylenol as needed for pain. If any new or worsening symptoms occur including but not limited to severe headache, dizziness, changes in vision, chest pain, shortness of breath, please seek emergent care. Prescriptions: No Action lisinopril 10 mg tablet 10 mg PO DAILY 90 Days Qty: 90 3RF diltiazem HCl 180 mg capsule,extended release 24hr 180 mg PO DAILY Qty: 90 1RF lorazepam 1 mg tablet 1 mg PO BID PRN (Reason: anxiety) 29 Days Qty: 58 0RF testosterone 30 mg/actuation (1.5 mL) solution in metered pump w/marley 2 pump topical DAILY 30 Days Qty: 90 3RF Rx Instructions: apply as directed. valacyclovir 1 gram tablet 1,000 mg PO Q8H 7 Days Qty: 21 1RF Eliquis 5 mg tablet 5 mg PO BID simvastatin 40 mg tablet 40 mg PO BEDTIME sildenafil 50 mg tablet 50 mg PO prednisone 10 mg tablet 10 mg PO DIRECTED 8 Days Qty: 20 0RF Rx Instructions: Take 4 tabs for 2 days, then 3 tabs for 2 days, then 2 tabs for 2 days, then 1 tab for 2 days Interventions: ED Discharge Assessment Last Done: 10/24/24 16:05 Discharge Date/Time: 10/24/24 16:06 Print Language: Malay
[2024-10-24 15:45] VITALS: BP 145/92; PULSE 89; RESP 20; TEMP 36.5; O2SAT 96
[2024-10-24 16:05] VITALS: BP 145/92; PULSE 89; RESP 20; TEMP 36.5; O2SAT 96
--- OUTSIDE RECORDS SUMMARY | 2024-10-24 19:17 | XMS_ITS | Clinical Summary ---
Author Organization [facility] ity Address [address] [place] [address] Care Team Providers Care Waste Reduction Coordinator Name Role Phone Unavailable Primary Care Provider [...]
== END 2024-10-24 16:06 | disposition home or self-care (01) ==
PROVIDERS: Emergency Provider Emergency Medicine; PCP Internal Medicine
DX: S02.2XXA Fracture of nasal bones, initial encounter for closed fracture (principal); S00.12XA Contusion of left eyelid and periocular area, initial encounter; R51.9 Headache, unspecified; M54.2 Cervicalgia; I48.0 Paroxysmal atrial fibrillation; W01.0XXA Fall on same level from slipping, tripping and stumbling without subsequent striking against object, initial encounter; Y93.01 Activity, walking, marching and hiking; Y92.9 Unspecified place or not applicable; Y99.8 Other external cause status; Z79.01 Long term (current) use of anticoagulants; Z79.899 Other long term (current) drug therapy; Z87.891 Personal history of nicotine dependence
CPT/HCPCS: 70450; 70486; 72125; 99282; 99284

== ENCOUNTER → 2024-10-24 11:07 | Outpatient (BNV) | payer OTHER, SELFPAY | PROVIDERS: PCP Internal Medicine; Visit Provider Radiology Diagnostic Radiology | DX: S00.12XA Contusion of left eyelid and periocular area, initial encounter (principal); S02.2XXA Fracture of nasal bones, initial encounter for closed fracture; W19.XXXA Unspecified fall, initial encounter | CPT/HCPCS: 70450; 70486; 72125 ==

== ENCOUNTER 2024-11-26 12:33 | Outpatient (REF) | payer OTHER, SELFPAY ==
[2024-11-26 13:33] LABS: Influenza A PCR NEGATIVE (Negative); Influenza B PCR NEGATIVE (Negative); Resp Syncy Virus RNA Qual PCR POSITIVE (Negative); SARS COV2 PCR INHOUSE NEGATIVE (Negative)
--- OUTSIDE RECORDS SUMMARY | 2024-11-26 15:08 | XMS_ITS | Clinical Summary ---
Author Organization [facility] ity Address [address] [place] [address] Care Team Providers Care Reforestation Worker Name Role Phone Unavailable Primary Care Provider [...] 2024 Influenza Vaccine (#1) 2024 RSV Immunization Adult Patie nts (1 - 1-dose 75+ series) 12/14/2035 HIB [...] age to complete this topic Meningococcal B Vaccine Aged Out No l onger eligible based on patient's age to complete [...]
== END 2024-11-26 12:34 | disposition home or self-care (01) ==
LOC: HO.LAB 12:33
PROVIDERS: PCP Internal Medicine; Visit Provider Internal Medicine
DX: R09.89 Other specified symptoms and signs involving the circulatory and respiratory systems (principal)
CPT/HCPCS: 0241U

== ENCOUNTER 2024-12-10 07:21 | Outpatient (REF) | payer OTHER, SELFPAY ==
[2024-12-10 09:06] LABS: Hemoglobin 15.4 g/dl (14.0-18.0); Mean Corpuscular HGB Conc 32.8 g/dl (31.0-36.0); Mean Corpuscular Hemoglobin 29.3 pg (27.0-33.0); Mean Corpuscular Volume 89.5 fL (80.0-98.0); Platelet Count 164 X10*3/uL (160-400); Red Blood Count 5.25 X10*6/uL (4.60-5.80); Red Cell Distribution Width 12.9 % (11.0-16.0); White Blood Count 5.9 X10*3/uL (4.8-10.8)
[2024-12-10 10:08] LABS: Prostate Specific Antigen 2.68 ng/mL (<0.05-4.0)
[2024-12-16 17:09] LABS: Testosterone, Free 68.7 pg/mL (35.0-155.0); Testosterone, Total 301 ng/dL (250-1100)
== END 2024-12-10 07:22 | disposition home or self-care (01) ==
LOC: HO.LAB 07:21
PROVIDERS: PCP Internal Medicine; Visit Provider Nurse Practitioner Family
DX: E29.1 Testicular hypofunction (principal)
CPT/HCPCS: 36415; 84153; 84402; 84403; 85027

== ENCOUNTER 2024-12-24 12:38 | Outpatient (REF) | payer OTHER, SELFPAY ==
[2024-12-24 16:55] LABS: Urine Cytology See Pathology rpt
--- OUTSIDE RECORDS SUMMARY | 2024-12-24 17:06 | XMS_ITS | Clinical Summary ---
Author Organization [facility] ity Address [address] [place] [address] Care Team Providers Care Clerk Operator Name Role Phone Unavailable Primary Care Provider [...]
== END 2024-12-24 12:39 | disposition home or self-care (01) ==
LOC: HO.LNP 12:38
PROVIDERS: PCP Internal Medicine; Visit Provider Nurse Practitioner Family
DX: E29.1 Testicular hypofunction (principal); N32.81 Overactive bladder; N40.0 Benign prostatic hyperplasia without lower urinary tract symptoms; F52.32 Male orgasmic disorder
CPT/HCPCS: 81003; 88112; 99212

== ENCOUNTER 2024-12-24 12:38 | Outpatient (AMB) | payer OTHER, SELFPAY ==
--- NOTE | 2024-12-24 12:46 | A.OFFVIS_ITS ---
Intake Visit Reasons: 3m/PSA(set) Intake Note: Patient presents today for tele visit follow up on : hypogonadism and lab results Testosterone:301 ; Free Testosterone: 68.7; PSA: 2.68 Urology Medications: testosterone, sildenafil Blood Thinner: apixaban Knitting Machine Tender Required: No Accompanied by: Self / Same As Patient Allergies ciprofloxacin [From CIPRO] Allergy (Intermediate, Verified 12/24/24 14:25) SWELLING levofloxacin [Levaquin] Allergy (Intermediate, Verified 12/24/24 14:25) facial swelling Medication List - Last Reconciled 12/24/24 by DEMETRIA Moran- apixaban (Eliquis) 5 mg PO BID diltiazem HCl CD 180 mg PO DAILY doxycycline hyclate 100 mg PO BID 90 days lisinopril 10 mg PO DAILY 90 days lorazepam 1 mg PO BID PRN 29 days sildenafil 50 mg PO simvastatin 40 mg PO BEDTIME tadalafil (Cialis) 5 mg PO DAILY 90 days testosterone 30 mg/actuation (1.5 mL) 3 pumps topical DAILY 30 days valacyclovir 1,000 mg PO Q8H 7 days HPI Comments Details: Gustavo is a pleasant 64 year old male patient of Dr. Crow Lau. He has a past medical history of sleep apnea, hypercholesteremia, depression, osteoarthritis, rosacea, hypogonadism, gout, chronic pain, GERD, BPH, hyperlipidemia, paroxysmal atrial fibrillation, and hypertension. He presents to the office today for follow-up of his hypogonadism, lower urinary tract symptoms, and overactive bladder. In discussion with the patient today he reports having initiated testosterone gel replacement as prescribed. He reports compliance as prescribed. Recent labs were reviewed with the patient today as noted and trended below. When asked he does continue to report urinary frequency and nocturia. He reports urinary frequency up to 20 times per day. He does have a previous history of a prostate laser procedure with Dr. Dante gray in the past. He also has trialed oxybutynin, tolterodine, and Myrbetriq without improvement. We discuss trial of low-dose Cialis for bladder stability. We discussed potential causes of these urological issues and further treatment options and risks and benefits of these treatment options. He otherwise denies incontinence, hematuria, dysuria, foul smelling urine, changes to urinary stream, flank pain, fever, and or chills. In office urinalysis results reviewed with the patient today. He also reports delayed ejaculation. Laboratories: H/H: 11/09 15.2/46.7, 12/11 14.8/46.6, 02/10 16.2/48.9, 10/14 16.2/49.0, 12/12 16.1/47.4, 06/13 16.3/47.9, 09/14 14.8/44.5, 12/13 15.4/47.0 PSA:07/09 2.2, 11/08 3.4, 05/13, 12/12 3.5, 09/14 3.0, 12/13 2.7 Testosterone: 07/09 149, 09/09 168, 11/08 444, 12/09 1203, 11/09 215, 06/11 205, 12/11 357,05/13 627, 12/12 597, 06/13 379, 09/14 295, 12/13 301 Testosterone free and total:11/08 109.7, 05/13 163.6, 12/12 152.2, 06/13 99.7, 55.8, 12/13 68.7 Lower urinary tract symptoms Prior laser procedure Symptoms of urgency and frequency Concomitant diagnosis includes NERY on CPAP Prior failure of trial with oxybutynin, tolterodine, and Myrbetriq Nocturia x5, daytime urge PFSH Medical History Sacroiliitis Sleep apnea Pure hypercholesterolemia Mild recurrent major depression Derangement of right knee Osteoarthritis of right knee Skin lesion Rosacea Hypogonadism in male Gout Chronic pain GERD (gastroesophageal reflux disease) BPH (benign prostatic hyperplasia) Hyperlipidemia PAF (paroxysmal atrial fibrillation) Essential hypertension Surgical History H/O colonoscopy History of left knee replacement History of arthroplasty of left knee History of prior ablation treatment History of prostate surgery History of arthroplasty of right shoulder History of appendectomy History of arthroscopy of right knee History of arthroscopy of left knee Family History Father CAD (coronary artery disease) COPD (chronic obstructive pulmonary disease) Mother No problems noted. Son No problems noted. 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 Current occupational exposures/hazards: No Cognitive needs: No Hearing needs: No Vision needs: No Review of Systems Const Reports as per HPI Eyes Reports no additional complaints ENT Reports no additional complaints Card Reports as per HPI Resp Reports as per HPI GI Reports as per HPI Reports as per HPI Musc Reports as per HPI Neuro Reports no additional complaints Psych Reports as per HPI Endo Reports no additional complaints William/Lymph Reports no additional complaints Aller/Immun Reports no additional complaints Physical Exam Const General: cooperative, healthy appearing, comfortable, no acute distress, well developed, alert and awake Orientation/consciousness: patient oriented x3 Limitations: no limitations HEENT Head: Yes normal to inspection, Yes normocephalic and Yes atraumatic Ears: hearing grossly normal bilaterally Eyes General: appearance normal, both eyes and all related structures Neck Neck: Yes normal visual inspection and Yes trachea midline Chest Chest palpation & inspection: normal inspection of the chest Resp Effort & Inspection: normal respiratory effort and able to speak in complete sentences Cardio Rate: regular rate GI Inspection: Yes normal to inspection General: Yes no CVA tenderness Back/Spine/Pelvis Back: no CVA tenderness Skin General skin exam: no rashes or lesions noted Neuro General: patient oriented x3 Extrem General: Yes normal to inspection Psych Appearance: grossly normal and well kempt Mental Status: mental status grossly normal Speech and movement: Clear speech present Affect: normal affect Attitude: cooperative Thought process: Normal thought process present Thought content: Normal thought content present Insight: Fair insight present (Psych) Judgement: Fair judgement present (Psych) Results AMB Urinalysis, Automated UA Leukoctes 0 Teddy/uL Last Edit by Chuck Pak on 12/24/24 13:00 UA Nitrite Last Edit by Chuck Pak on 12/24/24 13:00 UA Urobilinogen 0.2 mg/dL Last Edit by Chuck Pak on 12/24/24 13:00 UA Protein 0 mg/dL Last Edit by ArtSettersbreanna Pak on 12/24/24 13:00 UA pH 5.5 Last Edit by [employer]Setters[employer]anna Pak on 12/24/24 13:00 UA Blood 10 Quinn/uL Last Edit by [employer]ters[employer]anna Pak on 12/24/24 13:00 UA Specific [place] 1.025 Last Edit by Chuck Pak on 12/24/24 13:00 UA Ketone Last Edit by Chuck Pak on 12/24/24 13:00 UA Bilirubin 0 mg/dL Last Edit by ArtSettersbreanna Pak on 12/24/24 13:00 UA Glucose 0 mg/dL Last Edit by ArtSettersbreanna [employer] on 12/24/24 13:00 Results Reviewed Results Reviewed: Laboratory Last Values Urine pH (Auto) 5.5 12/24/24 12:57 Specific [place] (Auto) 1.025 12/24/24 12:57 Urine Protein (Auto) 0 mg/dL 12/24/24 12:57 Glucose (UA)(Auto) 0 mg/dL 12/24/24 12:57 Urine Blood (Auto) 10 Quinn/uL 12/24/24 12:57 Urine Bilirubin (Auto) 0 mg/dL 12/24/24 12:57 Urine Urobilinogen (Auto) 0.2 mg/dL 12/24/24 12:57 Leukocyte Esterase (Auto) 0 Teddy/uL 12/24/24 12:57 Assessment & Plan Assessment & Plan (1) Hypogonadism in male: Code(s): E29.1 - Testicular hypofunction Category: Medical (2) Overactive bladder: Code(s): N32.81 - Overactive bladder Category: Medical (3) BPH (benign prostatic hyperplasia): Code(s): N40.0 - Benign prostatic hyperplasia without lower urinary tract symptoms Category: Medical (4) Delayed ejaculation: Code(s): 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 Will increase testosterone at 3 pumps per day. Recent labs were reviewed with the patient today; as noted above. Start low-dose Cialis 5 mg daily as discussed and prescribed. We discussed potential near future in office cystoscopy and or urodynamics for further assessment evaluation. We discussed lifestyle modifications to assist with lower urinary tract symptoms as well as hypogonadism. Will obtain CBC, PSA, testosterone free and total in 3 months. Follow-up in 3 months with labs to be completed prior and PVR at next office visit; or sooner with any issues, concerns, and or questions. Orders: Orders AMB Urinalysis Automated Today Z13.9 - Encounter for screening, unspecified Testosterone, Free/Total 3 Months E29.1 - Testicular hypofunction Prostate Specific Antigen 3 Months E29.1 - Testicular hypofunction Complete Blood Count no Diff 3 Months E29.1 - Testicular hypofunction Medications: New tadalafil (Cialis) [id number] [facility] [id number] Member [id number] 5 mg PO DAILY 90 days 90 tabs 1RF Changed From testosterone 30 mg/actuation (1.5 mL) apply as directed. 2 pumps topical DAILY 30 days 90 mL 3RF E29.1 - Testicular hypofunction To testosterone 30 mg/actuation (1.5 mL) This is an increase in dose. 3 pumps topical DAILY 30 days 90 mL 3RF E29.1 - Testicular hypofunction Patient Instructions: The patient had an opportunity to ask questions regarding the treatment plan. All questions were answered. Physical exam, labs, and imaging were discussed and reviewed in detail. As well as risks, benefits, and discussion of treatment choices. No major barriers to understanding were identified. The patient expressed understanding and agreement with the above treatment plan. The patient was made aware they should contact our office by phone for worsening of their current condition, the appearance of new symptoms, or with any questio ns or concerns. Compliance is encouraged with any medications and follow up testing that is ordered. It is a privilege to be allowed the opportunity to participate in? your urological care.? Again, if you have any questions or concerns If you have any questions or concerns please do not hesitate to contact me. The office is [phone]. This note is constructed using voice recognition software. While every effort has been made to ensure accuracy mechanical engineering teacher errors may have been included. Yours sincerely, LUIS A Moran Coding Level of Care Code Est Pt Level 4 (65583) Diagnoses Hypogonadism in male E29.1 Overactive bladder N32.81 BPH (benign prostatic hyperplasia) N40.0 Delayed ejaculation F52.32
--- OUTSIDE RECORDS SUMMARY | 2024-12-24 13:50 | XMS_ITS | Clinical Summary ---
Author Organization [facility] ity Address [address] [place] [address] Care Team Providers Care Forensic Nurse Name Role Phone Unavailable Primary Care Provider [...] Vaccines (1 of 2) 2010 COVID-19 Vaccine ( - 2023-2 5 season) 2024 Influenza Vaccine (Season Ended) 2025 RSV Immunization Adult Patie nts (1 - [...]
== END 2024-12-24 13:26 | disposition home or self-care (01) ==
LOC: HO.HUSH 12:39
PROVIDERS: PCP Internal Medicine; Visit Provider Nurse Practitioner Family
DX: E29.1 Testicular hypofunction (principal); N32.81 Overactive bladder; N40.0 Benign prostatic hyperplasia without lower urinary tract symptoms; F52.32 Male orgasmic disorder; Z13.9 Encounter for screening, unspecified
CPT/HCPCS: 99214

== ENCOUNTER 2025-01-16 09:16 | Outpatient (REF) | payer OTHER, SELFPAY ==
--- OUTSIDE RECORDS SUMMARY | 2025-01-17 09:29 | XMS_ITS | Clinical Summary ---
Author Organization [facility] ity Address [address] [place] [address] Care Team Providers Care Direct Service Professional Name Role Phone Unavailable Primary Care Provider [...]
== END 2025-01-16 09:17 | disposition home or self-care (01) ==
LOC: HO.HOSX 09:16
PROVIDERS: Visit Provider Physician Assistant
DX: Z13.89 Encounter for screening for other disorder (principal)

== ENCOUNTER 2025-01-20 11:57 | Outpatient (REF) | payer OTHER, SELFPAY ==
--- NOTE | ~2025-01-20 | XR_ITS ---
EXAMINATION: XR KNEE 3 VIEWS RIGHT HISTORY: M25.561 - Pain in right knee COMPARISON: Comparison is made with the prior examination dated 06/27/2022. FINDINGS: Standing AP views of both knees and additional lateral and sunrise patellar views of the right knee are submitted. Osseous mineralization is normal. There is no fracture or dislocation. Again seen is severe osteoarthritis of the medial compartment with joint space narrowing and osteophyte formation. There is moderate osteoarthritis of the lateral patellofemoral compartments. There is chondrocalcinosis. There is a moderate joint effusion. The patient is status post left total knee arthroplasty. XR/XR knee RT 3V IMPRESSION: Moderate joint effusion. Osteoarthritis of the right knee as described. Electronically signed by: Chetan Maza MD 01/20/2025 03:19 PM EDT
--- OUTSIDE RECORDS SUMMARY | 2025-01-20 13:07 | XMS_ITS | Clinical Summary ---
Author Organization [facility] ity Address [address] [place] [address] Care Team Providers Care Feltmaker Name Role Phone Unavailable Primary Care Provider [...]
== END 2025-01-20 11:58 | disposition home or self-care (01) ==
LOC: HO.HOSX 11:57
PROVIDERS: Visit Provider Orthopaedic Surgery
DX: M25.561 Pain in right knee (principal); M17.11 Unilateral primary osteoarthritis, right knee; Z96.652 Presence of left artificial knee joint
CPT/HCPCS: 73562; 99212

== ENCOUNTER 2025-01-20 12:17 | Outpatient (AMB) | payer OTHER, SELFPAY ==
--- NOTE | 2025-01-20 12:24 | A.OFFVIS_ITS ---
Vital Signs 01/20/25 12:25 Height 6 ft Weight 236 lb BMI 32.0 Intake Visit Reasons: OV- Right knee pain, discuss sx Intake Note: Reno is a 64 year old male who presents today for a follow up of his right knee OA. Last injection was administered on 06/27/22. Hx of left TKA, DOS: 09/03/19 Allergies ciprofloxacin [From CIPRO] Allergy (Intermediate, Verified 01/20/25 12:25) SWELLING levofloxacin [Levaquin] Allergy (Intermediate, Verified 01/20/25 12:25) facial swelling HPI HPI OV- Right knee pain, discuss sx: Details: Reno is a 64 year old male who presents today for a follow up of his right knee OA. Last injection was administered on 06/27/22. Hx of left TKA, DOS: 09/03/19. He has been having right knee pain for years. We had discussed knee replacement after his left knee was done. He states he is limited in his ability to walk even short distances and he limps everywhere. Steroid injections have been marginally helpful. He recently saw his religious activities director and recommends that if he has to get surgery he has bridging Lovenox injections as he is on Eliquis for AFib now. [facility] Medical History Sacroiliitis Sleep apnea Pure hypercholesterolemia Mild recurrent major depression Derangement of right knee Osteoarthritis of right knee Skin lesion Rosacea Hypogonadism in male Gout Chronic pain GERD (gastroesophageal reflux disease) BPH (benign prostatic hyperplasia) Hyperlipidemia PAF (paroxysmal atrial fibrillation) Essential hypertension Surgical History H/O colonoscopy History of left knee replacement History of arthroplasty of left knee History of prior ablation treatment History of prostate surgery History of arthroplasty of right shoulder History of appendectomy History of arthroscopy of right knee History of arthroscopy of left knee Family History Father CAD (coronary artery disease) COPD (chronic obstructive pulmonary disease) Mother No problems noted. Son No problems noted. 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 Positive gait antalgia. Range of motion 5-125 degrees. Stable to varus and valgus stress. 2+ dorsalis pedis pulse. Firing EHL/tib ant/gastrocs. Results Reviewed Results Reviewed: I personally reviewed relevant radiographs. Left total knee arthroplasty in expected post operative position with no hardware complications or evidence of loosening Right knee with moderate to severe tricompartmental osteoarthritis Assessment & Plan Assessment & Plan (1) Osteoarthritis of right knee: Code(s): M17.11 - Unilateral primary osteoarthritis, right knee Category: Medical Qualifiers: Osteoarthritis type: primary Qualified Code(s): M17.11 - Unilateral primary osteoarthritis, right knee Plan: Right knee osteoarthritis. Patient limps everywhere and has been doing so for over a year. He can not walk comfortably. I think he would benefit from right knee replacement. I discussed this with him. We will try a viscosupplementation now. We did discuss the details of surgery including recovery at potential for infection, stiffness, aseptic loosening among other things. Biggest risk factor seems to be his AFib and Eliquis regimen. [facility] and we will get the input of his religious activities director prior to any surgical intervention. Orders: Orders XR knee RT 3V Today M25.561 - Pain in right knee Coding Level of Care Code Est Pt Level 4 (63685) Diagnoses Primary osteoarthritis of right knee M17.11 Osteoarthritis type: primary
[2025-01-20 12:25] VITALS: BMI 32.0
== END 2025-01-20 12:52 | disposition home or self-care (01) ==
LOC: HO.HOS 12:18
PROVIDERS: PCP Internal Medicine; Visit Provider Orthopaedic Surgery
DX: M17.11 Unilateral primary osteoarthritis, right knee (principal)
CPT/HCPCS: 99214

== ENCOUNTER → 2025-01-20 12:20 | Outpatient (BNV) | payer OTHER, SELFPAY | PROVIDERS: Visit Provider Radiology Diagnostic Radiology | DX: M25.561 Pain in right knee (principal) | CPT/HCPCS: 73562 ==

== ENCOUNTER 2025-02-04 12:22 | Emergency (ER) | payer OTHER, SELFPAY ==
--- NOTE | 2025-02-04 12:31 | ED_ITS ---
HPI - General Adult General Chief complaint: Urogenital-Male Stated complaint: Cant pee Time Seen by Provider: 02/04/25 12:38 History of Present Illness HPI narrative: Patient is 64-year-old male with a history of enlarged prostate had a previous TURP done in the past presented today with having difficulty urinating. Patient is from home. Unable to urinate since yesterday complaining of lower abdominal pain. Yuri Related Data Home Medications ?Medication ?Instructions ?Recorded ?Confirmed simvastatin 40 mg tablet 40 mg PO BEDTIME 05/18/20 10/08/24 apixaban 5 mg tablet (Eliquis) 5 mg PO BID 08/09/21 10/08/24 sildenafil 50 mg tablet 50 mg PO 03/14/24 10/08/24 Previous Rx's ?Medication ?Instructions ?Recorded lisinopril 10 mg tablet 10 mg PO DAILY 90 days #90 tabs 04/02/24 diltiazem HCl 180 mg 180 mg PO DAILY #90 caps 08/27/24 capsule,extended release 24 hr valacyclovir 1 gram tablet 1,000 mg PO Q8H 7 days #21 tabs 10/06/24 doxycycline hyclate 100 mg tablet 100 mg PO BID 90 days #180 tabs 11/29/24 tadalafil 5 mg tablet (Cialis) 5 mg PO DAILY 90 days #90 tabs 12/24/24 testosterone 30 mg/actuation (1.5 3 pump topical DAILY 30 days #90 mL 12/24/24 mL) transderm solution metered pump lorazepam 1 mg tablet 1 mg PO BID PRN anxiety 29 days 01/15/25 #58 tabs cefuroxime axetil 500 mg tablet 500 mg PO BID 7 days #14 tabs 02/04/25 tamsulosin 0.4 mg capsule (Flomax) 0.4 mg PO DAILY #7 caps 02/04/25 Allergies Allergy/AdvReac Type Severity Reaction Status Date / Time ciprofloxacin [From CIPRO] Allergy Intermediate SWELLING Verified 02/04/25 12:33 levofloxacin [Levaquin] Allergy Intermediate facial Verified 02/04/25 12:33 swelling Review of Systems 2 Review of Systems: Positive lower abdominal pain Yes all other systems are reviewed and are negative PMFSH Past Medical History Attestation statement: The following information was validated with the patient. Medical History Sacroiliitis Sleep apnea Pure hypercholesterolemia Mild recurrent major depression Derangement of right knee Osteoarthritis of right knee Skin lesion Rosacea Hypogonadism in male Gout Chronic pain GERD (gastroesophageal reflux disease) BPH (benign prostatic hyperplasia) Hyperlipidemia PAF (paroxysmal atrial fibrillation) Essential hypertension Surgical History H/O colonoscopy History of left knee replacement History of arthroplasty of left knee History of prior ablation treatment History of prostate surgery History of arthroplasty of right shoulder History of appendectomy History of arthroscopy of right knee History of arthroscopy of left knee Family History Family History Father CAD (coronary artery disease) COPD (chronic obstructive pulmonary disease) Mother No problems noted. Son No problems noted. Social History Social History Household Members: None Housing: Apartment Do you presently have visiting nurse or other home services: No Alcohol intake: current Alcohol intake frequency: holidays/special occasions only Alcohol type: beer and hard liquor Comment: SLEEPING Patient Tobacco Use Status: Former Tobacco user Tobacco use type: Cigarette Smoked in Last 30 Days: No e-Cigarette/Vaping Use: Never Used Second Hand Smoke Exposure: No Use of substances other than those prescribed or required for medical reasons: No Substance Use Type: Marijuana Advance Directives: No Advance Directives Information Provided: No Do you have a plan to hurt others: No Plan service: No Current occupational status: employed 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 Oriented X3. No acute distress. Eyes: Pupils equal, round and reactive to light. ENT: Pharynx normal. Neck: Normal inspection. Neck supple. No lymph nodes noted. No crepitus CVS: Normal heart rate and rhythm. Pulses normal. Normal S1 and S2 Respiratory: No respiratory distress. Breath sounds normal. No Wheezing. No rales Abdomen: Extremely uncomfortable pain in the suprapubic area Skin: Skin warm and dry. Normal skin color. Normal skin turgor. Extremities: No lower extremity edema. Neurovascular intact to all extremities. No Lacerations. No Rash Neuro: Oriented X 3. No motor deficit. No sensory deficit. Moving all extermities. No slurred speech Course Course Course Narrative: RME, this is a rapid medical exam performed by Wilian Campos please refer to primary provider for complete H&P- 64-year-old male presents for evaluation of urinary retention. He reports he has been unable to be since last night. Plan for labs, bladder scan Medications Administered Discontinued Medications Generic Name Dose Route Start Last Admin Trade Name Freq PRN Reason Stop Dose Admin Ceftriaxone Sodium 1 gm 02/04/25 13:07 02/04/25 14:10 Ceftriaxone Sodium 1 Gm Vial IVPUSH 02/04/25 13:08 1 gm ONCE ONE Administration Sodium Chloride 3,129.78 mls @ 3,129.78 mls/hr 02/04/25 14:10 02/04/25 14:49 Ns 30 ml/kg infuse over 1 hr (3129.78 ml) 02/04/25 15:09 3,129.78 mls/hr IV Administration .Q1H STA Medical Decision Making Medical Decision Making [facility] Narrative: I did a quick ultrasound of patient's abdomen shows an enlarged bladder. Over a L urine inside. I placed a Jovel catheter. Sterile technique was followed. A 16 [place] Jovel was placed. There was no complications. Over a L of urine was drained. Patient balloon was cuffed up to 10 cc. Symptom improved dramatically. Patient's urine showed a possible infection. Lactate was elevated. Given 2 L of fluids. Patient's repeat lactate was normal no evidence for severe sepsis a dose of Rocephin was given. White count is 12. Patient in no distress. Will admit for further evaluation. Patient has a history of allergies to quinolones. Will give patient is Ceftin on an outpatient basis Differential Diagnosis Differential Diagnoses: The differential diagnosis associated with the presentation includes Admission/Observation Consideration of admission/observation: Escalation of care including admission/observation considered Lab Data MDM Lab Attestation statement: I reviewed the patient's lab results. 02/04/25 12:48 02/04/25 12:48 Labs: Lab Results 02/04/25 02/04/25 02/04/25 Range/Units 12:48 13:48 16:02 WBC 11.8 H (4.8-10.8) X10*3/uL RBC 5.16 (4.60-5.80) X10*6/uL Hgb 15.5 (14.0-18.0) g/dl Hct 43.6 (42.0-52.0) % MCV 84.5 (80.0-98.0) fL MCH 30.0 (27.0-33.0) pg MCHC 35.6 (31.0-36.0) g/dl RDW 13.5 (11.0-16.0) % Plt Count 203 (160-400) X10*3/uL MPV 8.8 L (9.4-12.4) fL Immature Gran % (Auto) 0.6 H (0.0-0.4) % Neut % (Auto) 74.7 H (45-73) % Lymph % (Auto) 17.7 L (20-40) % Young % (Auto) 6.3 (2-11) % Eos % (Auto) 0.4 (0-4) % Baso % (Auto) 0.3 (0-2) % Lymph # (Auto) 2.1 (1.2-4.9) X10*3/uL Young # (Auto) 0.7 (0.1-1.2) X10*3/uL Eos # (Auto) 0.1 (0.0-0.4) X10*3/uL Baso # (Auto) 0.0 (0.0-0.2) X10*3/uL Abs Immat Gran (auto) 0.07 H (0.00-0.03) X10*3/uL Absolute Neuts (auto) 8.8 H (2.0-8.3) x10*3/uL Absolute Nucleated RBC 0.000 (0.0-0.012) X10*3/uL Nucleated RBC % (auto) 0.0 (0.0-0.2) /100WBC Sodium 136 (135-145) mmol/L Potassium 3.9 (3.3-5.1) mmol/L Chloride 103 (96-108) mmol/L Carbon Dioxide 18 L (22-29) mmol/L Anion Gap 19 (12-20) BUN 14 (9-16) mg/dL Creatinine 0.65 (0.5-1.4) mg/dL Estim Creat Clear Calc 143.3 Estimated GFR > 60 Random Glucose 77 (60-115) mg/dL Lactic Acid 3.2 H* (0.5-2.0) mmol/L Lactic Acid F/U @ 2Hr 1.0 (0.5-2.0) mmol/L Calcium 9.6 (8.4-10.2) mg/dL Total Bilirubin 1.1 H (0.0-1.0) mg/dL AST 38 H (5-37) U/L ALT 27 (0-40) U/L Alkaline Phosphatase 50 (39-117) U/L Total Protein 7.2 (6.5-8.0) g/dL Albumin 5.0 (3.5-5.0) g/dL Urine Color Yellow Urine Appearance Clear Urine pH 5.5 (5.0-9.0) Ur Specific [place] 1.010 (1.005-1.025) Urine Protein Negative (Neg-Trace) mg/dL Urine Glucose (UA) Negative (Negative) mg/dL Urine Ketones Trace (Negative) mg/dL Urine Blood Negative (Negative) Urine Nitrite Negative (Negative) Ur Leukocyte Esterase Large (3+) H (Negative) Urine RBC 0-2 (0-2) /HPF Urine WBC 21-50 H (0-5) /HPF Ur Squamous Epith Cells 0-2 (0-2) /HPF Urine Bacteria None Seen (None Seen) Hyaline Casts 0-2 (0-2) /LPF External Record Review External record reviewed: Inpatient record Social Determinants Patient?s care significantly limited by Social Determinants of Health including: Problems related to primary support group Discharge Plan Discharge Clinical Impression: Acute on chronic urinary retention, BPH (benign prostatic hyperplasia), Urinary tract infection Patient Disposition: Home, Self-Care Instructions: Urinary Retention in Men (ED), Enlarged Prostate (BPH) (ED), Urinary Tract Infection in Men (DC) Prescriptions: New cefuroxime axetil 500 mg tablet 500 mg PO BID 7 Days Qty: 14 0RF tamsulosin [Flomax] 0.4 mg capsule 0.4 mg PO DAILY Qty: 7 0RF No Action lisinopril 10 mg tablet 10 mg PO DAILY 90 Days Qty: 90 3RF diltiazem HCl 180 mg capsule,extended release 24hr 180 mg PO DAILY Qty: 90 1RF valacyclovir 1 gram tablet 1,000 mg PO Q8H 7 Days Qty: 21 1RF doxycycline hyclate 100 mg tablet 100 mg PO BID 90 Days Qty: 180 6RF lorazepam 1 mg tablet 1 mg PO BID PRN (Reason: anxiety) 29 Days Qty: 58 0RF Eliquis 5 mg tablet 5 mg PO BID simvastatin 40 mg tablet 40 mg PO BEDTIME testosterone 30 mg/actuation (1.5 mL) solution in metered pump w/marley 3 pump topical DAILY 30 Days Qty: 90 3RF Rx Instructions: This is an increase in dose. tadalafil [Cialis] 5 mg tablet 5 mg PO DAILY 90 Days Qty: 90 1RF Rx Instructions: [id number] [facility] [id number] Member [id number] sildenafil 50 mg tablet 50 mg PO Referrals: Gavino Lopez MD [Physician] - 02/06/25 Print Language: Belgian
[2025-02-04 12:32] VITALS: BP 156/118; PULSE 93; RESP 18; TEMP 36.8; O2SAT 94; BMI 31.2
[2025-02-04 12:53] LABS: MANUAL DIFF FLAG NO
[2025-02-04 12:54] VITALS: BP 119/79; PULSE 80; RESP 18; O2SAT 95
[2025-02-04 12:55] LABS: Appearance Urine Clear; Color Urine Yellow; Glucose Urine UA Negative (Negative); Leukocyte Esterase Urine Large (3+) (Negative); Nitrite Urine Negative (Negative); PH 5.5 (5.0-9.0); UMIC TRIGGER UACC YES; Urine Blood Negative (Negative); Urine Ketones Trace mg/dL (Negative); Urine Protein Negative (Neg-Trace)
[2025-02-04 12:57] LABS: Bacteria Urine None Seen (None Seen); Basophils Percent Auto 0.3 % (0-2); Eosinophils Absolute Auto 0.1 X10*3/uL (0.0-0.4); Eosinophils Percent Auto 0.4 % (0-4); Hematocrit 43.6 % (42.0-52.0); Hemoglobin 15.5 g/dl (14.0-18.0); Hyaline Casts Urine 0-2 /LPF (0-2); Imm Gran Abs Auto 0.07 X10*3/uL (0.00-0.03); Imm Gran Pct Auto 0.6 % (0.0-0.4); Lymphocytes Absolute Auto 2.1 X10*3/uL (1.2-4.9); Lymphocytes Percent Auto 17.7 % (20-40); Mean Corpuscular HGB Conc 35.6 g/dl (31.0-36.0); Mean Corpuscular Volume 84.5 fL (80.0-98.0); Mean Platelet Volume 8.8 fL (9.4-12.4); Monocytes Absolute Auto 0.7 X10*3/uL (0.1-1.2); Monocytes Percent Auto 6.3 % (2-11); Neutrophils Absolute Auto 8.8 x10*3/uL (2.0-8.3); Neutrophils Percent Auto 74.7 % (45-73); Platelet Count 203 X10*3/uL (160-400); RBC Urine 0-2 /HPF (0-2); Red Blood Count 5.16 X10*6/uL (4.60-5.80); Red Cell Distribution Width 13.5 % (11.0-16.0); Squamous Epithelial Cell Urine 0-2 /HPF (0-2); UACC Culture Trigger YES; WBC Urine 21-50 /HPF (0-5); White Blood Count 11.8 X10*3/uL (4.8-10.8)
[2025-02-04 13:08] LABS: Alanine Aminotransferase 27 U/L (0-40); Alkaline Phosphatase 50 U/L (39-117); Anion Gap 19 (12-20); Aspartate Amino Transferase 38 U/L (5-37); Bilirubin Total 1.1 mg/dL (0.0-1.0); Blood Urea Nitrogen 14 mg/dL (9-16); Calcium 9.6 mg/dL (8.4-10.2); Carbon Dioxide 18 mmol/L (22-29); Chloride 103 mmol/L (96-108); Creatinine Clr Calc Pharmacy 143.3; Estimated Glomerular Filt Rate > 60; Glucose Random 77 mg/dL (60-115); Potassium 3.9 mmol/L (3.3-5.1); Sodium 136 mmol/L (135-145); Total Protein 7.2 g/dL (6.5-8.0)
[2025-02-04 14:00] VITALS: BP 127/78; PULSE 103; RESP 18; O2SAT 92
[2025-02-04 14:10] LABS: Lactic Acid 3.2 mmol/L (0.5-2.0)
[2025-02-04] MEDS: cefTRIAXone sodium 1 GM VIAL IVPUSH (14:10)
[2025-02-04] MEDS: 0.9 % Sodium Chloride 3,129.78 ML 3129.78 ML IV (14:49)
--- OUTSIDE RECORDS SUMMARY | 2025-02-04 15:45 | XMS_ITS | Clinical Summary ---
Author Organization [facility] ity Address [address] [place] [address] Care Team Providers Care Cryptographic Vulnerability Analyst Name Role Phone Unavailable Primary Care Provider [...]
[2025-02-04 15:51] LABS: Reflex Lactate? Lactic Acid Added
[2025-02-04 16:00] VITALS: BP 115/71; PULSE 91; RESP 16; O2SAT 95
[2025-02-04 17:33] VITALS: BP 115/71; PULSE 91; RESP 16; TEMP -17.7; TEMP 0; O2SAT 95
== END 2025-02-04 17:34 | disposition home or self-care (01) ==
PROVIDERS: Physician Assistant; Emergency Provider Emergency Medicine Emergency Medical Services; PCP Internal Medicine
DX: N40.1 Benign prostatic hyperplasia with lower urinary tract symptoms (principal); R33.8 Other retention of urine; N39.0 Urinary tract infection, site not specified; E78.00 Pure hypercholesterolemia, unspecified; I48.0 Paroxysmal atrial fibrillation; Z87.891 Personal history of nicotine dependence; Z79.01 Long term (current) use of anticoagulants; Z79.02 Long term (current) use of antithrombotics/antiplatelets; Z79.899 Other long term (current) drug therapy
CPT/HCPCS: 36415; 51702; 51798; 80053; 81001; 83605; 85025; 87040; 87086; 96361; 96374; 99285; J0696

== ENCOUNTER → 2025-02-06 14:54 | Outpatient (BNVA) | payer OTHER, SELFPAY | PROVIDERS: PCP Internal Medicine; Visit Provider Nurse Practitioner Family | DX: R33.9 Retention of urine, unspecified (principal) | CPT/HCPCS: 51700 ==

== ENCOUNTER 2025-03-03 09:39 | Outpatient (AMB) | payer OTHER, SELFPAY ==
--- NOTE | 2025-03-03 09:41 | A.OFFVIS_ITS ---
Intake Visit Reasons: Urinary retention/ voiding trial Intake Note: Patient presents today for t follow up on : hypogonadism and OAB, BPH ,TOV Urology Medications: testosterone, sildenafil, tadalafil,tamsulosin Blood Thinner: apixaban PVR:77 MLS Bee Worker Required: No Accompanied by: Self / Same As Patient Allergies ciprofloxacin (From CIPRO) Allergy (Intermediate, Verified 03/03/25 09:43) SWELLING levofloxacin (Levaquin) Allergy (Intermediate, Verified 03/03/25 09:43) facial swelling HPI Comments Details: Gustavo is a pleasant 64 year old male patient of Dr. Crow Lau. He has a past medical history of sleep apnea, hypercholesteremia, depression, osteoarthritis, rosacea, hypogonadism, gout, chronic pain, GERD, BPH, hyperlipidemia, paroxysmal atrial fibrillation, and hypertension. He presents to the office today for follow-up of his hypogonadism, lower urinary tract symptoms, and overactive bladder. In discussion with the patient today he reports having seeked emergency room care services approximately 1 month ago as he had been having issues urinating. In review of patient's chart it appears patient was bladder scanned for over a L in an indwelling Pedraza catheter was placed and recommendations were made for follow-up with Urology. In office voiding trial was performed. Patient was able to independently void. He disc usses having stopped all urological medications in the meantime as he was unsure. He discusses having had a night out with his friends and was involved in recreational drug use shortly before episode of urinary retention. Patient with a longstanding history of urinary issues to include urinary frequency and nocturia and has since been on low-dose Cialis for bladder stability that he felt was helpful. He also has a history of hypogonadism in his on testosterone replacement however has since stopped taking this medication. We did discussed potential causes of urinary retention and further treatment options and risks and benefits of these treatment options. Previous laboratories for history of hypogonadism are as follows: H/H: 11/09 15.2/46.7, 12/11 14.8/46.6, 02/10 16.2/48.9, 10/14 16.2/49.0, 12/12 16.1/47.4, 06/13 16.3/47.9, 09/14 14.8/44.5, 12/13 15.4/47.0 PSA:07/09 2.2, 11/08 3.4, 05/13, 12/12 3.5, 09/14 3.0, 12/13 2.7 Testosterone: 07/09 149, 09/09 168, 11/08 444, 12/09 1203, 11/09 215, 06/11 205, 12/11 357,05/13 627, 12/12 597, 06/13 379, 09/14 295, 12/13 301 Testosterone free and total:11/08 109.7, 05/13 163.6, 12/12 152.2, 06/13 99.7, 55.8, 12/13 68.7 We did discussed importance of taking medications as prescribed as well as as impacts of recreational drug use on his health. All questions were answered. He otherwise offers no other issues or concerns at this time. Lower urinary tract symptoms Prior laser procedure Symptoms of urgency and frequency Concomitant diagnosis includes NERY on CPAP Prior failure of trial with oxybutynin, tolterodine, and Myrbetriq Nocturia x5, daytime urge PFSH Medical History Sacroiliitis Sleep apnea Pure hypercholesterolemia Mild recurrent major depression Derangement of right knee Osteoarthritis of right knee Skin lesion Rosacea Hypogonadism in male Gout Chronic pain GERD (gastroesophageal reflux disease) BPH (benign prostatic hyperplasia) Hyperlipidemia PAF (paroxysmal atrial fibrillation) Essential hypertension Surgical History H/O colonoscopy History of left knee replacement History of arthroplasty of left knee History of prior ablation treatment History of prostate surgery History of arthroplasty of right shoulder History of appendectomy History of arthroscopy of right knee History of arthroscopy of left knee Family History Father CAD (coronary artery disease) COPD (chronic obstructive pulmonary disease) Mother No problems noted. Son No problems noted. 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 Current occupational exposures/hazards: No Cognitive needs: No Hearing needs: No Vision needs: No Review of Systems Const Reports as per HPI Eyes Reports no additional complaints ENT Reports no additional complaints Card Reports as per HPI Resp Reports as per HPI GI Reports as per HPI Reports as per HPI Musc Reports as per HPI Neuro Reports no additional complaints Psych Reports as per HPI Endo Reports no additional complaints William/Lymph Reports no additional complaints Aller/Immun Reports no additional complaints Physical Exam Const General: cooperative, healthy appearing, comfortable, no acute distress, well developed, alert and awake Orientation/consciousness: patient oriented x3 Limitations: no limitations HEENT Head: Yes normal to inspection, Yes normocephalic and Yes atraumatic Ears: hearing grossly normal bilaterally Eyes General: appearance normal, both eyes and all related structures Neck Neck: Yes normal visual inspection and Yes trachea midline Chest Chest palpation & inspection: normal inspection of the chest Resp Effort & Inspection: normal respiratory effort and able to speak in complete sentences Cardio Rate: regular rate GI Inspection: Yes normal to inspection General: Yes no CVA tenderness Back/Spine/Pelvis Back: no CVA tenderness Skin General skin exam: no rashes or lesions noted Neuro General: patient oriented x3 Extrem General: Yes normal to inspection Psych Appearance: grossly normal and well kempt Mental Status: mental status grossly normal Speech and movement: Clear speech present Affect: normal affect Attitude: cooperative Thought process: Normal thought process present Thought content: Normal thought content present Insight: Fair insight present (Psych) Judgement: Fair judgement present (Psych) Office Procedures Bladder/Catheter Procedure Details: 120ml sterile water instilled through 16Fr pedraza catheter. Patient tolerated instillation. 16Fr pedraza catheter removal. Patient will attempt to void. To be seen by TAZ Wooten. 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 We discussed affects of recreational drug use on overall health and well-being. Restart testosterone and low-dose Cialis as prescribed Continue Flomax Will obtain retroperitoneal ultrasound for further assessment evaluation. Will obtain CBC, PSA, and testosterone free and total for further assessment evaluation. We did discussed potential causes of urological conditions as well as further treatment options and risks and benefits of these treatment options. Follow-up in 3 months with labs, imaging and PVR to be completed prior; or sooner with any issues, concerns, and or questions. Orders: Orders Prostate Specific Antigen 3 Months E29.1 - Testicular hypofunction Complete Blood Count no Diff 3 Months E29.1 - Testicular hypofunction AMB Bladder/Catheter Procedure Today N32.81 - Overactive bladder, N40.0 - Benign prostatic hyperplasia without lower urinary tract symptoms US retroperitoneal comp Today N32.81 - Overactive bladder, N40.0 - Benign prostatic hyperplasia without lower urinary tract symptoms Testosterone, Free/Total 3 Months E29.1 - Testicular hypofunction Medications: Changed From tamsulosin 0.4 mg PO BEDTIME 30 days 30 caps 1RF To tamsulosin 0.4 mg PO BEDTIME 90 caps 1RF 90 days Discontinued finasteride Discontinued Reason: Doctor's Order 5 mg PO DAILY 30 days 30 tabs 1RF oxybutynin chloride Discontinued Reason: Doctor's Order 5 mg PO BEDTIME 30 days PRN 20 tabs 0RF bladder spasms Patient Instructions: The patient had an opportunity to ask questions regarding the treatment plan. All questions were answered. Physical exam, labs, and imaging were discussed and reviewed in detail. As well as risks, benefits, and discussion of treatment choices. No major barriers to understanding were identified. The patient expressed understanding and agreement with the above treatment plan. The patient was made aware they should contact our office by phone for worsening of their current condition, the appearance of new symptoms, or with any questions or concerns. Compliance is encouraged with any medications and follow up testing that is ordered. It is a privilege to be allowed the opportunity to participate in? your urological care.? Again, if you have any questions or con cerns If you have any questions or concerns please do not hesitate to contact me. The office is [phone]. This note is constructed using voice recognition software. While every effort has been made to ensure accuracy behavioral health therapist errors may have been included. Yours sincerely, LUIS A Moran Coding Level of Care Code Est Pt Level 4 (33174) Complex EM visit Add On G2211 Diagnoses Hypogonadism in male E29.1 Overactive bladder N32.81 BPH (benign prostatic hyperplasia) N40.0 Delayed ejaculation F52.32 Urinary retention R33.9 CPT Codes Bladder/Catheter Procedure - CPT: 11328-Qzopotcxvy of Bladder ([id number])
--- OUTSIDE RECORDS SUMMARY | 2025-03-03 10:08 | XMS_ITS | Patient Health Record ---
Author Organization [facility] Address [address] [place] [address] Care Team Providers Care Rubber Cutter And Shape Carver Name Role Phone Jimena(inactive) Martin ZAMBRANO Primary Care Provider U Chetan Ribera Unavailable [phone] Allergies Allergen (clinical drug ingredient) Drug/Non Drug Allergy documented on EMR Reaction Allergy Type Onset Date Status ciprofloxacin Cipro Unknown Drug Allergy Act jerri Reason For Referral No Information Medications Medication SIG (Take, Route, Fr equency, Duration) Notes Start Date End Date Status Simvastatin 40mg Act jerri Aspir-81 81mg Active Pradaxa 150mg Active Multaq 400mg Active Terazosin HCl 4mg Ac tive MoviPrep 100 GM as directed Orally 07/20/2011 Active Lisinopril 5mg Activ e Problems Problem Type SNOMED Code ICD Code Onset Dates Problem Status W/U Status Risk Notes Problem Special screening for malignant neoplasms, colon (V76.51) Active confirmed Plan Of Treatment Future Test Test Name Order Date COLONOSCOPY 07/20/2011 Medical (General) History Medical History History ICD Code atrial fibrillation hypertension hyperlipidemia Denies OH,DM,CVA,Lung disease,renal dise ase he describes a negative cardiac catheter ization Surgical History Surgery Date(Month/Year) appendectomy knee surgery shoulder surgery
--- OUTSIDE RECORDS SUMMARY | 2025-03-03 10:08 | XMS_ITS | Clinical Summary ---
Author Organization [facility] ity Address [address] [place] [address] Care Team Providers Care Procurement Agent Name Role Phone Unavailable Primary Care Provider [...] 2023-2 5 season) 2024 Influenza Vaccine (#1) 2025 RSV Immunization Adult Patie nts (1 [...] 5 Years) and At-Risk Patients (6 to 49 Years) Aged Out No longer eligible b ased on patient's age to complete this topic RSV Immunization Patients Un ava 20 months Aged Out No longer eligible b ased on patient's age to complete this topic Varicella Vaccines Aged Out No longer eligible based on patient's age to complete this topic
== END 2025-03-03 10:31 | disposition home or self-care (01) ==
LOC: HO.HUSH 09:40
PROVIDERS: PCP Internal Medicine; Visit Provider Nurse Practitioner Family
DX: E29.1 Testicular hypofunction (principal); N32.81 Overactive bladder; N40.0 Benign prostatic hyperplasia without lower urinary tract symptoms; F52.32 Male orgasmic disorder; R33.9 Retention of urine, unspecified
CPT/HCPCS: 51700; 99214; G2211

== ENCOUNTER → 2025-03-03 09:39 | Outpatient (BNVA) | payer OTHER, SELFPAY | PROVIDERS: PCP Internal Medicine; Visit Provider Nurse Practitioner Family | DX: E29.1 Testicular hypofunction (principal); N32.81 Overactive bladder; N40.0 Benign prostatic hyperplasia without lower urinary tract symptoms; F52.32 Male orgasmic disorder; R33.9 Retention of urine, unspecified | CPT/HCPCS: 51700; 51798; 99212 ==

== ENCOUNTER 2025-03-06 14:41 | Outpatient (AMB) | payer OTHER, SELFPAY ==
--- NOTE | 2025-03-06 14:47 | MHC.OFFVIS ---
Intake Visit Reasons: Right Knee Euflexxa #1 Intake Note: Reno is a 64 year old male who presents today for Right Knee Euflexxa #1 Hx of left TKA, DOS: 09/03/19 Allergies ciprofloxacin (From CIPRO) Allergy (Intermediate, Verified 03/03/25 09:43) SWELLING levofloxacin (Levaquin) Allergy (Intermediate, Verified 03/03/25 09:43) facial swelling HPI HPI Right Knee Euflexxa #1: Details: Here for Euflexxa 08/23 PFSH Medical History Sacroiliitis Sleep apnea Pure hypercholesterolemia Mild recurrent major depression Derangement of right knee Osteoarthritis of right knee Skin lesion Rosacea Hypogonadism in male Gout Chronic pain GERD (gastroesophageal reflux disease) BPH (benign prostatic hyperplasia) Hyperlipidemia PAF (paroxysmal atrial fibrillation) Essential hypertension Surgical History H/O colonoscopy History of left knee replacement History of arthroplasty of left knee History of prior ablation treatment History of prostate surgery History of arthroplasty of right shoulder History of appendectomy History of arthroscopy of right knee History of arthroscopy of left knee Family History Father CAD (coronary artery disease) COPD (chronic obstructive pulmonary disease) Mother No problems noted. Son No problems noted. 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 Site was prepped using aseptic technique. Patient tolerated the procedure well. Coding Procedure code (CPT) selection complete Assessment & Plan Assessment & Plan (1) Osteoarthritis of right knee: Code(s): M17.11 - Unilateral primary osteoarthritis, right knee Category: Medical Qualifiers: Osteoarthritis type: primary Qualified Code(s): M17.11 - Unilateral primary osteoarthritis, right knee Plan: Euflexxa 08/23. No problems. Coding Level of Care Code Est Pt Level 2 (75160) Diagnoses Primary osteoarthritis of right knee M17.11 Osteoarthritis type: primary
--- OUTSIDE RECORDS SUMMARY | 2025-03-06 15:24 | XMS_ITS | Patient Health Record ---
Author Organization [facility] Address [address] [place] [address] Care Team Providers Care Load Planner Name Role Phone Jimena(inactive) Martin ZAMBRANO Primary Care Provider U Chetan Ribera Unavailable [phone] Allergies Allergen (clinical drug ingredient) Drug/Non Drug [...] ICD Code atrial fibrillation hypertension hyperlipidemia Denies [place],DM,CVA,Lung disease,renal dise ase he describes a negative cardiac catheter ization Surgical History Surgery Date(Month/Year) appendectomy knee surgery shoulder surgery
--- OUTSIDE RECORDS SUMMARY | 2025-03-06 15:25 | XMS_ITS | Clinical Summary ---
Author Organization [facility] Address [address] [place] [address] Care Team Providers Care Rn Radiology Name Role Phone Unavailable Primary Care Provider [...]
== END 2025-03-06 15:46 | disposition home or self-care (01) ==
LOC: HO.HOS 14:42
PROVIDERS: PCP Internal Medicine; Visit Provider Orthopaedic Surgery
DX: M17.11 Unilateral primary osteoarthritis, right knee (principal)
CPT/HCPCS: 20610

== ENCOUNTER → 2025-03-06 14:41 | Outpatient (BNVA) | payer OTHER, SELFPAY | PROVIDERS: PCP Internal Medicine; Visit Provider Orthopaedic Surgery | DX: M17.11 Unilateral primary osteoarthritis, right knee (principal) | CPT/HCPCS: 20610; J7323 ==

== ENCOUNTER 2025-03-13 10:08 | Outpatient (AMB) | payer OTHER, SELFPAY ==
[2025-03-13 10:20] VITALS: BMI 31.2
--- NOTE | 2025-03-13 10:20 | MHC.OFFVIS ---
Vital Signs 03/13/25 10:20 Height 6 ft Weight 230 lb BMI 31.2 Intake Visit Reasons: Right Knee Euflexxa #2 Intake Note: Gustavo is a 64 year old male who presents today for Left Knee Euflexxa Injection #2. Patient reports he is doing well, had mild relief with last injection. Allergies ciprofloxacin (From CIPRO) Allergy (Intermediate, Verified 03/13/25 10:21) SWELLING levofloxacin (Levaquin) Allergy (Intermediate, Verified 03/13/25 10:21) facial swelling HPI HPI Right Knee Euflexxa #2: Details: No new complaints. [facility] Medical History Sacroiliitis Sleep apnea Pure hypercholesterolemia Mild recurrent major depression Derangement of right knee Osteoarthritis of right knee Skin lesion Rosacea Hypogonadism in male Gout Chronic pain GERD (gastroesophageal reflux disease) BPH (benign prostatic hyperplasia) Hyperlipidemia PAF (paroxysmal atrial fibrillation) Essential hypertension Surgical History H/O colonoscopy History of left knee replacement History of arthroplasty of left knee History of prior ablation treatment History of prostate surgery History of arthroplasty of right shoulder History of appendectomy History of arthroscopy of right knee History of arthroscopy of left knee Family History Father CAD (coronary artery disease) COPD (chronic obstructive pulmonary disease) Mother No problems noted. Son No problems noted. 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 Site was prepped using aseptic technique. Patient tolerated the procedure well. Shoulders, Hips, Knees, Knee Large Joint Injection [id number]: Right Knee Coding Procedure code (CPT) selection complete Assessment & Plan Assessment & Plan (1) Osteoarthritis of right knee: Code(s): M17.11 - Unilateral primary osteoarthritis, right knee Category: Medical Qualifiers: Osteoarthritis type: primary Qualified Code(s): M17.11 - Unilateral primary osteoarthritis, right knee Plan: Injected riught knee. Euflexxa 2 of 3. Tolerated injection well. Coding Level of Care Code Est Pt Level 2 (98566) Diagnoses Primary osteoarthritis of right knee M17.11 Osteoarthritis type: primary CPT Codes Shoulders, Hips, Knees, - Knee Large Joint Injection : Right Knee ([id number])
--- OUTSIDE RECORDS SUMMARY | 2025-03-13 10:55 | XMS_ITS | Clinical Summary ---
Author Organization [facility] Address [address] [place] [address] Care Team Providers Care Medical Assistant Name Role Phone Unavailable Primary Care Provider [...] Vaccine (1 - 2023-2 5 season) 2024 Depression Screening 08/21/2024 Influenza Vaccine (#1) 2025 RSV Immunization Adult [...]
--- OUTSIDE RECORDS SUMMARY | 2025-03-13 10:55 | XMS_ITS | Patient Health Record ---
Author Organization [facility] Address [address] [place] [address] Care Team Providers Care Change Management Director Name Role Phone Jimena(inactive) Martin ZAMBRANO Primary Care Provider U Chetan Ribera Unavailable [phone] Allergies Allergen (clinical drug ingredient) Drug/Non Drug [...] ICD Code atrial fibrillation hypertension hyperlipidemia Denies [place],DM,CVA,Lung disease,renal dise ase he describes a negative cardiac catheter ization Surgical History Surgery Date(Month/Year) appendectomy knee surgery shoulder surgery
--- OUTSIDE RECORDS SUMMARY | 2025-03-13 10:55 | XMS_ITS | Clinical Summary ---
Author Organization [facility] Address [address] [place] [address] Phone Care Team Providers Care Instructional Paraprofessional Name Role Phone Joshua Oswald MD Unavailable [phone] Carissa Zuniga MD Primary Care Provid er Allergies Active Allergy Reactions Criticality Noted Date Comments Ciprofloxacin Anaphylaxis High 09/26/2017 Medications CARTIA XT 180 mg 24 hr capsuleIndication s:Paroxysmal atrial fibrillation take 1 capsule by mouth once daily 90 capsule 3 9 Active lisinopril (PRINIVIL,ZESTRIL ) 10 MG tabletIndications :Essential hypertension TAKE 1 TABLET BY MOUTH ONCE DAILY 90 tablet 3 0 Active LORazepam (ATIVAN) 1 MG tablet Take 1 mg by mouth as needed. Active doxycycline hyclate (VIBRAMYCIN) 50 MG capsule Take 50 mg by mouth daily. 1 Active testosterone cypionate (DEPO-TESTOTERONE ) 200 mg/mL injection Inject 100 mg into the muscle every 7 days. 3 Active multivitamins capsule Take 1 capsule by mouth daily. Active simvastatin (ZOCOR) 40 MG tabletIndications :Medication refill TAKE ONE TABLET BY MOUTH AT BEDTIME 90 tablet 3 5 Active sildenafiL (VIAGRA) 50 mg tablet TAKE 1 TABLET BY MOUTH NEEDED 30 tablet 3 5 Active ELIQUIS 5 mg tabletIndications :Paroxysmal atrial fibrillation TAKE ONE TABLET BY MOUTH TWICE A DAY 180 tablet 3 5 Active testosterone (TESTIM) 50 mg/5 gram (1 %) transdermal gel tube Place 50 mg onto the skin daily. Active Active Problems Problem Noted Date Diagnosed Date Left leg swelling 11/29/2023 Assessment & Plan (11/29/2023 1:47 PM EDT): Has some swelling and discoloration around left ankle. Not aware of any trauma to this area. Says he got a venous ultrasound at [facility] urgent care which was negative for clot. Symptoms have been attributed to a hematoma and he was told to apply heat to the area. Overall he says ankle is developing machine tender but is improving. I have told him to seek medical assistance if he notices swelling worsening or if he were to develop sudden onset symptoms of chest pain/shortness of breath. He says that he might actually get a repeat ultrasound of his leg done at [facility] which has been scheduled for next week. Suspected sleep apnea 04/12/2018 Assessment & Plan (04/12/2018 8:37 AM EDT): History is suggestive of sleep apnea will do a sleep study referral for the same. Coronary artery disease invo lving [place] coronary artery of [place] heart without angina pectoris 09/06/2017 Overview (09/26/2017): 01/2011 Cath NSTEMI FFR RCA neg Assessment & Plan (11/29/2023 1:40 PM EDT): Currently without symptoms concerning for angina Lipid profile looks good Continue simvastatin 40 mg nightly Assessment & Plan (07/27/2022 8:00 AM EST): In January 2021 cardiac catheterization NSTEMI FFR RCA negative He recently presented to the emergency room upon wakening on 07/06/2022 with chest pain and some shortness of breath. He was worked up at [facility] for ACS and this was ruled out he was discharged home without any medication changes. He does tell me he is waiting a knee replacement but feels he can walk on the treadmill we did discuss his options for stress test and he felt he could perform on the treadmill. His chest discomfort sounds atypical for angina but we will repeat a stress test anyhow. Assessment & Plan (07/13/2021 3:27 PM EST): Cardiac catheterization in January 2011 with NSTEMI FFR RCA neg He has gained some weight and is not exercising as much. He states he is asymptomatic from coronary artery disease. He is on aspirin 81 mg daily, diltiazem 180 mg daily, simvastatin 40 mg daily. He has not had a recent stress test so we will get a pharmacological nuclear stress test due to him being in atrial fibrillation and possibly starting him on flecainide. Assessment & Plan (05/05/2020 9:53 AM EDT): Feeling well. No symptoms and exercising more. His next visit in about 6 months will be with a colleague as I will have retired. Assessment & Plan (10/30/2019 10:37 AM EDT): No angina and physically active. Assessment & Plan (06/25/2019 2:36 PM EST): No symptoms in some time. Nonobstructive disease at catheterization 8 years ago. ECG today reveals a sinus rhythm at 71 and tracing. Assessment & Plan (03/02/2018 8:30 AM EDT): No evidence of recurrence. Remains active. Assessment & Plan (09/26/2017 8:36 AM EST): Doing well without symptoms. Essential hypertension 09/06/2017 Assessment & Plan (11/29/2023 1:42 PM EDT): Blood pressure on my check 128/86 today. We did discuss goal diastolic pressure of less than 80. I recommended home blood pressure cuff to be checked a couple times a week, patient does not want to do this. -Follow-up with blood pressure check at next visit -Continue lisinopril 10 mg daily -Continue cardia XT 180 mg daily Assessment & Plan (07/27/2022 7:59 AM EST): Blood pressure is 124/86. He will remain on lisinopril 10 mg daily, diltiazem 180 mg daily. He is encouraged to follow heart healthy diet including low-sodium and to continue exercising. Assessment & Plan (07/13/2021 3:27 PM EST): Blood pressure is mildly elevated at 140/80. He is on diltiazem 180 mg daily, lisinopril 10 mg daily and he will continue this. He has gained some weight and he is encouraged to try to lose some weight and exercise more. Next Assessment & Plan (05/05/2020 9:53 AM EDT): Controlled on present therapy. No changes. Assessment & Plan (10/30/2019 10:36 AM EDT): Controlled on present therapy. No changes. Assessment & Plan (06/25/2019 2:37 PM EST): Fair control on present therapy. No changes. Assessment & Plan (03/02/2018 8:31 AM EDT): Borderline control. No changes. Assessment & Plan (09/26/2017 8:36 AM EST): Elevated today. He does not follow this carefully. I have increased his lisinopril to 40 mg a day. Paroxysmal atrial fibrillation 09/06/2017 Overview (10/30/2019): 10/2011 AF ablation 10/2019 ECHO EF50-55%; DD0 Assessment & Plan (11/29/2023 1:43 PM EDT): Does have a history of atrial fibrillation and has had an ablation. No ECG in office today however on examination heart rate is regular. -Continue Eliquis 5 mg twice daily -Continue Cardizem 180 mg daily Assessment & Plan (07/27/2022 7:59 AM EST): He has a history for atrial fibrillation and did have an ablation. He is on Eliquis 5 mg twice daily. Here in the office today his EKG shows sinus rhythm, 61 bpm. He will remain on his medications without change which included diltiazem 180 mg daily. Assessment & Plan (07/13/2021 3:28 PM EST): He had an A. fib ablation in October 2011. Recently started on Lamictal for mood stabilizer as of yesterday. He woke up this morning at 4 AM with a sensation of being in atrial fibrillation. It was confirmed on EKG at [facility] as well as here in the office. He is rate controlled 83 bpm. He is on Cartia 180 mg daily, he is not anticoagulated for Emanuel vas score of 1. He does take an aspirin 81 mg daily. He does have sleep apnea and tells me he does wear his CPAP machine daily. EKG today shows rate controlled atrial fibrillation. He is not on any anticoagulation. We will start him on Eliquis 5 mg twice daily for 4 weeks and possibly consider starting him on flecainide 100 mg twice daily. He will continue on his cardia. While he is on Eliquis we can stop his aspirin. He is encouraged to come back in the office in 4 weeks to monitor her blood pressure and heart rate and to perform an EKG to see if he still atrial fibrillation. We can consider an ablation in the future. He does feel better when he is in sinus rhythm and is unable to give me details on how different he feels but woke up this morning not feeling right and did go to the emergency room and was found to be in atrial fibrillation though he is rate controlled. Assessment & Plan (05/05/2020 9:54 AM EDT): Remains in sinus. Assessment & Plan (10/30/2019 10:36 AM EDT): Remains in sinus. Echocardiogram was benign with low normal systolic function, no significant valvular disease and normal diastolic function. Assessment & Plan (06/25/2019 2:38 PM EST): One episode in the past 7 years. Does not require anticoagulation. No recent symptoms. I have asked him to have his echocardiogram repeated prior to his next visit here sometime in the near the end of September. Assessment & Plan (04/12/2018 8:37 AM EDT): Very pleasant 57-year-old gentleman with paroxysmal atrial fibrillation who is currently well controlled on Cardizem CD 180 mg a day. He will take aspirin 81 mg daily with it. At this time no change in therapy. We need to update an echocardiogram to reevaluate his cardiac function, left atrial size and valvular physiology. Assessment & Plan (03/02/2018 8:30 AM EDT): No documented episodes. Assessment & Plan (12/21/2017 12:41 PM EDT): 57-year-old gentleman with a remote history of paroxysmal atrial for ablation status post ablation in 2011. More recently had episode of palpitation but the diagnosis is unsure. I will change his lisinopril to diltiazem for prevention of arrhythmias as well as blood pressure control. If he has more episodes in the future we will further decide if he needs to evaluate this. I gave him option of wearing a 30 day heart monitor but he is absolutely against it. I will check a 2-D echocardiogram make sure his valve function is normal and there is no structural heart disease. He is going to continue to follow with Dr. Oswald for his cardiology care. Pure hypercholesterolemia 09/06/2017 Assessment & Plan (11/29/2023 1:45 PM EDT): Reviewed lipid panel from [facility] LDL cholesterol 57. Goal LDL less than 55. -Continue simvastatin 40 mg Assessment & Plan (07/13/2021 2:23 PM EST): Continue simvastatin 40 mg daily Assessment & Plan (05/05/2020 9:54 AM EDT): Statin unchanged but no recent profile. He will do so this morning. Assessment & Plan (10/30/2019 10:37 AM EDT): Statin unchanged but has yet to have his labs done. Will do so shortly. Assessment & Plan (06/25/2019 2:37 PM EST): Lipids are at goal with an LDL of 59 HDL of 36 and triglycerides 211. Renal function is normal with a creatinine of 0.8 BUN of 15 and a potassium of 4.3. Assessment & Plan (03/02/2018 8:31 AM EDT): Remains on his statin. Will have labs drawn shortly. Assessment & Plan (09/26/2017 8:38 AM EST): LDL is in the 80s and he admits to not following a careful diet. No change for now. Encounters Date Type Department Care Team Description 02/12/2025 Telephone [facility] [address], [address] [place] [address] Faheem Solares MD 01/20/2025 10:20 AM EDT Office Visit [facility] [address], [address] [place] [address] Faheem Solares MD Pure hypercholesterolemia (Primary Dx); Paroxysmal atrial fibrillation; Essential hypertension; Coronary artery disease involving [place] coronary artery of [place] heart without angina pectoris; Dysarthria 12/16/2024 Refill [facility] [address], [address] [place] [address] Faheem Solares MD Medication Refill from Last 3 Months Immunizations Immunization Administration Dates Next Due Influenza Quadrivalent Preservative Free IM 03/22 Influenza Quadrivalent w/ Preservative IM 2018,04/21/2018,05/16/2016 Influenza Trivalent Preservative Free IM 017,03/23/2016 Influenza Trivalent w/ Preservative IM 0 Zoster recombinant 03/16/2018,12/15/2017 Family History Medical History Relation Comments CV disease Father 2 Relation Status Comments Father 1 Father 2 Social History Tobacco Use Types Packs/Day Years Used Date Smoking Tobacco: Former Cigarettes Q uit: 09/26/1997 Smokeless Tobacco: Never Tobacco Cessation:Counseling Given: Not Answered Alcohol Use Standard Drinks/Week Comments No 0 (1 standard drink = 0.6 oz pur e alcohol) Education Answer Date Recorded Are you interested in more education? Not on renee e 12/16/2022 Are you concerned about learning? Not on file 12/16/2022 No 12/16/2022 No 12/16/2022 Digital Access Answer Date Recorded No 01/14/2023 No 01/14/2023 Reliable internet access at home? Not on file 01/14/2023 Device with a working camera? Not on file Intimate Partner Violence Answer Date R ecorded Are you denied basic needs s uch as food, clothing, or medical care? No 05/29/2024 In the past 12 months have y ou been in a relationship with a person who hurts, threatens, or tries to control you? No 05/29/2024 Are you denied basic needs s uch as food, clothing, or medical care? No 05/29/2024 In the past 12 months have y ou been in a relationship with a person who hurts, threatens, or tries to control you? No 05/29/2024 Sex and Gender Information Value Date Recorded Sex Assigned at Male 01/26/2023 6:41 PM EDT Legal Sex Male 9:47 PM EDT Gender Identity Male 01/26/2023 6:41 PM EDT Sexual Orientation Straight 05/23/2024 8: 27 AM EDT Last Filed Vital Signs Vital Sign Reading Time Taken Comments Blood Pressure 124/84 01/20/2025 10:19 AM EDT Pulse 67 01/20/2025 10:19 AM EDT Temperature 36.2 C (97.1 F) 05/29/2024 10:40 AM EDT Respiratory Rate 18 05/29/2024 10:40 AM EDT Oxygen Saturation 97% 01/20/2025 10:19 AM EDT Inhaled Oxygen Concentration - - Weight 106.1 kg (234 lb) 01/20/2025 10:19 AM EDT Height 182.9 cm (6' 0.01 ) 01/20/2025 10:19 AM E DT Body Mass Index 31.73 01/20/2025 10:19 AM EDT Plan of Treatment Upcoming Encounters Date Type Department Care Team (Late st Contact Info) Description 07/22/2025 9:00 AM EST Office Visit [facility] [address] [place] [address] [address] Floor, [address] [place] [address] Faheem Solares MD 22 [facility], [address] [place] [address] [email or web address] Health Maintenance Due Date Last Done Comments Adult Td,Tdap Booster 1960 DEPRESSION SCREENING 1972 HEPATITIS C SCREENING 1978 HIV ONE-TIME SCREENING (18-6 5 YEARS) 1978 COLOGUARD 2005 COLONOSCOPY 2005 COLORECTAL CANCER SCREENING 2005 FIT TEST 2005 FOBT 2005 SIGMOIDOSCOPY 2005 VIRTUAL COLONOSCOPY 2005 PNEUMOCOCCAL VACCINES (50+ years) (2 of 2 - PCV) 01/25/2012 01/24/2011 RSV VACCINE (1 - Risk 60-74 years 1-dose series) 2020 LIPID PANEL 05/05/2021 05/05/2020, 03/02/2018 CREATININE LEVEL 01/27/2024 01/26/2023, 05/05/2020, 03/02/2018 POTASSIUM LEVEL 01/27/2024 01/26/2023, 05/05/2020, 03/02/2018 COVID-19 VACCINE (2023-2 5 season) 2024 09/12/2021, 12/11/2020, 11/20/2020 BLOOD PRESSURE 07/22/2025 01/20/2025 SMOKING Hx and SMOKELESS TOBACCO SCREENING 01/20/2026 01/20/2025 SCREENING FOR DIABETES 01/26/2026 01/26/2023 ZOSTER VACCINES Completed 03/16/2018, 12/15/2017 HEPATITIS A VACCINES Aged Out No long er eligible based on patient's age to complete this topic HIB VACCINES Aged Out No longer eligi ble based on patient's age to complete this topic MENINGOCOCCAL VACCINES (ACWY) Aged Out No longer eligible based on patient's age to complete this topic MENINGOCOCCAL VACCINES (B) Aged Out N o longer eligible based on patient's age to complete this topic Medical Devices Not on file Procedures Procedure Name Priority Date/Time Associated Diagnosis Comments BASIC METABOLIC PANEL STAT 01/26/2023 7:39 PM EDT LIPID PANEL Routine 05/05/2020 10:04 AM EDT Pure hypercholesterolemia from Last 3 Months or Most Recently Relevant to Health Maintenance Results * (ABNORMAL) Basic metabolic panel (01/26/2023 7:39 PM EDT) SODIUM 138 133 - 146 mmol/L [facility] CHLORIDE 103 96 - 108 mmol/L [facility] POTASSIUM 4.5 3.3 - 5.1 mmol/L [facility] CO2 27 21 - 35 mmol/L [facility] BUN 20(H) 6 - 19 mg/dL [facility] CREATININE 0.80 0.5 - 1.5 mg/dL [facility] GLUCOSE 112(H) 70 - 99 mg/dL [facility] CALCIUM 9.0 8.4 - 10.3 mg/dL [facility] EGFR 100 >59 mL/min/1.7 3m2 [facility] Comment:Estimated glomerular filtration rate calculated using the CKD-EPI refit equation. ANION GAP 13 10 - 20 mmol/L [facility] Blood 01/26/2023 7:39 PM EDT 01/26/2023 8:05 PM EDT us Gini Mccarthy PA-C LAB BLOOD ORDERABLES Final Result [address] [id number] * (ABNORMAL) Lipid panel (05/05/2020 10:04 AM EDT) HDL 42 mg/dL [facility] Comment: Interpretation <40 mg/dL: Low HDL cholesterol (major risk factor for CHD) Greater than or equal to 60 mg/dL: High HDL cholesterol ( negative risk factor for CHD) HDL - cholesterol is affected by a number of factors, e.g. smoking, excerise, hormones, sex and age. CHOLESTEROL 114 0 - 240 mg/dL [facility] TRIGLYCERIDES 136 30 - 160 mg/dL [facility] LDL 45(L) 50 - 129 mg/dL [facility] Comment: LDL levels in terms of risk for coronary heart disease: <100 mg/dL: Optimal 100-129 mg/dL: Near or above optimal 130-159 mg/dL: Borderline high 160-189 mg/dL: High >190 mg/dL: Very High CARDIAC RISK RATIO 2.7(L) 3.4 - 5.0 [facility] Blood 05/05/2020 10:0 4 AM EDT 05/05/2020 10:08 AM EDT us Joshua Oswald MD LAB BLOOD ORDERABLES Final Resu lt [facility] [address] [place] [address] from Last 3 Months or Most Recently Relevant to Health Maintenance Insurance [facility] NON NSPG PCP SILVER [employer]ITY CONNE[employer] [facility] NON NSPG PCP SILVER [employer]ITY CONNE[employer]CARE [employer] NON NSPG PCP SILVER [employer]ITY CONNE[employer]CARE [employer] NON NSPG PCP [employer] CONNE[employer]CARE [employer] NON NSPG PCP [employer]IL[employer] CONNE[employer]CARE [employer] NON NSPG PCP [employer]IL[employer] CONNE[employer]CARE [employer] NON NSPG PCP SILVER [employer]ITY CONNE[employer]CARE [employer] NON NSPG PCP SILVER CLARITY CONNECTORCARE [employer] NON NSPG PCP [employer] CONNE[employer] Care Teams Instructional Paraprofessional Relationship Specialty Start Date End Date Carissa Zuniga MD [address] [place] [address] PCP - General Internal Medicine 06/25/19 Joshua Oswald MD [address] [address] [email or web address] Historical LMR Provider 06/08/17 Additional Source Comments The information contained in this document represents components of the legal health record. It is not the complete legal health record.[facility]
== END 2025-03-13 11:43 | disposition home or self-care (01) ==
LOC: HO.HOS 10:09
PROVIDERS: PCP Internal Medicine; Visit Provider Orthopaedic Surgery
DX: M17.11 Unilateral primary osteoarthritis, right knee (principal)
CPT/HCPCS: 20610

== ENCOUNTER → 2025-03-13 10:08 | Outpatient (BNVA) | payer OTHER, SELFPAY | PROVIDERS: PCP Internal Medicine; Visit Provider Orthopaedic Surgery | DX: M17.11 Unilateral primary osteoarthritis, right knee (principal) | CPT/HCPCS: 20610; J7323 ==

== ENCOUNTER 2025-03-20 09:18 | Outpatient (AMB) | payer OTHER, SELFPAY ==
[2025-03-20 09:20] VITALS: BMI 31.2
--- NOTE | 2025-03-20 09:20 | MHC.OFFVIS ---
Vital Signs 03/20/25 09:20 Height 6 ft Weight 230 lb BMI 31.2 Intake Visit Reasons: Right Knee Euflexxa #3 Intake Note: [place] is a 64 year old male who presents today for his Final Right Knee Euflexxa injection #3. Patient reports is doing well with no further concerns. He is booked for a Right TKA 05/20/25 Allergies ciprofloxacin (From CIPRO) Allergy (Intermediate, Verified 03/20/25 09:24) SWELLING levofloxacin (Levaquin) Allergy (Intermediate, Verified 03/20/25 09:24) facial swelling HPI HPI Right Knee Euflexxa #3: Details: Here for 3/3 Euflexxa right knee. No changes from prior. [facility] Medical History Sacroiliitis Sleep apnea Pure hypercholesterolemia Mild recurrent major depression Derangement of right knee Osteoarthritis of right knee Skin lesion Rosacea Hypogonadism in male Gout Chronic pain GERD (gastroesophageal reflux disease) BPH (benign prostatic hyperplasia) Hyperlipidemia PAF (paroxysmal atrial fibrillation) Essential hypertension Surgical History H/O colonoscopy History of left knee replacement History of arthroplasty of left knee History of prior ablation treatment History of prostate surgery History of arthroplasty of right shoulder History of appendectomy History of arthroscopy of right knee History of arthroscopy of left knee Family History Father CAD (coronary artery disease) COPD (chronic obstructive pulmonary disease) Mother No problems noted. Son No problems noted. 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 Site was prepped using aseptic technique. Patient tolerated the procedure well. Shoulders, Hips, Knees, Knee Large Joint Injection : Right Knee Coding Procedure code (CPT) selection complete Assessment & Plan Assessment & Plan (1) Osteoarthritis of right knee: Code(s): M17.11 - Unilateral primary osteoarthritis, right knee Category: Medical Qualifiers: Osteoarthritis type: primary Qualified Code(s): M17.11 - Unilateral primary osteoarthritis, right knee Plan: Osteoarthritis of the right knee. I injected Euflexxa 3/3. No issues. He may follow up as scheduled. Coding Level of Care Code Est Pt Level 2 (69691) Diagnoses Primary osteoarthritis of right knee M17.11 Osteoarthritis type: primary CPT Codes Shoulders, Hips, Knees, - Knee Large Joint Injection : Right Knee ([id number])
--- OUTSIDE RECORDS SUMMARY | 2025-03-20 09:35 | XMS_ITS | Clinical Summary ---
Author Organization [facility] Address [address] [place] [id number] Phone Care Team Providers Care Auction Clerk Name Role Phone Joshua Oswald MD Unavailable [phone] Carissa Zuniga MD Primary Care Provid [...] Says he got a venous ultrasound at [facility] urgent care which was negative for clot. Symptoms have been attributed to a hematoma and he was told to apply heat to the area. Overall he says ankle is wax pot tender but is improving. I have told him to seek medical assistance if he notices swelling worsening or if he were to develop sudden onset symptoms of chest pain/shortness of breath. He says that he might actually get a repeat ultrasound of his leg done at [facility] which has been scheduled for next week. Suspected sleep apnea 04/12/2018 Assessment & Plan (04/12/2018 8:37 AM EDT): History is suggestive of sleep apnea will do a sleep study referral for the same. Coronary artery disease invo lving salt river coronary artery of salt river heart without angina pectoris 09/06/2017 Overview (09/26/2017): [...] of breath. He was worked up at [facility] for ACS and this was ruled out [...] fibrillation. It was confirmed on EKG at [facility] as well as here in the [...] 1:45 PM EDT): Reviewed lipid panel from [facility] LDL cholesterol 57. Goal LDL less [...] Type Department Care Team Description 02/12/2025 Telephone [facility] [address], [address] [place] [address] Faheem Solares MD 01/20/2025 10:20 AM EDT Office Visit [facility] [address], [address] [place] [address] Faheem Solares MD Pure hypercholesterolemia (Primary Dx); Paroxysmal atrial fibrillation; Essential hypertension; Coronary artery disease involving salt river coronary artery of salt river heart without angina pectoris; Dysarthria from Last 3 Months Immunizations Immunization Administration [...] Description 07/22/2025 9:00 AM EST Office Visit [facility] [address] [place] [address] Faheem Solares MD [address] [facility], [address] [place] [address] [email or web address] Health Maintenance Due Date Last Done Comments [...] LEVEL 01/27/2024 01/26/2023, 05/05/2020, 03/02/2018 COVID-19 VACCINE (4 - 2023-2 5 season) 2024 09/12/2021, 12/11/2020, 11/20/2020 BLOOD [...] EDT) SODIUM 138 133 - 146 mmol/L [facility] CHLORIDE 103 96 - 108 mmol/L [facility] POTASSIUM 4.5 3.3 - 5.1 mmol/L [facility] CO2 27 21 - 35 mmol/L [facility] BUN 20(H) 6 - 19 mg/dL [facility] CREATININE 0.80 0.5 - 1.5 mg/dL [facility] GLUCOSE 112(H) 70 - 99 mg/dL [facility] CALCIUM 9.0 8.4 - 10.3 mg/dL [facility] EGFR 100 >59 mL/min/1.7 3m2 [facility] Comment:Estimated glomerular filtration rate calculated using the CKD-EPI refit equation. ANION GAP 13 10 - 20 mmol/L [facility] Blood 01/26/2023 7:39 PM EDT 01/26/2023 8:05 PM EDT Gini Mccarthy PA-C LAB BLOOD ORDERABLES Final Result Performing Organization Address City/State/[facility] Co de Phone Number [facility] [address] [place] [address] * (ABNORMAL) Lipid panel (05/05/2020 10:04 AM EDT) HDL 42 mg/dL [facility] Comment: Interpretation <40 mg/dL: Low HDL cholesterol (major risk factor for CHD) Greater than or equal to 60 mg/dL: High HDL cholesterol ( negative risk factor for CHD) HDL - cholesterol is affected by a number of factors, e.g. smoking, excerise, hormones, sex and age. CHOLESTEROL 114 0 - 240 mg/dL [facility] TRIGLYCERIDES 136 30 - 160 mg/dL [facility] LDL 45(L) 50 - 129 mg/dL [facility] Comment: LDL levels in terms of risk for coronary heart disease: <100 mg/dL: Optimal 100-129 mg/dL: Near or above optimal 130-159 mg/dL: Borderline high 160-189 mg/dL: High >190 mg/dL: Very High CARDIAC RISK RATIO 2.7(L) 3.4 - 5.0 [facility] Blood 05/05/2020 10:0 4 AM EDT 05/05/2020 10:08 AM EDT us Joshua Oswald MD LAB BLOOD ORDERABLES Final Resu lt [facility] [address] [place] [address] from Last 3 Months or Most Recently Relevant to Health Maintenance Insurance WELLSENSE NON NSPG PCP SILVER CLARITY CONNECTORCARE WELLSENSE NON NSPG PCP SILVER CLARITY CONNECTORCARE WELLSENSE NON NSPG PCP SILVER CLARITY CONNECTORCARE WELLSENSE NON NSPG PCP SILVER CLARITY CONNECTORCARE WELLSENSE NON NSPG PCP SILVER CLARITY CONNECTORCARE WELLSENSE NON NSPG PCP SILVER CLARITY CONNECTORCARE WELLSENSE NON NSPG PCP SILVER CLARITY CONNECTORCARE [place] NON NSPG PCP SILVER CLARITY CONNECTORCARE WELLSENSE NON NSPG PCP SILVER CLARITY CONNECTORCARE Care Teams Auction Clerk Relationship Specialty Start Date End Date Carissa Zuniga MD [address] [place] [address] PCP - General Internal Medicine 06/25/19 Joshua Oswald MD [address] [address] [email or web address] LMR Provider 06/08/17 Additional Source Comments The information contained in this document represents components of the legal health record. It is not the complete legal health record.[facility]
--- OUTSIDE RECORDS SUMMARY | 2025-03-20 09:35 | XMS_ITS | Patient Health Record ---
Author Organization [facility] Address [address] [place] [address] Care Team Providers Care Chairman & Chief Executive Officer Name Role Phone Jimena(inactive) Martin ZAMBRANO Primary Care Provider U Chetan Ribera Unavailable [phone] Allergies Allergen (clinical drug ingredient) Drug/Non Drug [...] Problem Status W/U Status Risk Notes Problem Screening for malignant neoplasm of colon (013307517) Special screening for malignant neoplasms, colon (V76.51) Active confirmed Plan Of Treatment Future Test Test Name Order Date COLONOSCOPY 07/20/2011 Medical (General) History Medical History History ICD Code atrial fibrillation hypertension hyperlipidemia Denies [place],DM,CVA,Lung disease,renal dise ase he describes a negative cardiac catheter ization Surgical History Surgery Date(Month/Year) appendectomy knee surgery shoulder surgery
--- OUTSIDE RECORDS SUMMARY | 2025-03-20 09:35 | XMS_ITS | Clinical Summary ---
Author Organization [facility] Address [address] [place] [address] Care Team Providers Care C4 Planner Name Role Phone Unavailable Primary Care Provider [...]
== END 2025-03-20 10:09 | disposition home or self-care (01) ==
LOC: HO.HOS 09:19
PROVIDERS: PCP Internal Medicine; Visit Provider Orthopaedic Surgery
DX: M17.11 Unilateral primary osteoarthritis, right knee (principal)
CPT/HCPCS: 20610

== ENCOUNTER → 2025-03-20 09:18 | Outpatient (BNVA) | payer OTHER, SELFPAY | PROVIDERS: PCP Internal Medicine; Visit Provider Orthopaedic Surgery | DX: M17.11 Unilateral primary osteoarthritis, right knee (principal); Z79.899 Other long term (current) drug therapy | CPT/HCPCS: 20610; J7323 ==

== ENCOUNTER 2025-03-25 09:14 | Outpatient (AMB) | payer OTHER, SELFPAY ==
[2025-03-25 09:33] VITALS: BP 116/70; PULSE 81; O2SAT 96; BMI 32.4
--- NOTE | 2025-03-25 09:33 | A.OFFPC_ITS ---
Vital Signs 03/25/25 09:33 Height 6 ft Weight 239 lb BMI 32.4 BP 116/70 Blood Pressure Location Lt brachial Position Sitting Pulse 81 Pulse Source Pulse Oximeter Pulse Oximetry (%) 96 Oxygen Delivery Method Room Air Intake Visit Reasons: Whitney ROBLEDO w/Dr. Villagran 05/20/25 Supervisor Reactor Fueling Required: No Accompanied by: Self / Same As Patient Allergies ciprofloxacin (From CIPRO) Allergy (Intermediate, Verified 03/25/25 09:46) SWELLING levofloxacin (Levaquin) Allergy (Intermediate, Verified 03/25/25 09:46) facial swelling Medication List - Last Reconciled 03/25/25 by Carissa Lau MD apixaban (Eliquis) 5 mg PO BID Held on 11/17/23. Instructions: Resume on 11/19/23. resume Eliquis on 11/19/23 diltiazem HCl CD 180 mg PO DAILY doxycycline hyclate 100 mg PO BID 90 days [Folding Front Wheeled walker Duration: 99 days] lisinopril 10 mg PO DAILY 90 days lorazepam 1 mg PO BID PRN 29 days sildenafil 50 mg PO simvastatin 40 mg PO BEDTIME tadalafil (Cialis) 5 mg PO DAILY 90 days tamsulosin 0.4 mg PO BEDTIME 90 days testosterone 30 mg/actuation (1.5 mL) 3 pumps topical DAILY 30 days valacyclovir 1,000 mg PO Q8H 7 days Tobacco use date assessed: 10/08/24 Dental Screening Dental Screen Date: 10/08/24 HPI HPI Comments History of Present Illness Details The patient is a 64-year-old male presenting for a preoperative evaluation for a right total knee replacement scheduled for May 20. He has a history of hypertension, which is well controlled with lisinopril 10 mg daily. Additionally, he has atrial fibrillation managed with diltiazem and Eliquis 5 mg twice a day. The patient also has pure hypercholesterolemia, for which he is on simvastatin. He has hypogonadism and is receiving testosterone supplements. In January, laboratory tests showed no significant abnormalities. He denies experiencing chest pain or dyspnea and is capable of climbing stairs, indicating a functional capacity of 5 to 7 METs for activities of daily living. The patient follows up with cardiology for atrial fibrillation and has reported some neurological deficits, including confusion and difficulty finding words during conversations. Neurology has ordered brain imaging and laboratory tests, which are pending, for medical clearance. Cardiology has advised against discontinuing Eliquis before surgery. His surgical history includes a left knee replacement, bilateral knee arthroscopy, prostate surgery, right shoulder arthroplasty, and a colonoscopy without complications. He has a history of smoking but quit some time ago and consumes alcohol only on holidays and special occasions. [facility] Medical History (Updated 03/25/25 @ 09:54 by Carissa Lau MD) Sacroiliitis Sleep apnea Pure hypercholesterolemia Mild recurrent major depression Derangement of right knee Osteoarthritis of right knee Skin lesion Rosacea Hypogonadism in male Gout Chronic pain GERD (gastroesophageal reflux disease) BPH (benign prostatic hyperplasia) Hyperlipidemia PAF (paroxysmal atrial fibrillation) Essential hypertension Surgical History H/O colonoscopy History of left knee replacement History of arthroplasty of left knee History of prior ablation treatment History of prostate surgery History of arthroplasty of right shoulder History of appendectomy History of arthroscopy of right knee History of arthroscopy of left knee Family History Father CAD (coronary artery disease) COPD (chronic obstructive pulmonary disease) Mother No problems noted. Son No problems noted. 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 Current occupational exposures/hazards: No Cognitive needs: No Hearing needs: No Vision needs: No Questionnaire Thrive Questionnaire Date Thrive assessed: 10/06/24 I am a: Patient What is your living situation today?: I have a steady place to live Within the past 12 months, did the food you bought not last and you didn't have the money to get more?: Never true Within the past 12 months, did you worry whether your food would run out before you got money to buy more?: Never true Do you have trouble paying for medicines?: No Do you have trouble getting transportation to medical appointments?: No Do you have trouble paying your heating and electricity bill?: No Do you have trouble taking care of your child, family member or friend?: No Do you have trouble with day-to-day activities such as bathing, preparing meals, shopping, managing finances, etc.?: No Are you currently unemployed and looking for a job?: I choose not to answer this question Are you interested in more education?: No Please select the resources that you would like help with: None Currently or been in a relationship where the following occur: No concerns reported THRIVE Score: 0 RUDY-7 AMB Questionnaire RUDY-7 Date RUDY - 7 assessed: 10/08/24 Source: Developed by Drs. Chetan Ceron, Marielena Ames, Wesly Das and colleagues, with an educational tejinder from [employer]. Review of Systems Const All systems reviewed & are unremarkable except as noted in HPI and below Card Denies chest pain at rest, Denies chest pain with activity, Denies edema, Denies irregular heart rhythm, Denies claudication, Denies dyspnea, Denies dyspnea on exertion, Denies orthopnea, Denies paroxysmal nocturnal dyspnea and Denies slow heart rate Resp Denies cough, Denies dyspnea and Denies dyspnea on exertion GI Denies abdominal pain, Denies change in bowel habits, Denies excessive flatus, Denies nausea and Denies vomiting Physical exam (Primary Care) Vital Signs: Last Vital Signs Pulse 81 03/25/25 09:33 BP 116/70 03/25/25 09:33 Pulse Ox 96 03/25/25 09:33 Oxygen Delivery Method Room Air 03/25/25 09:33 BMI result Body Mass Index 32.4 Tobacco/Smoking Status: Tobacco use Status Tobacco use date assessed 10/08/24 03/25/25 09:45 Patient Tobacco Use Status Former Tobacco user 03/25/25 09:45 Tobacco use type Cigarette 03/25/25 09:45 e-Cigarette/Vaping Use Never Used 03/25/25 09:45 Thrive Assessment: Date of Thrive Assessment Date Thrive assessed 10/06/24 03/25/25 09:45 Currently or been in a relationship where the following occur: No concerns reported Resp Effort & Inspection: normal respiratory effort Auscultation: clear to auscultation bilaterally Cardio Jugular venous distension: no JVD Rate: regular rate Rhythm: regular rhythm Heart sounds: S1 normal heart sound present and S2 normal heart sound present Neuro General: no focal motor deficits Extrem General: Yes full ROM Coding Level of Care Code Est Pt Level 4 (10138) Complex EM visit Add On G2211 Diagnoses Pre-op evaluation Z. Essential hypertension I10 PAF (paroxysmal atrial fibrillation) I48.0 Pure hypercholesterolemia E78.00 Chronic anticoagulation Z79.01 Hypogonadism in male E29.1 Time Spent (min) 24 Assessment & Plan Assessment & Plan (1) Pre-op evaluation: Code(s): Z.81 - Encounter for other preprocedural examination Category: Medical (2) Essential hypertension: Code(s): I10 - Essential (primary) hypertension Category: Medical (3) PAF (paroxysmal atrial fibrillation): Code(s): I48.0 - Paroxysmal atrial fibrillation Category: Medical (4) Pure hypercholesterolemia: Code(s): E78.00 - Pure hypercholesterolemia, unspecified Category: Medical (5) Chronic anticoagulation: Comment: On Arianna Winters [facility] cardiology Code(s): Z79.01 - oysterman (current) use of anticoagulants Category: Medical (6) Hypogonadism in male: Code(s): E29.1 - Testicular hypofunction Category: Medical Plan The patient is scheduled for a right total knee replacement on May 20, and a preoperative evaluation is underway. An EKG will be ordered as part of the preoperative assessment. Medical clearance is pending the results of neurological imaging and laboratory tests, as well as the EKG. The patient is advised to continue his current medications, including lisinopril for hypertension, diltiazem and Eliquis for atrial fibrillation, and simvastatin for hypercholesterolemia. Cardiology has recommended not discontinuing Eliquis before surgery to avoid any risks. Orders: Orders ECG 12 lead EKG Today Z81 - Encounter for other preprocedural examination
--- OUTSIDE RECORDS SUMMARY | 2025-03-25 09:33 | XMS_ITS | Patient Health Record ---
Author Organization [facility] Address [address] [place] [address] Care Team Providers Care Water Treatment Plant Mechanic Name Role Phone Jimena(inactive) Martin ZAMBRANO Primary Care Provider U Chetan Ribera Unavailable [phone] Allergies Allergen (clinical drug ingredient) Drug/Non Drug Allergy documented on EMR Reaction Allergy Type Onset Date Status ciprofloxacin Cipro Unknown Drug Allergy Act jerri Reason For Referral No Information Medications Medication SIG (Take, Route, Fr equency, Duration) Notes Start Date End Date Status Simvastatin 40mg Act ejrri Aspir-81 81mg Active Pradaxa 150mg Active Multaq 400mg Active Terazosin HCl 4mg Ac tive MoviPrep 100 GM as directed Orally 07/20/2011 Active Lisinopril 5mg Activ e Problems Problem Type SNOMED Code ICD Code Onset Dates Problem Status W/U Status Risk Notes Problem Screening for malignant neoplasm of colon ([id number]) Special screening for malignant neoplasms, colon (V76.51) Active confirmed Plan Of Treatment Future Test Test Name Order Date COLONOSCOPY 07/20/2011 Medical (General) History Medical History History ICD Code atrial fibrillation hypertension hyperlipidemia Denies PR,DM,CVA,Lung disease,renal dise ase he describes a negative cardiac catheter ization Surgical History Surgery Date(Month/Year) appendectomy knee surgery shoulder surgery
--- OUTSIDE RECORDS SUMMARY | 2025-03-25 09:33 | XMS_ITS | Clinical Summary ---
Author Organization [facility] Address [address] [place] [address] Care Team Providers Care Agile Java Developer Name Role Phone Unavailable Primary Care Provider [...]
== END 2025-03-25 10:01 | disposition home or self-care (01) ==
LOC: HO.HMCH 09:15
PROVIDERS: PCP Internal Medicine; Visit Provider Internal Medicine
DX: Z01.818 Encounter for other preprocedural examination (principal); I10 Essential (primary) hypertension; I48.0 Paroxysmal atrial fibrillation; E78.00 Pure hypercholesterolemia, unspecified; Z79.01 Long term (current) use of anticoagulants; E29.1 Testicular hypofunction

== ENCOUNTER → 2025-03-25 09:14 | Outpatient (REF) | payer OTHER, SELFPAY ==
--- NOTE | 2025-03-25 10:11 | ECG_ITS ---
Test Reason : PREPROC EXAM Blood Pressure : */* mmHG Vent. Rate : 73 BPM Atrial Rate : 73 BPM P-R Int : 158 ms QRS Dur : 104 ms QT Int : 392 ms P-R-T Axes : 58 -33 62 degrees QTcB Int : 431 ms Normal sinus rhythm Left axis deviation Borderline ECG When compared with ECG of 23-Jan-2023 20:13, No significant change was found Referred By: Carissa Lau Electronically Signed By: STACY SAMANIEGO
== END ==
LOC: HO.CARD 09:14
PROVIDERS: PCP Internal Medicine; Visit Provider Internal Medicine
DX: Z01.818 Encounter for other preprocedural examination (principal); I10 Essential (primary) hypertension; I48.0 Paroxysmal atrial fibrillation; E29.1 Testicular hypofunction; Z79.01 Long term (current) use of anticoagulants
CPT/HCPCS: 93005; 99212

== ENCOUNTER → 2025-03-25 10:11 | Outpatient (BNV) | payer OTHER, SELFPAY | PROVIDERS: PCP Internal Medicine; Visit Provider Internal Medicine | DX: Z13.6 Encounter for screening for cardiovascular disorders (principal) | CPT/HCPCS: 93010 ==

== ENCOUNTER 2025-03-28 15:08 | Outpatient (REF) | payer OTHER, SELFPAY ==
--- OUTSIDE RECORDS SUMMARY | 2025-03-28 15:11 | XMS_ITS | Clinical Summary ---
Author Organization [facility] Address [address] [place] [phone] Phone Care Team Providers Care Shoemaking Finisher Name Role Phone Joshua Oswald MD Unavailable [phone] Carissa Zuniga MD Primary Care Provid er Allergies Active Allergy Reactions Criticality Noted Date Comments Ciprofloxacin Anaphylaxis High 09/26/2017 Medications CARTIA XT 180 mg 24 hr capsuleIndicatio ns:Paroxysmal atrial fibrillation take 1 capsule by mouth once daily 90 capsule 3 05/15/20 19 Active LORazepam (ATIVAN) 1 MG tablet Take 1 mg by mouth as needed. Active doxycycline hyclate (VIBRAMYCIN) 50 MG capsule Take 50 mg by mouth daily. 07/04/20 21 Active multivitamins capsule Take 1 capsule by mouth daily. Active simvastatin (ZOCOR) 40 MG tabletIndication s:Medication refill TAKE ONE TABLET BY MOUTH AT BEDTIME 90 tablet 3 09/12/19 25 Active sildenafiL (VIAGRA) 50 mg tablet TAKE 1 TABLET BY MOUTH NEEDED 30 tablet 3 11/29/19 25 Active ELIQUIS 5 mg tabletIndication s:Paroxysmal atrial fibrillation TAKE ONE TABLET BY MOUTH TWICE A DAY 180 tablet 3 12/20/19 25 Active testosterone (TESTIM) 50 mg/5 gram (1 %) transdermal gel tube Place 50 mg onto the skin daily. Active tamsulosin (FLOMAX) 0.4 mg Cap take one capsule by mouth daily at bedtime 03/05/20 25 Active tadalafiL (CIALIS) 5 MG tablet Take 5 mg by mouth daily as needed for erectile dysfunction . Active lisinopril (PRINIVIL,ZESTRI L) 10 MG tabletIndication s:Essential hypertension Take 0.5 tablets (5 mg total) by mouth daily. 45 tablet 3 03/28/20 25 Active lisinopril (PRINIVIL,ZESTRI L) 10 MG tabletIndication s:Essential hypertension TAKE 1 TABLET BY MOUTH ONCE DAILY 90 tablet 3 02/26/20 20 025 Discontinued testosterone cypionate (DEPO-TESTOTERON E) 200 mg/mL injection Inject 100 mg into the muscle every 7 days. 09/27/19 23 025 Discontinued(No longer taking) Active Problems Problem Noted Date Diagnosed Date Left leg swelling 11/29/2023 Assessment & Plan (11/29/2023 1:47 PM EDT): Has some swelling and discoloration around left ankle. Not aware of any trauma to this area. Says he got a venous ultrasound at [facility] urgent care which was negative for clot. Symptoms have been attributed to a hematoma and he was told to apply heat to the area. Overall he says ankle is uptwister tender but is improving. I have told him to seek medical assistance if he notices swelling worsening or if he were to develop sudden onset symptoms of chest pain/shortness of breath. He says that he might actually get a repeat ultrasound of his leg done at [facility] which has been scheduled for next week. Suspected sleep apnea 04/12/2018 Assessment & Plan (04/12/2018 8:37 AM EDT): History is suggestive of sleep apnea will do a sleep study referral for the same. Coronary artery disease invo lving bois forte coronary artery of bois forte heart without angina pectoris 09/06/2017 Overview (09/26/2017): [...] of breath. He was worked up at [facility] for ACS and this was ruled [...] symptoms. Essential hypertension 09/06/2017 Assessment & Plan (03/28/2025 3:06 PM EDT): Patient is currently on lisinopril for blood pressure management. Patient's blood pressure is hypotensive today and was even lower yesterday. Will have him reduce his lisinopril to 5 mg daily. Patient will bring a blood pressure log to his appointment on 04/01/25 so that I can reevaluate his blood pressures. I recommended that the patient take his blood pressure at least 2 hours after taking his morning medication and see what his values are. May need to discontinue lisinopril altogether. Could also reduce diltiazem to 220 mg daily. Consider an MCT if patient starts having palpitations. Plan: Reduce lisinopril to 5 mg daily, may discontinue if blood pressure log continues to show low blood pressure Bring a blood pressure log to appointment next week on 04/01/2025 Follow-up as scheduled on 07/22/2025 Assessment & Plan (11/29/2023 1:42 PM EDT): [...] fibrillation 09/06/2017 Overview (10/30/2019): 10/2011 AF ablation MF 10/2019 ECHO EF50-55%; DD0 Assessment & Plan (03/28/2025 3:07 PM EDT): Status post ablation. Patient thought he may have had an episode of A-fib yesterday due to his symptoms but I suspect that this is related to his blood pressure. Patient continues on Eliquis for CVA prophylaxis without issue. He is on diltiazem for rate control. May need to decrease this dose depending on his blood pressure. Plan: Continue Eliquis Continue diltiazem Follow-up on 07/22/25 Assessment & Plan (11/29/2023 1:43 PM EDT): [...] fibrillation. It was confirmed on EKG at [facility] as well as here in the [...] 1:45 PM EDT): Reviewed lipid panel from [facility] LDL cholesterol 57. Goal LDL less [...] Encounters Date Type Department Care Team Description 03/28/2025 2:00 PM EDT Office Visit [facility] [address], [address] [place] [address] Nicole Cazares DNP Paroxysmal atrial fibrillation (Primary Dx); Essential hypertension 03/27/2025 10:00 AM EDT Nurse Only [facility] [address], [address] [place] [address] Faheem Solares MD Atrial fibrillation (Primary Dx) 03/26/2025 2:02 PM EDT - 03/26/2025 11:59 PM EDT Hospital Encounter [facility] [address] [place] [address] Rashad Thorpe MD Arrived Discharge Disposition: Home or Self Care 03/25/2025 Transcribe Orders Virtual Department [address] [place] [address] Rashad Thorpe MD TIA (transient ischemic attack) (Primary Dx); Spell of change in speech; Aphasia 02/12/2025 Telephone [facility] [address], [address] [place] [address] Faheem Solares MD 01/20/2025 10:20 AM EDT Office Visit [facility] [address], [address] [place] [address] Faheem Solares MD Pure hypercholesterolemia (Primary Dx); Paroxysmal atrial fibrillation; Essential hypertension; Coronary artery disease involving bois forte coronary artery of bois forte heart without angina pectoris; Dysarthria from Last 3 Months Immunizations Immunization Administration Dates Next Due INFLUENZA, SPLIT VIRUS, TRIVALENT PF 05/10/2017, 03/23/2016 INFLUENZA, SPLIT VIRUS, TRIV ALENT W/ PRESERVATIVE IM 05/05/2010 Influenza Quadrivalent Preservative Free IM 03/22 Influenza Quadrivalent w/ Preservative IM 2018,04/21/2018,05/16/2016 Zoster recombinant 03/16/2018,12/15/2017 Family History Medical History [...] Sign Reading Time Taken Comments Blood Pressure 98/70 03/28/2025 1:54 PM EDT Pulse 74 03/28/2025 1:54 PM EDT Temperature 36.2 C (97.1 F) 05/29/2024 10:40 AM EDT Respiratory Rate 18 05/29/2024 10:40 AM EDT Oxygen Saturation 96% 03/28/2025 1:54 PM EDT Inhaled Oxygen Concentration - - Weight 108.9 kg (240 lb) 03/28/2025 1:54 PM EDT Height 182.9 cm (6' 0.01 ) 03/28/2025 1:54 PM ED T Body Mass Index 32.54 03/28/2025 1:54 PM EDT Plan of Treatment Upcoming Encounters Date Type Department Care Team (Late st Contact Info) Description 04/01/2025 4:00 PM EDT Office Visit [facility] [address] [place] [address] [address]rd Floor, [address] [place] [address] Luca Gonzalez MD [address] [place] [address], [address] [place] [address] 07/22/2025 9:00 AM EST Office Visit [facility] [address] [place] [address] [address] [facility], [address] [place] [address] Faheem Solares MD [address] [place] [address], [address] [place] [address] [email or web address] Health Maintenance Due Date Last Done Comments [...] season) 2024 09/12/2021, 12/11/2020, 11/20/2020 BLOOD PRESSURE 09/27/2025 03/27/2025 SCREENING FOR DIABETES 01/26/2026 01/26/2023 SMOKING Hx and SMOKELESS TOBACCO SCREENING 03/27/2026 03/27/2025 ZOSTER VACCINES Completed 03/16/2018, 12/15/2017 HEPATITIS A [...] Procedure Name Priority Date/Time Associated Diagnosis Comments US CAROTID DUPLEX COMPLETE (BILATERAL) Routine 03/26/2025 3:04 PM EDT TIA (transient ischemic attack) Spell of change in speech Aphasia BASIC METABOLIC PANEL STAT 01/26/2023 7:39 PM EDT LIPID PANEL Routine 05/05/2020 10:04 AM EDT Pure hypercholesterolemia from Last 3 Months or Most Recently Relevant to Health Maintenance Results * US Carotid Duplex Complete (Bilateral) (03/26/2025 3:04 PM EDT) Anatomical Region Laterality Modality Heart, Thoracic Vasculature, Neck Ultrasound 03/26/2025 3:14 PM EDT Impressions 03/26/2025 3:27 PM EDT 1. No stenosis noted in the right internal carotid artery. 2. No stenosis noted in the left internal carotid artery. 3. No stenosis noted in the common carotid arteries bilaterally. 4. Unremarkable external carotid arteries bilaterally. 5. Antegrade flow in the bilateral cervical vertebral arteries. 6. Normal examination of the bilateral subclavian arteries. STENOSIS: Internal carotid artery stenosis by duplex ultrasonography has been validated by comparing findings with angiographic stenosis. NASCET methods were used, where the most severe stenosis represents the numerator, and the normal internal carotid artery diameter distal to the stenosis where the rivas are parallel represents the denominator. Narrative 03/26/2025 3:27 PM EDT US CAROTID DUPLEX COMPLETE (BILATERAL) Referring clinician's provided indication for this examination in [facility]: Outside Radiology Order; TIA TECHNIQUE: A duplex ultrasound evaluation of the common carotid, internal carotid, external carotid, vertebral, and subclavian arteries was performed using montana scale, color duplex and spectral Doppler analysis. COMPARISON: No previous relevant examinations FINDINGS: Exam Quality: Technically adequate exam. RIGHT Common Carotid Artery (cm/s): Proximal Systolic: 92 Proximal Diastolic: 17 Mid Systolic: 101 Mid Diastolic: 17 Distal Systolic: 100 Distal Diastolic: 30 Internal Carotid Artery (cm/s): Proximal Systolic: 114 Proximal Diastolic: 28 Mid Systolic: 68 Mid Diastolic: 21 Distal Systolic: 34 Distal Diastolic: 14 External Carotid Artery (cm/s): Systolic: 118 Diastolic: 23 Vertebral Artery (cm/s): Systolic: 31 Diastolic: 8 Subclavian Artery (cm/s): Systolic: 70 Diastolic: 12 ICA/CCA Ratio: 1.1 ICA Stenosis: Normal ICA Plaque: None Visualized LEFT Common Carotid Artery (cm/s): Proximal Systolic: 105 Proximal Diastolic: 25 Mid Systolic: 73 Mid Diastolic: 18 Distal Systolic: 69 Distal Diastolic: 14 Internal Carotid Artery (cm/s): Proximal Systolic: 59 Proximal Diastolic: 15 Mid Systolic: 60 Mid Diastolic: 20 Distal Systolic: 53 Distal Diastolic: 19 External Carotid Artery (cm/s): Systolic: 106 Diastolic: 20 Vertebral Artery (cm/s): Systolic: 32 Diastolic: 15 Subclavian Artery(cm/s): Systolic: 199 Diastolic: 36 ICA/CCA Ratio: 0.9 ICA Stenosis: Normal ICA Plaque: None Visualized Abbreviations: CCA = Common Carotid Artery. ICA = Internal Carotid Artery. ECA = External Carotid Artery. Vert = Vertebral Artery. ICA/CCA Ratio = maximal ICA PSV divided by the distal CCA PSV. DIRECT TEST FINDINGS: Right: Doppler flow velocities and waveform contours are within normal limits throughout the internal carotid artery, no plaque is visualized. No plaque is visualized in the common carotid artery. Unremarkable external carotid artery. Antegrade flow is noted in the vertebral artery. The subclavian artery is patent. Left: Doppler flow velocities and waveform contours are within normal limits throughout the internal carotid artery, no plaque is visualized. No plaque is visualized in the common carotid artery. Unremarkable external carotid artery. Antegrade flow is noted in the vertebral artery. The subclavian artery is patent. Procedure Note Esther Reyes MD - 03/26/2025 US CAROTID DUPLEX COMPLETE (BILATERAL) Referring clinician's provided indication for this examination in Epic:Outside Radiology Order; TIA TECHNIQUE: A duplex ultrasound evaluation of the common carotid, internalcarotid, external carotid, vertebral, and subclavian arteries wasperformed using montana scale, color duplex and spectral Doppler analysis. COMPARISON: No previous relevant examinations FINDINGS: Exam Quality: Technically adequate exam. RIGHT Common Carotid Artery (cm/s): Proximal Systolic: 92 Proximal Diastolic: 17 Mid Systolic: 101 Mid Diastolic: 17 Distal Systolic: 100 Distal Diastolic: 30 Internal Carotid Artery (cm/s): Proximal Systolic: 114 Proximal Diastolic: 28 Mid Systolic: 68 Mid Diastolic: 21 Distal Systolic: 34 Distal Diastolic: 14 External Carotid Artery (cm/s): Systolic: 118 Diastolic: 23 Vertebral Artery (cm/s): Systolic: 31 Diastolic: 8 Subclavian Artery (cm/s): Systolic: 70 Diastolic: 12 ICA/CCA Ratio: 1.1 ICA Stenosis: Normal ICA Plaque: None Visualized LEFT Common Carotid Artery (cm/s): Proximal Systolic: 105 Proximal Diastolic: 25 Mid Systolic: 73 Mid Diastolic: 18 Distal Systolic: 69 Distal Diastolic: 14 Internal Carotid Artery (cm/s): Proximal Systolic: 59 Proximal Diastolic: 15 Mid Systolic: 60 Mid Diastolic: 20 Distal Systolic: 53 Distal Diastolic: 19 External Carotid Artery (cm/s): Systolic: 106 Diastolic: 20 Vertebral Artery (cm/s): Systolic: 32 Diastolic: 15 Subclavian Artery(cm/s): Systolic: 199 Diastolic: 36 ICA/CCA Ratio: 0.9 ICA Stenosis: Normal ICA Plaque: None Visualized Abbreviations: CCA = Common Carotid Artery. ICA = Internal Carotid Artery. ECA =External Carotid Artery. Vert = Vertebral Artery. ICA/CCA Ratio = maximalICA PSV divided by the distal CCA PSV. DIRECT TEST FINDINGS: Right: Doppler flow velocities and waveform contours are within normallimits throughout the internal carotid artery, no plaque is visualized. [place] is visualized in the common carotid artery. Unremarkable externalcarotid artery. Antegrade flow is noted in the vertebral artery. Thesubclavian artery is patent. Left: Doppler flow velocities and waveform contours are within normallimits throughout the internal carotid artery, no plaque is visualized. [place] is visualized in the common carotid artery. Unremarkable externalcarotid artery. Antegrade flow is noted in the vertebral artery. Thesubclavian artery is patent. IMPRESSION: 1. No stenosis noted in the right internal carotid artery. 2. No stenosis noted in the left internal carotid artery. 3. No stenosis noted in the common carotid arteries bilaterally. 4. Unremarkable external carotid arteries bilaterally. 5. Antegrade flow in the bilateral cervical vertebral arteries. 6. Normal examination of the bilateral subclavian arteries. STENOSIS: Internal carotid artery stenosis by duplex ultrasonography hasbeen validated by comparing findings with angiographic stenosis. NASCETmethods were used, where the most severe stenosis represents thenumerator, and the normal internal carotid artery diameter distal to thestenosis where the rivas are parallel represents the denominator. us Rashad Thorpe MD US NEUROVASCULAR Final Re sult * (ABNORMAL) Basic metabolic panel (01/26/2023 7:39 PM EDT) SODIUM 138 133 - 146 mmol/L [facility] CHLORIDE 103 96 - 108 mmol/L [facility] POTASSIUM 4.5 3.3 - 5.1 mmol/L [facility] CO2 27 21 - 35 mmol/L [facility] BUN 20(H) 6 - 19 mg/dL [facility] CREATININE 0.80 0.5 - 1.5 mg/dL [facility] GLUCOSE 112(H) 70 - 99 mg/dL [facility] CALCIUM 9.0 8.4 - 10.3 mg/dL [facility] EGFR 100 >59 mL/min/1.7 3m2 [facility] Comment:Estimated glomerular filtration rate calculated using the CKD-EPI refit equation. ANION GAP 13 10 - 20 mmol/L [facility] Blood 01/26/2023 7:39 PM EDT 01/26/2023 8:05 PM EDT us Gini Mccarthy PA-C LAB BLOOD ORDERABLES Final Result Performing Organization Address [facility]/ZIP Co de Phone Number [address] [phone] * (ABNORMAL) Lipid panel (05/05/2020 10:04 AM EDT) HDL 42 mg/dL [facility] Comment: Interpretation <40 mg/dL: Low HDL cholesterol (major risk factor for CHD) Greater than or equal to 60 mg/dL: High HDL cholesterol ( negative risk factor for CHD) HDL - cholesterol is affected by a number of factors, e.g. smoking, excerise, hormones, sex and age. CHOLESTEROL 114 0 - 240 mg/dL [facility] TRIGLYCERIDES 136 30 - 160 mg/dL [facility] LDL 45(L) 50 - 129 mg/dL [facility] Comment: LDL levels in terms of risk for coronary heart disease: <100 mg/dL: Optimal 100-129 mg/dL: Near or above optimal 130-159 mg/dL: Borderline high 160-189 mg/dL: High >190 mg/dL: Very High CARDIAC RISK RATIO 2.7(L) 3.4 - 5.0 [facility] Blood 05/05/2020 10:0 4 AM EDT 05/05/2020 10:08 AM EDT Joshua Oswald MD LAB BLOOD ORDERABLES Final Resu lt Performing Organization Address [facility]/ZIP Co de Phone Number [address] [phone] from Last 3 Months or Most Recently Relevant to Health Maintenance Insurance [facility] NSP [facility] NSPG PCP [facility] [employer] [facility] WELL[employer]ENSE NON NSPG PCP S[employer] [facility] [place]LL[place] NON NSPG PCP [employer] CONNECTORCARE [place] NON NSPG PCP S[employer] CLARITY CONNECTORCARE [place] NON NSPG PCP S[employer]VER [employer]ARITY CONNECTORCARE [place] NON NSPG PCP S[place] [place] NON N[place]G PCP S[place] [place] NON NSPG PCP [facility] CONNE[facility] Care Teams Shoemaking Finisher Relationship Specialty Start Date End Date Carissa Zuniga MD [address] [place] [address] PCP - General Internal Medicine 06/25/19 Joshua Oswald MD [address] [place] [id number] [email or web address] Historical LMR Provider 06/08/17 Additional Source Comments The information contained in this document represents components of the legal health record. It is not the complete legal health record.[facility]
--- OUTSIDE RECORDS SUMMARY | 2025-03-28 15:11 | XMS_ITS | Clinical Summary ---
Author Organization [facility] ity Address [address] [place] [address] Care Team Providers Care Filter Tank Tender Name Role Phone Unavailable Primary Care Provider [...]
--- OUTSIDE RECORDS SUMMARY | 2025-03-28 15:11 | XMS_ITS | Patient Health Record ---
Author Organization [facility] Address [address] [place] [address] Care Team Providers Care Warp Yarn Sorter Name Role Phone Jimena(inactive) Martin ZAMBRANO Primary Care Provider U Chetan Ribera Unavailable [phone] Allergies Allergen (clinical drug ingredient) Drug/Non Drug [...]
[2025-03-28 16:50] LABS: Thyroid Stimulating Hormone 1.18 uIU/mL (0.32-4.0)
[2025-03-28 17:16] LABS: Folate 13.9 ng/mL (> or = 4.0); Vitamin B12 576 pg/mL (200-900)
[2025-03-31 08:08] LABS: Syphilis Screen Nonreactive (Nonreactive)
== END 2025-03-28 15:09 | disposition home or self-care (01) ==
LOC: HO.LAB 15:08
PROVIDERS: Internal Medicine; PCP Internal Medicine; Visit Provider Psychiatry & Neurology Neurology
DX: Z11.3 Encounter for screening for infections with a predominantly sexual mode of transmission (principal); Z01.84 Encounter for antibody response examination; R41.3 Other amnesia
CPT/HCPCS: 36415; 82607; 82746; 84443; 86364; 86780

== ENCOUNTER 2025-03-29 09:54 | Outpatient (REF) | payer OTHER, SELFPAY ==
--- NOTE | ~2025-03-29 | CT_ITS ---
CLINICAL HISTORY: M17.11 - Unilateral primary osteoarthritis, right knee --- Additional Notes or Special Instructions: per [facility] protocol CT right lower extremity without intravenous contrast Comparison: DX/SR - XR KNEE 3 VIEWS RIGHT - 01/20/25 12:20 EDT Findings: Atherosclerotic vascular calcifications. Severe tricompartmental osteoarthritis of the right knee. Small knee joint effusion. Chronic appearing calcifications adjacent to the knee which may be due to intra-articular loose bodies and chondrocalcinosis. Moderate degenerative changes of the tibiotalar joint. Chronic appearing calcifications adjacent to the posterior aspect of the lateral malleolus. Chronic appearing calcifications adjacent to the medial ankle/medial malleolus. IMPRESSION: 1. Severe tricompartmental osteoarthritis of the right knee. 2. Small knee joint effusion. 3. Moderate degenerative changes of the tibiotalar joint. This document has been electronically signed by: Dario Almanzar DO on 03/31/2025 10:39:58
== END 2025-03-29 09:55 | disposition home or self-care (01) ==
LOC: HO.CT 09:54
PROVIDERS: PCP Internal Medicine; Visit Provider Orthopaedic Surgery
DX: M17.11 Unilateral primary osteoarthritis, right knee (principal)
CPT/HCPCS: 73700

== ENCOUNTER → 2025-03-29 09:56 | Outpatient (BNV) | payer OTHER, SELFPAY | PROVIDERS: PCP Internal Medicine; Visit Provider Family Medicine | DX: M17.11 Unilateral primary osteoarthritis, right knee (principal); M25.461 Effusion, right knee | CPT/HCPCS: 73700 ==

== ENCOUNTER → 2025-04-14 10:53 | Outpatient (BNVA) | payer OTHER, SELFPAY | DX: Z01.818 Encounter for other preprocedural examination (principal) ==

== ENCOUNTER 2025-05-14 09:37 | Outpatient (REF) | payer OTHER, SELFPAY ==
--- NOTE | ~2025-05-14 | US_ITS ---
EXAMINATION: US RETROPERITONEAL COMPLETE (RENAL) CLINICAL INFORMATION: Overactive bladder.. COMPARISON: None available. TECHNIQUE: Real-time imaging of the kidneys and bladder. FINDINGS: RIGHT KIDNEY: 12 x 7 x 6 cm (SAG x AP x TRV). Normal echotexture. Normal renal cortical thickness. No hydronephrosis. There is a 2.8 cm anechoic lesion at the corticomedullary junction/parapelvic midportion without nodular components were flow on color Doppler interrogation. LEFT KIDNEY: 12 x 6 x 5 cm (SAG x AP x TRV). Normal echotexture. Normal renal cortical thickness. No hydronephrosis. No solid or cystic lesion. BLADDER: Fluid-filled . Bilateral ureteral jets are demonstrated. Prevoid bladder volume is 325 mL. Postvoid bladder volume is 117 mL. Prostate gland is prominent and measures 5.2 x 5.5 x 5 point meters and volume: 78 cc. US/US retroperitoneal comp IMPRESSION: No hydronephrosis. 117 cc retained urine in a post void image. Probable benign prostate hyperplasia versus less likely malignancy. Prostate gland volume: 70 cc. 2.8 cm cyst, right kidney.. Electronically signed by: Florian Reynoso MD 05/14/2025 11:03 AM EDT
--- OUTSIDE RECORDS SUMMARY | 2025-05-14 11:31 | XMS_ITS | Patient Health Record ---
Author Organization [facility] Address [address] [place] [address] Care Team Providers Care Regional Sales Manager Name Role Phone Jimena(inactive) Martin ZAMBRANO Primary Care Provider U Chetan Ribera Unavailable [phone] Allergies Allergen (clinical drug ingredient) Drug/Non Drug [...] Problem Screening for malignant neoplasm of colon (172195059) Special screening for malignant neoplasms, colon (V76.51) Active confirmed Plan Of Treatment Future Test Test Name Order Date COLONOSCOPY 07/20/2011 Medical (General) History Medical History History ICD Code atrial fibrillation hypertension hyperlipidemia Denies MO,DM,CVA,Lung disease,renal dise ase he describes a negative cardiac catheter ization Surgical History Surgery Date(Month/Year) appendectomy knee surgery shoulder surgery
--- OUTSIDE RECORDS SUMMARY | 2025-05-14 11:31 | XMS_ITS | Encounter Summary ---
Author Organization [facility] Address [address] [place] [id number] Phone Care Team Providers Care Wire Basket Maker Name Role Phone Joshua Oswald MD Unavailable [phone] Carissa Zuniga MD Primary Care Provid er Encounter Details Date Type Department Care Team (Late st Contact Info) Description 04/30/2025 Procedure Pass Echo Lab [place] [place] [address] Social History Tobacco Use Types Packs/Day Years Used Date Smoking Tobacco: Former Cigarettes Q uit: 09/26/1997 Smokeless Tobacco: Never Alcohol Use Standard Drinks/Week Comments No 0 [...] Orientation Straight 05/23/2024 8: 27 AM EDT documented as of this encounter Plan of Treatment Upcoming Encounters Date Type Department Care Team (Latest Contact Info) Description 07/22/2025 9:00 AM EST Ancillary Procedure [facility] [address], [address] [place] [address] Faheem Solares MD [address] [facility], [address] [address] [email or web address] 04/10/2026 9:00 AM EDT Ancillary Procedure [facility] [address], [address] [place] [address] Chetan Mercado MD, [place] [address] [facility], [address] [address] [email or web address] documented as of this encounter Visit Diagnoses Not on filedocumented in this encounter Care Teams Wire Basket Maker Relationship Specialty Start Date End Date Carissa Zuniga MD [address] [place] [address] PCP - General Internal Medicine 06/25/19 Joshua Oswald MD [address] [address] [email or web address] LMR Provider 06/08/17 documented as of this encounter Additional Source Comments The information contained in this document represents components of the legal health record. It is not the complete legal health record.[facility]
--- OUTSIDE RECORDS SUMMARY | 2025-05-14 11:31 | XMS_ITS | Clinical Summary ---
Author Organization [facility] Address [address] [place] [phone] Phone Care Team Providers Care Copyholder Name Role Phone Joshua Oswald MD Unavailable [phone] Carissa Zuniga MD Primary Care Provid er Allergies Active Allergy Reactions Criticality Noted Date Comments Ciprofloxacin Anaphylaxis High 09/26/2017 Medications CARTIA XT 180 mg 24 hr capsuleIndication s:Paroxysmal atrial fibrillation take 1 capsule by mouth once daily 90 capsule 3 9 Active LORazepam (ATIVAN) 1 MG tablet Take 1 mg by mouth as needed. Up to 2 tabs per day prn Active doxycycline hyclate (VIBRAMYCIN) 50 MG capsule Take 50 mg by mouth daily. Dose unknown 1 Active multivitamins capsule Take 1 capsule by [...] Place 50 mg onto the skin daily. Dose unknown Active tamsulosin (FLOMAX) 0.4 mg Cap take one capsule by mouth daily at bedtime 5 Active tadalafiL (CIALIS) 5 MG tablet Take 5 mg by mouth daily. Active lisinopril (PRINIVIL,ZESTRIL ) 5 MG tabletIndications :Essential hypertension Take 1 tablet (5 mg total) by mouth daily. 30 tablet 11 5 Active Active Problems Problem Noted Date Diagnosed Date Left leg swelling 11/29/2023 Assessment & Plan (11/29/2023 1:47 PM EDT): Has some swelling and discoloration around left ankle. Not aware of any trauma to this area. Says he got a venous ultrasound at [facility] urgent care which was negative for clot. Symptoms have been attributed to a hematoma and he was told to apply heat to the area. Overall he says ankle is shear tender but is improving. I have told him to seek medical assistance if he notices swelling worsening or if he were to develop sudden onset symptoms of chest pain/shortness of breath. He says that he might actually get a repeat ultrasound of his leg done at [facility] which has been scheduled for next week. Suspected sleep apnea 04/12/2018 Assessment & Plan (04/12/2018 8:37 AM EDT): History is suggestive of sleep apnea will do a sleep study referral for the same. Coronary artery disease invo lving pauma coronary artery of pauma heart without angina pectoris 09/06/2017 Overview (09/26/2017): [...] of breath. He was worked up at [facility] for ACS and this was ruled [...] fibrillation. It was confirmed on EKG at [facility] as well as here in the office. [...] 1:45 PM EDT): Reviewed lipid panel from [facility] LDL cholesterol 57. Goal LDL less than [...] Encounters Date Type Department Care Team Description 05/07/2025 2:15 PM EDT - 05/07/2025 11:59 PM EDT Hospital Encounter [facility] [address] [place] [address] Nicole Cazares DNP Discharge Disposition: Home or Self Care 04/30/2025 Procedure Pass Echo Lab [address] [place] [address] 04/30/2025 Orders Only [facility] [address] [facility], [address] [place] [address] Nicole Cazares DNP Preop examination (Primary Dx); Essential hypertension 04/30/[address] [facility], [address] [place] [address] Nicole Cazares DNP 04/01/2025 4:00 PM EDT Office Visit [address] [place] [address], [address] [place] [address] Luca Gonzalez MD NERY on CPAP (Primary Dx) 03/28/2025 2:00 PM EDT Office Visit [address] [place] [address], [address] [place] [address] Nicole Cazares DNP Paroxysmal atrial fibrillation (Primary Dx); Essential hypertension 03/28/[address] [facility], [address] [place] [address] Nicole Cazares DNP 03/27/2025 10:00 AM EDT Nurse Only [address] [facility], [address] [place] [address] Faheem Solares MD Atrial fibrillation (Primary Dx) 03/26/2025 2:02 PM EDT - 03/26/2025 11:59 PM EDT Hospital Encounter [facility] [address] [place] [address] Rashad Thorpe MD Discharge Disposition: Home or Self Care 03/25/2025 Transcribe Orders [facility] Department [address] [place] [address] Rashad Thorpe MD TIA (transient ischemic attack) (Primary Dx); Spell of change in speech; Aphasia 02/12/2025 Telephone [facility] [address] 3rd Floor, [address] [place] [address] Faheem Solares MD from Last 3 Months Immunizations Immunization Administration [...] Sign Reading Time Taken Comments Blood Pressure 102/62 04/01/2025 3:54 PM EDT Pulse 75 04/01/2025 3:54 PM EDT Temperature 36.2 C (97.1 F) 05/29/2024 10:40 AM EDT Respiratory Rate 18 05/29/2024 10:40 AM EDT Oxygen Saturation 96% 04/01/2025 3:54 PM EDT Inhaled Oxygen Concentration - - Weight 108 kg (238 lb) 04/01/2025 3:54 PM EDT Height 182.9 cm (6' 0.01 ) 04/01/2025 3:54 PM ED T Body Mass Index 32.27 04/01/2025 3:54 PM EDT Plan of Treatment Upcoming Encounters Date Type Department Care Team (Latest Contact Info) Description 07/22/2025 9:00 AM EST Ancillary Procedure [facility] [address] [place] [address] [place] [address], [address] [place] [address] Faheem Solares MD [address] [place] [address], [address] [address] 04/10/2026 9:00 AM EDT Ancillary Procedure [facility] [address] [place] [address] [facility], [address] [place] [address] Chetan Mercado MD, MS [address] [place] [address], [address] [address] Health Maintenance Due Date Last Done Comments Adult Td,Tdap Booster 1960 DEPRESSION SCREENING 1972 HEPATITIS C SCREENING 1978 HIV ONE-TIME SCREENING (18-65 YEARS) 1978 COLOGUARD 2005 COLONOSCOPY 2005 COLORECTAL CANCER SCREENING 2005 FIT TEST 2005 FOBT 2005 SIGMOIDOSCOPY 2005 VIRTUAL COLONOSCOPY 2005 PNEUMOCOCCAL VACCINES (50+ years) (2 of 2 - PCV) 01/25/2012 01/24/2011 RSV VACCINE (1 - Risk 60-74 years 1-dose series) 2020 LIPID PANEL 05/05/2021 05/05/2020, 03/02/2018 CREATININE LEVEL 01/27/2024 01/26/2023, , 03/02/2018 POTASSIUM LEVEL 01/27/2024 01/26/2023, 04/21, 03/02/2018 INFLUENZA VACCINE (#1) 2025 9, 04/21/2018, 05/10/2017, Additional history exists COVID-19 VACCINE ( season) 2025 09/12/2021, 12/11/2020, 11/20/2020 BLOOD PRESSURE 10/02/2025 04/01/2025 SCREENING FOR DIABETES 01/26/2026 01/26/2023 SMOKING Hx and SMOKELESS TOBACCO SCREENING 04/01/2026 04/01/2025 ZOSTER VACCINES Completed 03/16/2018, 12/15/2017 HEPATITIS A [...] Procedure Name Priority Date/Time Associated Diagnosis Comments TTE COMPREHENSIVE Routine 05/07/2025 3:1 1 PM EDT Preop examination Essential hypertension US CAROTID DUPLEX COMPLETE (BILATERAL) Routine 03/26/2025 3:04 PM EDT TIA (transient ischemic attack) Spell of change in speech Aphasia BASIC METABOLIC PANEL STAT 01/26/2023 7:39 PM EDT LIPID PANEL Routine 05/05/2020 10:04 AM EDT Pure hypercholesterolemia from Last 3 Months or Most Recently Relevant to Health Maintenance Results * TTE COMPREHENSIVE (05/07/2025 3:11 PM EDT) Height 183 cm Weight 108 kg Systolic BP 102 mmHg Diastolic BP 62 mmHg Interventricular Septum Thickness 10 6 - 11 mm Left Ventricle Internal Diameter End Diastole 45 42 - 58 mm Left Ventricle Internal Diameter End Systole 31 <40 mm Left Ventricular Outflow Tract Diameter 24.0 mm Left Ventricular Posterior Wall Thickness 9 6 - 11 mm Left Ventricle Ea Lateral Wave Speed 9.4 cm/s Left Ventricle Ea Septal Wave Speed 9.3 cm/s Ejection Fraction 59 50 - 75 Percent Left Atrium Dimension Anterior-Posterior 35 15 - 40 mm Aortic Valve Mean Gradient 4 mmHg Aortic Valve Time Velocity Integral 307.0 mm Aortic Valve Peak Velocity 1.4 m/s Aortic Valve Peak Gradient 8 mmHg Aortic Arch Diameter 27 mm Aortic Sinus Diameter 41 <40 mm Ascending Aorta Diameter 43 <36 mm Inferior Vena Cava Diameter 22 <21 mm Mitral Valve Deceleration Time 211 ms Left Ventricle A Wave Speed 72.8 cm/s Left Ventricle E Wave Speed 65.5 cm/s Right Ventricle Basal Diameter 32 25 - 41 mm Tricuspid Valve Peak Velocity 2.4 m/s Raw LV EF% 53 % MV E/E' Tissue Velocity Lateral 6.97 Relative Wall Thickness 0.40 0.22 - 0.42 MV E/A ratio 0.9 MV E/e' septal 7.04 Left Ventricle E/e' Average 7.0 Aortic Valve Prosthetic Peak Gradient 8 mmHg Aorta Sinus Index by Height 2.24 cm/m Aorta Sinus CSA index by Height 7.21 cm2/m Asc Aorta CSA Index by Height 7.93 cm2/m Right Ventricle to Right Atrium Pressure Gradient 23 mmHg Right Ventricle Peak Systolic Pressure (Assuming RAP 10) 33 mmHg MGB CV ECHO TV RVSP (ASSUMING RAP OF 5) 28 mmHg RVSP (Exclusive of RAP) 23 mmHg Echo E/Ea 7.04 Body Surface Area 2.29 m2 Left Atrial Volume Index 28 16 - 34 mL/m2 Right Ventricle Peak Systolic Pressure 26 mmHg Right Ventricle TAPSE 28 >=17 mm Right Ventricle Pulse Doppler S Wave 15.0 >=9.5 cm/s Left Ventricle indexed to BSA 62.4 g/m2 Left Atrial Volume 64 mL Left Atrial Volume Index by Height 35 mL/m Right Atrium Area 12 cm2 Right Atrium Area index 5 cm2/m2 Aortic Valve Prosthetic Mean Gradient 4 mmHg Aortic Valve Sinus Index by BSA 18 mm/m2 Ascending Aorta Index 19 mm/m2 Right Atrium Pressure Estimated 3 mmHg Ascending Aorta Index 19 mm Aortic Sinus Index 18 mm Ascending Aorta Diameter 19 mm Aortic Valve Sinus Index 1 18 20 - 32 mm AO ASC DIAM BSA INDEX 18.78 Anatomical Region Laterality Modality Heart Ultrasound Narrative 05/09/2025 11:30 AM EDT Images from the original result were not included. 1. The indication is hypertension. The estimated ejection fracture left ventricle is normal is 55 to 60%. Diastolic function is normal left ventricular thickness is normal regional wall motion is normal. 2. Normal RV size and function. 3. Trileaflet aortic valve it is poorly seen the mean gradient across the valve is 4 mmHg the ascending aortic root is 43 mm. 4. Trace to mild mitral and trace to mild tricuspid sufficiency, the PA pressure is normal. 5. Normal pericardium and there is no prior echo available for comparison. Left Ventricle The left ventricle is normal in size. There is normal wall thickness. There is normal left ventricular systolic function. The LV ejection fraction is 59% (calculated via the single dimension method). There are no wall motion abnormalities. LV diastolic function appears within normal limits for age. The E/A ratio is 0.9. The e' septal wave velocity is 9.3 cm/s. The e' lateral wave velocity is 9.4 cm/s. The average E/e' ratio is 7.0. Right Ventricle The right ventricle is normal in size. The RV basal dimension is 32 mm. There is normal right ventricular systolic function. TAPSE is 28 mm. RV S' wave is 15.0 cm/s. Left Atrium The left atrium is normal in size. The left atrial volume is 64 mL. There are normal flow patterns in the pulmonary vein. Right Atrium The right atrium is normal in size. The right atrial area is 12 cm2. The IVC is dilated with normal inspiratory collapse. This is consistent with normal RA pressure. The IVC diameter is 22 mm (normal: <= 21 mm). Hepatic veins are normal in size. Mitral Valve There is mitral valve thickening. There is no mitral stenosis. There is trace to mild mitral regurgitation. Tricuspid Valve The tricuspid valve appears normal. There is no tricuspid stenosis. There is trace to mild tricuspid regurgitation. The RV systolic pressure was calculated at 26 mmHg (using TR peak velocity of 2.4 m/s and assuming an RA pressure of 3 mmHg). Aortic Valve The morphology of the valve cannot be determined (cannot rule out bicuspid valve). There is leaflet thickening without stenosis. The aortic valve peak velocity is 1.4 m/s. The peak and mean aortic valve gradients are 8 mmHg and 4 mmHg respectively. There is no aortic regurgitation. The aortic sinuses are normal in size. The aortic sinus diameter is 41 mm. The ascending aorta is mildly dilated. The ascending aortic diameter is 43 mm. The ascending aorta index by BSA is 19 mm/m2. Pulmonic Valve The pulmonic valve is suboptimally visualized. Pericardium There is no pericardial effusion. There are no pleural effusions. General Findings The image quality was adequate. Technique(s) used in the evaluation: Color flow Doppler and Spectral Doppler. The predominant rhythm during the study was sinus. Comparison Findings There are no prior studies for comparison. IAS/IVS The interatrial septum appears normal. There is no evidence of patent foramen ovale (PFO). The interventricular septum appears normal. There is no evidence of a ventricular septal defect. formerly [facility] CV ECHO ORDERABLES Final Result * US Carotid Duplex Complete (Bilateral) (03/26/2025 3:04 PM EDT) Anatomical Region Laterality Modality Heart, Thoracic Vasculature, Neck Ultrasound 03/26/2025 3:1 4 PM EDT Impressions 03/26/2025 3:27 PM EDT [...] clinician's provided indication for this examination in Epic: Outside Radiology Order; TIA TECHNIQUE: A duplex [...] clinician's provided indication for this examination in [facility]:Outside Radiology Order; TIA TECHNIQUE: A duplex ultrasound [...] represents the denominator. us Rashad Thorpe MD CV US NEUROVASCULAR Final Re sult * (ABNORMAL) Basic metabolic panel (01/26/2023 7:39 PM EDT) SODIUM 138 133 - 146 mmol/L [facility] CHLORIDE 103 96 - 108 mmol/L [facility] POTASSIUM 4.5 3.3 - 5.1 mmol/L [facility] CO2 27 21 - 35 mmol/L [facility] BUN 20(H) 6 - 19 mg/dL [facility] CREATININE 0.80 0.5 - 1.5 mg/dL [facility] GLUCOSE 112(H) 70 - 99 mg/dL [facility] CALCIUM 9.0 8.4 - 10.3 mg/dL [facility] EGFR 100 >59 mL/min/1.7 3m2 [facility] Comment:Estimated glomerular filtration rate calculated using the CKD-EPI refit equation. ANION GAP 13 10 - 20 mmol/L [facility] Blood 01/26/2023 7:39 PM EDT 01/26/2023 8:05 PM EDT us Gini Mccarthy PA-C LAB BLOOD ORDERABLES Final Result [facility] [address] [place] [address] * (ABNORMAL) Lipid panel (05/05/2020 10:04 AM EDT) HDL 42 mg/dL [facility] Comment: Interpretation <40 mg/dL: Low HDL cholesterol (major risk factor for CHD) Greater than or equal to 60 mg/dL: High HDL cholesterol ( negative risk factor for CHD) HDL - cholesterol is affected by a number of factors, e.g. smoking, excerise, hormones, sex and age. CHOLESTEROL 114 0 - 240 mg/dL [facility] TRIGLYCERIDES 136 30 - 160 mg/dL [facility] LDL 45(L) 50 - 129 mg/dL [facility] Comment: LDL levels in terms of risk for coronary heart disease: <100 mg/dL: Optimal 100-129 mg/dL: Near or above optimal 130-159 mg/dL: Borderline high 160-189 mg/dL: High >190 mg/dL: Very High CARDIAC RISK RATIO 2.7(L) 3.4 - 5.0 [facility] Blood 05/05/2020 10:0 4 AM EDT 05/05/2020 10:08 AM EDT us Joshua Oswald MD LAB BLOOD ORDERABLES Final Resu lt [facility] [address] [place], [place] [id number] from Last 3 Months or Most Recently Relevant to Health Maintenance Insurance [facility] NON NSP [place] [place] [facility] NON NSPG PCP [facility]ILVER CLARITY CONNECTORC[facility] [employer]LL[place]ENSE NON NSPG PCP SILVER CLARITY CONNECTORCARE WELL[place]ENSE NON NSPG PCP SILVER CLARITY CONNECTORCARE WELLSENSE NON NSPG PCP SILVER CLARITY CONNECTORCARE WELLSENSE NON NSPG PCP SILVER CLARITY CONNECTORCARE WELLSENSE NON NSPG PCP SILVER CLARITY CONNECTORCARE WELLSENSE NON NSPG PCP SILVER CLARITY CONNECTORCARE WELLSENSE NON NSPG PCP [place] [facility] CONNECTORCARE Care Teams Copyholder Relationship Specialty Start Date End Date Carissa Zuniga MD [address] [place] [address] PCP - General Internal Medicine 06/25/19 Joshua Oswald MD [address] [place] [address] [email or web address] Historical LMR Provider 06/08/17 Additional Source Comments The information contained in this document represents components of the legal health record. It is not the complete legal health record.[facility]
--- OUTSIDE RECORDS SUMMARY | 2025-05-14 11:31 | XMS_ITS | Encounter Summary ---
Author Organization [facility] Address [address] [address] Phone Care Team Providers Care Purchasing Manager Name Role Phone JimenaMartin Dimitrios NOVA Unavailable [phone] Joshua Oswald MD Unavailable [phone] Carissa Zuniga MD Primary Care Provid er Reason for Referral * - Closed Specialty Diagnoses / Procedures Referred By Yumiko allen Referred To Contact Diagnoses Paroxysmal atrial fibrillation Procedures MCT (Mobile Cardiac Telemetry) Faheem Solares MD Phone: tel: fax: [email or web address]:[email or web address] Referral ID Status Reason Start Date Expiration Date Visits Re quested Visits Authorized [id number] Closed 07/30/2021 07/30/2022 1 1 Encounter Details Date Type Department Care Team (Latest Contact Info) Description 07/30/2021 Ancillary Orders [facility] [address] [place] [address] 3rd Floor, [address] [place] [address] Faheem Solares MD 22 [facility], [address] [address] [email or web address] Paroxysmal atrial fibrillation Social History Tobacco Use Types Packs/Day Years Used Date Smoking Tobacco: Former Cigarettes Q uit: 09/26/1997 Smokeless Tobacco: Never Alcohol Use Standard Drinks/Week Comments No 0 (1 standard drink = 0.6 oz pur e alcohol) Sex and Gender Information Value Date Recorded Sex Assigned at Male 01/26/2023 6:41 PM EDT Legal Sex Male 9:47 PM EDT Gender Identity Male 01/26/2023 6:41 PM EDT Sexual Orientation Straight 05/23/2024 8: 27 AM EDT documented as of this encounter Plan of Treatment Upcoming Encounters Date Type Department Care Team (Latest Contact Info) Description 07/22/2025 9:00 AM EST Ancillary Procedure [facility] 22 [facility] 3rd Floor, [address] [place] [address] Faheem Solares MD 22 [facility], [address] [address] 04/10/2026 9:00 AM EDT Ancillary Procedure [facility] [address], [address] [place] [address] Chetan Mercado MD, MS 22 [facility], [address] [address] [email or web address] Scheduled Orders Name Type Priority Associated Diagnoses Orde r Schedule MCT (Mobile Cardiac Telemetry) Cardiac Monitors Routine Paroxysmal atrial fibrillation Expected: 07/23/2021, Expires: 10/21/2021 documented as of this encounter Visit Diagnoses Diagnosis Paroxysmal atrial fibrillation Atrial fibrillation documented in this encounter Care Teams Purchasing Manager Relationship Specialty Start Date End Date Carissa Zuniga MD [address] [place] [address] PCP - General Internal Medicine 06/25/19 Martin Hess DO [address] [place] [address] Historical LMR Provider 06/08/17 Joshua Oswald MD [address] [address] [email or web address] Historical LMR Provider 06/08/17 documented as of this encounter Additional Source Comments The information contained in this document represents components of the legal health record. It is not the complete legal health record.[facility]
--- OUTSIDE RECORDS SUMMARY | 2025-05-14 11:31 | XMS_ITS | Encounter Summary ---
Author Organization [facility] Address [address] [place] [address] Phone Care Team Providers Care Obstetrics Teacher Name Role Phone Joshua Oswald MD Unavailable [phone] Carissa Zuniga MD Primary Care Provid er Reason for Referral * Hospital - Outpatient - Closed Specialty Diagnoses / Procedures Referred By Yumiko allen Referred To Contact Radiology Diagnoses TIA (transient ischemic attack) Spell of change in speech Aphasia Procedures US Carotid Duplex Complete (Bilateral) Rashad Thorpe MD [address] [place] [address], [address] [place] [address] Phone: tel: fax: mailto:[email or web address] Referral ID Status Reason Start Date Expiration Date Visits Re quested Visits Authorized [id number] Closed 03/25/2025 03/25/2026 1 1 Encounter Details Date Type Department Care Team (Latest Contact Info) Description 03/25/2025 Transcribe Orders Virtual Department [address] [place], [place] [phone] Rashad Thorpe MD [address] [place] [address], [address] [place], [place] [id number] [email or web address] TIA (transient ischemic attack) (Primary Dx); Spell of change in speech; Aphasia Social History Tobacco Use Types Packs/Day Years [...] Description 07/22/2025 9:00 AM EST Ancillary Procedure [facility] [address] Floor, [address] [place] [address] Faheem Solares MD [address] [place] [address], [address] [address] 04/10/2026 9:00 AM EDT Ancillary Procedure [facility] [address], [address] [place] [address] Chetan Mercado MD, MS 22 [facility], [address] [place] [address] [email or web address] documented as of this encounter Results * US Carotid Duplex Complete (Bilateral) [...] Thorpe MD US NEUROVASCULAR Final Re sult documented in this encounter Visit Diagnoses Diagnosis TIA (transient ischemic attack)- Primary Unspecified transient cerebral ischemia Spell of change in speech Aphasia TIA (transient ischemic attack) Unspecified transient cerebral ischemia Spell of change in speech Aphasia documented in this encounter Care Teams Obstetrics Teacher Relationship Specialty Start Date End Date Carissa Zuniga MD [address] [place] [address] PCP - General Internal Medicine 06/25/19 Joshua Oswald MD [address] [place] [phone] [email or web address] Historical LMR Provider 06/08/17 documented as of this encounter Additional Source Comments The information contained in this document represents components of the legal health record. It is not the complete legal health record.[facility]
--- OUTSIDE RECORDS SUMMARY | 2025-05-14 11:32 | XMS_ITS | Encounter Summary ---
Author Organization [facility] Address [address] [place] [address] Phone Care Team Providers Care Director Of Pharmacy Name Role Phone Joshua Oswald MD Unavailable [phone] Carissa Zuniga MD Primary Care Provid er Encounter Details Date Type Department Care Team (Late st Contact Info) Description 01/26/2023 Procedure Pass [facility], Ct Scan - [address] [address] Social History Tobacco Use Types Packs/Day Years [...] with a working camera? Not on file Sex and Gender Information Value Date Recorded Sex Assigned at Male 01/26/2023 6:41 PM EDT Legal Sex Male 9:47 PM EDT Gender Identity Male 01/26/2023 6:41 PM EDT Sexual Orientation Straight 05/23/2024 8: 27 AM EDT documented as of this encounter Plan of Treatment Upcoming Encounters Date Type Department Care Team (Latest Contact Info) Description 07/22/2025 9:00 AM EST Ancillary Procedure [facility] [address] 3rd Floor, [address] [place] [address] Faheem Solares MD 22 [facility], [address] [address] [email or web address] 04/10/2026 9:00 AM EDT Ancillary Procedure [facility] [address] 3[address] Floor, [address] [place] [address] Chetan Mercado MD, MS 22 [facility], [address] [place] [address] [phone] [email or web address] documented as of this encounter Visit Diagnoses Not on filedocumented in this encounter Care Teams Director Of Pharmacy Relationship Specialty Start Date End Date Carissa Zuniga MD [address] [place] [address] PCP - General Internal Medicine 06/25/19 Joshua Oswald MD [address] [place] [address] [email or web address] Historical LMR Provider 06/08/17 documented as of this encounter Additional Source Comments The information contained in this document represents components of the legal health record. It is not the complete legal health record.[facility]
--- OUTSIDE RECORDS SUMMARY | 2025-05-14 11:32 | XMS_ITS | Clinical Summary ---
Author Organization [facility] ity Address [address] [place] [address] Care Team Providers Care Odd Jobs Day Worker Name Role Phone Unavailable Primary Care [...] 2010 Zoster Vaccines (1 of 2) 2010 Depression Screening 08/21/2024 COVID-19 Vaccine (1 - 2023-2 5 season) 2025 Influenza Vaccine (#1) 2025 RSV Immunization Adult [...]
== END 2025-05-14 09:38 | disposition home or self-care (01) ==
LOC: HO.US 09:37
PROVIDERS: PCP Internal Medicine; Visit Provider Nurse Practitioner Family
DX: N40.0 Benign prostatic hyperplasia without lower urinary tract symptoms (principal); N32.81 Overactive bladder
CPT/HCPCS: 76770

== ENCOUNTER → 2025-05-14 09:39 | Outpatient (BNV) | payer OTHER, SELFPAY | PROVIDERS: PCP Internal Medicine; Visit Provider Radiology Diagnostic Radiology | DX: N28.1 Cyst of kidney, acquired (principal); N40.1 Benign prostatic hyperplasia with lower urinary tract symptoms | CPT/HCPCS: 76770 ==

== ENCOUNTER 2025-05-15 11:13 | Outpatient (REF) | payer OTHER, SELFPAY ==
--- NOTE | ~2025-05-15 | XR_ITS ---
CLINICAL HISTORY: M17.11 - Unilateral primary osteoarthritis, right knee AP view of the bilateral knees and additional two views of the right knee Comparison: CT/SR - CT KNEE RT WO IV CON - 03/29/25 09:57 EDT DX/SR - XR KNEE 3 VIEWS RIGHT - 01/20/25 12:20 EDT Findings: No fractures or dislocations. Severe degenerative changes of the right knee with joint space narrowing of the medial compartment. No joint effusion. No radiopaque foreign body. Left total knee replacement. IMPRESSION: Tricompartmental severe degenerative changes of the right knee. Left knee replacement. This document has been electronically signed by: Joycelyn Rodriguez MD on 05/16/2025 14:13:13
--- OUTSIDE RECORDS SUMMARY | 2025-05-16 13:03 | XMS_ITS | Clinical Summary ---
Author Organization [facility] Address [address] [place] [address] Phone Care Team Providers Care Watch Adjuster Name Role Phone Joshua Oswald MD Unavailable [phone] Carissa Zuniga MD Primary Care Provid [...] Says he got a venous ultrasound at [facility] urgent care which was negative for clot. Symptoms have been attributed to a hematoma and he was told to apply heat to the area. Overall he says ankle is mixing machine tender cork gasket but is improving. I have told him to seek medical assistance if he notices swelling worsening or if he were to develop sudden onset symptoms of chest pain/shortness of breath. He says that he might actually get a repeat ultrasound of his leg done at [facility] which has been scheduled for next [...] of breath. He was worked up at [facility] for ACS and this was [...] fibrillation. It was confirmed on EKG at [facility] as well as here in the [...] 1:45 PM EDT): Reviewed lipid panel from [facility] LDL cholesterol 57. Goal LDL less [...] 11:59 PM EDT Hospital Encounter [facility] [address] [place] [address] Nicole Cazares DNP Discharge Disposition: Home or Self Care 04/30/2025 Procedure Pass [facility] [address] [place] [address] 04/30/2025 Orders Only [facility] [address] 3rd [facility], [address] [place] [address] Nicole Cazares DNP Preop examination (Primary Dx); Essential hypertension 04/30/[address] 3rd [facility], [address] [place] [address] Nicole Cazares DNP 04/01/2025 4:00 PM EDT Office Visit [address] [place] [address], [address] [place] [address] Luca Gonzalez MD NERY on CPAP (Primary Dx) 03/28/2025 2:00 PM EDT Office Visit [address] [place] [address], [address] [place] [address] Nicole Cazares DNP Paroxysmal atrial fibrillation (Primary Dx); Essential hypertension 03/28/[address] 3rd [facility], [address] [place] [address] Nicole Cazares DNP 03/27/2025 10:00 AM EDT Nurse Only [address] 3[address] [facility], [address] [place] [address] Faheem Solares MD Atrial fibrillation (Primary Dx) 03/26/2025 2:02 PM EDT - 03/26/2025 11:59 PM EDT Hospital Encounter [facility] [address] [place] [address] Rashad Thorpe MD Discharge Disposition: Home or Self Care 03/25/2025 Transcribe Orders Virtual Department [address] [place] [address] Rashad Thorpe MD TIA (transient ischemic attack) (Primary Dx); Spell of change in speech; Aphasia from Last 3 Months Immunizations Immunization Administration [...] Description 07/22/2025 9:00 AM EST Office Visit [facility] [address] [facility], [address] [place] [address] Faheem Solares MD 22 [facility], [address] [address] 04/10/2026 9:00 AM EDT Office Visit [facility] [address] [facility], [address] [place] [address] Chetan Mercado MD, MS 22 [facility], [address] [place] [address] [email or web address] Health Maintenance Due Date Last Done Comments [...] no evidence of a ventricular septal defect. [facility]CHO ORDERABLES Final Result * US [...] EDT) SODIUM 138 133 - 146 mmol/L [facility] CHLORIDE 103 96 - 108 mmol/L [facility] POTASSIUM 4.5 3.3 - 5.1 mmol/L [facility] CO2 27 21 - 35 mmol/L [facility] BUN 20(H) 6 - 19 mg/dL [facility] CREATININE 0.80 0.5 - 1.5 mg/dL [facility] GLUCOSE 112(H) 70 - 99 mg/dL [facility] CALCIUM 9.0 8.4 - 10.3 mg/dL [facility] EGFR 100 >59 mL/min/1.7 3m2 [facility] Comment:Estimated glomerular filtration rate calculated using the CKD-EPI refit equation. ANION GAP 13 10 - 20 mmol/L [facility] Blood 01/26/2023 7:39 PM EDT 01/26/2023 8:05 PM EDT us Gini Mccarthy PA-C LAB BLOOD ORDERABLES Final Result [facility] [address], [place] [id number] * (ABNORMAL) Lipid panel (05/05/2020 10:04 AM EDT) HDL 42 mg/dL [facility] Comment: Interpretation <40 mg/dL: Low HDL cholesterol (major risk factor for CHD) Greater than or equal to 60 mg/dL: High HDL cholesterol ( negative risk factor for CHD) HDL - cholesterol is affected by a number of factors, e.g. smoking, excerise, hormones, sex and age. CHOLESTEROL 114 0 - 240 mg/dL [facility] TRIGLYCERIDES 136 30 - 160 mg/dL [facility] LDL 45(L) 50 - 129 mg/dL [facility] Comment: LDL levels in terms of risk for coronary heart disease: <100 mg/dL: Optimal 100-129 mg/dL: Near or above optimal 130-159 mg/dL: Borderline high 160-189 mg/dL: High >190 mg/dL: Very High CARDIAC RISK RATIO 2.7(L) 3.4 - 5.0 [facility] Blood 05/05/2020 10:0 4 AM EDT 05/05/2020 10:08 AM EDT us Joshua Oswald MD LAB BLOOD ORDERABLES Final Resu lt [facility] [address] [place] [address] from Last 3 Months or Most Recently Relevant to Health Maintenance [place] [address] [place] [address] NON NSPG PCP SILVER CLARITY CONNECTORCARE [facility] NON NSPG PCP [employer]ITY CONNE[employer]CARE [employer] NON NSPG PCP SILVER CLARITY CONNE[employer]CARE [employer] NON NSPG PCP SILVER [employer]ARITY CONNE[employer]CARE [employer] NON NSPG PCP SILVER CLARITY CONNECTORCARE [employer] NON NSPG PCP SILVER CLARITY CONNECTORCARE [employer] NON NSPG PCP SILVER CLARITY CONNECTORCARE [employer] NON NSPG PCP SILVER CLARITY CONNE[facility]CARE [facility] NON NSP PCP [employer] CONNECTORCARE Care Teams Watch Adjuster Relationship Specialty Start Date End Date Carissa Zuniga MD [address] [place] [address] PCP - General Internal Medicine 06/25/19 Joshua Oswald MD [address] [address] [email or web address] Historical LMR Provider 06/08/17 Additional Source Comments The information contained in this document represents components of the legal health record. It is not the complete legal health record.[facility]
--- OUTSIDE RECORDS SUMMARY | 2025-05-16 13:03 | XMS_ITS | Encounter Summary ---
Author Organization [facility] Address [address] [address] Phone Care Team Providers Care Ad Taker Name Role Phone JimenaMartin Dimitrios NOVA Unavailable [phone] Joshua Oswald MD Unavailable [phone] Carissa Zuniga MD Primary Care Provid er Reason for Referral * - Closed Specialty Diagnoses / Procedures Referred By Yumiko allen Referred To Contact Diagnoses Paroxysmal atrial fibrillation Procedures MCT (Mobile Cardiac Telemetry) Faheem Solares MD Phone: tel: fax: mailto:[email or web address] Referral ID Status Reason Start Date Expiration Date Visits Re quested Visits Authorized [id number] Closed 07/30/2021 07/30/2022 1 1 Encounter Details Date Type Department Care Team (Latest Contact Info) Description 07/30/2021 Ancillary Orders [facility] [address] [place] [address] 3rd Floor, [address] [place] [address] Faheem Solares MD 22 [facility], [address] [address] [email or web address] Paroxysmal atrial fibrillation Social History Tobacco Use [...] Description 07/22/2025 9:00 AM EST Office Visit [facility] [address] [place] [address] [address]rd [facility], [address] [place] [address] Faheem Solares MD 22 [facility], [address] [address] 04/10/2026 9:00 AM EDT Office Visit [facility] [address], [address] [place] [address] Chetan Mercado MD, MS 22 [facility], [address] [address] [email or web address] Scheduled Orders Name Type Priority Associated Diagnoses Orde r Schedule MCT (Mobile Cardiac Telemetry) Cardiac Monitors Routine Paroxysmal atrial fibrillation Expected: 07/23/2021, Expires: 10/21/2021 documented as of this encounter Visit Diagnoses Diagnosis Paroxysmal atrial fibrillation Atrial fibrillation documented in this encounter Care Teams Ad Taker Relationship Specialty Start Date End Date Carissa Zuniga MD [address] [place] [address] PCP - General Internal Medicine 06/25/19 Martin Hess DO [address] [place] [address] Historical LMR Provider 06/08/17 Joshua Oswald MD [address] [address] [email or web address] Historical LMR Provider 06/08/17 documented as of this encounter Additional Source Comments The information contained in this document represents components of the legal health record. It is not the complete legal health record.[facility]
--- OUTSIDE RECORDS SUMMARY | 2025-05-16 13:03 | XMS_ITS | Encounter Summary ---
Author Organization [facility] Address [address] [place] [address] Phone Care Team Providers Care Director Index Name Role Phone Joshua Oswald MD Unavailable [phone] Carissa Zuniga MD Primary Care Provid er Encounter Details Date Type Department Care Team (Late st Contact Info) Description 01/26/2023 Procedure Pass [facility], Ct Scan - [address] [address] Social History Tobacco Use Types Packs/Day Years [...] Description 07/22/2025 9:00 AM EST Office Visit [facility] [address] 3rd Floor, [address] [place] [address] Faheem Solares MD 22 [facility], [address] [place] [address] [email or web address] 04/10/2026 9:00 AM EDT Office Visit [facility] [address] Floor, [address] [place] [address] Chetan Mercado MD, MS 22 [facility], [address] [place] [phone] [email or web address] documented as of this encounter Visit Diagnoses Not on filedocumented in this encounter Care Teams Director Index Relationship Specialty Start Date End Date Carissa Zuniga MD [address] [place] [address] PCP - General Internal Medicine 06/25/19 Joshua Oswald MD [address] [place] [address] [email or web address] Historical LMR Provider 06/08/17 documented as of this encounter Additional Source Comments The information contained in this document represents components of the legal health record. It is not the complete legal health record.[facility]
--- OUTSIDE RECORDS SUMMARY | 2025-05-16 13:03 | XMS_ITS | Patient Health Record ---
Author Organization [facility] Address [address] [place] [address] Care Team Providers Care Delivery Truck Driver Heavy Name Role Phone Jimena(inactive) Martin ZAMBRANO Primary Care Provider U Chetan Ribera Unavailable [phone] Allergies Allergen (clinical drug ingredient) Drug/Non Drug [...] Problem Screening for malignant neoplasm of colon ([id number]) Special screening for malignant neoplasms, colon (V76.51) Active confirmed Plan Of Treatment Future Test Test Name Order Date COLONOSCOPY 07/20/2011 Medical (General) History Medical History History ICD Code atrial fibrillation hypertension hyperlipidemia Denies MO,DM,CVA,Lung disease,renal dise ase he describes a negative cardiac catheter ization Surgical History Surgery Date(Month/Year) appendectomy knee surgery shoulder surgery
--- OUTSIDE RECORDS SUMMARY | 2025-05-16 13:03 | XMS_ITS | Clinical Summary ---
Author Organization [facility] ity Address [address] [place] [address] Care Team Providers Care Automobile Body Repairer Name Role Phone Unavailable Primary Care Provider [...]
--- OUTSIDE RECORDS SUMMARY | 2025-05-16 13:03 | XMS_ITS | Encounter Summary ---
Author Organization [facility] Address [address] [place] [address] Phone Care Team Providers Care Spanish Medical Interpreter Name Role Phone Joshua Oswald MD Unavailable [phone] Carissa Zuniga MD Primary Care Provid er Encounter Details Date Type Department Care Team (Late st Contact Info) Description 04/30/2025 Procedure Pass [facility] [place] [place] [address] Social History Tobacco Use Types Packs/Day Years [...] Description 07/22/2025 9:00 AM EST Office Visit [facility] [address] [place] [address] 3rd Floor, [address] [place] [address] Faheem Solares MD 22 [facility], [address] [address] [email or web address] 04/10/2026 9:00 AM EDT Office Visit [facility] [address] 3rd Floor, [address] [place] [address] Chetan Mercado MD, MS 22 [facility], [address] [address] [email or web address] documented as of this encounter Visit Diagnoses Not on filedocumented in this encounter Care Teams Spanish Medical Interpreter Relationship Specialty Start Date End Date Carissa Zuniga MD [address] [place] [address] PCP - General Internal Medicine 06/25/19 Joshua Oswald MD [address] [address] [email or web address] Historical LMR Provider 06/08/17 documented as of this encounter Additional Source Comments The information contained in this document represents components of the legal health record. It is not the complete legal health record.[facility]
--- OUTSIDE RECORDS SUMMARY | 2025-05-16 13:03 | XMS_ITS | Encounter Summary ---
Author Organization [facility] Address [address] [place] [address] Phone Care Team Providers Care Rewards Consultant Name Role Phone Joshua Oswald MD Unavailable [phone] Carissa Zuniga MD Primary Care Provid er Reason for Referral * Hospital - Outpatient - Closed Specialty Diagnoses / Procedures Referred By Yumiko allen Referred To Contact Radiology Diagnoses TIA (transient ischemic attack) Spell of change in speech Aphasia Procedures US Carotid Duplex Complete (Bilateral) Rashad Thorpe MD [address] [place] [address], [address] [place] [address] Phone: tel: fax: mailto:[email or web address] Referral ID Status Reason Start Date Expiration Date Visits Re quested Visits Authorized [id number] Closed 03/25/2025 03/25/2026 1 1 Encounter Details Date Type Department Care Team (Latest Contact Info) Description 03/25/2025 Transcribe Orders Virtual Department [address] [place], [place] [phone] Rashad Thorpe MD [address] [place] [address], [address] [place], [place] [phone] [email or web address] TIA (transient ischemic attack) (Primary Dx); Spell [...] Description 07/22/2025 9:00 AM EST Office Visit [facility] [address] Floor, [address] [place] [address] Faheem Solares MD 22 [facility], [address] [address] [email or web address] 04/10/2026 9:00 AM EDT Office Visit [facility] [address] Floor, [address] [place] [address] Chetan Mercado MD, MS 22 [facility], [address] [place] [address] [email or web address] documented as of [...] represents the denominator. us Rashad Thorpe MD [facility] Final Re sult documented in this encounter Visit Diagnoses Diagnosis TIA (transient ischemic attack)- Primary Unspecified transient cerebral ischemia Spell of change in speech Aphasia TIA (transient ischemic attack) Unspecified transient cerebral ischemia Spell of change in speech Aphasia documented in this encounter Care Teams Rewards Consultant Relationship Specialty Start Date End Date Carissa Zuniga MD [address] [place] [address] PCP - General Internal Medicine 06/25/19 Joshua Oswald MD [address] [place] [address] [email or web address] Historical LMR Provider 06/08/17 documented as of this encounter Additional Source Comments The information contained in this document represents components of the legal health record. It is not the complete legal health record.[facility]
== END 2025-05-15 11:14 | disposition home or self-care (01) ==
LOC: HO.HOSX 11:13
PROVIDERS: Visit Provider Physician Assistant
DX: Z01.818 Encounter for other preprocedural examination (principal); M17.11 Unilateral primary osteoarthritis, right knee; E11.9 Type 2 diabetes mellitus without complications
CPT/HCPCS: 73562; 99212

== ENCOUNTER 2025-05-15 11:26 | Outpatient (AMB) | payer OTHER, SELFPAY ==
--- NOTE | 2025-05-14 08:24 | A.OFFVIS_ITS ---
Vital Signs 05/15/25 11:41 Height 6 ft Weight 239 lb BMI 32.4 Intake Visit Reasons: Pre-Op: R TKA w/NE 05/20/25 Intake Note: [place] is a 64 year old male who presents today for a preoperative visit to discuss upcoming procedure, right total knee arthroplasty, scheduled for 05/20/[address] Villagran. Pain management agreement reviewed and signed. Allergies ciprofloxacin (From CIPRO) Allergy (Intermediate, Verified 05/15/25 11:41) SWELLING levofloxacin (Levaquin) Allergy (Intermediate, Verified 05/15/25 11:41) facial swelling Medication List - Last Reconciled 05/15/25 by Glen Norman PA-C apixaban (Eliquis) 5 mg PO BID Held on 11/17/23. Instructions: Resume on 11/19/23. resume Eliquis on 11/19/23 diltiazem HCl CD 180 mg PO DAILY doxycycline hyclate 100 mg PO BID 90 days [Folding Front Wheeled walker Duration: 99 days] lisinopril 5 mg PO DAILY lorazepam 1 mg PO BID PRN 29 days multivitamin 1 tab PO DAILY sildenafil 50 mg PO DAILY PRN simvastatin 40 mg PO BEDTIME tadalafil (Cialis) 5 mg PO DAILY 90 days tamsulosin 0.4 mg PO BEDTIME 90 days testosterone 30 mg/actuation (1.5 mL) 3 pumps topical DAILY 30 days valacyclovir 1,000 mg PO Q8H PRN vitamin A-vitamin C-vit E-min 1 tab PO DAILY HPI Comments Details: Mr Driscoll presents to the office today for Orthopedic Pre op clearance. He is scheduled for a right total knee arthroplasty on 05/20/[address] Villagran. He has been experiencing right knee pain for a little over 3 years. He has had injections on the right knee and also was treated by pain management for chronic right knee pain. He continues to have limitations with everyday activities and can not walk comfortably. He did have a left total knee arthroplasty in August of 2019 which was successful. Left total knee performed in 08/2019: Femur 5 Tibia 5 Insert 9CR Patella 32A Patient lives alone in a 2 level home with 9 steps to enter. Patient does have AFib and is on Eliquis. PCP clearance on 03/25/[address] Maria: -The patient is a 64-year-old male presenting for a preoperative evaluation for a right total knee replacement scheduled for May 20. He has a history of hypertension, which is well controlled with lisinopril 10 mg daily. Additionally, he has atrial fibrillation managed with diltiazem and Eliquis 5 mg twice a day. The patient also has pure hypercholesterolemia, for which he is on simvastatin. He has hypogonadism and is receiving testosterone supplements. In January, laboratory tests showed no significant abnormalities. He denies experiencing chest pain or dyspnea and is capable of climbing stairs, indicating a functional capacity of 5 to 7 METs for activities of daily living. The patient follows up with cardiology for atrial fibrillation and has reported some neurological deficits, including confusion and difficulty finding words during conversations. Neurology has ordered brain imaging and laboratory tests, which are pending, for medical clearance. Cardiology has advised against discontinuing Eliquis before surgery. His surgical history includes a left knee replacement, bilateral knee arthroscopy, prostate surgery, right shoulder arthroplasty, and a colonoscopy w ithout complications. He has a history of smoking but quit some time ago and consumes alcohol only on holidays and special occasions. Plan The patient is scheduled for a right total knee replacement on May 20, and a preoperative evaluation is underway. An EKG will be ordered as part of the preoperative assessment. Medical clearance is pending the results of neurol ogical imaging and laboratory tests, as well as the EKG. The patient is advised to continue his current medications, including lisinopril for hypertension, diltiazem and Eliquis for atrial fibrillation, and simvastatin for hypercholesterolemia. Cardiology has recommended not discontinuing Eliquis before surgery to avoid any risks. Cardiac Clearance : Patient to be bridged with lovenox PAT note: Anesthesia Eval Consult details Narrative: 64 yr old male for right total knee replacement scheduled for 05/20/25, seen in PAT on 04/22/25 Recent neurology work up for episodes of dizziness, difficulty word finding, first occurring 05/2024 to rule out TIA vs frontotemporal dementia vs seizure. Had carotid US (results pending), brain MRI (unremarkable), EEG (results pending). Pt feels dizziness is better since cardiology decreased dose of lisinopril from 10 mg to 5 mg. Neuro appt to review carotid US, brain MRI, & EEG scheduled prior to surgery. Cardiology clearance visit 01/2025 recommends not stopping anticoagulation, bridging with lovenox for as long as he needs to hold eliquis; considered low risk for procedure itself. PCP visit for preop clearance on 03/25/25 states medical clearance pending neurological clearance. *Neuro clearance pending. Had acute urinary retention 01/2025, required Jovel cath, will be following up with Dr. Lopez, bladder US scheduled for 05/14/25; on tamsulosin. Discussed possible urinary retention exacerbation with anesthesia. No CP/SOB with walking daily with his dog. CAD: s/p STEMI in 2010, medically managed; echo updated 05/07/25 showing trileaflet aortic valve; LVEF 55-60% *see below for details. Paroxysmal afib: on Eliquis, rate controlled on diltiazem; s/p ablation NERY: on CPAP [facility] Medical History (Updated 04/22/25 @ 10:27 by Page Broderick RN) History of urinary retention Concussion CAD (coronary artery disease) Myocardial infarction Sacroiliitis Sleep apnea Pure hypercholesterolemia Mild recurrent major depression Derangement of right knee Osteoarthritis of right knee Skin lesion Rosacea Hypogonadism in male Gout Chronic pain GERD (gastroesophageal reflux disease) BPH (benign prostatic hyperplasia) Hyperlipidemia PAF (paroxysmal atrial fibrillation) Essential hypertension Surgical History History of surgical removal of skin lesion H/O colonoscopy History of left knee replacement (~08/2019) History of arthroplasty of left knee History of prior ablation treatment History of prostate surgery History of appendectomy History of arthroscopy of right knee History of arthroscopy of left knee Family History Father CAD (coronary artery disease) COPD (chronic obstructive pulmonary disease) Mother No problems noted. Son No problems noted. Social History Household Members: None Housing: Apartment Are you a primary animal caretaker to a significant other at home: No Do you presently have visiting nurse or other home services: No Alcohol intake: current Alcohol intake frequency: holidays/special occasions only Alcohol type: beer and hard liquor Comment: SLEEPING Patient Tobacco Use Status: Former Tobacco user Tobacco use type: Cigarette e-Cigarette/Vaping Use: Never Used Second Hand Smoke Exposure: No Use of substances other than those prescribed or required for medical reasons: Yes Substance Use Type: Marijuana Substance Use Frequency: Occasionally Have you been hit, kicked, punched, or otherwise hurt by someone within the past year? 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 Current occupational exposures/hazards: No Cognitive needs: No Hearing needs: No Vision needs: No Review of Systems Const Reports as per HPI Physical Exam Vital Signs: BMI result Body Mass Index 32.4 Const General: cooperative, healthy appearing, comfortable, no acute distress, well developed and alert Orientation/consciousness: patient oriented x3 HEENT Head: Yes normal to inspection, Yes normocephalic and Yes atraumatic Eyes General: appearance normal, both eyes and all related structures Neck Neck: Yes normal visual inspection and Yes no lymphadenopathy Resp Effort & Inspection: normal respiratory effort and able to speak in complete sentences Cardio Rate: regular rate Peripheral pulses: Peripheral pulses 2+ throughout GI Inspection: Yes normal to inspection Palpation (GI): Soft to palpation Skin General skin exam: no rashes or lesions noted Neuro General: patient oriented x3 Extrem Other: Right knee skin intact, no open wounds or abraisons, he has medial joint line tenderness to palpation. Positive gait antalgia. Range of motion 5-125 degrees. Stable to varus and valgus stress. 2+ dorsalis pedis pulse. Firing EHL/tib ant/gastrocs. Psych Appearance: grossly normal Mental Status: mental status grossly normal Results Reviewed Results Reviewed: Xrays were obtained in the office today and personally reviewed by me of the right knee for surgical planning Assessment & Plan Assessment & Plan (1) Osteoarthritis of right knee: Code(s): M17.11 - Unilateral primary osteoarthritis, right knee Category: Medical Qualifiers: Osteoarthritis type: primary Qualified Code(s): M17.11 - Unilateral primary osteoarthritis, right knee Plan: Mr Driscoll has exhausted all conservative measures consisting of lifestyle modifications, physical therapy, analgesics, corticosteroid injections and use of assisted devices and continues to have significant limitations in daily activities along with decreased quality of life. Given the patient's desire to improve their quality of life, surgical intervention consisting of joint replacement surgery is recommended at this time.? We discussed the procedure in detail today; which includes pre op preparation with labs and reviewing patients medication regimen prior to surgery. He was sent to the lab for HbgA1c, T&S, CBC w diff. I discussed at length the post op course which includes physical therapy services in the hospital along with the discharge routine and the patients plan upon discharge. Patient's DC plan is home with vna vs STR as he now lives alone. I explained to the patient, once they are DC home, they will receive VNA services which will include PT 2-3x per week. We also discussed their choice for outpatient PT once they are discharged from home PT. Patient would like to attend [facility] core for post op therapy. An order has been placed and he will contact them to make an appt Post op DVT ppx was also discussed and the considering the patients h/o afib, he will hold the eliquis 3 days pre op, bridge with lovenox with his last dose being Monday morning. He will resume one dose of lovenox POD 1, resume Eliquis POD 2. I reviewed with the patient their post op pain medication regimen along with the detailed wean program. The patient did express understanding of this and agreed to the narcotic policy. Lastly, I discussed with the patient the risks to the procedure. Risks including but not limited to infection, injury to surrounding nerves, tissue , bone, small and large vessels, stiffness, aseptic loosening, fracture, dislocation, amputation, DVT/PE along with intraoperative complications including but not limited to . The patient does express understanding, all questions were answered and the patient would like to proceed? with right total knee arthroplasty with Dr. Villagran. Consents were signed and dated while in the offi ce today.? Post-Operative Recovery Notes: * DVT ppx :lovenox x1. Resume eliquis POD2 * Hospital DC plan: home vs STR * Physical Therapy: [facility] Core Orders: Orders XR knee RT 3V 05/15/25 M17.11 - Unilateral primary osteoarthritis, right knee Type and Screen 05/15/25 Z01.818 - Encounter for other preprocedural examination Hemoglobin A1c 05/15/25 E11.9 - Type 2 diabetes mellitus without complications Complete Blood Count Auto Diff 05/15/25 Z01.818 - Encounter for other preprocedural examination Medications: New enoxaparin (Lovenox) 40 mg (0.4 mL) subcut DAILY 0.8 mL 0RF 2 days Coding Level of Care Code Est Pt Level 3 (25514) Complex EM visit Add On G2211 Diagnoses Primary osteoarthritis of right knee M17.11 Osteoarthritis type: primary
[2025-05-15 11:41] VITALS: BMI 32.4
== END 2025-05-15 13:04 | disposition home or self-care (01) ==
LOC: HO.HOS 11:27
PROVIDERS: Visit Provider Physician Assistant
DX: M17.11 Unilateral primary osteoarthritis, right knee (principal)
CPT/HCPCS: 99024

== ENCOUNTER → 2025-05-15 11:31 | Outpatient (BNV) | payer OTHER, SELFPAY | PROVIDERS: Visit Provider Nuclear Medicine | DX: M17.11 Unilateral primary osteoarthritis, right knee (principal); Z96.651 Presence of right artificial knee joint | CPT/HCPCS: 73562 ==

== ENCOUNTER 2025-05-20 06:58 | Day surgery (SDC) | payer OTHER, SELFPAY ==
--- OUTSIDE RECORDS SUMMARY | 2025-03-17 10:17 | XMS_ITS | Clinical Summary ---
Author Organization [facility] Address [address] [place] [address] Phone Care Team Providers Care Cherry Grower Name Role Phone Joshua Oswald MD Unavailable [phone] Carissa Zuniga MD Primary Care Provid [...] Says he got a venous ultrasound at [facility] urgent care which was negative for clot. Symptoms have been attributed to a hematoma and he was told to apply heat to the area. Overall he says ankle is dry can tender but is improving. I have told him to seek medical assistance if he notices swelling worsening or if he were to develop sudden onset symptoms of chest pain/shortness of breath. He says that he might actually get a repeat ultrasound of his leg done at [facility] which has been scheduled for next week. Suspected sleep apnea 04/12/2018 Assessment & Plan (04/12/2018 8:37 AM EDT): History is suggestive of sleep apnea will do a sleep study referral for the same. Coronary artery disease invo lving [place] coronary artery of [place] heart without angina pectoris 09/06/2017 Overview (09/26/2017): [...] of breath. He was worked up at [facility] for ACS and this was ruled [...] fibrillation. It was confirmed on EKG at [facility] as well as here in the office. [...] 1:45 PM EDT): Reviewed lipid panel from [facility] LDL cholesterol 57. Goal LDL less than [...] Type Department Care Team Description 02/12/2025 Telephone [facility] [address], [address] [place] [address] Faheem Solares MD 01/20/2025 10:20 AM EDT Office Visit [facility] [address], [address] [place] [address] Faheem Solares MD Pure hypercholesterolemia (Primary Dx); Paroxysmal atrial fibrillation; Essential hypertension; Coronary artery disease involving [place] coronary artery of [place] heart without angina pectoris; Dysarthria 12/16/2024 Refill [facility] [address], [address] [place] [address] Faheem Solares MD Medication Refill from Last [...] Description 07/22/2025 9:00 AM EST Office Visit [facility] [address] [place] [address] [address]rd Floor, [address] [place] [address] Faheem Solares MD [address] [facility], [address] [place] [address] [email or web address] Health Maintenance Due Date Last Done Comments [...] EDT) SODIUM 138 133 - 146 mmol/L [facility] CHLORIDE 103 96 - 108 mmol/L [facility] POTASSIUM 4.5 3.3 - 5.1 mmol/L [facility] CO2 27 21 - 35 mmol/L [facility] BUN 20(H) 6 - 19 mg/dL [facility] CREATININE 0.80 0.5 - 1.5 mg/dL [facility] GLUCOSE 112(H) 70 - 99 mg/dL [facility] CALCIUM 9.0 8.4 - 10.3 mg/dL [facility] EGFR 100 >59 mL/min/1.7 3m2 [facility] Comment:Estimated glomerular filtration rate calculated using the CKD-EPI refit equation. ANION GAP 13 10 - 20 mmol/L [facility] Blood 01/26/2023 7:39 PM EDT 01/26/2023 8:05 PM EDT us Gini Mccarthy PA-C LAB BLOOD ORDERABLES Final Result [address] [address] * (ABNORMAL) Lipid panel (05/05/2020 10:04 AM EDT) HDL 42 mg/dL [facility] Comment: Interpretation <40 mg/dL: Low HDL cholesterol (major risk factor for CHD) Greater than or equal to 60 mg/dL: High HDL cholesterol ( negative risk factor for CHD) HDL - cholesterol is affected by a number of factors, e.g. smoking, excerise, hormones, sex and age. CHOLESTEROL 114 0 - 240 mg/dL [facility] TRIGLYCERIDES 136 30 - 160 mg/dL [facility] LDL 45(L) 50 - 129 mg/dL [facility] Comment: LDL levels in terms of risk for coronary heart disease: <100 mg/dL: Optimal 100-129 mg/dL: Near or above optimal 130-159 mg/dL: Borderline high 160-189 mg/dL: High >190 mg/dL: Very High CARDIAC RISK RATIO 2.7(L) 3.4 - 5.0 [facility] Blood 05/05/2020 10:0 4 AM EDT 05/05/2020 10:08 AM EDT us Joshua Oswald MD LAB BLOOD ORDERABLES Final Resu lt [facility] [address] [place] [address] from Last 3 Months or Most Recently Relevant to Health Maintenance Insurance [facility] NON NSPG PCP S[employer] CONNE[employer] [facility] NON NSPG PCP [employer] CONNE[employer]ARE [employer] NON NSPG PCP SIL[employer] CONNE[employer]CARE [employer] NON NSPG PCP SIL[employer]ITY CONNE[employer]CARE [employer] NON NSPG PCP [employer] CONNE[employer] NON NSPG PCP [employer] CONNE[employer]ARE [employer] NON NSPG PCP [employer]IL[employer]ITY CONNE[employer]CARE [employer] NON NSPG PCP S[employer] CONNE[employer]ARE [employer] NON NSPG PCP [employer] Care Teams Cherry Grower Relationship Specialty Start Date End Date Carissa Zuniga MD [address] [place] [address] PCP - General Internal Medicine 06/25/19 Joshua Oswald MD [address] [address] [email or web address] Historical LMR Provider 06/08/17 Additional Source Comments The information contained in this document represents components of the legal health record. It is not the complete legal health record.[facility]
--- OUTSIDE RECORDS SUMMARY | 2025-03-17 10:17 | XMS_ITS | Patient Health Record ---
Author Organization [facility] Address [address] [place] [address] Care Team Providers Care Bar Host/Hostess Name Role Phone Jimena(inactive) Martin ZAMBRANO Primary Care Provider U Chetan Ribera Unavailable [phone] Allergies Allergen (clinical drug ingredient) Drug/Non Drug [...] ICD Code atrial fibrillation hypertension hyperlipidemia Denies [place],DM,CVA,Lung disease,renal dise ase he describes a negative cardiac catheter ization Surgical History Surgery Date(Month/Year) appendectomy knee surgery shoulder surgery
--- OUTSIDE RECORDS SUMMARY | 2025-03-17 10:17 | XMS_ITS | Clinical Summary ---
Author Organization [facility] Address [address] [place] [address] Care Team Providers Care Sales Promotion Coordinator Name Role Phone Unavailable Primary Care [...]
[2025-04-22 10:37] VITALS: BP 118/74; PULSE 68; RESP 18; O2SAT 95; BMI 32.8
[2025-04-22 12:15] LABS: Hematocrit 44.6 % (42.0-52.0); Hemoglobin 14.6 g/dl (14.0-18.0); Mean Corpuscular HGB Conc 32.7 g/dl (31.0-36.0); Mean Corpuscular Hemoglobin 29.2 pg (27.0-33.0); Mean Corpuscular Volume 89.2 fL (80.0-98.0); NRBC Abs Auto 0.000 X10*3/uL (0.0-0.012); NRBC Pct Auto 0.0 /100WBC (0.0-0.2); Platelet Count 163 X10*3/uL (160-400); Red Blood Count 5.00 X10*6/uL (4.60-5.80); White Blood Count 4.9 X10*3/uL (4.8-10.8)
[2025-04-22 12:51] LABS: Anion Gap 12 (12-20); Blood Urea Nitrogen 21 mg/dL (9-16); Calcium 9.4 mg/dL (8.4-10.2); Carbon Dioxide 29 mmol/L (22-29); Chloride 109 mmol/L (96-108); Creatinine Clr Calc Pharmacy 134.4; Estimated Glomerular Filt Rate > 60; Potassium 4.5 mmol/L (3.3-5.1); Sodium 145 mmol/L (135-145)
[2025-04-22 12:57] LABS: MRSA Nasal PCR NEGATIVE (Negative); SA Nasal PCR NEGATIVE (Negative)
[2025-05-15 13:15] LABS: Hemoglobin A1C 149.7226 umol/L; Total Hemoglobin (HGBA1C) 3822.9382 umol/L
[2025-05-20] VITALS (9 sets, daily range): BP systolic 97–144; BP diastolic 53–83; PULSE 49–87; RESP 16–19; TEMP 36.1–37.2; O2SAT 94–98; BMI 31.5; BMI 32.9
--- NOTE | ~2025-05-20 | XR_ITS ---
EXAMINATION: XR KNEE, RIGHT CLINICAL INFORMATION: rt tka COMPARISON: May 15, 2025 TECHNIQUE: AP and lateral views of the right knee. FINDINGS: Total knee arthroplasty has been performed. There is anatomic alignment and positioning. There is no periprostatic fracture. Gas and fluid is present in the super patellar pouch and anterior subcutaneous soft tissues. There are skin tricia anteriorly. XR/XR knee RT 2V IMPRESSION: Changes from recent total knee arthroplasty. Electronically signed by: Blaine Beckwith MD 05/20/2025 11:28 AM EDT
--- NOTE | 2025-05-20 07:26 | MHC.SHP ---
Pre-Procedural Eval Section A - 24 Hr Update-Section A only Date of Service: 05/20/25 The patient is an INPATIENT: No Changes since office visit: No Cold of Flu in the past 2 weeks, No New Medical Problems, No Changes in Medication and No Patient answered all questions The patient has been examined within 24 hours of the surgical procedure. The History & Physical has been completed within 30 days and I have reviewed it.: Yes Section B - Complete if H&P > 30 days Chief Complaint: Unilateral primary osteoarthritis, right knee Allergies: Allergies Allergy/AdvReac Type Severity Reaction Status Date / Time ciprofloxacin (From CIPRO) Allergy Intermediate SWELLING Verified 05/15/25 11:41 levofloxacin (Levaquin) Allergy Intermediate facial Verified 05/15/25 11:41 swelling Plan I have reviewed the history and physical and performed a pertinent physical examination on my patient. No changes have occurred unless specified. Time Spent With Patient Time: Total time managing care of this patient today ____ minutes.
[2025-05-20 07:32] LABS: Hematocrit 43.2 % (42.0-52.0); Hemoglobin 14.7 g/dl (14.0-18.0)
--- NOTE | 2025-05-20 07:50 | HO.ANESPROP2 ---
Documented by User: Sandy Escalera NP 05/14/25 14:12 HPI - Anesthesia Eval Consult details Narrative: 64 yr old male for right total knee replacement scheduled for 05/20/25, seen in PAT on 04/22/25 Recent neurology work up for episodes of dizziness, difficulty word finding, first occurring 05/2024 to rule out TIA vs frontotemporal dementia vs seizure. Had carotid US (results pending), brain MRI (unremarkable), EEG (results pending). Pt feels dizziness is better since cardiology decreased dose of lisinopril from 10 mg to 5 mg. Neuro appt to review carotid US, brain MRI, & EEG scheduled prior to surgery. Cardiology clearance visit 01/2025 recommends not stopping anticoagulation, bridging with lovenox for as long as he needs to hold eliquis; considered low risk for procedure itself. PCP visit for preop clearance on 03/25/25 states medical clearance pending neurological clearance. *Neuro clearance pending. Had acute urinary retention 01/2025, required Jovel cath, will be following up with Dr. Lopez, bladder US scheduled for 05/14/25; on tamsulosin. Discussed possible urinary retention exacerbation with anesthesia. No CP/SOB with walking daily with his dog. CAD: s/p STEMI in 2010, medically managed; echo updated 05/07/25 showing trileaflet aortic valve; LVEF 55-60% *see below for details. Paroxysmal afib: on Eliquis, rate controlled on diltiazem; s/p ablation NERY: on CPAP PMFSH Active Problems Active Problems: All Active Problems (Updated 04/22/25 @ 10:27 by Page Broderick RN) Pre-op evaluation (Acute) Urinary retention (Acute) Delayed ejaculation (Acute) URI (upper respiratory infection) (Acute) Acute headache (Acute) Diarrhea (Acute) Contusion of left leg (Acute) History of total left knee replacement (Acute) Left knee sprain (Acute) Basal cell carcinoma (Acute) Left knee pain (Acute) Lightheadedness (Acute) Physical exam (Acute) Sacroiliac joint pain (Acute) Complex regional pain syndrome i of left lower limb (Acute) Spondylolisthesis, lumbar region (Acute) Lumbar pain (Acute) Quadriceps weakness (Acute) Overactive bladder (Acute) Hyponatremia (Acute) NERY on CPAP (Acute) Chronic anticoagulation (Acute) Pre-op examination (Acute) Tubular adenoma of colon (Acute) Screen for colon cancer (Acute) Chronic pain of right knee (Acute) Tick bite (Acute) Cellulitis (Acute) Olecranon bursitis of left elbow (Acute) Lipoma of back (Acute) Epidermal inclusion cyst (Acute) Pure hypercholesterolemia (Acute) Mild recurrent major depression (Acute) Derangement of right knee (Acute) Osteoarthritis of right knee (Acute) Skin lesion (Acute) Rosacea (Acute) Hypogonadism in male (Acute) History of arthroplasty of left knee (Acute) Chronic pain (Acute) GERD (gastroesophageal reflux disease) (Acute) BPH (benign prostatic hyperplasia) (Acute) Hyperlipidemia (Acute) PAF (paroxysmal atrial fibrillation) (Acute) Essential hypertension (Acute) Past Medical History Medical History History of urinary retention Concussion CAD (coronary artery disease) Myocardial infarction Sacroiliitis Sleep apnea Pure hypercholesterolemia Mild recurrent major depression Derangement of right knee Osteoarthritis of right knee Skin lesion Rosacea Hypogonadism in male Gout Chronic pain GERD (gastroesophageal reflux disease) BPH (benign prostatic hyperplasia) Hyperlipidemia PAF (paroxysmal atrial fibrillation) Essential hypertension Family History Family History Father CAD (coronary artery disease) COPD (chronic obstructive pulmonary disease) Mother No problems noted. Son No problems noted. Family history of problems with anesthesia: No Surgical History Surgical History History of surgical removal of skin lesion H/O colonoscopy History of left knee replacement (~08/2019) History of arthroplasty of left knee History of prior ablation treatment History of prostate surgery History of appendectomy History of arthroscopy of right knee History of arthroscopy of left knee History of Problems with Anesthesia: No Social History Social History Household Members: None Housing: Apartment Are you a primary medicare specialist to a significant other at home: No Do you presently have visiting nurse or other home services: No Alcohol intake: current Alcohol intake frequency: holidays/special occasions only Alcohol type: beer and hard liquor Comment: SLEEPING Patient Tobacco Use Status: Former Tobacco user Tobacco use type: Cigarette e-Cigarette/Vaping Use: Never Used Second Hand Smoke Exposure: No Use of substances other than those prescribed or required for medical reasons: Yes Substance Use Type: Marijuana Substance Use Frequency: Occasionally Have you been hit, kicked, punched, or otherwise hurt by someone within the past year? 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 Instructions: Resume on 11/19/23. resume Eliquis on 11/19/23 sildenafil 50 mg tablet 50 mg PO DAILY PRN Sexual Activity 03/14/24 05/15/25 Unknown History lisinopril 10 mg tablet 5 mg PO DAILY 04/22/25 05/15/25 05/19/25 History multivitamin 1 tab PO DAILY 04/22/25 05/15/25 05/19/25 History valacyclovir 1 gram tablet 1,000 mg PO Q8H PRN Outbreak 04/22/25 05/15/25 Unknown History vitamin A-vitamin C-vit E-min 1 tab PO DAILY 04/22/25 05/15/25 05/19/25 History tablet Exam Height,Weight and Vital Signs: Height 6 ft Weight 109.769 kg Last Vital Signs Pulse 68 04/22/25 10:37 Resp 18 04/22/25 10:37 BP 118/74 04/22/25 10:37 Pulse Ox 95 04/22/25 10:37 O2 Del Method Room Air 04/22/25 10:37 Narrative Narrative: EKG 03/2025 Vent. Rate : 73 BPM Atrial Rate : 73 BPM P-R Int : 158 ms QRS Dur : 104 ms QT Int : 392 ms P-R-T Axes : 58 -33 62 degrees QTcB Int : 431 ms Normal sinus rhythm Left axis deviation Borderline ECG When compared with ECG of 23-Jan-2023 20:13, No significant change was found ECHO 05/07/25 - The estimated LVEF 55-60%. Diastolic function is normal left ventricular thickness is normal regional wall motion is normal. -Normal RV size and fuction. -Trileaflet aortic valve, it is poolyr seen, the mean gradient across the valve is 4 mmHg; the ascending aortic root is 43 mm. -Trace to mild mitral and trace to mild tricuspid sufficiency, the PA pressure is normal. -Normal pericardium and there is no prior echo for comparison Airway Mallampati Class: III TM Dist: >3cm Neck ROM: Full Loose/Missing/Broken Teeth: No Heart: RRR Lungs: CTAB Assessment and Plan Final Anesthetic Review Family History of Problems with Anesthesia: No History of Problems with Anesthesia: No Documented by User: Hali Arias DO 05/20/25 07:52 [facility] Past Medical History Medical History History of urinary retention Concussion CAD (coronary artery disease) Myocardial infarction Sacroiliitis Sleep apnea Pure hypercholesterolemia Mild recurrent major depression Derangement of right knee Osteoarthritis of right knee Skin lesion Rosacea Hypogonadism in male Gout Chronic pain GERD (gastroesophageal reflux disease) BPH (benign prostatic hyperplasia) Hyperlipidemia PAF (paroxysmal atrial fibrillation) Essential hypertension Family History Family History Father CAD (coronary artery disease) COPD (chronic obstructive pulmonary disease) Mother No problems noted. Son No problems noted. Family history of problems with anesthesia: No Surgical History Surgical History History of surgical removal of skin lesion H/O colonoscopy History of left knee replacement (~08/2019) History of arthroplasty of left knee History of prior ablation treatment History of prostate surgery History of appendectomy History of arthroscopy of right knee History of arthroscopy of left knee History of Problems with Anesthesia: No Social History Social History Household Members: None Housing: Apartment Are you a primary medicare specialist to a significant other at home: No Do you presently have visiting nurse or other home services: No Alcohol intake: current Alcohol intake frequency: holidays/special occasions only Alcohol type: beer and hard liquor Comment: SLEEPING Patient Tobacco Use Status: Former Tobacco user Tobacco use type: Cigarette e-Cigarette/Vaping Use: Never Used Second Hand Smoke Exposure: No Use of substances other than those prescribed or required for medical reasons: Yes Substance Use Type: Marijuana Substance Use Frequency: Occasionally Have you been hit, kicked, punched, or otherwise hurt by someone within the past year? 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 Instructions: Resume on 11/19/23. resume Eliquis on 11/19/23 sildenafil 50 mg tablet 50 mg PO DAILY PRN Sexual Activity 03/14/24 05/15/25 Unknown History lisinopril 10 mg tablet 5 mg PO DAILY 04/22/25 05/15/25 05/19/25 History multivitamin 1 tab PO DAILY 04/22/25 05/15/25 05/19/25 History valacyclovir 1 gram tablet 1,000 mg PO Q8H PRN Outbreak 04/22/25 05/15/25 Unknown History vitamin A-vitamin C-vit E-min 1 tab PO DAILY 04/22/25 05/15/25 05/19/25 History tablet Exam Exam Date and Time: 05/20/25 0750 Height,Weight and Vital Signs: Height 6 ft Weight 109.769 kg Last Vital Signs Pulse 68 04/22/25 10:37 Resp 18 04/22/25 10:37 BP 118/74 04/22/25 10:37 Pulse Ox 95 04/22/25 10:37 O2 Del Method Room Air 04/22/25 10:37 Vital Signs Pulse Rate 68 04/22/25 10:37 Respiratory Rate 18 04/22/25 10:37 Blood Pressure 118/74 04/22/25 10:37 Pulse Oximetry 95 04/22/25 10:37 Oxygen Delivery Method Room Air 04/22/25 10:37 Pulse Rate 68 04/22/25 10:37 Respiratory Rate 18 04/22/25 10:37 Blood Pressure 118/74 04/22/25 10:37 Pulse Oximetry 95 04/22/25 10:37 Oxygen Delivery Method Room Air 04/22/25 10:37 Airway Mallampati Class: III TM Dist: <=3cm Neck ROM: Full Loose/Missing/Broken Teeth: No Heart: S1S2 Assessment and Plan Assessment Anesthesia Assessment: Anesthesia Plan Discussed and Chart Reviewed Final Anesthetic Review Family History of Problems with Anesthesia: No History of Problems with Anesthesia: No NPO: Yes ASA Class: III Final Preanesthetic Review: No Changes in Pt Med Stat, Meds/Allgs Chart Reviewed, Consent Obtained/Reviewed and Anes Risks/Benef Reviewed Patient Risk: Intermediate Procedure Risk: Intermediate Anesthetic Plan Anesthetic Plan: Spinal and Regional Block (Right adductor canal and right ipack block) Disposition: Standard PACU
[2025-05-20] MEDS: Lactated Ringers 1,000 ML 100 ML IVCONT ×3 (08:16→22:08)
--- NOTE | 2025-05-20 10:33 | PM.OP ---
Brief Operative Note Date of Service: 05/20/25 Pre-op diagnosis: right knee OA Post-op diagnosis: same Procedure: Right TKA Implants: Kemi Persona 10/G/12PS/35s Surgeon: Osorio Villagran MD Anesthesia: GLMA and regional Was an Offset Proof Press Operator used for this Procedure?: Yes Offset Proof Press Operator: Glen Norman Estimated blood loss (mL): 25 Tourniquet time (min): 95 IV fluids (mL): 1,200 Pathology: other Condition: stable Disposition: PACU
--- NOTE | 2025-05-20 10:53 | P.OP_ITS ---
Operative Note Operative Note Date of Service: 05/20/25 Narrative: Date of Service: 05/20/25 Pre-op diagnosis: right knee OA Post-op diagnosis: same Procedure: Right TKA Implants: Kemi Persona 10/G/12PS/35s Surgeon: Osorio Villagran MD Anesthesia: GLMA and regional Was an Bending Shed Worker used for this Procedure?: Yes Bending Shed Worker: Glen Norman Estimated blood loss (mL): 25 Tourniquet time (min): 95 IV fluids (mL): 1,200 Pathology: other Condition: stable Disposition: PACU Procedure in detail: The patient was brought to the operating room and prepped and draped in standard sterile fashion. A time-out was called to identify proper site proper procedure proper surgeon and IV antibiotics were administered. 1 g of IV tranexamic acid was administered. There was a 10deg flexion contracture. I began by making a midline incision to the retinaculum and performed a medial parapatellar a rthrotomy. The patella was translated laterally and the knee was flexed up. There was medial compartment eburnation. I performed a small medial peel and resected the infrapatellar fat pad. The custom cutting block was placed on the distal femur using the model on the back table. I placed my distal femoral cutting guide and added an additional 2mm. I sized a 10 cutting block and made my anterior, posterior and chamfer cuts protecting the soft tissues at all times. I then made my box but removing the PCL. the lug holes were then drilled. Once I was satisfied with my cuts I turned my attention to the tibia. I removed the meniscus medially and laterally and using the custom tibial cutting block placed my anterior pins and then by cutting block. I used an external cutting guide, in line with the tibial crest and the third ray, to confrim saggital alignement. I made my distal tibial cut while protecting the posterior soft tissues at all times. An extension block was used to confirm appropriate amount of bony resection. The knee was still tight in extension so I took an additional 2mm off the tibial cut. I then sized a G tibia and once I was satisfied that there was complete tibial coverage I placed my trial and with the trial femur in place took the knee through range of motion. I was satisfied with the extension, flexion and balance at 0, 30 and 90 degrees. I then turned my attention to the patella where I removed 1 cm from the undersurface of the patella and then trialed a 35 patellar button. Again the knee was taken through range of motion I was satisfied with the tracking. I then returned to the tibia and prepared the tibia with a drill and punch. I mixed 2 bags of Palacos bone cement on the back table using 3rd gen cementation technique. I then cemented th e patella, tibia and femur in standard fashion while applying axial compression and with a clamp on the patella. Once the cement was dry I removed all excess cement. I trialed different inserts until I selected a #12 insert. The final insert was placed and a the knee was irrigated copiously and local TXA was administered. The knee was then closed with a running Quill suture, a 3 0 Vicryl and tricia on the skin. Patient was then placed in sterile dressing and brought to recovery room in stable condition there were no known complications.
--- NOTE | 2025-05-20 12:03 | PC.NURSE ---
Patient arrived to unit with no IV fluids running. Reports numbness BLE, patient able to wiggle toes. Bed alarm on, patient educated to not get up without assistance. PACU nurse messaged via [employer] for patient's home CPAP machine as it was not brought up with patient.
--- NOTE | 2025-05-20 12:28 | P.CONHOSP_ITS ---
History of Present Illness Data of Consult Service Date: 05/20/25 Primary Care Provider: Carissa Lau MD HPI 64-year-old man with a history of osteoarthritis admitted by Orthopedic surgery and is status post right total knee arthroplasty. Surgery was unremarkable. Patient's vital signs and previous labs are stable. Patient has been able to drink without any nausea or vomiting. Review of Systems 2 Review of Systems: Denies any recent fever chills or decrease in appetite respiratory denies any shortness of breath or cough cardiovascular denies chest pain gastrointestinal denies any dysphagia abdominal pain nausea vomiting or diarrhea genitourinary denies any dysuria frequency or hematuria musculoskeletal postoperative knee surgery neuropsych denies any weakness or seizures all other systems reviewed are negative [facility] Medical History (Updated 05/20/25 @ 12:29 by Monalisa Escobar NP) History of urinary retention Concussion CAD (coronary artery disease) Myocardial infarction Sacroiliitis Sleep apnea Pure hypercholesterolemia Mild recurrent major depression Osteoarthritis of right knee Skin lesion Rosacea Hypogonadism in male Gout Chronic pain GERD (gastroesophageal reflux disease) BPH (benign prostatic hyperplasia) Hyperlipidemia PAF (paroxysmal atrial fibrillation) Essential hypertension Family History Father CAD (coronary artery disease) COPD (chronic obstructive pulmonary disease) Mother No problems noted. Son No problems noted. Surgical History History of surgical removal of skin lesion H/O colonoscopy History of left knee replacement (~08/2019) History of arthroplasty of left knee History of prior ablation treatment History of prostate surgery History of appendectomy History of arthroscopy of right knee History of arthroscopy of left knee Social History Household Members: Spouse Housing: House Are you a primary cattle care worker to a significant other at home: No Do you presently have visiting nurse or other home services: No Alcohol intake: current Alcohol intake frequency: holidays/special occasions only Alcohol type: beer and hard liquor Comment: SLEEPING Patient Tobacco Use Status: Former Tobacco user Tobacco use type: Cigarette e-Cigarette/Vaping Use: Never Used Second Hand Smoke Exposure: No Use of substances other than those prescribed or required for medical reasons: Yes Substance Use Type: Marijuana Substance Use Frequency: Occasionally Have you been hit, kicked, punched, or otherwise hurt by someone within the past year? 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 Current occupational exposures/hazards: No Cognitive needs: No Hearing needs: No Vision needs: No Meds Allergies Allergy/AdvReac Type Severity Reaction Status Date / Time ciprofloxacin (From CIPRO) Allergy Intermediate SWELLING Verified 05/20/25 07:38 levofloxacin (Levaquin) Allergy Intermediate facial Verified 05/20/25 07:38 swelling Active Medications: Current Medications Acetaminophen (Acetaminophen 325 Mg Tablet) 650 mg PO Q6H PRN PRN Reason: Pain, Mild 1-3,fever,headache Apixaban (Apixaban 5 Mg Tablet) 5 mg PO BID PEREZ Celecoxib (Celecoxib 200 Mg Capsule) 200 mg PO BID PEREZ Docusate Sodium (Docusate Sodium 100 Mg Capsule) 100 mg PO BID PEREZ Enoxaparin Sodium (Enoxaparin Sodium 40 Mg/0.4 Ml Syringe) 40 mg SUBCUT Q24H ONE Stop: 05/21/25 09:01 Hydromorphone HCl (Hydromorphone Hcl 0.5 Mg/0.5 Ml Syringe) 0.25 mg IVPUSH Q4H PRN; Protocol PRN Reason: Pain, Severe (Pain Scale 7-10) Lactated Ringer's (Lr) 1,000 mls @ 100 mls/hr IVCONT .Q10H PEREZ Stop: 05/21/25 08:00 Cefazolin Sodium/Dextrose (Ancef) 2 gm in 50 mls @ 100 mls/hr IV POSTOP ONE Stop: 05/20/25 14:59 Non-Formulary Medication (Testosterone) 3 pump TOPICAL DAILY PEREZ Ondansetron HCl (Ondansetron Hcl 4 Mg/2 Ml Vial) 4 mg IVPUSH Q8H PRN PRN Reason: Nausea and Vomiting Oxycodone HCl (Oxycodone Hcl Immed Release 5 Mg Tablet) 5 mg PO Q4H PRN PRN Reason: Pain, Moderate(Pain Scale 4-6) Oxycodone HCl (Oxycodone Hcl Er 10 Mg Tab.Er.12h) 10 mg PO BID PEREZ Sodium Chloride (0.9 % Sodium Chloride Flush 3 Ml Syringe) 3 ml IVFLUSH QSHIFT PEREZ Tamsulosin HCl (Tamsulosin Hcl 0.4 Mg Capsule) 0.4 mg PO BEDTIME PEREZ Valacyclovir HCl (Valacyclovir Hcl 1,000 Mg Tablet) 1,000 mg PO Q8H PRN PRN Reason: Outbreak Home Medications ?Medication ?Instructions ?Recorded ?Confirmed ?Last Taken ?Type simvastatin 40 mg tablet 40 mg PO BEDTIME 05/18/2005/19/25 History apixaban 5 mg tablet (Eliquis) 5 mg PO BID 08/09/2105/17/25 History Held on 11/17/23. Instructions: Resume on 11/19/23. resume Eliquis on 11/19/23 sildenafil 50 mg tablet 50 mg PO DAILY PRN Sexual Ac tivity 03/14/24 05/15/25 Unknown History lisinopril 10 mg tablet 5 mg PO DAILY 04/22/2505/1505/19/25 History multivitamin 1 tab PO DAILY 04/22/25 092 01/1205/19/25 History valacyclovir 1 gram tablet 1,000 mg PO Q8H PRN Outbrea k 04/22/25 05/15/25 Unknown History vitamin A-vitamin C-vit E-min 1 tab PO DAILY 04/22/25 05/15/25 05/19/25 History tablet Physical Exam 2 Vital Signs and Narrative: Vital Signs: Last Vital Signs Temp 96.9 F 05/20/25 11:54 Pulse 50 05/20/25 11:54 Resp 18 05/20/25 11:54 BP 114/80 05/20/25 11:54 Pulse Ox 98 05/20/25 11:54 O2 Del Method Room Air 05/20/25 11:54 O2 Flow Rate 6 05/20/25 10:49 BMI result Body Mass Index 32.9 Appearing in no acute distress head is normocephalic atraumatic eyes pupils are PERRLA sclera is anicteric mouth throat mucous membranes are intact and moist neck is supple no lymphadenopathy, no JVD noted lung sounds are clear to auscultation heart regular rate rhythm, clear S1, S2 positive bowel sounds, abdomen is soft, nontender neuro patient is alert x3, no focal deficits Right knee surgical dressing intact, surgical incision not visualized Results Labs 05/20/25 07:26 04/22/25 11:40 Imaging Radiologist's Impressions: Impressions Knee X-Ray 05/20/25 11:04 IMPRESSION: Changes from recent total knee arthroplasty. Electronically signed by: Blaine Beckwith MD 05/20/2025 11:28 AM EDT RP Assessment and Plan (1) PAF (paroxysmal atrial fibrillation): Status: Acute Plan 64-year-old man admitted by Orthopedic surgery and is status post right total knee arthroplasty Right total knee arthroplasty Management as per surgical team Pain management Atrial fibrillation, paroxysmal Continue apixaban Heart rate mildly bradycardic, hold diltiazem for now and restart when heart rate allows BPH Continue tamsulosin Hyperlipidemia He may continue statin on discharge Obstructive sleep apnea CPAP at bedtime DVT prophylaxis with apixaban Full code Medical consultation complete. Will sign off
[2025-05-20] MEDS: oxyCODONE HCl Immed Release 5 MG TABLET PO (12:39)
[2025-05-20] MEDS: oxyCODONE HCl Immed Release 5 MG TABLET 10 MG PO (16:18)
[2025-05-20] MEDS: oxyCODONE HCl ER 10 MG TAB.ER.12H PO (20:45)
--- NOTE | 2025-05-20 20:54 | PM.DS ---
DS: Providers Provider Date of Service: 05/20/25 Date of discharge: 05/21/25 Primary care physician: Carissa Lau MD Consults: 05/20/25 11:45 Consult to Case Management Routine Comment: rt tka- str vs home w vna Consult to Hospitalist Routine Comment: Consulting Provider: [facility] [place] Hospitalists Reason For Exam: medical management DS: Diagnosis Discharge Diagnosis (1) Status post total right knee replacement: Status: Acute DS: Summary Hospital Course Hospital Course: The patient underwent a successful Right total knee arthroplasty on 05/20/[address] Villagran, was transferred to PACU and then to the floor to recover. During their stay, their vitals were stable, afebrile at 98.5. Labs were unremarkable, H/H 13.1/39.0. POD 1 he was started on Lovenox 40 mg subQ x1 for DVT ppx. POD 2 he will resume Eliquis. He also received PT 2x a day. Physical therapy should include gait training, ROM to tolerance and quad strength. He is WBAT. Prior to discharge, his dressing was changed, incision clean dry and intact, new Aquacel dressing applied. The Aquacel dressing should remain intact and dry at all times. Any concerns with the dressing, please contact orthopedic office. No showering. The plan is to be discharged to [facility] Time Attestation Discharge Coordination Time (in mins): 30 Quality: Safe Use of Opioids Does Pt have an Active Cancer Diagnosis on the Problem List?: No Quality: Stroke Does the patient have a stroke diagnosis?: No Physical Exam Vital Signs: Vital Signs: Last Vital Signs Temp 99.0 F 05/20/25 20:00 Pulse 87 05/20/25 20:00 Resp 18 05/20/25 20:00 BP 137/77 05/20/25 20:00 Pulse Ox 95 05/20/25 20:00 O2 Del Method Room Air 05/20/25 20:00 O2 Flow Rate 6 05/20/25 10:49 BMI result Body Mass Index 32.9 DS: Data Data Completed and Pending Pending studies at discharge: Pending at discharge 05/20/25 09:01 Surgical [PTH] Routine Labs on day of discharge: Laboratory Results - last 24 hr 05/20/25 07:26 Hgb 14.7 Hct 43.2 Discharge Plan Discharge Patient Disposition: Home, Self-Care Referrals: [facility] [Outside] - 1 Day Referral Note: short term rehab Glen Norman PA-C [Physician Vice Provost, Orthopedics] - 1 Week Referral Note: 06/05/25 14:00 [facility] [place] [facility] Surgeons Glen Norman PA-C Discharge Medications: New docusate sodium 100 mg Capsule 100 mg PO BID 7 Days Qty: 14 0RF oxycodone 10 mg tablet 10 mg PO Q4H PRN (Reason: Pain, Moderate(Pain Scale 4-6)) 7 Days Qty: 42 0RF Rx Instructions: Partial Fill upon patient request. celecoxib 200 mg Capsule 200 mg PO BID 30 Days Qty: 60 0RF acetaminophen 325 mg Tablet 650 mg PO Q6H PRN (Reason: Pain, Mild 1-3,Fever,Headache) 30 Days Qty: 240 0RF Continued doxycycline hyclate 100 mg tablet 100 mg PO BID 90 Days Qty: 180 6RF diltiazem HCl 180 mg capsule,extended release 24hr 180 mg PO DAILY Qty: 90 1RF (DME) Folding Front Wheeled walker See Rx Instructions .ROUTE .MEDSUPPLY Qty: 1 0RF Rx Instructions: Duration: 99 days tadalafil [Cialis] 5 mg tablet 5 mg PO DAILY 90 Days Qty: 90 1RF Rx Instructions: [id number] [facility] [id number] Member [id number] lorazepam 1 mg tablet 1 mg PO BID PRN (Reason: anxiety) 29 Days Qty: 58 0RF multivitamin Tablet 1 tab PO DAILY vitamin A-vitamin C-vit E-min Tablet 1 tab PO DAILY valacyclovir 1 gram tablet 1,000 mg PO Q8H PRN (Reason: Outbreak) lisinopril 10 mg tablet 5 mg PO DAILY Eliquis 5 mg tablet 5 mg PO BID simvastatin 40 mg tablet 40 mg PO BEDTIME testosterone 30 mg/actuation (1.5 mL) solution in metered pump w/marley 3 pump topical DAILY 30 Days Qty: 90 3RF Rx Instructions: This is an increase in dose. tamsulosin 0.4 mg capsule 0.4 mg PO BEDTIME 90 Days Qty: 90 1RF sildenafil 50 mg tablet 50 mg PO DAILY PRN (Reason: Sexual Activity) Discontinued enoxaparin [Lovenox] 40 mg/0.4 mL syringe 40 mg subcut DAILY 2 Days Qty: 0.8 0RF Diet: Regular diet Activity on Discharge: Use cane or walker Activity Restrictions/Additional Instructions: Physical Therapy for ROM 0-120, quad strength, gait training. Use walker for ambulation Limit stair climbing No shower or tub bath No driving for 6 weeks Continue anticoagulant Keep Aquacel dressing clean, dry and intact. Follow up with orthopedics in 2 weeks -Bandage/Incision Site Care: -Ice 20mins at a time -Make sure you use a towel or cloth on your skin as a barrier -DO NOT remove the bandage -Keep Bandage clean, dry and intact -Do not get the bandage wet: -No tub bath, pools or hot tubs -If there are any concerns regarding the bandage please call orthopedics: [phone] -Knee Precautions: -Refrain from putting pillows under the knee -Keep leg straight while resting the knee -Avoid low chairs and deep couches -Use supportive shoes with nonslip soles -Physical Therapy: -Patient is WBAT with the use of a walker -Range of Motion: 0-120 degrees. -Strengthening: Quadriceps and hip muscles -Walking: Gait training and gradually increasing distance with walker -Ankle pumps and incentive spirometry to limit the risk of blood clot -Diet: -Resume regular diet as tolerated. -Drink plenty of fluids and eat a high-fiber foods to avoid constipation -This is a common side effect of pain medication) -Take stool softeners as prescribed -Blood Clot Prevention: -Resume Eliquis -Perform ankle pumps and walk frequently with the walker and assistance if needed -Report calf pain, swelling, or shortness of breath immediately Print Language: Kazakh
[2025-05-21] MEDS: traZODone HCL 25 MG HALFTAB 12.5 MG PO (00:29)
[2025-05-21 03:33] VITALS: BP 108/71; PULSE 72; RESP 18; TEMP 36.6; O2SAT 95
[2025-05-21 05:56] LABS: MANUAL DIFF FLAG NO
[2025-05-21 06:09] LABS: Anion Gap 12 (12-20); Blood Urea Nitrogen 15 mg/dL (9-16); Calcium 8.7 mg/dL (8.4-10.2); Carbon Dioxide 23 mmol/L (22-29); Chloride 112 mmol/L (96-108); Creatinine Clr Calc Pharmacy 147.0; Estimated Glomerular Filt Rate > 60; Hematocrit 39.0 % (42.0-52.0); Hemoglobin 13.1 g/dl (14.0-18.0); Imm Gran Abs Auto 0.06 X10*3/uL (0.00-0.03); Imm Gran Pct Auto 0.5 % (0.0-0.4); Lymphocytes Absolute Auto 0.7 X10*3/uL (1.2-4.9); Mean Corpuscular HGB Conc 33.6 g/dl (31.0-36.0); Mean Corpuscular Hemoglobin 29.1 pg (27.0-33.0); Mean Corpuscular Volume 86.7 fL (80.0-98.0); NRBC Abs Auto 0.000 X10*3/uL (0.0-0.012); NRBC Pct Auto 0.0 /100WBC (0.0-0.2); Platelet Count 157 X10*3/uL (160-400); Potassium 4.1 mmol/L (3.3-5.1); Red Blood Count 4.50 X10*6/uL (4.60-5.80); Sodium 143 mmol/L (135-145); White Blood Count 12.8 X10*3/uL (4.8-10.8)
[2025-05-21] MEDS: oxyCODONE HCl Immed Release 5 MG TABLET 10 MG PO ×2 (06:10→15:29)
[2025-05-21 07:09] VITALS: BP 122/75; PULSE 70; RESP 16; TEMP 37.3; O2SAT 93
--- NOTE | 2025-05-21 07:23 | P.PNOP_ITS ---
Subjective Subjective Date of Service: 05/21/25 Interval history: POD 1 s/p RT TKA no overnight events patient is resting in bed, pain is managable Physical Exam Vital Signs: Vital Signs: Last Vital Signs Temp 99.1 F 05/21/25 07:09 Pulse 70 05/21/25 07:09 Resp 16 05/21/25 07:09 BP 122/75 05/21/25 07:09 Pulse Ox 93 05/21/25 07:09 O2 Del Method Room Air 05/21/25 07:09 O2 Flow Rate 6 05/20/25 10:49 BMI result Body Mass Index 32.9 Const: General: cooperative, healthy appearing and no acute distress Resp: Effort & Inspection: normal respiratory effort and able to speak in complete sentences Cardio: Rate: regular rate Peripheral pulses: Peripheral pulses 2+ throughout GI: Palpation (GI): Soft to palpation Skin: General skin exam: no rashes or lesions noted Extrem: Other: Right knee bandage c/d/i. He has good quad activation. He is able to plantar and dorsi flex the knee, nvi Procedures Date of Service Date of Service: 05/21/25 Progress Note: A&P Assessment and plan (1) Status post total right knee replacement: Status: Acute Assessment and Plan: * Continue pain mgmnt * Begin lovneox x1 for dvt ppx, resume eliquis * begin PT for RT TKA * Dispo planning-Pending PT recs STR Need for continued inpatient stay: Time Spent With Patient Time: Total time managing care of this patient today ____ minutes. Quality Stroke Does the patient have a stroke diagnosis?: No VTE Prior VTE?: No VTE Risk Level:: Surgical - very high VTE Device Contraindication: N/A - Device Ordered VTE Drug Contraindication: N/A - Med Ordered
[2025-05-21] MEDS: oxyCODONE HCl ER 10 MG TAB.ER.12H PO (07:55)
--- NOTE | 2025-05-21 09:42 | HO.POSTANES ---
Post Anesthesia Evaluation Post Anesthesia Evaluation Date of Service: 05/21/25 Vital Signs: Vital Signs Temp Pulse Resp BP Pulse Ox O2 Del Method 05/21/25 07:09 99.1 F 70 16 122/75 93 Room Air 05/21/25 03:33 97.9 F 72 18 108/71 95 CPAP 05/20/25 23:29 98.8 F 85 18 128/76 94 CPAP 05/20/25 23:19 18 Anesthesia: Spinal Mental Status: Awake Pain Control: Satisfactory Nausea/Vomiting: None Hydration: Adequate Anesthesia-Related Issues: No Anes. Related Issues
[2025-05-21 09:50] VITALS: BP 135/78; BP 138/78; PULSE 72
[2025-05-21] MEDS: dilTIAZem HCL CD 180 MG CAP.ER.24H PO (09:50)
--- NOTE | 2025-05-21 11:44 | MHC.CM.PN ---
Addendum entered by Chrystal Chaparro RN 05/21/25 14:53: PVR obtained auth. When CM updated patient, patient reported to this CM that he prefers to go home w/ VNA services. Extensive discussion re: support and safety at home. Patient reports his son will stay with him for at least a few days, his sister and another friend will visit daily to provide assistance. Offered to schedule BLS transport home, patient w/ 18 steps to enter. Patient declined and arranged for a friend to transport home. Reports he has a rollator at home. Per PT, he should machine pecan picker a wheeled walker. Ortho PA and RN aware. Original Note: Patient lives in an apartment alone. Functionally independent. Uses CPAP, supplies via [facility]. PCP Carissa Lau MD Reports he has an HCP naming his sister, Mary, as HCA. Copy requested. DP: STR via BLS. Patient has accepted a bed at [facility], who will submit for auth. CM will continue to follow.
[2025-05-21 13:14] VITALS: TEMP 36.9
--- NOTE | 2025-05-21 14:27 | P.F2F_ITS ---
Service Date Service Date: 05/21/25 Encounter Date of encounter: 05/21/25 Reasons for Services Signs and symptoms assessed: Weakness, poor balance, poor gait mechanics Reason for physical therapy: home safety and mobility, therapeutic exercises, restore joint function, gait/transfer training, ADL training and energy conservation Reason for occupational therapy: home safety and mobility, therapeutic exercises, restore joint function, gait/transfer training, ADL training and energy conservation Overseeing Care: Osorio Villagran Homebound: Leaving the home is medically contraindicated at this time without the asist of a device and/or another person due th the listed conditions above and below. Reason homebound: pain with ambulation, pain with transfers, poor balance / fall risk and unable to drive Homebound supporting statement: Pt. is considered home bound due to recent surgery. Unable to drive, poor balance, poor gait mechanics. Certification: Based on the above findings, I certify that this patient is confined to the home and needs intermittent penitentiary care, physical therapy and/or speech therapy, or continues to need occupational therapy. The patient is under my care, and I have initiated the establishment of the plan of care. The patient will be followed by a physician who will periodically review the plan of care. Time Spent With Patient Time: Total time managing care of this patient today ____ minutes.
[2025-05-21 15:28] VITALS: BP 134/68; PULSE 63; RESP 17; TEMP 36.8; O2SAT 95
== END 2025-05-21 17:10 | disposition home health service (06) ==
LOC: HO.SSS 06:58 → HO.S3 11:05
PROVIDERS: Nurse Practitioner; Physician Assistant; PCP Internal Medicine; Visit Provider Orthopaedic Surgery
PROC: (CPT 27447; principal; 2025-05-20 08:30)
DX: M17.11 Unilateral primary osteoarthritis, right knee (principal); M25.561 Pain in right knee; G89.29 Other chronic pain; M10.9 Gout, unspecified; M46.1 Sacroiliitis, not elsewhere classified; E11.9 Type 2 diabetes mellitus without complications; R26.2 Difficulty in walking, not elsewhere classified; I48.0 Paroxysmal atrial fibrillation; I10 Essential (primary) hypertension; E78.00 Pure hypercholesterolemia, unspecified; I25.10 Atherosclerotic heart disease of native coronary artery without angina pectoris; I25.2 Old myocardial infarction; G47.33 Obstructive sleep apnea (adult) (pediatric); L71.9 Rosacea, unspecified; N40.0 Benign prostatic hyperplasia without lower urinary tract symptoms; F33.0 Major depressive disorder, recurrent, mild; Z79.01 Long term (current) use of anticoagulants; Z79.899 Other long term (current) drug therapy; Z99.89 Dependence on other enabling machines and devices; Z88.1 Allergy status to other antibiotic agents; Z96.652 Presence of left artificial knee joint; Z98.890 Other specified postprocedural states; Z87.891 Personal history of nicotine dependence
CPT/HCPCS: 27447; 36415; 73560; 80048; 83036; 85014; 85018; 85025; 85027; 86850; 86900; 86901; 87640; 87641; 88305; 88311; 97110; 97116; 97162; 97530; C1713; C1776; J0131; J0665; J0690; J1100; J1171; J1650; J2003; J2250; J2405; J2704; J7120

== ENCOUNTER → 2025-05-20 06:58 | Outpatient (BNV) | payer OTHER, SELFPAY | PROVIDERS: PCP Internal Medicine; Visit Provider Orthopaedic Surgery | DX: Z47.1 Aftercare following joint replacement surgery (principal); Z96.651 Presence of right artificial knee joint | CPT/HCPCS: 27447; 99024; G0180 ==

== ENCOUNTER → 2025-05-20 06:58 | Outpatient (BNV) | payer OTHER, SELFPAY | PROVIDERS: PCP Internal Medicine; Visit Provider Nurse Practitioner Acute Care | DX: G47.33 Obstructive sleep apnea (adult) (pediatric) (principal) | CPT/HCPCS: 99222 ==

== ENCOUNTER → 2025-05-20 10:50 | Outpatient (BNV) | payer OTHER, SELFPAY | PROVIDERS: PCP Internal Medicine; Visit Provider Radiology Diagnostic Radiology | DX: Z96.651 Presence of right artificial knee joint (principal) | CPT/HCPCS: 73560 ==

== ENCOUNTER 2025-06-05 10:05 | Outpatient (AMB) | payer OTHER, SELFPAY ==
--- NOTE | 2025-06-05 10:15 | A.OFFVIS_ITS ---
Intake Visit Reasons: 2WKPO: R TKA w/NE 05/20/25 Intake Note: [place] is a 64 year old male who presents today post operatively after undergoing a right total knee arthroplasty, performed by Dr. Villagran on 05/20/25. Patient reports that he continues to have soreness and pain. States his current pain level is an 8 out of 10. He is out of pain medication and is requesting a refill. Allergies ciprofloxacin (From CIPRO) Allergy (Intermediate, Verified 06/05/25 10:16) SWELLING levofloxacin (Levaquin) Allergy (Intermediate, Verified 06/05/25 10:16) facial swelling Medication List - Last Reconciled 06/05/25 by Glen Norman PA-C acetaminophen 650 mg (2 x 325 mg) PO Q6H PRN 30 days apixaban (Eliquis) 5 mg PO BID celecoxib 200 mg PO BID 30 days diltiazem HCl CD 180 mg PO DAILY docusate sodium 100 mg PO BID 7 days doxycycline hyclate 100 mg PO BID 90 days [Folding Front Wheeled walker Duration: 99 days] lisinopril 5 mg PO DAILY lorazepam 1 mg PO BID PRN 29 days multivitamin 1 tab PO DAILY oxycodone 10 mg PO Q4H PRN 7 days sildenafil 50 mg PO DAILY PRN simvastatin 40 mg PO BEDTIME tadalafil (Cialis) 5 mg PO DAILY 90 days tamsulosin 0.4 mg PO BEDTIME 90 days testosterone 30 mg/actuation (1.5 mL) 3 pumps topical DAILY 30 days valacyclovir 1,000 mg PO Q8H PRN vitamin A-vitamin C-vit E-min 1 tab PO DAILY HPI HPI 2WKPO: R TKA w/NE 05/20/25: Details: 64-year-old gentleman returns to the office today 2 weeks status post right total knee arthroplasty on 05/20/[address] Villagran. [facility] Medical History (Updated 06/03/25 @ 15:15 by Hardeep Romero MD) History of urinary retention Concussion CAD (coronary artery disease) Myocardial infarction Sacroiliitis Sleep apnea Pure hypercholesterolemia Mild recurrent major depression Osteoarthritis of right knee Skin lesion Rosacea Hypogonadism in male Gout Chronic pain GERD (gastroesophageal reflux disease) BPH (benign prostatic hyperplasia) Hyperlipidemia PAF (paroxysmal atrial fibrillation) Essential hypertension Surgical History History of surgical removal of skin lesion H/O colonoscopy History of left knee replacement (~08/2019) History of arthroplasty of left knee History of prior ablation treatment History of prostate surgery History of appendectomy History of arthroscopy of right knee History of arthroscopy of left knee Family History Father CAD (coronary artery disease) COPD (chronic obstructive pulmonary disease) Mother No problems noted. Son No problems noted. 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 The patient will continue working with physical therapy to improve range of motion strength and gait training. He has an appointment for outpatient physical therapy to begin on 06/12/2025. I reminded the patient no dental work until 3 months post op and he will require antibiotics for dental prophylaxis. Patient was reminded no driving until 6 weeks postop. They will return in 4 weeks for routine follow up, sooner if needed. Coding Level of Care Code Global (89522) Diagnoses Status post total right knee replacement Z96.651
--- OUTSIDE RECORDS SUMMARY | 2025-06-05 12:06 | XMS_ITS | Encounter Summary ---
Author Organization [facility] Address [address] [place] [address] Phone Care Team Providers Care Social Work Job Titles Name Role Phone Joshua Oswald MD Unavailable [phone] Carissa Zuniga MD Primary Care Provid er Reason for Referral * Hospital - Outpatient - Closed Specialty Diagnoses / Procedures Referred By Yumiko allen Referred To Contact Radiology Diagnoses TIA (transient ischemic attack) Spell of change in speech Aphasia Procedures US Carotid Duplex Complete (Bilateral) Rashad Thorpe MD [address] [place] [address], [address] [place] [address] Phone: tel: fax: [email or web address] Referral ID Status Reason Start Date Expiration Date Visits Re quested Visits Authorized [id number] Closed 03/25/2025 03/25/2026 1 1 Encounter Details Date Type Department Care Team (Latest Contact Info) Description 03/25/2025 Transcribe Orders Virtual Department [address] [place], [place] [phone] Rashad Thorpe MD [address] [place] [address], [address] [place], [place] [phone] [email or web address] TIA (transient ischemic attack) (Primary Dx); Spell [...] Description 07/22/2025 9:00 AM EST Office Visit [facility] [address], [address] [place] [address] Faheem Solares MD 22 [facility], [address] [address] [email or web address] 04/10/2026 9:00 AM EDT Office Visit [facility] [address], [address] [place] [address] Chetan Mercado MD, MS [address] [facility], [address] [place] [address] [email or web address] documented as of this [...] the denominator. us Rashad Thorpe MD [facility] NEUR[facility]ULAR Final Re sult documented in this encounter Visit Diagnoses Diagnosis TIA (transient ischemic attack)- Primary Unspecified transient cerebral ischemia Spell of change in speech Aphasia TIA (transient ischemic attack) Unspecified transient cerebral ischemia Spell of change in speech Aphasia documented in this encounter Care Teams Social Work Job Titles Relationship Specialty Start Date End Date Carissa Zuniga MD [address] [place] [address] PCP - General Internal Medicine 06/25/19 Joshua Oswald MD [address] [place] [address] [email or web address] Historical LMR Provider 06/08/17 documented as of this encounter Additional Source Comments The information contained in this document represents components of the legal health record. It is not the complete legal health record.[facility]
--- OUTSIDE RECORDS SUMMARY | 2025-06-05 12:06 | XMS_ITS | Encounter Summary ---
Author Organization [facility] Address [address] [place] [address] Phone Care Team Providers Care Disulfurizer Tender Name Role Phone Joshua Oswald MD Unavailable [phone] Carissa Zuniga MD Primary Care Provid er Encounter Details Date Type Department Care Team (Late st Contact Info) Description 01/26/2023 Procedure Pass [facility], Ct Scan - [address] [address] Social History Tobacco Use Types Packs/Day Years [...] Description 07/22/2025 9:00 AM EST Office Visit [facility] [address] Floor, [address] [place] [address] Faheem Solares MD 22 [facility], [address] [place] [address] [email or web address] 04/10/2026 9:00 AM EDT Office Visit [facility] [address] Floor, [address] [place] [address] Chetan Mercado MD, MS 22 [facility], [address] [place] [phone] [email or web address] documented as of this encounter Visit Diagnoses Not on filedocumented in this encounter Care Teams Disulfurizer Tender Relationship Specialty Start Date End Date Carissa Zuniga MD [address] [place] [address] PCP - General Internal Medicine 06/25/19 Joshua Oswald MD [address] [place] [address] [email or web address] Historical LMR Provider 06/08/17 documented as of this encounter Additional Source Comments The information contained in this document represents components of the legal health record. It is not the complete legal health record.[facility]
--- OUTSIDE RECORDS SUMMARY | 2025-06-05 12:06 | XMS_ITS | Encounter Summary ---
Author Organization [facility] Address [address] [address] Phone Care Team Providers Care Procurement Consultant Name Role Phone JimenaMartin Dimitrios NOVA Unavailable [phone] Joshua Oswald MD Unavailable [phone] Carissa Zuniga MD Primary Care Provid er Reason for Referral * - Closed Specialty Diagnoses / Procedures Referred By Yumiko allen Referred To Contact Diagnoses Paroxysmal atrial fibrillation Procedures MCT (Mobile Cardiac Telemetry) Faheem Solares MD Phone: tel: fax: [email or web address] Referral ID Status Reason Start Date Expiration Date Visits Re quested Visits Authorized [id number] Closed 07/30/2021 07/30/2022 1 1 Encounter Details Date Type Department Care Team (Latest Contact Info) Description 07/30/2021 Ancillary Orders [facility] [address] [place] [address] [address]rd Floor, [address] [place] [address] Faheem Solares MD 22 [facility], [address] [address] [email or web address] Paroxysmal atrial fibrillation Social History Tobacco Use [...] Description 07/22/2025 9:00 AM EST Office Visit [facility] [address] [place] [address] [facility], [address] [place] [address] Faheem Solares MD 22 [facility], [address] [address] 04/10/2026 9:00 AM EDT Office Visit [facility] [address], [address] [place] [address] Chetan Mercado MD, MS 22 [facility], [address] [address] [email or web address] Scheduled Orders Name Type Priority Associated Diagnoses Orde r Schedule MCT (Mobile Cardiac Telemetry) Cardiac Monitors Routine Paroxysmal atrial fibrillation Expected: 07/23/2021, Expires: 10/21/2021 documented as of this encounter Visit Diagnoses Diagnosis Paroxysmal atrial fibrillation Atrial fibrillation documented in this encounter Care Teams Procurement Consultant Relationship Specialty Start Date End Date Carissa Zuniga MD [address] [place] [address] PCP - General Internal Medicine 06/25/19 Martin Hess DO [address] [place] [address] Historical LMR Provider 06/08/17 Joshua Oswald MD [address] [address] [email or web address] Historical LMR Provider 06/08/17 documented as of this encounter Additional Source Comments The information contained in this document represents components of the legal health record. It is not the complete legal health record.[facility]
--- OUTSIDE RECORDS SUMMARY | 2025-06-05 12:06 | XMS_ITS | Patient Health Record ---
Author Organization [facility] Address [address] [place] [address] Care Team Providers Care Cloth Desizing Range Tender Name Role Phone Jimena(inactive) Martin ZAMBRANO Primary Care Provider U Chetan Ribera Unavailable [phone] Allergies Allergen (clinical drug ingredient) Drug/Non Drug [...] Problem Screening for malignant neoplasm of colon ([id number]) Special screening for malignant neoplasms, colon (V76.51) Active confirmed Plan Of Treatment Future Test Test Name Order Date COLONOSCOPY 07/20/2011 Medical (General) History Medical History History ICD Code atrial fibrillation hypertension hyperlipidemia Denies NE,DM,CVA,Lung disease,renal dise ase he describes a negative cardiac catheter ization Surgical History Surgery Date(Month/Year) appendectomy knee surgery shoulder surgery
--- OUTSIDE RECORDS SUMMARY | 2025-06-05 12:06 | XMS_ITS | Clinical Summary ---
Author Organization [facility] Address [address] [place] [address] Phone Care Team Providers Care Petroleum Refining Equipment Operator Name Role Phone Joshua Oswald MD Unavailable [phone] Carissa Zuniga MD Primary Care Provid [...] Says he got a venous ultrasound at [facility] urgent care which was negative for clot. Symptoms have been attributed to a hematoma and he was told to apply heat to the area. Overall he says ankle is production machine tender but is improving. I have told him to seek medical assistance if he notices swelling worsening or if he were to develop sudden onset symptoms of chest pain/shortness of breath. He says that he might actually get a repeat ultrasound of his leg done at [facility] which has been scheduled for next week. Suspected sleep apnea 04/12/2018 Assessment & Plan (04/12/2018 8:37 AM EDT): History is suggestive of sleep apnea will do a sleep study referral for the same. Coronary artery disease invo [place]ving [place] coronary artery of [place] heart without angina pectoris 09/06/2017 Overview (09/26/2017): [...] of breath. He was worked up at [facility] for ACS and this was ruled [...] fibrillation. It was confirmed on EKG at [facility] as well as here in the [...] 1:45 PM EDT): Reviewed lipid panel from [facility] LDL cholesterol 57. Goal LDL less [...] Encounters Date Type Department Care Team Description 05/26/2025 Telephone [facility] [address] [place] [address] 3rd Floor, [address] [place] [address] Faheem Solares MD 05/07/2025 2:15 PM EDT - 05/07/2025 11:59 PM EDT Hospital Encounter Echo Lab [address] [place] [address] Nicole Cazares DNP Discharge Disposition: Home or Self Care 04/30/2025 Procedure Pass Echo Lab [address] [place] [address] 04/30/2025 Orders Only [facility] [address] 3rd [facility], [address] [place] [address] Nicole Cazares DNP Preop examination (Primary Dx); Essential hypertension 04/30/2025 Telephone [facility] [address] [place] [address], [address] [place] [address] Nicole Cazares DNP 04/01/2025 4:00 PM EDT Office Visit [facility] [address] [place] [address], [address] [place] [address] Luca Gonzalez MD NERY on CPAP (Primary Dx) 03/28/2025 2:00 PM EDT Office Visit [address] [place] [address], [address] [place] [address] Nicole Cazares DNP Paroxysmal atrial fibrillation (Primary Dx); Essential hypertension 03/28/[address] 3rd [facility], [address] [place] [address] Nicole Cazares DNP 03/27/2025 10:00 AM EDT Nurse Only [facility] [address] 3rd [facility], [address] [place] [address] Faheem Solares MD Atrial fibrillation (Primary Dx) 03/26/2025 2:02 PM EDT - 03/26/2025 11:59 PM EDT Hospital Encounter [facility] [address] [place] [address] Rashad Thorpe MD Discharge Disposition: Home or Self Care 03/25/2025 Transcribe Orders Virtual Department [address] [place] [address] Rashad Thorpe MD TIA (transient ischemic attack) [...] Description 07/22/2025 9:00 AM EST Office Visit [facility] [address] [place] [address], [address] [place] [address] Faheem Solares MD [address] [place] [address], [address] [address] 04/10/2026 9:00 AM EDT Office Visit [facility] [address] [facility], [address] [place] [address] Chetan Mercado MD, MS [address] [place] [address], [address] [address] Health Maintenance Due Date Last Done Comments Adult Td,Tdap Booster 1960 DEPRESSION SCREENING 1972 HEPATITIS C SCREENING 1978 HIV ONE-TIME SCREENING (18-65 YEARS) 1978 COLOGUARD 2005 COLONOSCOPY 2005 COLORECTAL CANCER SCREENING 2005 FIT TEST 2005 FOBT 2005 SIGMOIDOSCOPY 2005 VIRTUAL COLONOSCOPY 2005 PNEUMOCOCCAL VACCINES (50+ years) (2 of 2 - PCV) 01/25/2012 01/24/2011 LIPID PANEL 05/05/2021 05/05/2020, 03/02/2018 CREATININE LEVEL 01/27/2024 01/26/2023, , 03/02/2018 POTASSIUM LEVEL 01/27/2024 01/26/2023, 04/21, 03/02/2018 INFLUENZA VACCINE (#1) 2025 9, 04/21/2018, 05/10/2017, Additional history exists COVID-19 VACCINE ( season) 2025 09/12/2021, 12/11/2020, 11/20/2020 BLOOD PRESSURE 10/02/2025 04/01/2025 SCREENING FOR DIABETES 01/26/2026 01/26/2023 SMOKING Hx and SMOKELESS TOBACCO SCREENING 04/01/2026 04/01/2025 RSV VACCINE (1 - 1-dose 75+ series) 12/14/2035 ZOSTER VACCINES Completed 03/16/2018, 12/15/2017 HEPATITIS A [...] no evidence of a ventricular septal defect. [facility]CHO ORDERABLES Final Result [...] EDT) SODIUM 138 133 - 146 mmol/L [facility] CHLORIDE 103 96 - 108 mmol/L [facility] POTASSIUM 4.5 3.3 - 5.1 mmol/L [facility] CO2 27 21 - 35 mmol/L [facility] BUN 20(H) 6 - 19 mg/dL [facility] CREATININE 0.80 0.5 - 1.5 mg/dL [facility] GLUCOSE 112(H) 70 - 99 mg/dL [facility] CALCIUM 9.0 8.4 - 10.3 mg/dL [facility] EGFR 100 >59 mL/min/1.7 3m2 [facility] Comment:Estimated glomerular filtration rate calculated using the CKD-EPI refit equation. ANION GAP 13 10 - 20 mmol/L [facility] Blood 01/26/2023 7:39 PM EDT 01/26/2023 8:05 PM EDT us Gini Mccarthy PA-C LAB BLOOD ORDERABLES Final Result [facility] [address] [place] [address] * (ABNORMAL) Lipid panel (05/05/2020 10:04 AM EDT) HDL 42 mg/dL [facility] Comment: Interpretation <40 mg/dL: Low HDL cholesterol (major risk factor for CHD) Greater than or equal to 60 mg/dL: High HDL cholesterol ( negative risk factor for CHD) HDL - cholesterol is affected by a number of factors, e.g. smoking, excerise, hormones, sex and age. CHOLESTEROL 114 0 - 240 mg/dL [facility] TRIGLYCERIDES 136 30 - 160 mg/dL [facility] LDL 45(L) 50 - 129 mg/dL [facility] Comment: LDL levels in terms of risk for coronary heart disease: <100 mg/dL: Optimal 100-129 mg/dL: Near or above optimal 130-159 mg/dL: Borderline high 160-189 mg/dL: High >190 mg/dL: Very High CARDIAC RISK RATIO 2.7(L) 3.4 - 5.0 C [facility] Blood 05/05/2020 10:0 4 AM EDT 05/05/2020 10:08 AM EDT us Joshua Oswald MD LAB BLOOD ORDERABLES Final Resu lt [facility] [address] [place] [address] from Last 3 Months or Most Recently Relevant to Health Maintenance Insurance [facility] NON NSP PCP [facility] WELLSENSE NON NSPG PCP [employer] [employer] WELL[employer] NON NSPG PCP S[employer] WELL[employer] NON NSPG PCP [facility] [employer] Member Subscriber Plan / Payer (Ef fective 2024-Present) Name:Gustavo Driscoll Relation to Subscriber:Self Name:Gustavo Driscoll Payer ID:[id number] Type:HMO Address: [place] [id number] WELLSENSE NON NSPG PCP [employer] WELL[employer]ENSE NON NSPG PCP [facility] [employer] WELLSENSE NON NSPG PCP [facility] [employer] WELL[employer]ENSE NON NSPG PCP S[facility] [employer] [facility] Care Teams Petroleum Refining Equipment Operator Relationship Specialty Start Date End Date Carissa Zuniga MD [address] [place] [address] PCP - General Internal Medicine 06/25/19 Joshua Oswald MD [address] [place] [address] [email or web address] Historical LMR Provider 06/08/17 Additional Source Comments The information contained in this document represents components of the legal health record. It is not the complete legal health record.[facility]
--- OUTSIDE RECORDS SUMMARY | 2025-06-05 12:06 | XMS_ITS | Clinical Summary ---
Author Organization [facility] ity Address [address] [place] [address] Care Team Providers Care Smt Machine Operator Name Role Phone Unavailable Primary Care [...]
--- OUTSIDE RECORDS SUMMARY | 2025-06-05 12:06 | XMS_ITS | Encounter Summary ---
Author Organization [facility] Address [address] [place] [address] Phone Care Team Providers Care Truck Greaser Name Role Phone Joshua Oswald MD Unavailable [phone] Carissa Zuniga MD Primary Care Provid er Encounter Details Date Type Department Care Team (Late st Contact Info) Description 04/30/2025 Procedure Pass Echo Lab [address] [place] [address] Social History Tobacco Use Types Packs/Day Years [...] Description 07/22/2025 9:00 AM EST Office Visit [facility] [address] [place] [address] 3rd Floor, [address] [place] [address] Faheem Solares MD 22 [facility], [address] [address] [email or web address] 04/10/2026 9:00 AM EDT Office Visit [facility] [address] 3rd Floor, [address] [place] [address] Chetan Mercado MD, MS 22 [facility], [address] [address] [email or web address] documented as of this encounter Visit Diagnoses Not on filedocumented in this encounter Care Teams Truck Greaser Relationship Specialty Start Date End Date Carissa Zuniga MD [address] [place] [address] PCP - General Internal Medicine 06/25/19 Joshua Oswald MD [address] [address] [email or web address] Historical LMR Provider 06/08/17 documented as of this encounter Additional Source Comments The information contained in this document represents components of the legal health record. It is not the complete legal health record.[facility]
== END 2025-06-05 11:24 | disposition home or self-care (01) ==
LOC: HO.HOS 10:06
PROVIDERS: Visit Provider Physician Assistant
DX: Z96.651 Presence of right artificial knee joint (principal)
CPT/HCPCS: 99024

== ENCOUNTER → 2025-06-05 10:05 | Outpatient (BNVA) | payer OTHER, SELFPAY | PROVIDERS: Visit Provider Physician Assistant | DX: Z96.651 Presence of right artificial knee joint (principal) | CPT/HCPCS: 99212 ==

== ENCOUNTER 2025-06-26 12:39 | Outpatient (REF) | payer OTHER, SELFPAY ==
--- NOTE | ~2025-06-26 | XR_ITS ---
EXAMINATION: XR KNEE, RIGHT CLINICAL INFORMATION: M25.561 - Pain in right knee COMPARISON: 05/20/2025 TECHNIQUE: AP bilateral standing, sunrise, and lateral views of the right knee. FINDINGS: Skin tricia have been removed since the prior. Total knee arthroplasty is again noted. There is new linear density in the medial tibial metaphysis There is developing heterotopic ossification lateral to the joint. XR/XR knee RT 3V IMPRESSION: On the frontal view, there is new linear density across the medial tibial metaphysis raising question of a periprosthetic fracture. Joint effusion. Message sent to Dr Villagran via [employer] Electronically signed by: Blaine Beckwith MD 06/26/2025 01:32 PM EST
--- OUTSIDE RECORDS SUMMARY | 2025-06-26 15:27 | XMS_ITS | Clinical Summary ---
Author Organization [facility] ity Address [address] [place] [address] Care Team Providers Care Commercial Driver Name Role Phone Unavailable Primary Care Provider [...]
--- OUTSIDE RECORDS SUMMARY | 2025-06-26 15:27 | XMS_ITS | Encounter Summary ---
Author Organization [facility] Address [address] [address] Phone Care Team Providers Care Administrative Support Assistant Name Role Phone JimenaMartin Dimitrios NOVA Unavailable [phone] Joshua Oswald MD Unavailable [phone] Carissa Zuniga MD Primary Care Provid er Reason for Referral * - Closed Specialty Diagnoses / Procedures Referred By Yumiko allen Referred To Contact Diagnoses Paroxysmal atrial fibrillation Procedures MCT (Mobile Cardiac Telemetry) Faheem Solares MD Phone: tel: fax: [email or web address]:[email or web address] Referral ID Status Reason Start Date Expiration Date Visits Re quested Visits Authorized [id number] Closed 07/30/2021 07/30/2022 1 1 Encounter Details Date Type Department Care Team (Latest Contact Info) Description 07/30/2021 Ancillary Orders [facility] [address] [place] [address] 3rd Floor, [address] [place] [address] Faheem Solares MD 22 [facility], [address] [address] [email or web address] Paroxysmal atrial fibrillation Social History Tobacco Use [...] Description 07/22/2025 9:00 AM EST Office Visit [facility] [address] [place] [address] 3rd [facility], [address] [place] [address] Faheem Solares MD 22 [facility], [address] [address] 04/10/2026 9:00 AM EDT Office Visit [facility] [address], [address] [place] [address] Chetan Mercado MD, MS 22 [facility], [address] [address] [email or web address] Scheduled Orders Name Type Priority Associated Diagnoses Orde r Schedule MCT (Mobile Cardiac Telemetry) Cardiac Monitors Routine Paroxysmal atrial fibrillation Expected: 07/23/2021, Expires: 10/21/2021 documented as of this encounter Visit Diagnoses Diagnosis Paroxysmal atrial fibrillation Atrial fibrillation documented in this encounter Care Teams Administrative Support Assistant Relationship Specialty Start Date End Date Carissa Zuniga MD [address] [place] [address] PCP - General Internal Medicine 06/25/19 Martin Hess DO [address] [place] [address] Historical LMR Provider 06/08/17 Joshua Oswald MD [address] [address] [email or web address] Historical LMR Provider 06/08/17 documented as of this encounter Additional Source Comments The information contained in this document represents components of the legal health record. It is not the complete legal health record.[facility]
--- OUTSIDE RECORDS SUMMARY | 2025-06-26 15:27 | XMS_ITS | Encounter Summary ---
Author Organization [facility] Address [address] [place] [address] Phone Care Team Providers Care Blacksmith Apprentice Name Role Phone Joshua Oswald MD Unavailable [phone] Carissa Zuniga MD Primary Care Provid er Reason for Referral * Hospital - Outpatient - Closed Specialty Diagnoses / Procedures Referred By Yumiko allen Referred To Contact Radiology Diagnoses TIA (transient ischemic attack) Spell of change in speech Aphasia Procedures US Carotid Duplex Complete (Bilateral) Rashad Thorpe MD [address] [place] [address], [address] [place] [address] Phone: tel: fax: mailto:[email or web address] [email or web address] Referral ID Status Reason Start Date Expiration Date Visits Re quested Visits Authorized [id number] Closed 03/25/2025 03/25/2026 1 1 Encounter Details Date Type Department Care Team (Latest Contact Info) Description 03/25/2025 Transcribe Orders Virtual Department [address] [place], [place] [id number] Rashad Thorpe MD [address] [place] [address], [address] [place], [place] [phone] [email or web address] TIA (transient ischemic attack) (Primary Dx); [...] Description 07/22/2025 9:00 AM EST Office Visit [facility] [address] 3rd Floor, [address] [place] [address] Faheem Solares MD 22 [facility], [address] [address] [email or web address] 04/10/2026 9:00 AM EDT Office Visit [facility] [address] Floor, [address] [place] [address] Chetan Mercado MD, MS 22 [facility], [address] [place] [address] [email or web address] documented as of this encounter Results * [...] represents the denominator. us Rashad Thorpe MD [facility] Final Re sult documented in this encounter Visit Diagnoses Diagnosis TIA (transient ischemic attack)- Primary Unspecified transient cerebral ischemia Spell of change in speech Aphasia TIA (transient ischemic attack) Unspecified transient cerebral ischemia Spell of change in speech Aphasia documented in this encounter Care Teams Blacksmith Apprentice Relationship Specialty Start Date End Date Carissa Zuniga MD [address] [place] [address] PCP - General Internal Medicine 06/25/19 Joshua Oswald MD [address] [place] [address] [email or web address] Historical LMR Provider 06/08/17 documented as of this encounter Additional Source Comments The information contained in this document represents components of the legal health record. It is not the complete legal health record.[facility]
--- OUTSIDE RECORDS SUMMARY | 2025-06-26 15:27 | XMS_ITS | Encounter Summary ---
Author Organization [facility] Address [address] [place] [address] Phone Care Team Providers Care Platemaker Name Role Phone Joshua Oswald MD Unavailable [phone] Carissa Zuniga MD Primary Care Provid er Encounter Details Date Type Department Care Team (Late st Contact Info) Description 04/30/2025 Procedure Pass Echo Lab [address] [place] [address] Social History Tobacco Use Types Packs/Day Years [...] Description 07/22/2025 9:00 AM EST Office Visit [facility] [address] [place] [address] 3rd Floor, [address] [place] [address] Faheem Solares MD 22 [facility], [address] [address] [email or web address] 04/10/2026 9:00 AM EDT Office Visit [facility] [address] 3rd Floor, [address] [place] [address] Chetan Mercado MD, MS 22 [facility], [address] [address] [email or web address] documented as of this encounter Visit Diagnoses Not on filedocumented in this encounter Care Teams Platemaker Relationship Specialty Start Date End Date Carissa Zuniga MD [address] [place] [address] PCP - General Internal Medicine 06/25/19 Joshua Oswald MD [address] [address] [email or web address] Historical LMR Provider 06/08/17 documented as of this encounter Additional Source Comments The information contained in this document represents components of the legal health record. It is not the complete legal health record.[facility]
--- OUTSIDE RECORDS SUMMARY | 2025-06-26 15:27 | XMS_ITS | Encounter Summary ---
Author Organization [facility] Address [address] [place] [address] Phone Care Team Providers Care Die Turner Name Role Phone Joshua Oswald MD Unavailable [phone] Carissa Zuniga MD Primary Care Provid er Encounter Details Date Type Department Care Team (Late st Contact Info) Description 01/26/2023 Procedure Pass [facility], Ct Scan - [address] [address] Social History Tobacco Use Types Packs/Day Years [...] Description 07/22/2025 9:00 AM EST Office Visit [facility] [address] 3rd Floor, [address] [place] [address] Faheem Solares MD 22 [facility], [address] [place] [address] 04/10/2026 9:00 AM EDT Office Visit [facility] [address] 3rd Floor, [address] [place] [address] Chetan Mercado MD, MS 22 [facility], [address] [place] [phone] documented as of this encounter Visit Diagnoses Not on filedocumented in this encounter Care Teams Die Turner Relationship Specialty Start Date End Date Carissa Zuniga MD [address] [place] [address] PCP - General Internal Medicine 06/25/19 Joshua Oswald MD [address] [place] [address] [email or web address] Historical LMR Provider 06/08/17 documented as of this encounter Additional Source Comments The information contained in this document represents components of the legal health record. It is not the complete legal health record.[facility]
--- OUTSIDE RECORDS SUMMARY | 2025-06-26 15:27 | XMS_ITS | Clinical Summary ---
Author Organization [facility] Address [address] [place] [address] Phone Care Team Providers Care Beadworker Name Role Phone Joshua Oswald MD Unavailable [phone] Cairssa Zuniga MD Primary Care Provid er Allergies [...] Says he got a venous ultrasound at [facility] urgent care which was negative for clot. Symptoms have been attributed to a hematoma and he was told to apply heat to the area. Overall he says ankle is wharf tender but is improving. I have told him to seek medical assistance if he notices swelling worsening or if he were to develop sudden onset symptoms of chest pain/shortness of breath. He says that he might actually get a repeat ultrasound of his leg done at [facility] which has been scheduled for next week. Suspected sleep apnea 04/12/2018 Assessment & Plan (04/12/2018 8:37 AM EDT): History is suggestive of sleep apnea will do a sleep study referral for the same. Coronary artery disease invo lving hughes coronary artery of hughes heart without angina pectoris 09/06/2017 Overview (09/26/2017): [...] of breath. He was worked up at [facility] for ACS and this was ruled [...] fibrillation. It was confirmed on EKG at [facility] as well as here in the office. [...] 1:45 PM EDT): Reviewed lipid panel from [facility] LDL cholesterol 57. Goal LDL less than [...] Type Department Care Team Description 05/26/2025 Telephone [facility] [address] [place] [address] 3rd Floor, [address] [place] [address] Faheem Solares MD 05/07/2025 2:15 PM EDT - 05/07/2025 11:59 PM EDT Hospital Encounter Echo Lab [address] [place] [address] Nicole Cazares DNP Discharge Disposition: Home or Self Care 04/30/2025 Procedure Pass Echo Lab [address] [place] [address] 04/30/2025 Orders Only [facility] [address] 3rd [facility], [address] [place] [address] Nicole Cazares DNP Preop examination (Primary Dx); Essential hypertension 04/30/[address] 3rd [facility], [address] [place] [address] Nicole Cazares DNP 04/01/2025 4:00 PM EDT Office Visit [address] [place] [address], [address] [place] [address] Luca Gonzalez MD NERY on CPAP (Primary Dx) 03/28/2025 2:00 PM EDT Office Visit [address] 3[address] [facility], [address] [place] [address] Nicole Cazares DNP Paroxysmal atrial fibrillation (Primary Dx); Essential hypertension 03/28/[address] [facility], [address] [place] [address] Nicole Cazares DNP 03/27/2025 10:00 AM EDT Nurse Only [facility] [address] 3rd Floor, [address] [place] [address] Faheem Solares MD Atrial fibrillation (Primary Dx) 03/26/2025 2:02 PM EDT - 03/26/2025 11:59 PM EDT Hospital Encounter [address] [address] Rashad Thorpe MD Discharge Disposition: Home or Self Care from Last 3 Months Immunizations Immunization Administration [...] Description 07/22/2025 9:00 AM EST Office Visit [facility] [address] [place] [address] 3rd Floor, [address] [place] [address] Faheem Solares MD 22 [facility], [address] [address] [email or web address] 04/10/2026 9:00 AM EDT Office Visit [facility] [address] [place] [address] 3rd Floor, [address] [place] [address] Chetan Mercado MD, MS 22 [facility], [address] [place] [address] [email or web address] Health Maintenance Due Date Last Done [...] change in speech Aphasia BASIC METABOLIC PANEL (BMP) STAT 01/26/2023 7:39 PM EDT LIPID PANEL [...] of a [facility]al [facility]. [facility]CHO ORDERABLES Final Result * US [...] EDT) SODIUM 138 133 - 146 mmol/L [facility] CHLORIDE 103 96 - 108 mmol/L [facility] POTASSIUM 4.5 3.3 - 5.1 mmol/L [facility] CO2 27 21 - 35 mmol/L [facility] BUN 20(H) 6 - 19 mg/dL [facility] CREATININE 0.80 0.5 - 1.5 mg/dL [facility] GLUCOSE 112(H) 70 - 99 mg/dL [facility] CALCIUM 9.0 8.4 - 10.3 mg/dL [facility] EGFR 100 >59 mL/min/1.7 3m2 [facility] Comment:Estimated glomerular filtration rate calculated using the CKD-EPI refit equation. ANION GAP 13 10 - 20 mmol/L [facility] Blood 01/26/2023 7:39 PM EDT 01/26/2023 8:05 PM EDT us Gini Mccarthy PA-C LAB BLOOD BKR ORDERAB LES Final Result [facility] [address] [place] [address] * (ABNORMAL) Lipid panel (05/05/2020 10:04 AM EDT) HDL 42 mg/dL [facility] Comment: Interpretation <40 mg/dL: Low HDL cholesterol (major risk factor for CHD) Greater than or equal to 60 mg/dL: High HDL cholesterol ( negative risk factor for CHD) HDL - cholesterol is affected by a number of factors, e.g. smoking, excerise, hormones, sex and age. CHOLESTEROL 114 0 - 240 mg/dL [facility] TRIGLYCERIDES 136 30 - 160 mg/dL [facility] LDL 45(L) 50 - 129 mg/dL [facility] Comment: LDL levels in terms of risk for coronary heart disease: <100 mg/dL: Optimal 100-129 mg/dL: Near or above optimal 130-159 mg/dL: Borderline high 160-189 mg/dL: High >190 mg/dL: Very High CARDIAC RISK RATIO 2.7(L) 3.4 - 5.0 [facility] [place] [facility] Blood 05/05/2020 10:0 4 AM EDT 05/05/2020 10:08 AM EDT us Joshua Oswald MD LAB BLOOD BKR ORDERABLES Final Result Performing Organization Address City/State/[facility] Co de Phone Number [facility] [address] [place] [address] from Last 3 Months or Most Recently Relevant to Health Maintenance Insurance [facility] NON NSPG PCP SUSHMA CLARITY CONNECTORCARE EARLEENSE NON NSPG PCP SILVER CLARITY CONNECTORCARE WELLSENSE NON NSPG PCP SILVER CLARITY CONNECTORCARE EARLEENSE NON NSPG PCP SILVER CLARITY CONNECTORCARE WELLSENSE NON NSPG PCP SILVER CLARITY CONNECTORCARE WELLSENSE NON NSPG PCP SILVER CLARITY CONNECTORCARE WELLSENSE NON NSPG PCP SILVER CLARITY CONNECTORCARE WELLSENSE NON NSPG PCP SILVER CLARITY CONNECTORCARE [facility] NON NSPG PCP SUSHMA ELDER CONNECTORCARE Care Teams Beadworker Relationship Specialty Start Date End Date Carissa Zuniga MD [address] [place] [address] PCP - General Internal Medicine 06/25/19 Joshua Oswald MD [address] [place] [address] [email or web address] Historical LMR Provider 06/08/17 Additional Source Comments The information contained in this document represents components of the legal health record. It is not the complete legal health record.[facility]
--- OUTSIDE RECORDS SUMMARY | 2025-06-26 15:27 | XMS_ITS | Patient Health Record ---
Author Organization [facility] Address [address] [place] [address] Care Team Providers Care Government Documents Librarian Name Role Phone Jimena(inactive) Martin ZAMBRANO Primary Care Provider U Chetan Ribera Unavailable [phone] Allergies Allergen (clinical drug ingredient) Drug/Non Drug [...] Problem Screening for malignant neoplasm of colon (170435112) Special screening for malignant neoplasms, colon (V76.51) Active confirmed Plan Of Treatment Future Test Test Name Order Date COLONOSCOPY 07/20/2011 Medical (General) History Medical History History ICD Code atrial fibrillation hypertension hyperlipidemia Denies [place],DM,CVA,Lung disease,renal dise ase he describes a negative cardiac catheter ization Surgical History Surgery Date(Month/Year) appendectomy knee surgery shoulder surgery
== END 2025-06-26 12:40 | disposition home or self-care (01) ==
LOC: HO.HOSX 12:39
PROVIDERS: Visit Provider Orthopaedic Surgery
DX: Z47.1 Aftercare following joint replacement surgery (principal); M25.561 Pain in right knee; Z96.651 Presence of right artificial knee joint; Z79.891 Long term (current) use of opiate analgesic
CPT/HCPCS: 73562; 99212

== ENCOUNTER 2025-06-26 12:51 | Outpatient (AMB) | payer OTHER, SELFPAY ==
--- NOTE | 2025-06-26 12:55 | A.OFFVIS_ITS ---
Intake Visit Reasons: 6WKPO: R TKA w/NE 05/20/25 Intake Note: Reno is a 64 year old male who presents today for a post operative visit about 5 weeks s/p Right TKA 05/20/25. He has started Physical therapy With [facility]. Patient reports that he is having continued pain of the knee. He took a fall due to his dog about 3-4 days ago. Since then he has had some increased pain. He is also having increased pain at night. Of note, he is reporting that he is having numbness and tingling in the right small finger and ring finger - this has been present since the knee surgery. Allergies ciprofloxacin (From CIPRO) Allergy (Intermediate, Verified 06/05/25 10:16) SWELLING levofloxacin (Levaquin) Allergy (Intermediate, Verified 06/05/25 10:16) facial swelling HPI HPI 6WKPO: R TKA w/NE 05/20/25: Details: Reno is a 64 year old male who presents today for a post operative visit about 5 weeks s/p Right TKA 05/20/25. He has started Physical therapy With [facility]. Patient reports that he is having resurgent knee pain. He took a fall due to his dog about 3-4 days ago. Since then he has had some increased pain. He is also having increased pain at night. He has started using a cane again and has swelling. Denies fevers and chills. [facility] Medical History (Updated 06/03/25 @ 15:15 by Hardeep Romero MD) History of urinary retention Concussion CAD (coronary artery disease) Myocardial infarction Sacroiliitis Sleep apnea Pure hypercholesterolemia Mild recurrent major depression Osteoarthritis of right knee Skin lesion Rosacea Hypogonadism in male Gout Chronic pain GERD (gastroesophageal reflux disease) BPH (benign prostatic hyperplasia) Hyperlipidemia PAF (paroxysmal atrial fibrillation) Essential hypertension Surgical History History of surgical removal of skin lesion H/O colonoscopy History of left knee replacement (~08/2019) History of arthroplasty of left knee History of prior ablation treatment History of prostate surgery History of appendectomy History of arthroscopy of right knee History of arthroscopy of left knee Family History Father CAD (coronary artery disease) COPD (chronic obstructive pulmonary disease) Mother No problems noted. Son No problems noted. 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 Results Reviewed Results Reviewed: I personally reviewed relevant radiographs. Small lucency over the medial tibial plateau that could represent a nondisplaced periprosthetic fracture Assessment & Plan Assessment & Plan (1) Status post total right knee replacement: Code(s): Z96.651 - Presence of right artificial knee joint Category: Surgical Plan: Status post right knee replacement. He is having pain that is out of proportion and it is I because it was not bothering him nearly as much when I saw him a few weeks ago and he states that he just got bad recently and may be related to his fall with his dog. There is a lucency on the radiographs it was not there previously and may represent a small nondisplaced periprosthetic fracture. Given this I recommend weight-bearing with a walker and continue gentle passive and active assisted range of motion exercises with PT. I would like to see him back in 3 weeks. Orders: Orders XR knee RT 3V Today M25.561 - Pain in right knee Medications: Changed From oxycodone Partial Fill upon patient request. 10 mg PO Q4H 7 days PRN 42 tabs 0RF Pain, Moderate(Pain Scale 4-6) To oxycodone Partial Fill upon patient request. 10 mg PO Q8H PRN 42 tabs 0RF Pain, Moderate(Pain Scale 4-6) 14 days Coding Level of Care Code Global (81044) Diagnoses Status post total right knee replacement Z96.651
== END 2025-06-26 13:34 | disposition home or self-care (01) ==
LOC: HO.HOS 12:52
PROVIDERS: Visit Provider Orthopaedic Surgery
DX: Z96.651 Presence of right artificial knee joint (principal)
CPT/HCPCS: 99024

== ENCOUNTER → 2025-06-26 13:08 | Outpatient (BNV) | payer OTHER, SELFPAY | PROVIDERS: Visit Provider Radiology Diagnostic Radiology | DX: M25.461 Effusion, right knee (principal) | CPT/HCPCS: 73562 ==

== ENCOUNTER 2025-06-30 12:53 | Emergency (ER) | payer OTHER, SELFPAY ==
[2025-06-30 12:55] VITALS: BP 147/82; PULSE 73; RESP 16; TEMP 36.2; O2SAT 97; BMI 32.3
--- NOTE | 2025-06-30 12:56 | ED.GENADULT ---
HPI - General Adult General Chief complaint: General Medical Stated complaint: food stuck , diff breathing Time Seen by Provider: 06/30/25 13:01 History of Present Illness ED Provider: Dr. Coombs HPI narrative: 64 y/o M patient; PMH HTN, HLD, NERY, s/p right knee replacement approx 1 month ago; presents from home reporting he felt a piece of steak get caught in his throat prior to arrival. The patient states yesterday he started to feel something get stuck but it passed with water. Today the steak got caught and he could not pass it with the water. He denies a history of prior food bolus. He denies: cough/congestion, chest pain, fever or chills. Related Data Home Medications ?Medication ?Instructions ?Recorded ?Confirmed simvastatin 40 mg tablet 40 mg PO BEDTIME 05/18/20 06/05/25 apixaban 5 mg tablet (Eliquis) 5 mg PO BID 08/09/21 06/05/25 sildenafil 50 mg tablet 50 mg PO DAILY PRN Sexual Activity 03/14/24 06/05/25 lisinopril 10 mg tablet 5 mg PO DAILY 04/22/25 06/05/25 multivitamin 1 tab PO DAILY 04/22/25 06/05/25 valacyclovir 1 gram tablet 1,000 mg PO Q8H PRN Outbreak 04/22/25 06/05/25 vitamin A-vitamin C-vit E-min 1 tab PO DAILY 04/22/25 06/05/25 tablet Previous Rx's ?Medication ?Instructions ?Recorded testosterone 30 mg/actuation (1.5 3 pump topical DAILY 30 days #90 mL 12/24/24 mL) transderm solution metered pump diltiazem HCl 180 mg 180 mg PO DAILY #90 caps 02/19/25 capsule,extended release 24 hr Folding Front Wheeled walker #1 ea 02/28/25 tamsulosin 0.4 mg capsule 0.4 mg PO BEDTIME 90 days #90 caps 03/03/25 tadalafil 5 mg tablet (Cialis) 5 mg PO DAILY 90 days #90 tabs 05/13/25 acetaminophen 325 mg tablet 650 mg (2 x 325 mg) PO Q6H PRN 05/20/25 Pain, Mild 1-3,Fever,Headache 30 days #240 tabs docusate sodium 100 mg capsule 100 mg PO BID 7 days #14 caps 05/20/25 celecoxib 200 mg capsule 200 mg PO BID 30 days #60 caps 05/22/25 doxycycline hyclate 100 mg tablet 100 mg PO BID 90 days #180 tabs 05/28/25 lorazepam 1 mg tablet 1 mg PO BID PRN anxiety 29 days 06/20/25 #58 tabs oxycodone 10 mg tablet 10 mg PO Q8H PRN Pain, 06/26/25 Moderate(Pain Scale 4-6) 14 days #42 tabs Allergies Allergy/AdvReac Type Severity Reaction Status Date / Time ciprofloxacin (From CIPRO) Allergy Intermediate SWELLING Verified 06/30/25 13:00 levofloxacin (Levaquin) Allergy Intermediate facial Verified 06/30/25 13:00 swelling Review of Systems Review of Systems: Yes all other systems are reviewed and are negative [facility] Past Medical History Attestation statement: The following information was validated with the patient. Source: old records reviewed Medical History History of urinary retention Concussion CAD (coronary artery disease) Myocardial infarction Sacroiliitis Sleep apnea Pure hypercholesterolemia Mild recurrent major depression Osteoarthritis of right knee Skin lesion Rosacea Hypogonadism in male Gout Chronic pain GERD (gastroesophageal reflux disease) BPH (benign prostatic hyperplasia) Hyperlipidemia PAF (paroxysmal atrial fibrillation) Essential hypertension Surgical History History of surgical removal of skin lesion H/O colonoscopy History of left knee replacement (~08/2019) History of arthroplasty of left knee History of prior ablation treatment History of prostate surgery History of appendectomy History of arthroscopy of right knee History of arthroscopy of left knee Family History Family History Father CAD (coronary artery disease) COPD (chronic obstructive pulmonary disease) Mother No problems noted. Son No problems noted. Social History Social History Household Members: Spouse Housing: House Are you a primary care transitions manager to a significant other at home: No Do you presently have visiting nurse or other home services: No Alcohol intake: current Alcohol intake frequency: holidays/special occasions only Alcohol type: beer and hard liquor Comment: SLEEPING Patient Tobacco Use Status: Former Tobacco user Tobacco use type: Cigarette e-Cigarette/Vaping Use: Never Used Second Hand Smoke Exposure: No Substance Use Type: Marijuana Advance Directives: No Advance Directives Information Provided: Yes Do you have a plan to hurt others: No Plan service: No Current occupational status: employed 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 Const Other: Uncomfortable, spitting into bag General: cooperative Orientation/consciousness: patient oriented x3 HENMT Head: Yes normal to inspection and Yes atraumatic Eyes General: appearance normal, both eyes and all related structures Pupils: Equal, round and reactive pupils present EOM: EOMs intact bilaterally Neck Neck: Yes normal visual inspection, Yes full ROM, Yes supple and No tender Chest Chest palpation & inspection: normal inspection of the chest and normal palpation of entire chest wall Resp Effort & Inspection: normal respiratory effort, able to speak in complete sentences and no cough Auscultation: clear to auscultation bilaterally Cardio Rate: regular rate Rhythm: regular rhythm Peripheral pulses: Peripheral pulses 2+ throughout GI Inspection: Yes normal to inspection, No Abdominal wall edema and No distended Palpation (GI): Soft to palpation, not firm, nontender, no guarding and not rigid Auscultation: normal bowel sounds Back/Spine/Pelvis Back: No back tenderness Neuro General: patient oriented x3 Cranial nerves: Yes Equal, round and reactive pupils present Course Course Course Narrative: Rapid medical examination performed in triage by Zhane Wang PA-C: Patient is a 64 year old assigned male at presenting to the emergency department with steak stuck in his throat. Patient states he just had steak prior to arrival and it is stuck. Patient states that he can't tolerate water as it comes right back up. Detailed physical exam and review of systems are deferred to the financial secretary. Labs ordered. locker room supervisor aware. Patient going to bed 9. Reevaluation(s) Reevaluation #1: Patient is afebrile and hemodynamically stable. Trialled soda & heel stomps with patient. Patient was able to follow directions well. Zachary food bolus pass. Provided further 2 soda which patient was able to swallow without spitting up. Observed in the emergency department without recurrence of symptoms. Will provide GI follow up for likely out-patient endoscopy. Plan: Discharge to home with PCP and GI follow up Return precautions given Discharge Plan Discharge Clinical Impression: Food impaction of esophagus Patient Disposition: Home, Self-Care Instructions: Esophageal Foreign Body (ED), Food Impaction (ED), Upper Endoscopy (DC) Additional Instructions: You were seen today for a food impaction. We were able to pass it with soda and maneuvers. Please call the number for GI to make an appointment to discuss out-patient endoscopy. Recommend for the next few days you focus on soft foods. Take small bites. Chew very well. I would avoid steak, beef, chicken. Prescriptions: No Action diltiazem HCl 180 mg capsule,extended release 24hr 180 mg PO DAILY Qty: 90 1RF (DME) Folding Front Wheeled walker See Rx Instructions .ROUTE .MEDSUPPLY Qty: 1 0RF Rx Instructions: Duration: 99 days tadalafil [Cialis] 5 mg tablet 5 mg PO DAILY 90 Days Qty: 90 1RF Rx Instructions: [id number] [facility] [id number] Member [id number] celecoxib 200 mg capsule 200 mg PO BID 30 Days Qty: 60 0RF doxycycline hyclate 100 mg tablet 100 mg PO BID 90 Days Qty: 180 6RF lorazepam 1 mg tablet 1 mg PO BID PRN (Reason: anxiety) 29 Days Qty: 58 0RF multivitamin Tablet 1 tab PO DAILY vitamin A-vitamin C-vit E-min Tablet 1 tab PO DAILY valacyclovir 1 gram tablet 1,000 mg PO Q8H PRN (Reason: Outbreak) lisinopril 10 mg tablet 5 mg PO DAILY docusate sodium 100 mg Capsule 100 mg PO BID 7 Days Qty: 14 0RF acetaminophen 325 mg Tablet 650 mg PO Q6H PRN (Reason: Pain, Mild 1-3,Fever,Headache) 30 Days Qty: 240 0RF Eliquis 5 mg tablet 5 mg PO BID simvastatin 40 mg tablet 40 mg PO BEDTIME testosterone 30 mg/actuation (1.5 mL) solution in metered pump w/marley 3 pump topical DAILY 30 Days Qty: 90 3RF Rx Instructions: This is an increase in dose. oxycodone 10 mg tablet 10 mg PO Q8H PRN (Reason: Pain, Moderate(Pain Scale 4-6)) 14 Days Qty: 42 0RF Rx Instructions: Partial Fill upon patient request. tamsulosin 0.4 mg capsule 0.4 mg PO BEDTIME 90 Days Qty: 90 1RF sildenafil 50 mg tablet 50 mg PO DAILY PRN (Reason: Sexual Activity) Referrals: Chetan Perez MD [Physician, Gastroenterology] Referral Note: Please call this number to schedule an appointment to see GI out-patient. Print Language: Spanish
[2025-06-30 14:17] VITALS: BP 147/82; PULSE 73; RESP 16; TEMP 36.2; O2SAT 97
--- OUTSIDE RECORDS SUMMARY | 2025-06-30 15:21 | XMS_ITS | Encounter Summary ---
Author Organization [facility] Address [address] [place] [address] Phone Care Team Providers Care Magnet Maker Name Role Phone Joshua Oswald MD Unavailable [phone] Carissa Zuniga MD Primary Care Provid er Encounter Details Date Type Department Care Team (Late st Contact Info) Description 04/30/2025 Procedure Pass Echo Lab [address] [place] [address] Social History Tobacco Use Types Packs/Day Years [...] Description 07/22/2025 9:00 AM EST Office Visit [facility] [address] [place] [address] 3rd Floor, [address] [place] [address] Faheem Solares MD 22 [facility], [address] [address] [email or web address] 04/10/2026 9:00 AM EDT Office Visit [facility] [address] 3rd Floor, [address] [place] [address] Chetan Mercado MD, MS 22 [facility], [address] [address] [email or web address] documented as of this encounter Visit Diagnoses Not on filedocumented in this encounter Care Teams Magnet Maker Relationship Specialty Start Date End Date Carissa Zuniga MD [address] [place] [address] PCP - General Internal Medicine 06/25/19 Joshua Oswald MD [address] [address] [email or web address] Historical LMR Provider 06/08/17 documented as of this encounter Additional Source Comments The information contained in this document represents components of the legal health record. It is not the complete legal health record.[facility]
--- OUTSIDE RECORDS SUMMARY | 2025-06-30 15:21 | XMS_ITS | Encounter Summary ---
Author Organization [facility] Address [address] [address] Phone Care Team Providers Care Tub Washer Name Role Phone JimenaMartin Dimitrios NOVA Unavailable [phone] Joshua Oswald MD Unavailable [phone] Carissa Zuniga MD Primary Care Provid er Reason for Referral * - Closed Specialty Diagnoses / Procedures Referred By Yumiko allen Referred To Contact Diagnoses Paroxysmal atrial fibrillation Procedures MCT (Mobile Cardiac Telemetry) Faheem Solares MD Phone: tel: fax: [email or web address] Referral ID Status Reason Start Date Expiration Date Visits Re quested Visits Authorized [id number] Closed 07/30/2021 07/30/2022 1 1 Encounter Details Date Type Department Care Team (Latest Contact Info) Description 07/30/2021 Ancillary Orders [facility] [address] [place] [address] 3rd Floor, [address] [place] [address] Faheem Solares MD 22 [facility], [address] [address] [email or web address] Paroxysmal atrial fibrillation Social History [...] Description 07/22/2025 9:00 AM EST Office Visit [facility] [address] [place] [address] 3rd [facility], [address] [place] [address] Faheem Solares MD 22 [facility], [address] [address] 04/10/2026 9:00 AM EDT Office Visit [facility] [address], [address] [place] [address] Chetan Mercado MD, MS 22 [facility], [address] [address] [email or web address] Scheduled Orders Name Type Priority Associated Diagnoses Orde r Schedule MCT (Mobile Cardiac Telemetry) Cardiac Monitors Routine Paroxysmal atrial fibrillation Expected: 07/23/2021, Expires: 10/21/2021 documented as of this encounter Visit Diagnoses Diagnosis Paroxysmal atrial fibrillation Atrial fibrillation documented in this encounter Care Teams Tub Washer Relationship Specialty Start Date End Date Carissa Zuniga MD [address] [place] [address] PCP - General Internal Medicine 06/25/19 Martin Hess DO [address] [place] [address] Historical LMR Provider 06/08/17 Joshua Oswald MD [address] [address] [email or web address] Historical LMR Provider 06/08/17 documented as of this encounter Additional Source Comments The information contained in this document represents components of the legal health record. It is not the complete legal health record.[facility]
--- OUTSIDE RECORDS SUMMARY | 2025-06-30 15:21 | XMS_ITS | Encounter Summary ---
Author Organization [facility] Address [address] [place] [address] Phone Care Team Providers Care Shop Supervisor Name Role Phone Joshua Oswald MD Unavailable Carissa Zuniga MD Primary Care Provid er Encounter Details Date Type Department Care Team (Late st Contact Info) Description 01/26/2023 Procedure Pass [facility], Ct Scan - [address] [address] Social History Tobacco Use Types Packs/Day Years [...] Description 07/22/2025 9:00 AM EST Office Visit [facility] [address] 3rd Floor, [address] [place] [address] Faheem Solares MD 22 [facility], [address] [place] [address] [email or web address] 04/10/2026 9:00 AM EDT Office Visit [facility] [address] Floor, [address] [place] [address] Chetan Mercado MD, MS 22 [facility], [address] [place] [phone] [email or web address] documented as of this encounter Visit Diagnoses Not on filedocumented in this encounter Care Teams Shop Supervisor Relationship Specialty Start Date End Date Carissa Zuniga MD [address] [place] [address] PCP - General Internal Medicine 06/25/19 Joshua Oswald MD [address] [place] [address] [email or web address] Historical LMR Provider 06/08/17 documented as of this encounter Additional Source Comments The information contained in this document represents components of the legal health record. It is not the complete legal health record.[facility]
--- OUTSIDE RECORDS SUMMARY | 2025-06-30 15:21 | XMS_ITS | Clinical Summary ---
Author Organization [facility] Address [address] [place] [address] Phone Care Team Providers Care Veterinary Medicine Scientist Name Role Phone Joshua Oswald MD Unavailable [phone] Carissa Zuniga MD Primary Care Provid [...] Says he got a venous ultrasound at [facility] urgent care which was negative for clot. Symptoms have been attributed to a hematoma and he was told to apply heat to the area. Overall he says ankle is press tender but is improving. I have told him to seek medical assistance if he notices swelling worsening or if he were to develop sudden onset symptoms of chest pain/shortness of breath. He says that he might actually get a repeat ultrasound of his leg done at [facility] which has been scheduled for next week. Suspected sleep apnea 04/12/2018 Assessment & Plan (04/12/2018 8:37 AM EDT): History is suggestive of sleep apnea will do a sleep study referral for the same. Coronary artery disease invo lving [place] coronary artery of [place] heart without angina pectoris 09/06/2017 Overview (09/26/2017): [...] of breath. He was worked up at [facility] for ACS and this was ruled out [...] fibrillation. It was confirmed on EKG at [facility] as well as here in the [...] 1:45 PM EDT): Reviewed lipid panel from [facility] LDL cholesterol 57. Goal LDL less [...] Type Department Care Team Description 05/26/2025 Telephone [facility] [address] [place] [address] 3rd Floor, [address] [place] [address] Faheem Solares MD 05/07/2025 2:15 PM EDT - 05/07/2025 11:59 PM EDT Hospital Encounter [facility] [place] [address] [place] [address] Nicole Cazares DNP Discharge Disposition: Home or Self Care 04/30/2025 Procedure Pass Echo Lab [address] [place] [address] 04/30/2025 Orders Only [facility] [address] 3rd Floor, [address] [place] [address] Nicole Cazares DNP Preop examination (Primary Dx); Essential hypertension 04/30/2025 Telephone [facility] [address] 3rd Floor, [address] [place] [address] Nicole Cazares DNP 04/01/2025 4:00 PM EDT Office Visit [facility] [address] 3rd Floor, [address] [place] [address] Luca Gonzalez MD NERY on CPAP (Primary Dx) from Last 3 Months Immunizations Immunization Administration [...] Description 07/22/2025 9:00 AM EST Office Visit [facility] [address] [place] [address] 3rd Floor, [address] [place] [address] Faheem Solares MD 22 [facility], [address] [place] [address] 04/10/2026 9:00 AM EDT Office Visit [facility] 22 [facility] 3rd Floor, [address] [place] [address] Chetan Mercado MD, MS [address], [address] [place] [address] [email or web address] Maintenance Due Date Last Done Comments [...] 1 PM EDT Preop examination Essential hypertension BASIC METABOLIC PANEL (BMP) STAT 01/26/2023 7:39 [...] no evidence of a ventricular septal defect. [facility] CV ECHO ORDERABLES Final Result * (ABNORMAL) Basic metabolic panel (01/26/2023 7:39 PM EDT) SODIUM 138 133 - 146 mmol/L [facility] CHLORIDE 103 96 - 108 mmol/L [facility] POTASSIUM 4.5 3.3 - 5.1 mmol/L [facility] CO2 27 21 - 35 mmol/L [facility] BUN 20(H) 6 - 19 mg/dL [facility] CREATININE 0.80 0.5 - 1.5 mg/dL [facility] GLUCOSE 112(H) 70 - 99 mg/dL [facility] CALCIUM 9.0 8.4 - 10.3 mg/dL [facility] EGFR 100 >59 mL/min/1.7 3m2 [facility] Comment:Estimated glomerular filtration rate calculated using the CKD-EPI refit equation. ANION GAP 13 10 - 20 mmol/L [facility] Blood 01/26/2023 7:39 PM EDT 01/26/2023 8:05 PM EDT us Gini Mccarthy PA-C LAB BLOOD BKR ORDERAB LES Final Result Performing Organization Address City/[facility] Co de Phone Number [address] [address] * (ABNORMAL) Lipid panel (05/05/2020 10:04 AM EDT) HDL 42 mg/dL [facility] Comment: Interpretation <40 mg/dL: Low HDL cholesterol (major risk factor for CHD) Greater than or equal to 60 mg/dL: High HDL cholesterol ( negative risk factor for CHD) HDL - cholesterol is affected by a number of factors, e.g. smoking, excerise, hormones, sex and age. CHOLESTEROL 114 0 - 240 mg/dL [facility] TRIGLYCERIDES 136 30 - 160 mg/dL [facility] LDL 45(L) 50 - 129 mg/dL [facility] Comment: LDL levels in terms of risk for coronary heart disease: <100 mg/dL: Optimal 100-129 mg/dL: Near or above optimal 130-159 mg/dL: Borderline high 160-189 mg/dL: High >190 mg/dL: Very High CARDIAC RISK RATIO 2.7(L) 3.4 - 5.0 [facility] Blood 05/05/2020 10:0 4 AM EDT 05/05/2020 10:08 AM EDT us Joshua Oswald MD LAB BLOOD BKR ORDERABLES Final Result [facility] [address] [place] [address] from Last 3 Months or Most Recently [...] NSPG PCP [facility] Care Teams Veterinary Medicine Scientist Relationship Specialty Start Date End Date Carissa Zuniga MD [address] [place] [address] PCP - General Internal Medicine 06/25/19 Joshua Oswald MD [address] [address] [email or web address] Historical LMR Provider 06/08/17 Additional Source Comments The information contained in this document represents components of the legal health record. It is not the complete legal health record.[facility]
--- OUTSIDE RECORDS SUMMARY | 2025-06-30 15:21 | XMS_ITS | Encounter Summary ---
Author Organization [facility] Address [address] [place] [address] Phone Care Team Providers Care Binding Cutter Name Role Phone Joshua Oswald MD Unavailable [phone] Carissa Zuniga MD Primary Care Provid er Reason for Referral * Hospital - Outpatient - Closed Specialty Diagnoses / Procedures Referred By Yumiko allen Referred To Contact Radiology Diagnoses TIA (transient ischemic attack) Spell of change in speech Aphasia Procedures US Carotid Duplex Complete (Bilateral) Rashad Thorpe MD [address] [place] [address], [address] [place] [address] Phone: tel: fax: mailto:[email or web address] Referral ID Status Reason Start Date Expiration Date Visits Re quested Visits Authorized [id number] Closed 03/25/2025 03/25/2026 1 1 Encounter Details Date Type Department Care Team (Latest Contact Info) Description 03/25/2025 Transcribe Orders Virtual Department [address] [place], [place] [phone] Rashad Thorpe MD [address] [place] [address], [address] [place], [place] [phone] [email or web address] TIA (transient ischemic attack) (Primary Dx); Spell [...] Description 07/22/2025 9:00 AM EST Office Visit [facility] [address] Floor, [address] [place] [address] Faheem Solares MD 22 [facility], [address] [address] [email or web address] 04/10/2026 9:00 AM EDT Office Visit [facility] [address] Floor, [address] [place] [address] Chetan Mercado MD, MS 22 [facility], [address] [place] [address] [email or web address] documented as of this encounter Results * [...] diameter distal to the stenosis where the irvas are parallel represents the denominator. Narrative 03/26/2025 [...] represents the denominator. us Rashad Thorpe MD [facility] Final Re sult documented in this encounter Visit Diagnoses Diagnosis TIA (transient ischemic attack)- Primary Unspecified transient cerebral ischemia Spell of change in speech Aphasia TIA (transient ischemic attack) Unspecified transient cerebral ischemia Spell of change in speech Aphasia documented in this encounter Care Teams Binding Cutter Relationship Specialty Start Date End Date Carissa Zuniga MD [address] [place] [address] PCP - General Internal Medicine 06/25/19 Joshua Oswald MD [address] [place] [phone] [email or web address] Historical LMR Provider 06/08/17 documented as of this encounter Additional Source Comments The information contained in this document represents components of the legal health record. It is not the complete legal health record.[facility]
--- OUTSIDE RECORDS SUMMARY | 2025-06-30 15:21 | XMS_ITS | Clinical Summary ---
Author Organization [facility] ity Address [address] [place] [address] Care Team Providers Care Cable Tool Driller Name Role Phone Unavailable Primary Care Provider [...]
== END 2025-06-30 14:17 | disposition home or self-care (01) ==
PROVIDERS: Emergency Provider Emergency Medicine
DX: T17.228A Food in pharynx causing other injury, initial encounter (principal); I10 Essential (primary) hypertension; W44.F3XA Food entering into or through a natural orifice, initial encounter; Y93.9 Activity, unspecified; Y92.9 Unspecified place or not applicable; Y99.9 Unspecified external cause status; Z88.1 Allergy status to other antibiotic agents
CPT/HCPCS: 99283; 99284

== ENCOUNTER 2025-07-14 08:21 | Outpatient (REF) | payer OTHER, SELFPAY ==
--- NOTE | ~2025-07-14 | XR_ITS ---
EXAMINATION: XR KNEE 3 VIEWS RIGHT HISTORY: M25.561 - Pain in right knee COMPARISON: Comparison is made with the prior examination dated 06/26/2025. FINDINGS: Standing AP views of the bilateral knees and additional lateral and sunrise patellar views of the right knee are submitted. The patient is again noted to be status post bilateral total knee arthroplasty. The orthopedic elements are in anatomic alignment. There is no radiographic evidence of loosening. A linear density in the medial tibial metaphysis of the right knee is unchanged. There is a small joint effusion. XR/XR knee RT 3V IMPRESSION: Status post right total knee arthroplasty. Small joint effusion. Linear density in the medial tibial metaphysis of the right knee without change. Electronically signed by: Chetan Maza MD 07/14/2025 11:59 AM EVELYN
--- OUTSIDE RECORDS SUMMARY | 2025-07-14 08:29 | XMS_ITS | Clinical Summary ---
Author Organization [facility] ity Address [address] [place] [address] Care Team Providers Care Tankerman Name Role Phone Unavailable Primary Care Provider [...] Depression Screening 08/21/2024 COVID-19 Vaccine (1 - 2024-2 6 season) 2025 Influenza Vaccine (#1) 2025 RSV [...]
--- OUTSIDE RECORDS SUMMARY | 2025-07-14 08:29 | XMS_ITS | Encounter Summary ---
Author Organization [facility] Address [address] [place] [address] Phone Care Team Providers Care Adjunct Writing Instructor Name Role Phone Joshua Oswald MD Unavailable [phone] Carissa Zuniga MD Primary Care Provid er Reason for Referral * Hospital - Outpatient - Closed Specialty Diagnoses / Procedures Referred By Yumiko allen Referred To Contact Radiology Diagnoses TIA (transient ischemic attack) Spell of change in speech Aphasia Procedures US Carotid Duplex Complete (Bilateral) Rashad Thorpe MD [address] [place] [address], [address] [place] [address] Phone: tel: fax: mailto:[email or web address] Referral ID Status Reason Start Date Expiration Date Visits Re quested Visits Authorized [id number] Closed 03/25/2025 03/25/2026 1 1 Encounter Details Date Type Department Care Team (Latest Contact Info) Description 03/25/2025 Transcribe Orders Virtual Department 30 [place], [place] [phone] Rashad Thorpe MD [address] [place] [address], [address] [place], [place] [phone] [email or web address] TIA (transient ischemic attack) (Primary Dx); Spell [...] Description 07/22/2025 9:00 AM EST Office Visit [facility] [address] Floor, [address] [place] [address] Faheem Solares MD 22 [facility], [address] [address] [email or web address] 04/10/2026 9:00 AM EDT Office Visit [facility] [address] Floor, [address] [place] [address] Chetan Mercado MD, MS 22 [facility], [address] [place] [address] [email or web address] documented as of this encounter Results * [...] represents the denominator. us Rashad Thorpe MD [facility] Final Re sult documented in this encounter Visit Diagnoses Diagnosis TIA (transient ischemic attack)- Primary Unspecified transient cerebral ischemia Spell of change in speech Aphasia TIA (transient ischemic attack) Unspecified transient cerebral ischemia Spell of change in speech Aphasia documented in this encounter Care Teams Adjunct Writing Instructor Relationship Specialty Start Date End Date Carissa Zuniga MD [address] [place] [address] PCP - General Internal Medicine 06/25/19 Joshua Oswald MD [address] [place] [phone] [email or web address] Historical LMR Provider 06/08/17 documented as of this encounter Additional Source Comments The information contained in this document represents components of the legal health record. It is not the complete legal health record.[facility]
--- OUTSIDE RECORDS SUMMARY | 2025-07-14 08:29 | XMS_ITS | Patient Health Record ---
Author Organization [facility] Address [address] [place] [address] Care Team Providers Care Sourcing Engineer Name Role Phone Jimena(inactive) Martin ZAMBRANO Primary Care Provider U Chetan Ribera Unavailable [phone] Allergies Allergen (clinical drug ingredient) Drug/Non Drug Allergy documented on EMR Reaction Allergy Type Onset Date Status ciprofloxacin Cipro Unknown Drug Allergy Act jerri Reason For Referral No Information Medications Medication SIG (Take, Route, Frequency, Duration) Notes Start Date End Date Status Simvastatin 40mg Act jerri Aspir-81 81mg Active Pradaxa 150mg Active Multaq 400mg Active Terazosin HCl 4mg Ac tive MoviPrep 100 GM Solution Reconstituted as directed Orally 07/20/2011 Active Lisinopril 5mg Activ e Social History Social History Additional Details Category Social Info Options Details Miscellaneous: Marital status: Occupation: He is on disabil ity from work at the [employer] Notes: He does not smoke or use any significant amounts of alcohol Problems Problem Type SNOMED Code ICD Code Onset Dates Problem Status W/U Status Risk Notes Problem Screening for malignant neoplasm of colon (361169462) Special screening for malignant neoplasms, colon (V76.51) Active confirmed Plan Of Treatment Future Test Test Name Order Date COLONOSCOPY 07/20/2011 Medical (General) History Medical History History ICD Code atrial fibrillation hypertension hyperlipidemia Denies TN,DM,CVA,Lung disease,renal dise ase he describes a negative cardiac catheter ization Surgical History Surgery Date(Month/Year) appendectomy knee surgery shoulder surgery
--- OUTSIDE RECORDS SUMMARY | 2025-07-14 08:29 | XMS_ITS | Clinical Summary ---
Author Organization [facility] Address [address] [place] [address] Phone Care Team Providers Care Generator Operator Straight Bevel Gear Name Role Phone Joshua Oswald MD Unavailable [phone] Carissa Zuniga MD Primary Care Provid [...] Says he got a venous ultrasound at [facility] urgent care which was negative for clot. Symptoms have been attributed to a hematoma and he was told to apply heat to the area. Overall he says ankle is plasterer tender but is improving. I have told him to seek medical assistance if he notices swelling worsening or if he were to develop sudden onset symptoms of chest pain/shortness of breath. He says that he might actually get a repeat ultrasound of his leg done at [facility] which has been scheduled for next week. Suspected sleep apnea 04/12/2018 Assessment & Plan (04/12/2018 8:37 AM EDT): History is suggestive of sleep apnea will do a sleep study referral for the same. Coronary artery disease invo lving [place] coronary artery of [place] heart without angina pectoris 09/06/2017 Overview (09/26/2017): [...] of breath. He was worked up at [facility] for ACS and this was ruled [...] fibrillation. It was confirmed on EKG at [facility] as well as here in the [...] 1:45 PM EDT): Reviewed lipid panel from [facility] LDL cholesterol 57. Goal LDL less [...] Type Department Care Team Description 05/26/2025 Telephone [facility] [address] [place] [address] 3rd Floor, [address] [place] [address] Faheem Solares MD 05/07/2025 2:15 PM EDT - 05/07/2025 11:59 PM EDT Hospital Encounter Echo Lab [address] [place] [address] Nicole Cazares DNP Discharge Disposition: Home or Self Care 04/30/2025 Procedure Pass Echo Lab [address] [place] [address] 04/30/2025 Orders Only [facility] [address] 3[address] Floor, [address] [place] [address] Nicole Cazares DNP Preop examination (Primary Dx); Essential hypertension 04/30/2025 Telephone [facility] [address] Floor, [address] [place] [address] Nicole Cazares DNP from Last 3 Months Immunizations Immunization Administration [...] Description 07/22/2025 9:00 AM EST Office Visit [facility] [address] 3[address] Floor, [address] [place] [address] Faheem Solares MD [address] [place] [address], [address] [address] [email or web address] 04/10/2026 9:00 AM EDT Office Visit [facility] [address] 3rd Floor, [address] [place] [address] Chetan Mercado MD, MS 22 [facility], [address] [place] [address] [email or web address] Health Maintenance Due Date Last Done Comments [...] no evidence of a ventricular septal defect. [facility] ECHO ORDERABLES Final Result * (ABNORMAL) Basic metabolic panel (01/26/2023 7:39 PM EDT) SODIUM 138 133 - 146 mmol/L [facility] CHLORIDE 103 96 - 108 mmol/L [facility] POTASSIUM 4.5 3.3 - 5.1 mmol/L [facility] CO2 27 21 - 35 mmol/L [facility] BUN 20(H) 6 - 19 mg/dL [facility] CREATININE 0.80 0.5 - 1.5 mg/dL [facility] GLUCOSE 112(H) 70 - 99 mg/dL [facility] CALCIUM 9.0 8.4 - 10.3 mg/dL [facility] EGFR 100 >59 mL/min/1.7 3m2 [facility] Comment:Estimated glomerular filtration rate calculated using the CKD-EPI refit equation. ANION GAP 13 10 - 20 mmol/L [facility] Blood 01/26/2023 7:39 PM EDT 01/26/2023 8:05 PM EDT us Gini Mccarthy PA-C LAB BLOOD BKR ORDERAB LES Final Result Performing Organization Address [facility]/ZIP Co de Phone Number [address] [address] * (ABNORMAL) Lipid panel (05/05/2020 10:04 AM EDT) HDL 42 mg/dL [facility] Comment: Interpretation <40 mg/dL: Low HDL cholesterol (major risk factor for CHD) Greater than or equal to 60 mg/dL: High HDL cholesterol ( negative risk factor for CHD) HDL - cholesterol is affected by a number of factors, e.g. smoking, excerise, hormones, sex and age. CHOLESTEROL 114 0 - 240 mg/dL [facility] TRIGLYCERIDES 136 30 - 160 mg/dL [facility] LDL 45(L) 50 - 129 mg/dL [facility] Comment: LDL levels in terms of risk for coronary heart disease: <100 mg/dL: Optimal 100-129 mg/dL: Near or above optimal 130-159 mg/dL: Borderline high 160-189 mg/dL: High >190 mg/dL: Very High CARDIAC RISK RATIO 2.7(L) 3.4 - 5.0 [facility] Blood 05/05/2020 10:0 4 AM EDT 05/05/2020 10:08 AM EDT us Joshua Oswald MD LAB BLOOD BKR ORDERABLES Final Result Performing Organization Address [facility]/ZIP Co de Phone Number [address] [address] from Last 3 Months or Most Recently Relevant to Health Maintenance Insurance WELLSENSE NON NSPG PCP [facility] [place] NON NSPG PCP S[facility] WELLSENSE NON NSPG PCP [facility] Member Subscriber Plan / Payer (Ef fective 2024-Present) Name:Susy Driscollence Relation to Subscriber:Self Name:Gustavo Driscoll Payer ID:[id number] Type:HMO Address: [place] [id number] WELLSENSE NON NSPG PCP [facility] WELLSENSE NON NSPG PCP [facility] [employer] [employer] WELLSENSE NON NSPG PCP [facility] WELLSENSE NON NSPG PCP S[facility] [employer] WELLSENSE NON NSPG PCP [facility] WELLSENSE NON NSPG PCP [facility] Care Teams Generator Operator Straight Bevel Gear Relationship Specialty Start Date End Date Carissa Zuniga MD [address] [place] [address] PCP - General Internal Medicine 06/25/19 Joshua Oswald MD [address] [address] [email or web address] Historical LMR Provider 06/08/17 Additional Source Comments The information contained in this document represents components of the legal health record. It is not the complete legal health record.[facility]
--- OUTSIDE RECORDS SUMMARY | 2025-07-14 08:29 | XMS_ITS | Encounter Summary ---
Author Organization [facility] Address [address] [place] [address] Phone Care Team Providers Care Associate Professor Of Music Name Role Phone Joshua Oswald MD Unavailable [phone] Carissa Zuniga MD Primary Care Provid er Encounter Details Date Type Department Care Team (Late st Contact Info) Description 01/26/2023 Procedure Pass [facility], Ct Scan - [address] [address] Social History Tobacco Use Types Packs/Day Years [...] Description 07/22/2025 9:00 AM EST Office Visit [facility] [address] 3[address] Floor, [address] [place] [address] Faheem Solares MD 22 [facility], [address] [place] [address] [email or web address] 04/10/2026 9:00 AM EDT Office Visit [facility] [address] Floor, [address] [place] [address] Chetan Mercado MD, MS 22 [facility], [address] [place] [phone] [email or web address] documented as of this encounter Visit Diagnoses Not on filedocumented in this encounter Care Teams Associate Professor Of Music Relationship Specialty Start Date End Date Carissa Zuniga MD [address] [place] [address] PCP - General Internal Medicine 06/25/19 Joshua Oswald MD [address] [place] [phone] [email or web address] Historical LMR Provider 06/08/17 documented as of this encounter Additional Source Comments The information contained in this document represents components of the legal health record. It is not the complete legal health record.[facility]
--- OUTSIDE RECORDS SUMMARY | 2025-07-14 08:29 | XMS_ITS | Encounter Summary ---
Author Organization [facility] Address [address] [place] [address] Phone Care Team Providers Care Ruby On Rails Software Developer Name Role Phone Joshua Oswald MD Unavailable [phone] Carissa Zuniga MD Primary Care Provid er Encounter Details Date Type Department Care Team (Late st Contact Info) Description 04/30/2025 Procedure Pass Echo Lab [address] [place] [address] Social History Tobacco Use Types Packs/Day Years [...] Description 07/22/2025 9:00 AM EST Office Visit [facility] [address] [place] [address] 3rd Floor, [address] [place] [address] Faheem Solares MD 22 [facility], [address] [address] [email or web address] 04/10/2026 9:00 AM EDT Office Visit [facility] [address] 3rd Floor, [address] [place] [address] Chetan Mercado MD, MS 22 [facility], [address] [address] [email or web address] documented as of this encounter Visit Diagnoses Not on filedocumented in this encounter Care Teams Ruby On Rails Software Developer Relationship Specialty Start Date End Date Carissa Zuniga MD [address] [place] [address] PCP - General Internal Medicine 06/25/19 Joshua Oswald MD [address] [address] [email or web address] LMR Provider 06/08/17 documented as of this encounter Additional Source Comments The information contained in this document represents components of the legal health record. It is not the complete legal health record.[facility]
--- OUTSIDE RECORDS SUMMARY | 2025-07-14 08:29 | XMS_ITS | Encounter Summary ---
Author Organization [facility] Address [address] [address] Phone Care Team Providers Care Bench Hand Machine Name Role Phone JimenaMartin Dimitrios NOVA Unavailable [phone] Joshua Oswald MD Unavailable [phone] Carissa Zuniga MD Primary Care Provid er Reason for Referral * - Closed Specialty Diagnoses / Procedures Referred By Yumiko allen Referred To Contact Diagnoses Paroxysmal atrial fibrillation Procedures MCT (Mobile Cardiac Telemetry) Faheem Solares MD Phone: tel: fax: mailto:[email or web address] Referral ID Status Reason Start Date Expiration Date Visits Re quested Visits Authorized [id number] Closed 07/30/2021 07/30/2022 1 1 Encounter Details Date Type Department Care Team (Latest Contact Info) Description 07/30/2021 Ancillary Orders [facility] [address] [place] [address] 3rd Floor, [address] [place] [address] Faheem Solares MD 22 [facility], [address] [address] [email or web address] Paroxysmal atrial fibrillation Social History Tobacco Use [...] Description 07/22/2025 9:00 AM EST Office Visit [facility] [address] [place] [address] 3rd [facility], [address] [place] [address] Faheem Solares MD 22 [facility], [address] [address] 04/10/2026 9:00 AM EDT Office Visit [facility] [address], [address] [place] [address] Chetan Mercado MD, MS 22 [facility], [address] [address] [email or web address] Scheduled Orders Name Type Priority Associated Diagnoses Orde r Schedule MCT (Mobile Cardiac Telemetry) Cardiac Monitors Routine Paroxysmal atrial fibrillation Expected: 07/23/2021, Expires: 10/21/2021 documented as of this encounter Visit Diagnoses Diagnosis Paroxysmal atrial fibrillation Atrial fibrillation documented in this encounter Care Teams Bench Hand Machine Relationship Specialty Start Date End Date Carissa Zuniga MD [address] [place] [address] PCP - General Internal Medicine 06/25/19 Martin Hess DO [address] [place] [address] Historical LMR Provider 06/08/17 Joshua Oswald MD [address] [address] [email or web address] Historical LMR Provider 06/08/17 documented as of this encounter Additional Source Comments The information contained in this document represents components of the legal health record. It is not the complete legal health record.[facility]
== END 2025-07-14 08:22 | disposition home or self-care (01) ==
LOC: HO.HOSX 08:21
PROVIDERS: Visit Provider Orthopaedic Surgery
DX: Z96.651 Presence of right artificial knee joint (principal); M25.561 Pain in right knee
CPT/HCPCS: 73562; 99212

== ENCOUNTER 2025-07-14 11:25 | Outpatient (AMB) | payer OTHER, SELFPAY ==
--- NOTE | 2025-07-14 11:31 | A.OFFVIS_ITS ---
Intake Visit Reasons: PO- R TKA 05/20/25 Intake Note: Gustavo is a 64 year old male who presents today for a post operative appointment about 7 weeks s/p Right TKA 05/20/25. At his last visit he reported a fall with his dog, xrays showed a small non displaced periprosthetic fracture. Because of this finding he was instructed to WBAT with a walkier and continue PROM & AAROM with CORE PT . Patient reports that he is doing well. Allergies ciprofloxacin (From CIPRO) Allergy (Intermediate, Verified 06/30/25 13:00) SWELLING levofloxacin (Levaquin) Allergy (Intermediate, Verified 06/30/25 13:00) facial swelling HPI HPI PO- R TKA 05/20/25: Details: Gustavo is a 64 year old male who presents today for a post operative appointment about 7 weeks s/p Right TKA 05/20/25. At his last visit he reported a fall with his dog, xrays showed a possible small non displaced periprosthetic fracture. Because of this finding he was instructed to WBAT with a walkier and continue PROM & AAROM with CORE PT . Patient reports that he is doing well. He stopped using a walker and cane because he does not really have any pain. He has not been doing physical therapy as much as he would typically have been because of this ?fracture?. [facility] Medical History History of urinary retention Concussion CAD (coronary artery disease) Myocardial infarction Sacroiliitis Sleep apnea Pure hypercholesterolemia Mild recurrent major depression Osteoarthritis of right knee Skin lesion Rosacea Hypogonadism in male Gout Chronic pain GERD (gastroesophageal reflux disease) BPH (benign prostatic hyperplasia) Hyperlipidemia PAF (paroxysmal atrial fibrillation) Essential hypertension Surgical History History of surgical removal of skin lesion H/O colonoscopy History of left knee replacement (~08/2019) History of arthroplasty of left knee History of prior ablation treatment History of prostate surgery History of appendectomy History of arthroscopy of right knee History of arthroscopy of left knee Family History Father CAD (coronary artery disease) COPD (chronic obstructive pulmonary disease) Mother No problems noted. Son No problems noted. 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 No pain with palpation in the medial tibial plateau. Results Reviewed Results Reviewed: I personally reviewed relevant radiographs. Sclerotic lucency still present medial tibial plateau adjacent to the prosthesis without any change in appearance or alignment of the prosthesis. Assessment & Plan Assessment & Plan (1) Status post total right knee replacement: Code(s): Z96.651 - Presence of right artificial knee joint Category: Surgical Plan: Two months status post right knee replacement. He is doing well. He has no pain. There was a question of a small nondisplaced fracture. It is still unclear that was real or not but we are going to return to normal range of motion and he will continue weight-bearing as tolerated. He will see me back in 6 weeks or sooner if pain reoccurs. Orders: Orders XR knee RT 3V Today M25.561 - Pain in right knee PT Evaluation and Treatment Today Z96.651 - Presence of right artificial knee joint Coding Level of Care Code Global (94313) Diagnoses Status post total right knee replacement Z96.651
== END 2025-07-14 12:14 | disposition home or self-care (01) ==
LOC: HO.HOS 11:26
PROVIDERS: PCP Internal Medicine; Visit Provider Orthopaedic Surgery
DX: Z96.651 Presence of right artificial knee joint (principal)
CPT/HCPCS: 99024

== ENCOUNTER → 2025-07-14 11:37 | Outpatient (BNV) | payer OTHER, SELFPAY | PROVIDERS: Visit Provider Radiology Diagnostic Radiology | DX: M25.461 Effusion, right knee (principal); Z96.651 Presence of right artificial knee joint | CPT/HCPCS: 73562 ==

== ENCOUNTER 2025-07-15 07:14 | Outpatient (REF) | payer OTHER, SELFPAY ==
--- OUTSIDE RECORDS SUMMARY | 2025-07-15 07:16 | XMS_ITS | Clinical Summary ---
Author Organization [facility] Address [address] [place] [address] Phone Care Team Providers Care Abrasive Coating Machine Operator Name Role Phone Joshua Oswald MD Unavailable [phone] Carissa Zuniga MD Primary Care Provid [...] Says he got a venous ultrasound at [facility] urgent care which was negative for clot. Symptoms have been attributed to a hematoma and he was told to apply heat to the area. 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 I have told him to seek medical assistance if he notices swelling worsening or if he were to develop sudden onset symptoms of chest pain/shortness of breath. He says that he might actually get a repeat ultrasound of his leg done at [facility] which has been scheduled for next week. Suspected sleep apnea 04/12/2018 Assessment & Plan (04/12/2018 8:37 AM EDT): History is suggestive of sleep apnea will do a sleep study referral for the same. Coronary artery disease invo lving [place] coronary artery of [place] heart without angina pectoris 09/06/2017 Overview (09/26/2017): [...] of breath. He was worked up at [facility] for ACS and this was ruled out [...] fibrillation. It was confirmed on EKG at [facility] as well as here in the office. [...] 1:45 PM EDT): Reviewed lipid panel from [facility] LDL cholesterol 57. Goal LDL less than [...] Type Department Care Team Description 05/26/2025 Telephone [facility] [address] [place] [address] 3rd Floor, [address] [place] [address] Faheem Solares MD 05/07/2025 2:15 PM EDT - 05/07/2025 11:59 PM EDT Hospital Encounter Echo Lab [address] [place] [address] Nicole Cazares DNP Discharge Disposition: Home or Self Care 04/30/2025 Procedure Pass Echo Lab [address] [place] [address] 04/30/2025 Orders Only [facility] [address] 3rd Floor, [address] [place] [address] Nicole Cazaers DNP Preop examination (Primary Dx); Essential hypertension 04/30/2025 Telephone [facility] [address] 3rd Floor, [address] [place] [address] Nicole Cazares DNP from Last 3 Months [...] Description 07/22/2025 9:00 AM EST Office Visit [facility] [address] 3[address] Floor, [address] [place] [address] Faheem Solares MD [address] [place] [address], [address] [address] [email or web address] 04/10/2026 9:00 AM EDT Office Visit [facility] [address] 3rd Floor, [address] [place] [address] Chetan Mercado MD, MS 22 [facility], [address] [place] [address] [email or web address] Health Maintenance Due Date Last Done Comments [...] no evidence of a ventricular septal defect. [facility] ECHO ORDERABLES Final Result * [...] ORDERAB LES Final Result Performing Organization Address [facility]/ZIP Co de Phone Number [address] [address] * (ABNORMAL) Lipid panel (05/05/2020 10:04 AM [...] CARDIAC RISK RATIO 2.7(L) 3.4 - 5.0 [facility] Blood 05/05/2020 10:0 4 AM EDT 05/05/2020 10:08 AM EDT us Joshua Oswald MD LAB BLOOD BKR ORDERABLES Final Result Performing Organization Address [facility]/ZIP Co de Phone Number [address] [address] from Last 3 Months or Most Recently Relevant to Health Maintenance Insurance WELLSENSE NON NSPG PCP SILVER CLARITY CONNECTORCARE BEAVERENSE NON NSPG PCP SILVER [employer]ITY CONNECTORCARE WELLSENSE NON NSPG PCP S[employer]CTORCARE Member Subscriber Plan / Payer (Ef fective 2024-Present) Name:Susy Driscollence Relation to Subscriber:Self Name:Gustavo Driscoll Payer ID:[id number] Type:HMO Address: [place] [id number] WELLSENSE NON NSPG PCP SILVER CLARITY CONNECTORCARE WELLSENSE NON NSPG PCP SILVER CLARITY CONNECTORCARE WELLSENSE NON NSPG PCP SILVER CLARITY CONNECTORCARE WELLSENSE NON NSPG PCP SILVER CLARITY CONNECTORCARE WELLSENSE NON NSPG PCP SILVER CLARITY CONNECTORCARE WELLSENSE NON NSPG PCP SILVER CLARITY CONNECTORCARE Care Teams Abrasive Coating Machine Operator Relationship Specialty Start Date End Date Carissa Zuniga MD [address] [place] [address] PCP - General Internal Medicine 06/25/19 Joshua Oswald MD [address] [address] [email or web address] LMR Provider 06/08/17 Additional Source Comments The information contained in this document represents components of the legal health record. It is not the complete legal health record.[facility]
--- OUTSIDE RECORDS SUMMARY | 2025-07-15 07:16 | XMS_ITS | Patient Health Record ---
Author Organization [facility] Address [address] [place] [address] Care Team Providers Care Mental Health Nurse Name Role Phone Jimena(inactive) Martin ZAMBRANO Primary Care Provider U Chetan Ribera Unavailable [phone] Allergies Allergen (clinical drug ingredient) Drug/Non Drug [...] Problem Screening for malignant neoplasm of colon ([id number]) Special screening for malignant neoplasms, colon (V76.51) Active confirmed Plan Of Treatment Future Test Test Name Order Date COLONOSCOPY 07/20/2011 Medical (General) History Medical History History ICD Code atrial fibrillation hypertension hyperlipidemia Denies CT,DM,CVA,Lung disease,renal dise ase he describes a negative cardiac catheter ization Surgical History Surgery Date(Month/Year) appendectomy knee surgery shoulder surgery
--- OUTSIDE RECORDS SUMMARY | 2025-07-15 07:16 | XMS_ITS | Encounter Summary ---
Author Organization [facility] Address [address] [place] [address] Phone Care Team Providers Care Director Biology Name Role Phone Joshua Oswald MD Unavailable [phone] Carissa Zuniga MD Primary Care Provid er Encounter Details Date Type Department Care Team (Late st Contact Info) Description 04/30/2025 Procedure Pass Echo Lab [address] [place] [address] Social History Tobacco Use Types Packs/Day Years [...] Description 07/22/2025 9:00 AM EST Office Visit [facility] [address] [place] [address] 3rd Floor, [address] [place] [address] Faheem Solares MD 22 [facility], [address] [address] [email or web address] 04/10/2026 9:00 AM EDT Office Visit [facility] [address] 3rd Floor, [address] [place] [address] Chetan Mercado MD, MS 22 [facility], [address] [address] [email or web address] documented as of this encounter Visit Diagnoses Not on filedocumented in this encounter Care Teams Director Biology Relationship Specialty Start Date End Date Carissa Zuniga MD 5 [place] [address] PCP - General Internal Medicine 06/25/19 Joshua Oswald MD [address] [address] [email or web address] Historical LMR Provider 06/08/17 documented as of this encounter Additional Source Comments The information contained in this document represents components of the legal health record. It is not the complete legal health record.[facility]
--- OUTSIDE RECORDS SUMMARY | 2025-07-15 07:17 | XMS_ITS | Clinical Summary ---
Author Organization [facility] Address [address] [place] [address] Care Team Providers Care Tomato Paste Maker Name Role Phone Unavailable Primary Care Provider [...]
--- OUTSIDE RECORDS SUMMARY | 2025-07-15 07:17 | XMS_ITS | Encounter Summary ---
Author Organization [facility] Address [address] [place] [address] Phone Care Team Providers Care Machine Ii Coremaker Name Role Phone Joshua Oswald MD Unavailable [phone] Carissa Zuniga MD Primary Care Provid er Encounter Details Date Type Department Care Team (Late st Contact Info) Description 01/26/2023 Procedure Pass [facility], Ct Scan - [address] [address] Social History Tobacco Use Types Packs/Day Years [...] Description 07/22/2025 9:00 AM EST Office Visit [facility] [address] 3rd Floor, [address] [place] [address] Faheem Solares MD 22 [facility] [place] [facility], [address] [place] [address] [email or web address] 04/10/2026 9:00 AM EDT Office Visit [facility] [address] 3rd Floor, [address] [place] [address] Chetan Mercado MD, MS 22 [facility] [place] [facility], [address] [place] [phone] [email or web address] documented as of this encounter Visit Diagnoses Not on filedocumented in this encounter Care Teams Machine Ii Coremaker Relationship Specialty Start Date End Date Carissa Zuniga MD [address] [place] [address] PCP - General Internal Medicine 06/25/19 Joshua Oswald MD [address] [place] [address] [email or web address] Historical LMR Provider 06/08/17 documented as of this encounter Additional Source Comments The information contained in this document represents components of the legal health record. It is not the complete legal health record.[facility]
--- OUTSIDE RECORDS SUMMARY | 2025-07-15 07:17 | XMS_ITS | Encounter Summary ---
Author Organization [facility] Address [address] [place] [address] Phone Care Team Providers Care K [employer] Principal Name Role Phone Joshua Oswald MD Unavailable [phone] Carissa Zuniga MD Primary Care Provid er Reason for Referral * Hospital - Outpatient - Closed Specialty Diagnoses / Procedures Referred By Yumiko allen Referred To Contact Radiology Diagnoses TIA (transient ischemic attack) Spell of change in speech Aphasia Procedures US Carotid Duplex Complete (Bilateral) Rashad Thorpe MD [address] [place] [address], [address] [place] [address] Phone: tel: fax: [email or web address]:[email or web address] Referral ID Status Reason Start Date Expiration Date Visits Re quested Visits Authorized [id number] Closed 03/25/2025 03/25/2026 1 1 Encounter Details Date Type Department Care Team (Latest Contact Info) Description 03/25/2025 Transcribe Orders Virtual Department [address] [place], [place] [id number] Rashad Thorpe MD [address] [place] [address], [address] [place], [place] [phone] [email or web address] TIA (transient ischemic attack) (Primary Dx); [...] Description 07/22/2025 9:00 AM EST Office Visit [facility] [address] Floor, [address] [place] [address] Faheem Solares MD 22 [facility], [address] [address] [email or web address] 04/10/2026 9:00 AM EDT Office Visit [facility] [address] 3[address] Floor, [address] [place] [address] Chetan Mercado MD, MS 22 [facility], [address] [place] [address] [email or web address] documented as of this encounter Results * [...] represents the denominator. us Rashad Thorpe MD [facility] Final Re sult documented in this encounter Visit Diagnoses Diagnosis TIA (transient ischemic attack)- Primary Unspecified transient cerebral ischemia Spell of change in speech Aphasia TIA (transient ischemic attack) Unspecified transient cerebral ischemia Spell of change in speech Aphasia documented in this encounter Care Teams [employer] Principal Relationship Specialty Start Date End Date Carissa Zuniga MD [address] [place] [address] PCP - General Internal Medicine 06/25/19 Joshua Oswald MD [address] [place] [address] [email or web address] Historical LMR Provider 06/08/17 documented as of this encounter Additional Source Comments The information contained in this document represents components of the legal health record. It is not the complete legal health record.[facility]
[2025-07-15 07:50] LABS: Hematocrit 43.3 % (42.0-52.0); Hemoglobin 14.0 g/dl (14.0-18.0); Mean Corpuscular HGB Conc 32.3 g/dl (31.0-36.0); Mean Corpuscular Hemoglobin 28.3 pg (27.0-33.0); Mean Corpuscular Volume 87.5 fL (80.0-98.0); NRBC Abs Auto 0.000 X10*3/uL (0.0-0.012); NRBC Pct Auto 0.0 /100WBC (0.0-0.2); Platelet Count 155 X10*3/uL (160-400); Red Blood Count 4.95 X10*6/uL (4.60-5.80); White Blood Count 4.0 X10*3/uL (4.8-10.8)
[2025-07-15 08:40] LABS: Prostate Specific Antigen 2.22 ng/mL (<0.05-4.0)
[2025-07-21 14:48] LABS: Testosterone, Free 29.1 pg/mL (35.0-155.0)
== END 2025-07-15 07:15 | disposition home or self-care (01) ==
LOC: HO.LAB 07:14
PROVIDERS: PCP Internal Medicine; Visit Provider Nurse Practitioner Family
DX: E29.1 Testicular hypofunction (principal)
CPT/HCPCS: 36415; 84153; 84402; 84403; 85027

== ENCOUNTER 2025-07-28 08:11 | Outpatient (AMB) | payer OTHER, SELFPAY ==
[2025-07-28 08:19] VITALS: BP 130/70; PULSE 76; TEMP 36.3; O2SAT 96; BMI 31.7
--- NOTE | 2025-07-28 08:19 | MHC.PC.OV ---
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: No Accompanied by: Self / Same As Patient Allergies ciprofloxacin (From CIPRO) Allergy (Intermediate, Verified 07/28/25 08:35) SWELLING levofloxacin (Levaquin) Allergy (Intermediate, Verified 07/28/25 08:35) facial swelling Medication List - Last Reconciled 07/28/25 by Carissa Lau MD acetaminophen 650 mg (2 x 325 mg) PO Q6H PRN 30 days apixaban (Eliquis) 5 mg PO BID diltiazem HCl CD 180 mg PO DAILY doxycycline hyclate 100 mg PO BID 90 days [Folding Front Wheeled walker Duration: 99 days] lisinopril 5 mg PO DAILY lorazepam 1 mg PO BID PRN 29 days multivitamin 1 tab PO DAILY oxycodone 10 mg PO Q8H PRN 14 days sildenafil 50 mg PO DAILY PRN simvastatin 40 mg PO BEDTIME tadalafil (Cialis) 5 mg PO DAILY 90 days tamsulosin 0.4 mg PO BEDTIME 90 days testosterone 30 mg/actuation (1.5 mL) 3 pumps topical DAILY 30 days valacyclovir 1,000 mg PO Q8H PRN vitamin A-vitamin C-vit E-min 1 tab PO DAILY Tobacco use date assessed: 07/28/25 Fall risk assessment: No Falls in past year Last assessed Fall Risk: 07/28/25 Dental Screening Dental Screen Date: 07/28/25 Did you have a dental visit in the last 12 months?: No Did you have a dental problem in the last 6 months where you did not have access to dental care?: No HPI HPI Comments History of Present Illness Details The patient is a 64 year old male presenting for a follow-up visit and medication review. He has a history of atrial fibrillation, managed with Eliquis and diltiazem. He also has hypertension, for which his lisinopril was recently reduced from 10 mg to 5 mg due to experiencing dizziness from low blood pressure, which has since resolved. Additional chronic conditions include rosacea, treated with doxycycline, and BPH, treated with tamsulosin. The patient is recovering from a knee repair and reports that two weeks post-procedure, his dog ran into him, causing a hairline fracture. He continues to experience some pain and has an upcoming follow-up appointment with his orthopedic surgeon in August. Post-knee surgery, he reports new onset of numbness in his right fourth and fifth fingers, which sometimes extends up his arm and is associated with sensations in his right elbow depending on arm movement. He has discussed this with his orthopedic surgeon and ui application developer, who suggested it may be related to his arm positioning during surgery. Recent lab work from July 15 revealed an elevated fasting blood glucose of 163 mg/dL. His previous reading was 95 mg/dL. His most recent HbA1c, performed in April, was 5.7%. The patient attributes the elevated sugar to being more sedentary and eating more sweets since his knee replacement. He reports polydipsia, which he states he has had for years, but denies polyuria. He notes a 4-pound weight loss since June but attributes this to potential medication side effects and decreased appetite post-surgery rather than intentional effort. He has a history of low testosterone and was on testosterone replacement, but has not used it for a couple of weeks pending recent lab results. He has an appointment with his youth officer this week to discuss restarting the therapy. He also has anxiety stable with benzodiazepines as needed. [facility] Medical History (Updated 07/28/25 @ 10:15 by Carissa Lau MD) PAF (paroxysmal atrial fibrillation) Hyponatremia History of urinary retention Concussion CAD (coronary artery disease) Myocardial infarction Sacroiliitis Sleep apnea Pure hypercholesterolemia Mild recurrent major depression Osteoarthritis of right knee Skin lesion Rosacea Hypogonadism in male Gout Chronic pain GERD (gastroesophageal reflux disease) BPH (benign prostatic hyperplasia) Hyperlipidemia Essential hypertension Surgical History History of surgical removal of skin lesion H/O colonoscopy History of left knee replacement (~08/2019) History of arthroplasty of left knee History of prior ablation treatment History of prostate surgery History of appendectomy History of arthroscopy of right knee History of arthroscopy of left knee Family History Father CAD (coronary artery disease) COPD (chronic obstructive pulmonary disease) Mother No problems noted. Son No problems noted. 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 Current occupational exposures/hazards: No Cognitive needs: No Hearing needs: No Vision needs: No Questionnaire Thrive Questionnaire Date Thrive assessed: 10/06/24 I am a: Patient What is your living situation today?: I have a steady place to live Within the past 12 months, did the food you bought not last and you didn't have the money to get more?: Never true Within the past 12 months, did you worry whether your food would run out before you got money to buy more?: Never true Do you have trouble paying for medicines?: No Do you have trouble getting transportation to medical appointments?: No Do you have trouble paying your heating and electricity bill?: No Do you have trouble taking care of your child, family member or friend?: No Do you have trouble with day-to-day activities such as bathing, preparing meals, shopping, managing finances, etc.?: No Are you currently unemployed and looking for a job?: I choose not to answer this question Are you interested in more education?: No Please select the resources that you would like help with: None Currently or been in a relationship where the following occur: No concerns reported THRIVE Score: 0 RUDY-7 AMB Questionnaire RUDY-7 Date RUDY - 7 assessed: 10/08/24 Source: Developed by Drs. Chetan Ceron, Marielena Ames, Wesly Das and colleagues, with an educational tejinder from [employer]. Review of Systems Const All systems reviewed & are unremarkable except as noted in HPI and below Card Denies chest pain at rest, Denies chest pain with activity, Denies edema, Denies irregular heart rhythm, Denies claudication, Denies dyspnea, Denies dyspnea on exertion, Denies orthopnea, Denies paroxysmal nocturnal dyspnea and Denies slow heart rate Resp Denies cough, Denies dyspnea and Denies dyspnea on exertion Physical exam (Primary Care) Vital Signs: Last Vital Signs Temp 97.3 F 07/28/25 08:19 Pulse 76 07/28/25 08:19 BP 130/70 07/28/25 08:19 Pulse Ox 96 07/28/25 08:19 Oxygen Delivery Method Room Air 07/28/25 08:19 BMI result Body Mass Index 31.7 Tobacco/Smoking Status: Tobacco use Status Tobacco use date assessed 07/28/25 07/28/25 08:20 Patient Tobacco Use Status Former Tobacco user 07/28/25 08:20 Tobacco use type Cigarette 07/28/25 08:20 e-Cigarette/Vaping Use Never Used 07/28/25 08:20 Thrive Assessment: Date of Thrive Assessment Date Thrive assessed 10/06/24 07/28/25 08:20 Currently or been in a relationship where the following occur: No concerns reported Resp Effort & Inspection: normal respiratory effort Auscultation: clear to auscultation bilaterally Cardio Jugular venous distension: no JVD Rate: regular rate Rhythm: regular rhythm Heart sounds: S1 normal heart sound present and S2 normal heart sound present Extrem General: Yes full ROM Coding Level of Care Code Complex visit Add On G2211 Diagnoses Essential hypertension I10 Impaired glucose tolerance R73.02 Hypogonadism in male E29.1 BPH (benign prostatic hyperplasia) N40.0 PAF (paroxysmal atrial fibrillation) I48.0 RUDY (generalized anxiety disorder) F41.1 Right hand paresthesia R20.2 Time Spent (min) 24 Assessment & Plan Assessment & Plan (1) Essential hypertension: Code(s): I10 - Essential (primary) hypertension Category: Medical (2) Impaired glucose tolerance: Code(s): R73.02 - Impaired glucose tolerance (oral) Category: Medical (3) Hypogonadism in male: Code(s): E29.1 - Testicular hypofunction Category: Medical (4) BPH (benign prostatic hyperplasia): Code(s): N40.0 - Benign prostatic hyperplasia without lower urinary tract symptoms Category: Medical (5) PAF (paroxysmal atrial fibrillation): Code(s): I48.0 - Paroxysmal atrial fibrillation Category: Medical (6) RUDY (generalized anxiety disorder): Code(s): F41.1 - Generalized anxiety disorder Category: Medical (7) Right hand paresthesia: Code(s): R20.2 - Paresthesia of skin Category: Medical Plan Plan 1. Hyperglycemia/impaired glucose tolerance The patient's fasting blood glucose was recently elevated at 163 mg/dL, a significant increase from a prior value of 95 mg/dL, though his HbA1c was 5.7% less than three months ago. A diagnosis of diabetes mellitus will be made if a repeat fasting glucose is over 126 mg/dL. The plan is to repeat a fasting blood glucose and cholesterol panel in six weeks, around the first or second week of August. The patient was counseled to improve his diet with a focus on low-carbohydrate and low-calorie options. 2. Paresthesia Of Right Upper Limb The patient reports new onset of numbness in the right fourth and fifth fingers, which began after his recent knee replacement surgery. To evaluate for possible nerve damage, which may have occurred due to arm positioning during surgery, a referral will be placed for a nerve conduction study. 3. Paroxysmal atrial fibrillation Continue chronic anticoagulation and diltiazem. Follow-up with Cardiology. The goal is heart rate control. 4. Hypogonadism The patient has a history of low testosterone and has temporarily stopped his testosterone therapy for a few weeks while awaiting lab results. He has an upcoming appointment with his specialist on Monday to review the labs and will likely restart the treatment, as his levels were on the lower side in late June. 5. Hypertension The patient's lisinopril was recently decreased from 10 mg to 5 mg due to symptoms of hypotension, including dizziness. His blood pressure is now excellent on the current regimen, which also includes diltiazem. No medication changes are indicated at this time. Orders: Orders Lipid Panel Today E78.5 - Hyperlipidemia, unspecified NE electromyogram (EMG) Today R20.2 - Paresthesia of skin Comprehensive [place]. Panel Fast Today R73.02 - Impaired glucose tolerance (oral) NE nerve conduction velocity Today R20.2 - Paresthesia of skin
== END 2025-07-28 08:52 | disposition home or self-care (01) ==
LOC: HO.HMCH 08:11
PROVIDERS: PCP Internal Medicine; Visit Provider Internal Medicine
DX: I10 Essential (primary) hypertension (principal); R73.02 Impaired glucose tolerance (oral); E29.1 Testicular hypofunction; N40.0 Benign prostatic hyperplasia without lower urinary tract symptoms; I48.0 Paroxysmal atrial fibrillation; F41.1 Generalized anxiety disorder; R20.2 Paresthesia of skin

== ENCOUNTER → 2025-07-28 08:11 | Outpatient (BNVA) | payer OTHER, SELFPAY | PROVIDERS: PCP Internal Medicine; Visit Provider Internal Medicine | DX: I10 Essential (primary) hypertension (principal); R63.1 Polydipsia; R73.02 Impaired glucose tolerance (oral); E29.1 Testicular hypofunction; N40.0 Benign prostatic hyperplasia without lower urinary tract symptoms; I48.0 Paroxysmal atrial fibrillation; F41.1 Generalized anxiety disorder; R20.2 Paresthesia of skin; Z79.01 Long term (current) use of anticoagulants | CPT/HCPCS: 99212 ==

== ENCOUNTER 2025-07-30 14:55 | Outpatient (AMB) | payer OTHER, SELFPAY ==
--- NOTE | 2025-07-30 14:57 | MHC.OFFVIS ---
Intake Visit Reasons: 3m/US/labs/UA Intake Note: Patient is present for 3M/US/LAB/UA Urology Medication:TADALFIL,TESTOSTERONE,TAMSULOSIN,SILDENAFIL Antibiotic Allergy:CIPROFLOXACIN,LEVOFLOXACIN Blood Thinner:APIXABAN Proof Technician Required: No Allergies ciprofloxacin (From CIPRO) Allergy (Intermediate, Verified 07/30/25 15:38) SWELLING levofloxacin (Levaquin) Allergy (Intermediate, Verified 07/30/25 15:38) facial swelling Medication List - Last Reconciled 07/30/25 by DEMETRIA Moran-MICHA acetaminophen 650 mg (2 x 325 mg) PO Q6H PRN 30 days apixaban (Eliquis) 5 mg PO BID diltiazem HCl CD 180 mg PO DAILY doxycycline hyclate 100 mg PO BID 90 days finasteride 5 mg PO DAILY 90 days [Folding Front Wheeled walker Duration: 99 days] lisinopril 5 mg PO DAILY lorazepam 1 mg PO BID PRN 29 days multivitamin 1 tab PO DAILY sildenafil 50 mg PO DAILY PRN simvastatin 40 mg PO BEDTIME tadalafil (Cialis) 5 mg PO DAILY 90 days tamsulosin 0.4 mg PO BEDTIME 90 days testosterone 30 mg/actuation (1.5 mL) 3 pumps topical DAILY 30 days valacyclovir 1,000 mg PO Q8H PRN vitamin A-vitamin C-vit E-min 1 tab PO DAILY HPI Comments Details: Gustavo is a pleasant 64 year old male patient of Dr. Maria. He has a past medical history of sleep apnea, hypercholesteremia, depression, osteoarthritis, rosacea, hypogonadism, gout, chronic pain, GERD, BPH, hyperlipidemia, paroxysmal atrial fibrillation, and hypertension. He presents to the office today for follow-up of his hypogonadism, lower urinary tract symptoms, and overactive bladder. In discussion with the patient today he reports to be doing and feeling well. He reports he has been able to independently void without issues since his last office visit here. Of note, approximately 5 months ago patient has seeked emergency room care services at which time the patient was noted to be in retention and a Jovel catheter was placed. Most recent retroperitoneal ultrasound results reviewed with the patient today 05/15 bilateral kidneys are normal in echotexture and renal thickness. No hydronephrosis or renal calculi noted bilaterally. 2.8 cm right renal cysts. The prostate measures approximately 79 mL. Pre void bladder volume was 325 mL. Postvoid bladder volume 115 mL. She reports believing episode of urinary retention happened due to his episode of recreational drug use. He reports he has been experiencing some episodes of urinary frequency however believes this is related to his potential new diagnosis of prediabetes as his point of care was noted to be elevated during his last PCP follow-up. We did review most recent labs related to his history of hypogonadism as noted and trended below: H/H: 11/09 15.2/46.7, 12/11 14.8/46.6, 02/10 16.2/48.9, 10/14 16.2/49.0, 12/12 16.1/47.4, 06/13 16.3/47.9, 09/14 14.8/44.5, 12/13 15.4/47.0, 07/14 14/43.3 PSA:07/09 2.2, 11/08 3.4, 05/13, 12/12 3.5, 09/14 3.0, 12/13 2.7, 07/15 2.2 Testosterone: 07/09 149, 09/09 168, 11/08 444, 12/09 1203, 11/09 215, 06/11 205, 12/11 357,05/13 627, 12/12 597, 06/13 379, 09/14 295, 12/13 301, 07/15 171 Testosterone free and total:11/08 109.7, 05/13 163.6, 12/12 152.2, 06/13 99.7, 55.8, 12/13 68.7, 07/15 29.1 We did discussed importance of taking medications as prescribed as well as as impacts of recreational drug use on his health. When asked he reports he has not been taking testosterone as he has not had any refills on that medication. However he does report compliance with Flomax. We did discuss findings of an enlarged prostate on imaging in relation to history of urinary retention. We did discussed further treatment options of hypogonadism, lower urinary tract symptoms, enlarged prostate, and urinary retention. We discussed risks and benefits of these interventions. All questions were answered. He otherwise offers no other issues or concerns at this time. Lower urinary tract symptoms Prior laser procedure Symptoms of urgency and frequency Concomitant diagnosis includes NERY on CPAP Prior failure of trial with oxybutynin, tolterodine, and Myrbetriq Nocturia x5, daytime urge PFSH Medical History PAF (paroxysmal atrial fibrillation) Hyponatremia History of urinary retention Concussion CAD (coronary artery disease) Myocardial infarction Sacroiliitis Sleep apnea Pure hypercholesterolemia Mild recurrent major depression Osteoarthritis of right knee Skin lesion Rosacea Hypogonadism in male Gout Chronic pain GERD (gastroesophageal reflux disease) BPH (benign prostatic hyperplasia) Hyperlipidemia Essential hypertension Surgical History History of surgical removal of skin lesion H/O colonoscopy History of left knee replacement (~08/2019) History of arthroplasty of left knee History of prior ablation treatment History of prostate surgery History of appendectomy History of arthroscopy of right knee History of arthroscopy of left knee Family History Father CAD (coronary artery disease) COPD (chronic obstructive pulmonary disease) Mother No problems noted. Son No problems noted. 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 Current occupational exposures/hazards: No Cognitive needs: No Hearing needs: No Vision needs: No Review of Systems Const Reports as per HPI Eyes Reports no additional complaints ENT Reports no additional complaints Card Reports as per HPI Resp Reports as per HPI GI Reports as per HPI Reports as per HPI Musc Reports as per HPI Neuro Reports no additional complaints Psych Reports as per HPI Endo Reports no additional complaints William/Lymph Reports no additional complaints Aller/Immun Reports no additional complaints Physical Exam Const General: cooperative, healthy appearing, comfortable, no acute distress, well developed, alert and awake Orientation/consciousness: patient oriented x3 Limitations: no limitations HEENT Head: Yes normal to inspection, Yes normocephalic and Yes atraumatic Ears: hearing grossly normal bilaterally Eyes General: appearance normal, both eyes and all related structures Neck Neck: Yes normal visual inspection and Yes trachea midline Chest Chest palpation & inspection: normal inspection of the chest Resp Effort & Inspection: normal respiratory effort and able to speak in complete sentences Cardio Rate: regular rate GI Inspection: Yes normal to inspection General: Yes no CVA tenderness Back/Spine/Pelvis Back: no CVA tenderness Skin General skin exam: no rashes or lesions noted Neuro General: patient oriented x3 Extrem General: Yes normal to inspection Psych Appearance: grossly normal and well kempt Mental Status: mental status grossly normal Speech and movement: Clear speech present Affect: normal affect Attitude: cooperative Thought process: Normal thought process present Thought content: Normal thought content present Insight: Fair insight present (Psych) Judgement: Fair judgement present (Psych) Results AMB Urinalysis, Automated UA Leukoctes 15 Teddy/uL Last Edit by ANTOLIN Lay on 07/30/25 15:24 UA Nitrite Negative Last Edit by ANTOLIN Lay on 07/30/25 15:24 UA Urobilinogen 0.2 mg/dL Last Edit by ANTOLIN Lay on 07/30/25 15:24 UA Protein 0 mg/dL Last Edit by ANTOLIN Lay on 07/30/25 15:24 UA pH 6.0 Last Edit by ANTOLIN Lay on 07/30/25 15:24 UA Blood 25 Quinn/uL Last Edit by ANTOLIN Lay on 07/30/25 15:24 UA Specific [place] 1.020 Last Edit by ANTOLIN Lay on 07/30/25 15:24 UA Ketone Negative Last Edit by ANTOLIN Lay on 07/30/25 15:24 UA Bilirubin 0 mg/dL Last Edit by ANTOLIN Lay on 07/30/25 15:24 UA Glucose 0 mg/dL Last Edit by ANTOLIN Lay on 07/30/25 15:24 Results Reviewed Results Reviewed: Laboratory Last Values Urine pH (Auto) 6.0 07/30/25 15:03 Specific [place] (Auto) 1.020 07/30/25 15:03 Urine Protein (Auto) 0 mg/dL 07/30/25 15:03 Glucose (UA)(Auto) 0 mg/dL 07/30/25 15:03 Urine Ketones (Auto) Negative 07/30/25 15:03 Urine Blood (Auto) 25 Quinn/uL 07/30/25 15:03 Urine Nitrite (Auto) Negative 07/30/25 15:03 Urine Bilirubin (Auto) 0 mg/dL 07/30/25 15:03 Urine Urobilinogen (Auto) 0.2 mg/dL 07/30/25 15:03 Leukocyte Esterase (Auto) 15 Teddy/uL 07/30/25 15:03 Date of Service: 05/14/25 Procedure(s): US retroperitoneal comp FINDINGS: RIGHT KIDNEY: 12 x 7 x 6 cm (SAG x AP x TRV). Normal echotexture. Normal renal cortical thickness. No hydronephrosis. There is a 2.8 cm anechoic lesion at the corticomedullary junction/parapelvic midportion without nodular components were flow on color Doppler interrogation. LEFT KIDNEY: 12 x 6 x 5 cm (SAG x AP x TRV). Normal echotexture. Normal renal cortical thickness. No hydronephrosis. No solid or cystic lesion. BLADDER: Fluid-filled . Bilateral ureteral jets are demonstrated. Prevoid bladder volume is 325 mL. Postvoid bladder volume is 117 mL. Prostate gland is prominent and measures 5.2 x 5.5 x 5 point meters and volume: 78 cc. IMPRESSION: No hydronephrosis. 117 cc retained urine in a post void image. Probable benign prostate hyperplasia versus less likely malignancy. Prostate gland volume: 70 cc. 2.8 cm cyst, right kidney. Assessment & Plan Assessment & Plan (1) Hypogonadism in male: Code(s): E29.1 - Testicular hypofunction Category: Medical (2) BPH (benign prostatic hyperplasia): Code(s): N40.0 - Benign prostatic hyperplasia without lower urinary tract symptoms Category: Medical (3) Urinary retention: Code(s): R33.9 - Retention of urine, unspecified Category: Medical (4) Renal cyst: Code(s): N28.1 - Cyst of kidney, acquired Category: Medical (5) Enlarged prostate: Code(s): N40.0 - Benign prostatic hyperplasia without lower urinary tract symptoms Category: Medical Plan In office urinalysis results with the patient today; as noted above. We did discussed potential causes of urinary retention. We discussed most recent retroperitoneal ultrasound results reviewed with the patient today; as noted above. Most recent hemoglobin, hematocrit, PSA, and testosterone free and total results reviewed with the patient today; as noted above. Start finasteride as discussed and prescribed. Restart testosterone therapy as discussed and prescribed. We did discussed near future in office cystoscopy as well as uroflow for further assessment evaluation. Continue Flomax; refill provided. We did discussed potential causes and further treatment options of hypogonadism, urinary retention, in lower urinary tract symptoms Will obtain CBC, PSA, and testosterone free and total in 3 months. Follow-up in 3 months with labs and PVR to be completed prior; or sooner with any issues, concerns, and or questions. Orders: Orders Testosterone, Free/Total 3 Months E29.1 - Testicular hypofunction Prostate Specific Antigen 3 Months E29.1 - Testicular hypofunction Complete Blood Count no Diff 3 Months E29.1 - Testicular hypofunction Urine Cytology Today R31.29 - Other microscopic hematuria AMB Urinalysis Automated Today Z13.9 - Encounter for screening, unspecified Medications: New finasteride 5 mg PO DAILY 90 tabs 2RF 90 days N32.0 - Bladder-neck obstruction Refilled testosterone 30 mg/actuation (1.5 mL) This is an increase in dose. 3 pumps topical DAILY 90 mL 3RF 30 days E29.1 - Testicular hypofunction tamsulosin 0.4 mg PO BEDTIME 90 caps 1RF 90 days Discontinued oxycodone Partial Fill upon patient request. Discontinued Reason: Patient Completed Course 10 mg PO Q8H 14 days PRN 42 tabs 0RF Pain, Moderate(Pain Scale 4-6) Patient Instructions: The patient had an opportunity to ask questions regarding the treatment plan. All questions were answered. Physical exam, labs, and imaging were discussed and reviewed in detail. As well as risks, benefits, and discussion of treatment choices. No major barriers to understanding were identified. The patient expressed understanding and agreement with the above treatment plan. The patient was made aware they should contact our office by phone for worsening of their current condition, the appearance of new symptoms, or with any questions or concerns. Compliance is encouraged with any medications and follow up testing that is ordered. It is a privilege to be allowed the opportunity to participate in? your urological care.? Again, if you have any questions or concerns If you have any questions or concerns please do not hesitate to contact me. The office is [phone]. This note is constructed using voice recognition software. While every effort has been made to ensure accuracy liner checker errors may have been included. Yours sincerely, DEMETRIA Moran-MICHA Coding Level of Care Code Est Pt Level 4 (54119) Diagnoses Hypogonadism in male E29.1 BPH (benign prostatic hyperplasia) N40.0 Urinary retention R33.9 Renal cyst N28.1 Enlarged prostate N40.0
--- OUTSIDE RECORDS SUMMARY | 2025-07-30 23:28 | XMS_ITS | Clinical Summary ---
Author Organization [facility] Address [address] [place] [address] Phone Care Team Providers Care Machine Ii Coremaker Name Role Phone Joshua Oswald MD Unavailable [phone] Carissa Zuniga MD Primary Care Provid [...] total) by mouth daily. 30 tablet 11 Active oxyCODONE HCl 10 mg Tab Take 10 mg by mouth every 8 (eight) hours as needed. Active metroNIDAZOLE (METROCREAM) 0.75 % cream Active celecoxib (CELEBREX) 200 MG capsule Take 1 capsule by mouth 2 (two) times a day. 5 Active acetaminophen (TYLENOL) 325 mg tablet Active enoxaparin (LOVENOX) 40 mg/0.4 mL Syrg subcutaneous syringe 07/22/20 Discontinu ed(No longer taking) docusate sodium (COLACE) 100 MG capsule 07/22/20 Discontinu ed(No longer taking) Active Problems Problem Noted Date Diagnosed Date Left leg swelling 11/29/2023 Assessment & Plan (11/29/2023 1:47 PM EDT): Has some swelling and discoloration around left ankle. Not aware of any trauma to this area. Says he got a venous ultrasound at [facility] urgent care which was negative for clot. Symptoms have been attributed to a hematoma and he was told to apply heat to the area. 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 I have told him to seek medical assistance if he notices swelling worsening or if he were to develop sudden onset symptoms of chest pain/shortness of breath. He says that he might actually get a repeat ultrasound of his leg done at [facility] which has been scheduled for next week. Suspected sleep apnea 04/12/2018 Assessment & Plan (04/12/2018 8:37 AM EDT): History is suggestive of sleep apnea will do a sleep study referral for the same. Coronary artery disease invo lving kluti kaah coronary artery of kl[place] heart without angina pectoris 09/06/2017 Overview (09/26/2017): [...] of breath. He was worked up at [facility] for ACS and this was ruled [...] fibrillation. It was confirmed on EKG at [facility] as well as here in the [...] 1:45 PM EDT): Reviewed lipid panel from [facility] LDL cholesterol 57. Goal LDL less [...] Encounters Date Type Department Care Team Description 07/22/2025 9:00 AM EST Office Visit [facility] [address], [address] [place] [address] Faheem Solares MD Paroxysmal atrial fibrillation (Primary Dx); Coronary artery disease involving kluti kaah coronary artery of kl[place] ka[place] heart without angina pectoris; Essential hypertension; Pure hypercholesterolemia ; Atherosclerosis of kl[place] kaah coronary artery of kl[place] ka[place] heart without angina pectoris 05/26/2025 Telephone [facility] [address], [address] [place] [address] Faheem Solares MD 05/07/2025 2:15 PM EDT - 05/07/2025 11:59 PM EDT Hospital Encounter [facility] [place] [address] Nicole Cazares DNP Discharge Disposition: Home or Self Care 04/30/2025 Procedure Pass Echo [facility] [place] [address] [place] [address] 04/30/2025 Orders Only [facility] [address], [address] [place] [address] Nicole Cazares DNP Preop examination (Primary Dx); Essential hypertension 04/30/2025 Telephone [facility] [address], [address] [place] [address] Nicole Cazares DNP from Last 3 Months [...] Sign Reading Time Taken Comments Blood Pressure 130/80 07/22/2025 9:04 AM EST Pulse 76 07/22/2025 9:04 AM EST Temperature 36.2 C (97.1 F) 05/29/2024 10:40 AM EDT Respiratory Rate 18 05/29/2024 10:40 AM EDT Oxygen Saturation 97% 07/22/2025 9:04 AM EST Inhaled Oxygen Concentration - - Weight 108 kg (238 lb) 07/22/2025 9:04 AM EST Height 182.9 cm (6' 0.01 ) 07/22/2025 9:04 AM ES T Body Mass Index 32.27 07/22/2025 9:04 AM EST Plan of Treatment Upcoming Encounters Date Type Department Care Team (Late st Contact Info) Description 01/20/2026 10:00 AM EDT Office Visit [facility] [address], [address] [place] [address] Faheem Solares MD 22 [facility], [address] [address] 04/10/2026 9:00 AM EDT Office Visit [facility] [address], [address] [place] [address] Chetan Mercado MD, MS 22 [facility], [address] [place] [address] [email or web address] Health Maintenance Due Date Last Done Comments [...] season) 2025 09/12/2021, 12/11/2020, 11/20/2020 BLOOD PRESSURE 01/20/2026 07/22/2025 SCREENING FOR DIABETES 01/26/2026 01/26/2023 SMOKING Hx [...] no evidence of a ventricular septal defect. Nicole [place] [facility] CV ECHO ORDERABLES Final Result * (ABNORMAL) Basic metabolic panel (01/26/2023 7:39 PM EDT) SODIUM 138 133 - 146 mmol/L [facility] CHLORIDE 103 96 - 108 mmol/L [facility] POTASSIUM 4.5 3.3 - 5.1 mmol/L [facility] CO2 27 21 - 35 mmol/L [facility] BUN 20(H) 6 - 19 mg/dL [facility] CREATININE 0.80 0.5 - 1.5 mg/dL [facility] GLUCOSE 112(H) 70 - 99 mg/dL [facility] CALCIUM 9.0 8.4 - 10.3 mg/dL [facility] EGFR 100 >59 mL/min/1.7 3m2 [facility] Comment:Estimated glomerular filtration rate calculated using the CKD-EPI refit equation. ANION GAP 13 10 - 20 mmol/L [facility] Blood 01/26/2023 7:39 PM EDT 01/26/2023 8:05 PM EDT Gini Mccarthy PA-C LAB BLOOD BKR ORDERAB LES Final Result [address] [address] * (ABNORMAL) Lipid panel (05/05/2020 10:04 AM EDT) HDL 42 mg/dL [facility] Comment: Interpretation <40 mg/dL: Low HDL cholesterol (major risk factor for CHD) Greater than or equal to 60 mg/dL: High HDL cholesterol ( negative risk factor for CHD) HDL - cholesterol is affected by a number of factors, e.g. smoking, excerise, hormones, sex and age. CHOLESTEROL 114 0 - 240 mg/dL [facility] TRIGLYCERIDES 136 30 - 160 mg/dL [facility] LDL 45(L) 50 - 129 mg/dL [facility] Comment: LDL levels in terms of risk for coronary heart disease: <100 mg/dL: Optimal 100-129 mg/dL: Near or above optimal 130-159 mg/dL: Borderline high 160-189 mg/dL: High >190 mg/dL: Very High CARDIAC RISK RATIO 2.7(L) 3.4 - 5.0 [facility] Blood 05/05/2020 10:0 4 AM EDT 05/05/2020 10:08 AM EDT us Joshua Oswald MD LAB BLOOD BKR ORDERABLES Final Result [facility] [address] [place], [place] [id number] from Last 3 Months or Most Recently Relevant to Health Maintenance Insurance [facility] NON NSPG PCP S[employer] [...] NSPG PCP [employer] Care Teams Machine Ii Coremaker Relationship Specialty Start Date End Date Carissa Zuniga MD [address] [place] [address] PCP - General Internal Medicine 06/25/19 Joshua Oswald MD [address] [place] [address] [email or web address] Historical LMR Provider 06/08/17 Additional Source Comments The information contained in this document represents components of the legal health record. It is not the complete legal health record.[facility]
--- OUTSIDE RECORDS SUMMARY | 2025-07-30 23:28 | XMS_ITS | Encounter Summary ---
Author Organization [facility] Address [address] [address] Phone Care Team Providers Care Airplane Cabin Attendant Name Role Phone JimenaMartin Dimitrios NOVA Unavailable [phone] Joshua Oswald MD Unavailable [phone] Carissa Zuniga MD Primary Care Provid er Reason for Referral * - Closed Specialty Diagnoses / Procedures Referred By Yumiko allen Referred To Contact Diagnoses Paroxysmal atrial fibrillation Procedures MCT (Mobile Cardiac Telemetry) Faheem Solares MD Phone: tel: fax: mailto:[email or web address] Referral ID Status Reason Start Date Expiration Date Visits Re quested Visits Authorized [id number] Closed 07/30/2021 07/30/2022 1 1 Encounter Details Date Type Department Care Team (Latest Contact Info) Description 07/30/2021 Ancillary Orders [facility] [address] [place] [address] 3rd Floor, [address] [place] [address] Faheem Solares MD 22 [facility], [address] [address] [email or web address] Paroxysmal atrial fibrillation Social History Tobacco Use [...] Description 01/20/2026 10:00 AM EDT Office Visit [facility] [address] [place] [address] 3rd [facility], [address] [place] [address] Faheem Solares MD [address] [place] [address], [address] [address] 04/10/2026 9:00 AM EDT Office Visit [facility] [address], [address] [place] [address] Chetan Mercado MD, MS 22 [facility], [address] [address] [email or web address] Scheduled Orders Name Type Priority Associated Diagnoses Orde r Schedule MCT (Mobile Cardiac Telemetry) Cardiac Monitors Routine Paroxysmal atrial fibrillation Expected: 07/23/2021, Expires: 10/21/2021 documented as of this encounter Visit Diagnoses Diagnosis Paroxysmal atrial fibrillation Atrial fibrillation documented in this encounter Care Teams Airplane Cabin Attendant Relationship Specialty Start Date End Date Carissa Zuniga MD [address] [place] [address] PCP - General Internal Medicine 06/25/19 Martin Hess DO [address] [place] [address] Historical LMR Provider 06/08/17 Joshua Oswald MD [address] [place] [address] [email or web address] Historical LMR Provider 06/08/17 documented as of this encounter Additional Source Comments The information contained in this document represents components of the legal health record. It is not the complete legal health record.[facility]
--- OUTSIDE RECORDS SUMMARY | 2025-07-30 23:28 | XMS_ITS | Encounter Summary ---
Author Organization [facility] Address [address] [place] [address] Phone Care Team Providers Care Trench Trimmer Fine Name Role Phone Joshua Oswald MD Unavailable [phone] Carissa Zuniga MD Primary Care Provid er Encounter Details Date Type Department Care Team (Late st Contact Info) Description 01/26/2023 Procedure Pass [facility], Ct Scan - [address] [address] Social History Tobacco Use Types Packs/Day Years [...] Description 01/20/2026 10:00 AM EDT Office Visit [facility] [address], [address] [place] [address] Faheem Solares MD 22 [facility], [address] [place] [address] [email or web address] 04/10/2026 9:00 AM EDT Office Visit [facility] [address], [address] [place] [address] Chetan Mercado MD, MS 22 [facility], [address] [place] [phone] [email or web address] documented as of this encounter Visit Diagnoses Not on filedocumented in this encounter Care Teams Trench Trimmer Fine Relationship Specialty Start Date End Date Carissa Zuniga MD [address] [place] [address] PCP - General Internal Medicine 06/25/19 Joshua Oswald MD [address] [place] [address] [email or web address] Historical LMR Provider 06/08/17 documented as of this encounter Additional Source Comments The information contained in this document represents components of the legal health record. It is not the complete legal health record.[facility]
--- OUTSIDE RECORDS SUMMARY | 2025-07-30 23:28 | XMS_ITS | Patient Health Record ---
Author Organization [facility] Address [address] [place] [address] Care Team Providers Care Clearing Hand Name Role Phone Jimena(inactive) Martin ZAMBRANO Primary Care Provider U Chetan Ribera Unavailable [phone] Allergies Allergen (clinical drug ingredient) Drug/Non Drug [...] Problem Screening for malignant neoplasm of colon (192722942) Special screening for malignant neoplasms, colon (V76.51) Active confirmed Plan Of Treatment Future Test Test Name Order Date COLONOSCOPY 07/20/2011 Medical (General) History Medical History History ICD Code atrial fibrillation hypertension hyperlipidemia Denies RI,DM,CVA,Lung disease,renal dise ase he describes a negative cardiac catheter ization Surgical History Surgery Date(Month/Year) appendectomy knee surgery shoulder surgery
--- OUTSIDE RECORDS SUMMARY | 2025-07-30 23:28 | XMS_ITS | Encounter Summary ---
Author Organization [facility] Address [address] [place] [address] Phone Care Team Providers Care Contact Lens Curve Grinder Name Role Phone Joshua Oswald MD Unavailable [phone] Carissa Zuniga MD Primary Care Provid er Reason for Referral * Hospital - Outpatient - Closed Specialty Diagnoses / Procedures Referred By Yumiko allen Referred To Contact Radiology Diagnoses TIA (transient ischemic attack) Spell of change in speech Aphasia Procedures US Carotid Duplex Complete (Bilateral) Rashad Thorpe MD [address] [place] [address], [address] [place] [address] Phone: tel: fax: mailto:[email or web address] Referral ID Status Reason Start Date Expiration Date Visits Re quested Visits Authorized [id number] Closed 03/25/2025 03/25/2026 1 1 Encounter Details Date Type Department Care Team (Latest Contact Info) Description 03/25/2025 Transcribe Orders Virtual Department [address] [place], [place] [phone] Rashad Thorpe MD [address] [place] [address], [address] [place], [place] [phone] [email or web address] TIA (transient ischemic attack) (Primary Dx); Spell [...] Description 01/20/2026 10:00 AM EDT Office Visit [facility] [address], [address] [place] [address] Faheem Solares MD 22 [facility], [address] [place] [address] [email or web address] 04/10/2026 9:00 AM EDT Office Visit [facility] [address], [address] [place] [address] Chetan Mercado MD, MS 22 [facility], [address] [place] [address] [email or web address] [...] represents the denominator. us Rashad Thorpe MD [facility] Final Re sult documented in this encounter Visit Diagnoses Diagnosis TIA (transient ischemic attack)- Primary Unspecified transient cerebral ischemia Spell of change in speech Aphasia TIA (transient ischemic attack) Unspecified transient cerebral ischemia Spell of change in speech Aphasia documented in this encounter Care Teams Contact Lens Curve Grinder Relationship Specialty Start Date End Date Carissa Zuniga MD [address] [place] [address] PCP - General Internal Medicine 06/25/19 Joshua Oswald MD [address] [place] [phone] [email or web address] Historical LMR Provider 06/08/17 documented as of this encounter Additional Source Comments The information contained in this document represents components of the legal health record. It is not the complete legal health record.[facility]
--- OUTSIDE RECORDS SUMMARY | 2025-07-30 23:28 | XMS_ITS | Encounter Summary ---
Author Organization [facility] Address [address] [place] [address] Phone Care Team Providers Care Tobacco Blender Name Role Phone Joshua Oswald MD Unavailable [phone] Carissa Zuniga MD Primary Care Provid er Encounter Details Date Type Department Care Team (Late st Contact Info) Description 04/30/2025 Procedure Pass [facility] [address] [place] [address] Social History Tobacco Use Types Packs/Day Years [...] Description 01/20/2026 10:00 AM EDT Office Visit [facility] [address] [place] [address] 3rd Floor, [address] [place] [address] Faheem Solares MD 22 [facility], [address] [address] [email or web address] 04/10/2026 9:00 AM EDT Office Visit [facility] [address] 3[address], [address] [place] [address] Chetan Mercado MD, MS 22 [facility], [address] [address] [email or web address] documented as of this encounter Visit Diagnoses Not on filedocumented in this encounter Care Teams Tobacco Blender Relationship Specialty Start Date End Date Carissa Zuniga MD [address] [place] [address] PCP - General Internal Medicine 06/25/19 Joshua Oswald MD [address] [address] [email or web address] Historical LMR Provider 06/08/17 documented as of this encounter Additional Source Comments The information contained in this document represents components of the legal health record. It is not the complete legal health record.[facility]
--- OUTSIDE RECORDS SUMMARY | 2025-07-30 23:28 | XMS_ITS | Clinical Summary ---
Author Organization [facility] Address [address] [place] [address] Care Team Providers Care Accounting Bookkeeper Name Role Phone Unavailable Primary Care Provider [...]
== END 2025-07-30 15:33 | disposition home or self-care (01) ==
LOC: HO.HUSH 14:55
PROVIDERS: PCP Internal Medicine; Visit Provider Nurse Practitioner Family
DX: E29.1 Testicular hypofunction (principal); N40.0 Benign prostatic hyperplasia without lower urinary tract symptoms; R33.9 Retention of urine, unspecified; N28.1 Cyst of kidney, acquired; Z13.9 Encounter for screening, unspecified
CPT/HCPCS: 99214

== ENCOUNTER 2025-07-30 14:55 | Outpatient (REF) | payer OTHER, SELFPAY | END 2025-07-30 14:56 | disposition home or self-care (01) | LOC: HO.LAB 14:55 | PROVIDERS: PCP Internal Medicine; Visit Provider Nurse Practitioner Family | DX: E29.1 Testicular hypofunction (principal); N40.1 Benign prostatic hyperplasia with lower urinary tract symptoms; R33.8 Other retention of urine; N28.1 Cyst of kidney, acquired; R31.29 Other microscopic hematuria | CPT/HCPCS: 81003; 88112; 99212 ==